=== PATIENT | male | born 1985 | race Caucasian/White ===

== ENCOUNTER 2024-03-26 16:13 | Inpatient (IN) ==
[2024-03-26 17:30] LABS: Anisocytosis Present; Basophils # (auto) 0.01 K/uL (0.00-0.20); Basophils % (auto) 0.1 %; Hematocrit (blood only) 15.9 % (42.0-52.0); Hemoglobin 4.4 g/dl (14.0-18.0); Hypochromasia Present; Immature Granulocytes # (auto) 0.23 K/uL (0.01-0.20); Immature Granulocytes % (auto) 1.6 %; Lymphocytes # (auto) 0.44 K/uL (1.20-3.40); Mean Corpuscular Hemoglobin 19.9 pg (25.0-34.0); Mean Corpuscular Hgb Conc 27.7 g/dL (32.0-36.0); Mean Corpuscular Volume 71.9 fL (80.0-100.0); Mean Platelet Volume 10.4 fL (9.4-12.4); Monocytes # (auto) 1.43 K/uL (0.11-0.59); Monocytes % (auto) 9.8 %; Neutrophils # (auto) 12.52 K/uL (1.40-6.50); Neutrophils % (auto) 85.5 %; Nucleated RBC # (auto) 0.08 K/uL (0.00-0.12); Nucleated RBC % (auto) 0.5 %; Platelet Count 284 K/uL (130-400); Polychromasia 1+; RDW Coefficient of Variation 24.8 % (11.5-14.5); RDW Standard Deviation 60.9 fL (36.4-46.3); Red Blood Count 2.21 M/uL (4.70-6.10); Stomatocytes 1+; Target Cells 1+; Tear Drop Cells 1+; White Blood Count 14.63 K/ul (4.8-10.8)
[2024-03-26 17:38] LABS: Acetaminophen < 3 ug/ml (10-30); Salicylate < 3.0 mg/dl (3.0-30)
[2024-03-26 17:45] LABS: Alkaline Phosphatase 121 U/L (34-104); Blood Urea Nitrogen 21 mg/dl (6-23)
[2024-03-26 18:18] LABS: Alanine Aminotransferase 31 U/L (7-52); Albumin Globulin Ratio 1.1 (0.9-2); Albumin Level 3.1 gm/dl (3.4-5.0); Anion Gap 14 (3-11); Aspartate Aminotransferase 76 U/L (13-39); Bilirubin,Total 22.5 mg/dl (0.2-1.0); Calcium 7.9 mg/dl (8.6-10.3); Carbon Dioxide 21 mmol/L (21-32); Chloride 78 mmol/L (98-107); Globulin 2.7 gm/dl (2.5-4.0); Glucose 120 mg/dl (70-99(Fasting)); Potassium 3.5 mmol/L (3.5-5.1); Sodium 113 mmol/L (136-145); Total Protein 5.8 gm/dl (6.0-8.3)
[2024-03-26 18:26] LABS: Prothrombin Time 20.7 Seconds (9.0-12.0)
[2024-03-26 19:22] LABS: iSTAT Creatinine 1.5 mg/dl (0.6-1.3); iSTAT Hemoglobin 5.8 g/dl (14.0-18.0); iSTAT Ionized Calcium 0.99 mmol/l (1.12-1.32); iSTAT Potassium 3.4 mmol/L (3.3-5.0)
--- NOTE | 2024-03-26 19:24 | Emergency Department Note ---
Impression & Plan Acute liver failure, Alcoholic cirrhosis, Anemia, Jaundice, Elevated bilirubin ED Provider Note NAME: JEOVANNY JORDAN AGE: 38 SEX: M : 1985 ARRIVES VIA: Walk-In INFORMANT: Patient, ED PROVIDER(S): Rebeka Encarnacion MD CHIEF COMPLAINT: Jaundice HPI: This is a 38-year-old male presenting for jaundice. Patient states for past 1 week he has had no energy and, no appetite and has noticed he became sick significantly yellow. He notes he does not drink alcohol last 2 days. He notes aching through his entire body. He notes alcohol use extensively past 10 years, daily alcohol use, extensive, no change to this. Otherwise no nausea, vomiting. No abdominal pain. He does note his abdomen is distended. ROS: See above HPI for pertinent positives & negatives. A total of 10 systems reviewed and were otherwise negative. PHYSICAL EXAMINATION: General: resting comfortably in no acute distress Head: Normocephalic and atraumatic Eyes: Normal inspection, extraocular muscles intact, scleral icterus Ear, nose, throat: Normal external exam Neck: Normal range of motion Respiratory: lungs clear to auscultation bilaterally Cardiovascular: Regular rate/rhythm, no murmur GI: soft, nontender, no guarding or rebound, distended abdomen Extremities: nontender, moves all extremities Neuro: The patient awake and alert, appropriately conversive, no focal deficits, symmetric faces Skin: Diffuse jaundice MEDICAL DECISION MAKING: This is a 38-year-old male presenting for jaundice. -Patient extremely jaundiced. -Patient send abdomen is no tenderness. Low concern for obstructive cause such as choledocholithiasis. -Will initiate broad workup with blood work, CBC, BMP, LFTs, lipase, INR -Patient remains over 20 at this time, significant leukocytosis, hemoglobin of 4.4, INR of 2. Patient appears to be in liver failure. Patient denies any trauma. -Will pursue imaging as result of this significant bilirubin as to rule out obstructive cause. Otherwise we will evaluate for internal injuries. -Patient being does reveal signs of cirrhosis without obstruction. -Patient ordered for 2 units of blood at this time. No signs of active hemorrhage. Patient is not hypertensive, hypotensive or signs of infection at this time. -Discussed care with on-call hospitalist, Dr. Martinez with accepts patient to his service. Differential diagnosis: Choledocholithiasis, cholecystitis, liver failure, cancer, ER treatment provided: See below Diagnostics interpreted by me: ECG: ECG independently interpreted by me with normal sinus rhythm, rate of 80, normal axis, normal WA, normal QRS, prolonged QTc, no ST segment elevations consistent with STEMI criteria Cardiac Monitoring: An order was placed for continuous cardiac monitoring. The monitor shows a rate of 88 with sinus rhythm. Laboratory studies: As stated above and show below. Imaging studies: See below. Critical Care Note: I have personally spent 32 minutes of critical care time in the direct management of this patient. This includes bedside care, interpretation of diagnostic studies, and testing, discussion with consultants, patient, and family members, and other required patient management activities. This 32 minutes is in excess of all separately billable procedures. Past Med/Surg History Problem List (Updated 04/02/24 @ 00:09 by Rebeka Encarnacion MD) Elevated bilirubin (Acute) Jaundice (Acute) Anemia (Acute) Alcoholic cirrhosis (Acute) Acute liver failure (Acute) Encounter for pre-operative examination Hyponatremia Medical History Renal failure Electrolyte and fluid disorder Acute GI bleeding Cirrhosis Alcoholic liver failure Profound anemia Alcohol abuse Surgical History Hx of wisdom tooth extraction Hx of myringotomy Family History Father Heart disease Mother Cancer Social History Smoking Status: Never smoker Second Hand Exposure: No; Do You Dip or Chew Tobacco: No; Hx Alcohol Use: Yes Alcohol type: hard liquor Hx Substance Use: No Preferred Language: Niuean Communication Ability: Effective Culture Manager Required: No Beliefs That Will Affect Care: None Current Living Situation: Alone Other Information That Helps Us Care for You: No Feels Safe at Home: Yes Safety Concerns: Feels Safe At This Time Assistive Devices: None Allergies Allergies Allergy/AdvReac Type Severity Reaction Status Date / Time No Known Allergies Allergy Verified 03/26/24 19:12 Home Meds Home Medications Medication Instructions Recorded Confirmed No Known Home Medications 03/26/24 03/26/24 Results & Data (ED) Vital Signs Vital Signs - 24 hr 03/26/24 19:00 03/26/24 19:21 03/26/24 19:50 Temperature Temperature Source Pulse Rate 93 H 91 H Pulse Rate [Radial] Pulse Rate from SpO2 Sensor Respiratory Rate 21 21 Blood Pressure 111/63 Blood Pressure [Left Arm] Blood Pressure Mean 79 Blood Pressure Mean [Left Arm] Pulse Oximetry 03/26/24 20:00 03/26/24 20:00 03/26/24 20:21 Temperature Temperature Source Pulse Rate 91 H 90 Pulse Rate [Radial] Pulse Rate from SpO2 Sensor 90 Respiratory Rate 18 Blood Pressure 116/78 116/78 Blood Pressure [Left Arm] Blood Pressure Mean 88 88 Blood Pressure Mean [Left Arm] Pulse Oximetry 95 91 03/26/24 20:30 03/26/24 20:30 03/26/24 20:30 Temperature Temperature Source Pulse Rate Pulse Rate [Radial] Pulse Rate from SpO2 Sensor Respiratory Rate Blood Pressure 116/68 116/68 116/68 Blood Pressure [Left Arm] Blood Pressure Mean 94 94 94 Blood Pressure Mean [Left Arm] Pulse Oximetry 03/26/24 20:30 03/26/24 20:47 03/26/24 21:00 Temperature Temperature Source Pulse Rate 91 H 86 Pulse Rate [Radial] Pulse Rate from SpO2 Sensor 91 H Respiratory Rate 21 Blood Pressure 115/61 Blood Pressure [Left Arm] Blood Pressure Mean 78 Blood Pressure Mean [Left Arm] Pulse Oximetry 92 03/26/24 21:00 03/26/24 21:00 03/26/24 21:29 Temperature 36.8 C Temperature Source Oral Pulse Rate 91 H 92 H Pulse Rate [Radial] Pulse Rate from SpO2 Sensor 87 Respiratory Rate 22 18 Blood Pressure 115/61 115/61 Blood Pressure [Left Arm] Blood Pressure Mean 78 79 Blood Pressure Mean [Left Arm] Pulse Oximetry 94 95 03/26/24 21:39 03/26/24 21:45 03/26/24 22:00 Temperature 36.2 C L 36.8 C Temperature Source Oral Oral Pulse Rate 87 91 H 93 H Pulse Rate [Radial] Pulse Rate from SpO2 Sensor 88 Respiratory Rate 18 18 18 Blood Pressure 128/69 128/69 Blood Pressure [Left Arm] Blood Pressure Mean 88 88 Blood Pressure Mean [Left Arm] Pulse Oximetry 97 99 98 03/26/24 22:00 03/26/24 22:00 03/26/24 22:00 Temperature Temperature Source Pulse Rate 92 H 92 H Pulse Rate [Radial] Pulse Rate from SpO2 Sensor 93 H Respiratory Rate 18 19 Blood Pressure 128/69 128/69 Blood Pressure [Left Arm] Blood Pressure Mean 95 95 Blood Pressure Mean [Left Arm] Pulse Oximetry 97 98 03/26/24 22:09 03/26/24 22:30 03/26/24 22:30 Temperature Temperature Source Pulse Rate 87 91 H Pulse Rate [Radial] Pulse Rate from SpO2 Sensor 89 Respiratory Rate 20 20 Blood Pressure 113/72 113/72 Blood Pressure [Left Arm] Blood Pressure Mean 78 78 Blood Pressure Mean [Left Arm] Pulse Oximetry 97 99 03/26/24 22:33 03/26/24 23:00 03/26/24 23:00 Temperature 36.9 C Temperature Source Oral Pulse Rate 91 H 97 H Pulse Rate [Radial] 84 Pulse Rate from SpO2 Sensor 91 H 98 H Respiratory Rate 20 15 18 Blood Pressure Blood Pressure [Left Arm] 122/66 Blood Pressure Mean Blood Pressure Mean [Left Arm] 84 Pulse Oximetry 99 100 99 03/26/24 23:48 03/27/24 00:00 03/27/24 00:21 Temperature 37 C Temperature Source Oral Pulse Rate 90 87 Pulse Rate [Radial] 85 Pulse Rate from SpO2 Sensor 92 H 86 Respiratory Rate 22 18 23 Blood Pressure Blood Pressure [Left Arm] 119/67 Blood Pressure Mean Blood Pressure Mean [Left Arm] 84 Pulse Oximetry 99 98 03/27/24 00:22 03/27/24 00:23 03/27/24 00:23 Temperature 36.8 C Temperature Source Oral Pulse Rate 88 Pulse Rate [Radial] Pulse Rate from SpO2 Sensor Respiratory Rate 18 Blood Pressure 119/67 119/67 119/67 Blood Pressure [Left Arm] Blood Pressure Mean 84 84 84 Blood Pressure Mean [Left Arm] Pulse Oximetry 98 03/27/24 00:27 03/27/24 00:30 03/27/24 00:30 Temperature 37 C Temperature Source Oral Pulse Rate 87 Pulse Rate [Radial] 85 Pulse Rate from SpO2 Sensor 86 Respiratory Rate 19 18 Blood Pressure 122/66 Blood Pressure [Left Arm] 119/69 Blood Pressure Mean 85 Blood Pressure Mean [Left Arm] 85 Pulse Oximetry 99 95 03/27/24 00:30 03/27/24 00:45 03/27/24 00:57 Temperature 36.6 C Temperature Source Oral Pulse Rate 91 H 90 Pulse Rate [Radial] Pulse Rate from SpO2 Sensor 88 Respiratory Rate 18 22 Blood Pressure 122/66 122/68 Blood Pressure [Left Arm] Blood Pressure Mean 85 86 Blood Pressure Mean [Left Arm] Pulse Oximetry 99 99 03/27/24 00:59 03/27/24 01:00 Temperature Temperature Source Pulse Rate 89 Pulse Rate [Radial] Pulse Rate from SpO2 Sensor Respiratory Rate Blood Pressure 122/68 Blood Pressure [Left Arm] Blood Pressure Mean 77 Blood Pressure Mean [Left Arm] Pulse Oximetry Laboratory Data 04/01/24 06:00 04/01/24 06:00 Lab Results 03/26/24 03/26/24 03/26/24 Range/Units 16:41 18:21 19:09 WBC 14.63 H (4.8-10.8) K/ul RBC 2.21 L (4.70-6.10) M/uL Hgb 4.4 L* (14.0-18.0) g/dl POC Hgb 5.8 L* (14.0-18.0) g/dl Hct 15.9 L* (42.0-52.0) % POC Hct 17 L* (42-52) % MCV 71.9 L (80.0-100.0) fL MCH 19.9 L (25.0-34.0) pg MCHC 27.7 L (32.0-36.0) g/dL RDW Std Deviation 60.9 H (36.4-46.3) fL RDW Coeff of Christy 24.8 H (11.5-14.5) % Plt Count 284 (130-400) K/uL MPV 10.4 (9.4-12.4) fL Immature Gran % (Auto) 1.6 % Neut % (Auto) 85.5 % Lymph % (Auto) 3.0 % [place] % (Auto) 9.8 % Eos % (Auto) 0.0 % Baso % (Auto) 0.1 % Neut # (Auto) 12.52 H (1.40-6.50) K/uL Lymph # (Auto) 0.44 L (1.20-3.40) K/uL [place] # (Auto) 1.43 H (0.11-0.59) K/uL Eos # (Auto) 0.00 (0.00-0.50) K/uL Baso # (Auto) 0.01 (0.00-0.20) K/uL Immature Gran # (Auto) 0.23 H (0.01-0.20) K/uL Absolute Nucleated RBC 0.08 (0.00-0.12) K/uL Nucleated RBC % (auto) 0.5 % Polychromasia 1+ Hypochromasia Present Anisocytosis Present Target Cells 1+ Tear Drop Cells 1+ Stomatocytes 1+ PT 20.7 H (9.0-12.0) Seconds INR 2.0 H (0.9-1.1) POC Sodium 112 L* (135-144) mmol/L Sodium 113 L* (136-145) mmol/L POC Potassium 3.4 (3.3-5.0) mmol/L Potassium 3.5 (3.5-5.1) mmol/L POC Chloride 76 L (101-112) mmol/L Chloride 78 L (98-107) mmol/L Carbon Dioxide 21 (21-32) mmol/L POC Total CO2 22 L (24-31) mmol/L Anion Gap 14 H (3-11) POC Anion Gap 19.0 (16-25) mmol/L POC BUN 19 H (7-18) mg/dl BUN 21 (6-23) mg/dl Creatinine TNP POC Creatinine 1.5 H (0.6-1.3) mg/dl Est Cr Clr Drug Dosing TNP Est GFR ( Amer) TNP Est GFR (Non-Af Amer) TNP BUN/Creatinine Ratio TNP Glucose 120 H (70-99(Fasting)) mg/dl POC Glucose (other) 119 H (70-99) mg/dl Calcium 7.9 L (8.6-10.3) mg/dl POC Ioniz Calcium Alok 0.99 L (1.12-1.32) mmol/l Total Bilirubin 22.5 H (0.2-1.0) mg/dl Direct Bilirubin 14.2 H (0-0.2) mg/dl AST 76 H (13-39) U/L ALT 31 (7-52) U/L Alkaline Phosphatase 121 H (34-104) U/L Total Protein 5.8 L (6.0-8.3) gm/dl Albumin 3.1 L (3.4-5.0) gm/dl Globulin 2.7 (2.5-4.0) gm/dl Albumin/Globulin Ratio 1.1 (0.9-2) Lipase TNP Urine Color Urine Appearance (Clear) Urine pH (4.5-7.5) Ur Specific [place] (1.000-1.030) Urine Protein (Negative) Urine Glucose (UA) (Negative) Urine Ketones (Negative) Urine Blood (Negative) Urine Nitrite (Negative) Urine Bilirubin (Negative) Urine Urobilinogen (Negative) Ur Leukocyte Esterase (Negative) Urine WBC (Auto) (0-5) /hpf Urine RBC (Auto) (0-2) /hpf U Hyaline Cast (Auto) (0-2) /lpf U Epithel Cells (Auto) (0-2) /hpf Urine Bacteria (Auto) (None Seen) Salicylates < 3.0 L (3.0-30) mg/dl Urine Opiates Screen (Neg) Ur Methadone, Qual (Neg) Urine Fentanyl Screen (Neg) Acetaminophen < 3 L (10-30) ug/ml Urine Barbiturates (Neg) Ur Phencyclidine (PCP) (Neg) U Amphetamin/Meth Scrn (Neg) MDMA (Ecstasy) Screen (Neg) U Benzodiazepines Scrn (Neg) Ur Cocaine Metabolite (Neg) U Marijuana (THC) Screen (Neg) Ethyl Alcohol mg/dL < 10.0 (<10.0) mg/dl Blood Type A Positive Blood Type Recheck Antibody Screen NEGATIVE Crossmatch See Detail 03/26/24 03/26/24 Range/Units 19:46 21:00 WBC (4.8-10.8) K/ul RBC (4.70-6.10) M/uL Hgb (14.0-18.0) g/dl POC Hgb (14.0-18.0) g/dl Hct (42.0-52.0) % POC Hct (42-52) % MCV (80.0-100.0) fL MCH (25.0-34.0) pg MCHC (32.0-36.0) g/dL RDW Std Deviation (36.4-46.3) fL RDW Coeff of Christy (11.5-14.5) % Plt Count (130-400) K/uL MPV (9.4-12.4) fL Immature Gran % (Auto) % Neut % (Auto) % Lymph % (Auto) % [place] % (Auto) % Eos % (Auto) % Baso % (Auto) % Neut # (Auto) (1.40-6.50) K/uL Lymph # (Auto) (1.20-3.40) K/uL [place] # (Auto) (0.11-0.59) K/uL Eos # (Auto) (0.00-0.50) K/uL Baso # (Auto) (0.00-0.20) K/uL Immature Gran # (Auto) (0.01-0.20) K/uL Absolute Nucleated RBC (0.00-0.12) K/uL Nucleated RBC % (auto) % Polychromasia Hypochromasia Anisocytosis Target Cells Tear Drop Cells Stomatocytes PT (9.0-12.0) Seconds INR (0.9-1.1) POC Sodium (135-144) mmol/L Sodium (136-145) mmol/L POC Potassium (3.3-5.0) mmol/L Potassium (3.5-5.1) mmol/L POC Chloride (101-112) mmol/L Chloride (98-107) mmol/L Carbon Dioxide (21-32) mmol/L POC Total CO2 (24-31) mmol/L Anion Gap (3-11) POC Anion Gap (16-25) mmol/L POC BUN (7-18) mg/dl BUN (6-23) mg/dl Creatinine POC Creatinine (0.6-1.3) mg/dl Est Cr Clr Drug Dosing Est GFR ( Amer) Est GFR (Non-Af Amer) BUN/Creatinine Ratio Glucose (70-99(Fasting)) mg/dl POC Glucose (other) (70-99) mg/dl Calcium (8.6-10.3) mg/dl POC Ioniz Calcium Alok (1.12-1.32) mmol/l Total Bilirubin (0.2-1.0) mg/dl Direct Bilirubin (0-0.2) mg/dl AST (13-39) U/L ALT (7-52) U/L Alkaline Phosphatase (34-104) U/L Total Protein (6.0-8.3) gm/dl Albumin (3.4-5.0) gm/dl Globulin (2.5-4.0) gm/dl Albumin/Globulin Ratio (0.9-2) Lipase Urine Color Dark Yellow Urine Appearance Clear (Clear) Urine pH 6.0 (4.5-7.5) Ur Specific [place] > 1.045 H (1.000-1.030) Urine Protein Negative (Negative) Urine Glucose (UA) Negative (Negative) Urine Ketones Trace H (Negative) Urine Blood Negative (Negative) Urine Nitrite Negative (Negative) Urine Bilirubin 3+ H (Negative) Urine Urobilinogen Negative (Negative) Ur Leukocyte Esterase Trace H (Negative) Urine WBC (Auto) 0-5 (0-5) /hpf Urine RBC (Auto) >20 H (0-2) /hpf U Hyaline Cast (Auto) 0-2 (0-2) /lpf U Epithel Cells (Auto) 6-10 H (0-2) /hpf Urine Bacteria (Auto) None Seen (None Seen) Salicylates (3.0-30) mg/dl Urine Opiates Screen Neg (Neg) Ur Methadone, Qual Neg (Neg) Urine Fentanyl Screen Neg (Neg) Acetaminophen (10-30) ug/ml Urine Barbiturates Neg (Neg) Ur Phencyclidine (PCP) Neg (Neg) U Amphetamin/Meth Scrn Neg (Neg) MDMA (Ecstasy) Screen Neg (Neg) U Benzodiazepines Scrn Neg (Neg) Ur Cocaine Metabolite Neg (Neg) U Marijuana (THC) Screen Neg (Neg) Ethyl Alcohol mg/dL (<10.0) mg/dl Blood Type Blood Type Recheck A Positive Antibody Screen Crossmatch Administered Medications Furosemide (Furosemide 20 Mg Tab) [facility] Stop: 04/29/24 11:29 Last Admin: 04/01/24 08:39 Dose: 20 mg Documented By: Admin: 03/31/24 08:11 Dose: 20 mg Documented By: Admin: 03/30/24 12:59 Dose: 20 mg Documented By: CB Hydrocortisone (Hydrocortisone 2.5% Oint 20 Gm Tube) 1 appln EXT BID [facility] Stop: 05/01/24 08:59 Last Admin: 04/01/24 20:47 Dose: 1 appln Documented By: Admin: 04/01/24 08:43 Dose: 1 appln Documented By: EP Folic Acid 1 mg/ Syringe 10 mls @ 5 mls/min IV QAM [facility] Stop: 04/26/24 08:59 Last Admin: 04/01/24 08:41 Dose: 5 mls/min Documented By: Admin: 03/31/24 08:13 Dose: 5 mls/min Documented By: Admin: 03/30/24 09:08 Dose: 5 mls/min Documented By: Admin: 03/29/24 08:52 Dose: 5 mls/min Documented By: Admin: 03/28/24 16:57 Dose: Not Given Documented By: Admin: 03/27/24 09:34 Dose: 5 mls/min Documented By: MILAGROS Lactulose (Lactulose Syrup 20 Gm/30 Ml Udc) 20 gm PO DAILY YU Stop: 04/29/24 11:44 Last Admin: 04/01/24 08:41 Dose: 20 gm Documented By: Admin: 03/31/24 08:12 Dose: 20 gm Documented By: Admin: 03/30/24 13:00 Dose: 20 gm Documented By: SHANIQUE Lidocaine HCl (Lidocaine 2% Jelly 5 Ml Tube) 1 ml EXT BID YU Stop: 05/01/24 08:59 Last Admin: 04/01/24 20:55 Dose: 1 ml Documented By: Admin: 04/01/24 12:37 Dose: 1 ml Documented By: DA Pantoprazole Sodium (Pantoprazole 40 Mg Tab) 40 mg PO BID YU Stop: 04/29/24 11:29 Last Admin: 04/01/24 20:45 Dose: 40 mg Documented By: Admin: 04/01/24 08:39 Dose: 40 mg Documented By: Admin: 03/31/24 20:40 Dose: 40 mg Documented By: Admin: 03/31/24 08:11 Dose: 40 mg Documented By: Admin: 03/30/24 20:44 Dose: 40 mg Documented By: Admin: 03/30/24 13:00 Dose: 40 mg Documented By: SHANIQUE Rifaximin (Rifaximin 550 Mg Tablet) 550 mg PO BID [facility] Stop: 04/29/24 11:44 Last Admin: 04/01/24 20:45 Dose: 550 mg Documented By: Admin: 04/01/24 08:41 Dose: 550 mg Documented By: Admin: 03/31/24 20:40 Dose: 550 mg Documented By: Admin: 03/31/24 08:12 Dose: 550 mg Documented By: Admin: 03/30/24 20:43 Dose: 550 mg Documented By: Admin: 03/30/24 13:00 Dose: 550 mg Documented By: SHANIQUE Spironolactone (Spironolactone 25 Mg Tab) 50 mg PO QAM YU Stop: 04/29/24 11:29 Last Admin: 04/01/24 08:40 Dose: 50 mg Documented By: Admin: 03/31/24 08:12 Dose: 50 mg Documented By: Admin: 03/30/24 13:00 Dose: 50 mg Documented By: SHANIQUE Discontinued Medications Dexmedetomidine/Sodium Chloride (Dexmedetomidine 200mcg / 50ml Nss) Confirm Administered Dose 200 mcg IV .STK-MED ONE Stop: 03/28/24 13:51 Last Admin: 03/28/24 15:57 Dose: Not Given Documented By: MILAGROS Sodium Chloride (Nss) 250 mls @ 15 mls/hr IV .[id number] PRN PRN Reason: For Transfusion Duration Stop: 03/27/24 04:27 Last Infusion: 03/28/24 14:15 Dose: Infused Documented By: Admin: 03/26/24 21:32 Dose: 15 mls/hr Documented By: ACE Sodium Chloride (Nss) 1,000 mls @ 999 mls/hr IV .Q1H1M ONE Stop: 03/26/24 20:30 Last Infusion: 03/26/24 20:51 Dose: Infused Documented By: Admin: 03/26/24 19:50 Dose: 999 mls/hr Documented By: ACE Acetylcysteine 10,550 mg/ (Dextrose) 252.75 mls @ 200 mls/hr IV ONCE ONE; Protocol Stop: 03/27/24 02:38 Last Infusion: 03/27/24 03:11 Dose: Infused Documented By: Admin: 03/27/24 01:51 Dose: 200 mls/hr Documented By: ACE Acetylcysteine 3,520 mg/ (Dextrose) 517.6 mls @ 125 mls/hr IV ONCE ONE; Protocol Stop: 03/27/24 06:31 Last Infusion: 03/27/24 10:27 Dose: Infused Documented By: Admin: 03/27/24 03:10 Dose: 125 mls/hr Documented By: BHAVNA Acetylcysteine 7,030 mg/ (Dextrose) 1,035.15 mls @ 62.5 mls/hr IV ONCE ONE; Protocol Stop: 03/27/24 22:56 Last Infusion: 03/28/24 00:40 Dose: Infused Documented By: Admin: 03/27/24 07:55 Dose: 62.5 mls/hr Documented By: MILAGROS Ceftriaxone Sodium (Rocephin) 2,000 mg in 50 mls @ 100 mls/hr IV NOW STA Stop: 03/27/24 02:02 Last Infusion: 03/27/24 02:25 Dose: Infused Documented By: Admin: 03/27/24 01:51 Dose: 100 mls/hr Documented By: ACE Pantoprazole Sodium 40 mg/ (Dextrose) 100 mls @ 20 mls/hr IV Q5H YU Stop: 04/26/24 02:30 Last Infusion: 03/30/24 11:42 Dose: Infused Documented By: Infusion: 03/30/24 11:42 Dose: 0 mg/hr, 0 mls/hr Documented By: Admin: 03/30/24 09:08 Dose: 8 mg/hr, 20 mls/hr Documented By: Infusion: 03/30/24 09:08 Dose: Infused Documented By: Admin: 03/30/24 05:15 Dose: 8 mg/hr, 20 mls/hr Documented By: Infusion: 03/30/24 05:15 Dose: Infused Documented By: Admin: 03/30/24 00:28 Dose: 8 mg/hr, 20 mls/hr Documented By: Infusion: 03/30/24 00:28 Dose: Infused Documented By: Admin: 03/29/24 19:48 Dose: 8 mg/hr, 20 mls/hr Documented By: Infusion: 03/29/24 19:14 Dose: Infused Documented By: Admin: 03/29/24 14:14 Dose: 8 mg/hr, 20 mls/hr Documented By: Infusion: 03/29/24 14:14 Dose: Infused Documented By: Admin: 03/29/24 09:36 Dose: 8 mg/hr, 20 mls/hr Documented By: Infusion: 03/29/24 09:36 Dose: Infused Documented By: Admin: 03/29/24 08:53 Dose: Not Given Documented By: Admin: 03/29/24 05:45 Dose: 8 mg/hr, 20 mls/hr Documented By: Admin: 03/29/24 01:52 Dose: Not Given Documented By: Admin: 03/28/24 16:59 Dose: Not Given Documented By: Infusion: 03/28/24 16:59 Dose: Infused Documented By: Admin: 03/28/24 16:57 Dose: Not Given Documented By: Admin: 03/28/24 16:56 Dose: Not Given Documented By: Admin: 03/27/24 23:02 Dose: 8 mg/hr, 20 mls/hr Documented By: Infusion: 03/27/24 23:02 Dose: Infused Documented By: Admin: 03/27/24 18:08 Dose: 8 mg/hr, 20 mls/hr Documented By: Infusion: 03/27/24 17:23 Dose: Infused Documented By: Admin: 03/27/24 12:23 Dose: 8 mg/hr, 20 mls/hr Documented By: Infusion: 03/27/24 12:23 Dose: Infused Documented By: Admin: 03/27/24 07:57 Dose: 8 mg/hr, 20 mls/hr Documented By: Infusion: 03/27/24 07:57 Dose: Infused Documented By: Admin: 03/27/24 03:11 Dose: 8 mg/hr, 20 mls/hr Documented By: BHAVNA Pantoprazole Sodium 80 mg/ (Dextrose) 120 mls @ 480 mls/hr IV NOW ONE Stop: 03/27/24 02:59 Last Infusion: 03/27/24 03:11 Dose: Infused Documented By: Admin: 03/27/24 02:59 Dose: 480 mls/hr Documented By: BHAVNA Thiamine HCl 100 mg/ Syringe 10 mls @ 2 mls/min IV NOW STA Stop: 03/27/24 02:39 Last Admin: 03/27/24 02:59 Dose: 2 mls/min Documented By: BHAVNA Thiamine HCl 100 mg/ Syringe 10 mls @ 2 mls/min IV QAM YU Stop: 04/26/24 08:59 Last Admin: 03/28/24 19:11 Dose: Not Given Documented By: Admin: 03/27/24 09:33 Dose: 2 mls/min Documented By: MILAGROS Sodium Chloride 342.5 meq/ (Sterile Water) 1,000 mls @ 50 mls/hr IV .Q20H [facility] Stop: 04/26/24 04:29 Last Infusion: 03/27/24 09:59 Dose: Infused Documented By: Admin: 03/27/24 04:45 Dose: 50 mls/hr Documented By: BHAVNA Phytonadione 10 mg/ Dextrose 51 mls @ 102 mls/hr IV ONE ONE Stop: 03/27/24 05:44 Last Infusion: 03/27/24 05:41 Dose: Infused Documented By: Admin: 03/27/24 05:15 Dose: 102 mls/hr Documented By: BHAVNA Calcium Gluconate () 1,000 mg in 60 mls @ 240 mls/hr IV Q15M [facility] Stop: 03/27/24 05:44 Last Infusion: 03/27/24 06:00 Dose: Infused Documented By: Admin: 03/27/24 05:40 Dose: 240 mls/hr Documented By: Infusion: 03/27/24 05:30 Dose: Infused Documented By: Admin: 03/27/24 05:15 Dose: 240 mls/hr Documented By: BHAVNA Magnesium Sulfate/Dextrose (Magnesium Sulfate / D5w) 1 gm in 100 mls @ 50 mls/hr IV Q2H [facility] Stop: 03/27/24 09:59 Last Infusion: 03/27/24 10:26 Dose: Infused Documented By: Admin: 03/27/24 07:56 Dose: 50 mls/hr Documented By: Infusion: 03/27/24 07:56 Dose: Infused Documented By: Admin: 03/27/24 06:45 Dose: 50 mls/hr Documented By: BHAVNA Potassium Chloride (K Cesar / Wtr) 10 meq in 100 mls @ 100 mls/hr IV Q1H [facility] Stop: 03/27/24 10:59 Last Infusion: 03/27/24 16:49 Dose: Infused Documented By: Admin: 03/27/24 11:08 Dose: 100 mls/hr Documented By: Infusion: 03/27/24 11:04 Dose: Infused Documented By: Admin: 03/27/24 10:04 Dose: 100 mls/hr Documented By: Infusion: 03/27/24 09:55 Dose: Infused Documented By: Admin: 03/27/24 08:55 Dose: 100 mls/hr Documented By: Infusion: 03/27/24 08:55 Dose: Infused Documented By: Admin: 03/27/24 07:55 Dose: 100 mls/hr Documented By: MILAGROS Octreotide Acetate 50 mcg/ (Syringe) 10 mls @ 3 mls/min IV ONE STA Stop: 03/27/24 09:39 Last Admin: 03/27/24 10:18 Dose: 3 mls/min Documented By: MILAGROS Octreotide Acetate 500 mcg/ (Sodium Chloride) 100.5 mls @ 10.05 mls/hr IV .Q10H YU Stop: 04/01/24 09:44 Last Infusion: 03/30/24 12:05 Dose: Infused Documented By: Infusion: 03/30/24 11:42 Dose: 0 mcg/hr, 0 mls/hr Documented By: Admin: 03/30/24 05:15 Dose: 50 mcg/hr, 10.1 mls/hr Documented By: Infusion: 03/30/24 05:15 Dose: Infused Documented By: Admin: 03/29/24 19:48 Dose: 50 mcg/hr, 10.1 mls/hr Documented By: Infusion: 03/29/24 19:48 Dose: Infused Documented By: Admin: 03/29/24 10:47 Dose: 50 mcg/hr, 10.1 mls/hr Documented By: Infusion: 03/29/24 10:47 Dose: Infused Documented By: Admin: 03/29/24 01:53 Dose: 50 mcg/hr, 10.1 mls/hr Documented By: Infusion: 03/29/24 01:53 Dose: Infused Documented By: Admin: 03/28/24 16:58 Dose: Not Given Documented By: Admin: 03/28/24 16:27 Dose: 50 mcg/hr, 10.1 mls/hr Documented By: Infusion: 03/28/24 06:39 Dose: Infused Documented By: Admin: 03/27/24 20:41 Dose: 50 mcg/hr, 10.1 mls/hr Documented By: Infusion: 03/27/24 20:41 Dose: Infused Documented By: Admin: 03/27/24 10:52 Dose: 50 mcg/hr, 10.1 mls/hr Documented By: MILAGROS Calcium Gluconate () 1,000 mg in 60 mls @ 240 mls/hr IV ONE STA Stop: 03/27/24 10:01 Last Infusion: 03/27/24 16:51 Dose: Infused Documented By: Admin: 03/27/24 10:49 Dose: 240 mls/hr Documented By: MILAGROS Dextrose (D5w) 1,000 mls @ 999 mls/hr IV .Q1H1M YU Stop: 03/27/24 11:15 Last Infusion: 03/27/24 19:36 Dose: Infused Documented By: Infusion: 03/27/24 16:50 Dose: Infused Documented By: Admin: 03/27/24 11:14 Dose: 999 mls/hr Documented By: MILAGROS Desmopressin Acetate 1 mcg/ (Sodium Chloride) 50.25 mls @ 100 mls/hr IV ONCE ONE Stop: 03/27/24 11:20 Last Infusion: 03/27/24 16:50 Dose: Infused Documented By: Admin: 03/27/24 12:23 Dose: 100 mls/hr Documented By: MILAGROS Potassium Chloride (K Cesar / Wtr) 10 meq in 100 mls @ 100 mls/hr IV Q1H YU Stop: 03/27/24 16:14 Last Infusion: 03/27/24 16:49 Dose: Infused Documented By: Admin: 03/27/24 15:28 Dose: 100 mls/hr Documented By: Infusion: 03/27/24 15:24 Dose: Infused Documented By: Admin: 03/27/24 14:24 Dose: 100 mls/hr Documented By: MILAGROS Potassium Chloride (K Cesar / Wtr) 10 meq in 100 mls @ 100 mls/hr IV Q1H YU Stop: 03/27/24 16:14 Last Infusion: 03/27/24 16:49 Dose: Infused Documented By: Admin: 03/27/24 15:28 Dose: 100 mls/hr Documented By: Infusion: 03/27/24 15:27 Dose: Infused Documented By: Admin: 03/27/24 14:27 Dose: 100 mls/hr Documented By: MILAGROS Magnesium Sulfate/Dextrose (Magnesium Sulfate / D5w) 1 gm in 100 mls @ 50 mls/hr IV Q2H YU Stop: 03/27/24 21:44 Last Infusion: 03/27/24 23:37 Dose: Infused Documented By: Admin: 03/27/24 21:28 Dose: 50 mls/hr Documented By: Infusion: 03/27/24 21:28 Dose: Infused Documented By: Admin: 03/27/24 19:32 Dose: 50 mls/hr Documented By: Infusion: 03/27/24 18:54 Dose: Infused Documented By: Admin: 03/27/24 16:54 Dose: 50 mls/hr Documented By: MILAGROS Methylprednisolone 60 mg/ (Syringe) 0.96 mls @ 1.5 mls/min IV DAILY YU Stop: 04/27/24 08:59 Last Admin: 03/28/24 16:57 Dose: Not Given Documented By: MILAGROS Lorazepam 1 mg/ Syringe 1 mls @ 2 mls/min IV ONE PRN; Protocol PRN Reason: EtoH Withdrawal AWSS 6-10 Last Admin: 03/27/24 18:33 Dose: 2 mls/min Documented By: MILAGROS Thiamine HCl 500 mg/ Sodium (Chloride) 55 mls @ 210 mls/hr IV QAM YU Stop: 04/26/24 18:14 Last Infusion: 03/30/24 09:26 Dose: Infused Documented By: Admin: 03/30/24 09:08 Dose: 210 mls/hr Documented By: Infusion: 03/29/24 09:41 Dose: Infused Documented By: Admin: 03/29/24 08:52 Dose: 210 mls/hr Documented By: Admin: 03/28/24 16:58 Dose: Not Given Documented By: Infusion: 03/27/24 20:30 Dose: Infused Documented By: Admin: 03/27/24 20:10 Dose: 210 mls/hr Documented By: BHAVNA Potassium Phosphate 8 mmol/ (Sodium Chloride) 252.6667 mls @ 88 mls/hr IV ONE ONE Stop: 03/27/24 21:22 Last Infusion: 03/27/24 23:13 Dose: Infused Documented By: Admin: 03/27/24 18:44 Dose: 88 mls/hr Documented By: MILAGROS Calcium Gluconate () 1,000 mg in 60 mls @ 240 mls/hr IV Q15M YU Stop: 03/27/24 22:14 Last Infusion: 03/27/24 23:12 Dose: Infused Documented By: Admin: 03/27/24 22:53 Dose: 240 mls/hr Documented By: Infusion: 03/27/24 22:14 Dose: Infused Documented By: Admin: 03/27/24 21:59 Dose: 240 mls/hr Documented By: BHAVNA Potassium Chloride (K Cesar / Wtr) 10 meq in 100 mls @ 100 mls/hr IV Q1H YU Stop: 03/28/24 00:14 Last Infusion: 03/28/24 00:10 Dose: Infused Documented By: Admin: 03/27/24 23:03 Dose: 100 mls/hr Documented By: Infusion: 03/27/24 23:03 Dose: Infused Documented By: Admin: 03/27/24 22:27 Dose: 100 mls/hr Documented By: BHAVNA Lorazepam 1 mg/ Syringe 1 mls @ 2 mls/min IV UD PRN; Protocol PRN Reason: EtOH Withdrawal AWSS Score 6,7 Stop: 04/26/24 23:26 Last Admin: 03/29/24 14:26 Dose: 2 mls/min Documented By: SHANIQUE Lorazepam 2 mg/ Syringe 2 mls @ 2 mls/min IV UD PRN; Protocol PRN Reason: EtOH Withdrawal AWSS Score 8,9 Stop: 04/26/24 23:26 Last Admin: 03/27/24 23:40 Dose: 2 mls/min Documented By: BHAVNA Dexmedetomidine/Sodium Chloride (Precedex) 200 mcg in 50 mls @ 11.575 mls/hr IV .Q4H20M YU; Protocol Stop: 04/01/24 13:25 Last Admin: 03/30/24 22:07 Dose: Not Given Documented By: Admin: 03/30/24 22:07 Dose: Not Given Documented By: Titration: 03/28/24 18:15 Dose: Infused Documented By: Titration: 03/28/24 17:25 Dose: 0.5 mcg/kg/hr, 11.6 mls/hr Documented By: Titration: 03/28/24 14:25 Dose: 0.6 mcg/kg/hr, 13.9 mls/hr Documented By: Titration: 03/28/24 14:10 Dose: 0.5 mcg/kg/hr, 11.6 mls/hr Documented By: Admin: 03/28/24 13:50 Dose: 0.4 mcg/kg/hr, 9.3 mls/hr Documented By: CAM Co-signed By: AMB Calcium Gluconate () 1,000 mg in 60 mls @ 240 mls/hr IV Q15M YU Stop: 03/29/24 06:59 Last Infusion: 03/29/24 07:27 Dose: Infused Documented By: Admin: 03/29/24 06:50 Dose: 240 mls/hr Documented By: Infusion: 03/29/24 06:49 Dose: Infused Documented By: Admin: 03/29/24 06:34 Dose: 240 mls/hr Documented By: BHAVNA Albumin Human (Albumin 25%) 12.5 gm in 50 mls @ 50 mls/hr IV ONE ONE Stop: 03/29/24 14:12 Last Infusion: 03/29/24 15:34 Dose: Infused Documented By: Admin: 03/29/24 14:14 Dose: 50 mls/hr Documented By: SHANIQUE Potassium Chloride (K Cesar / Wtr) 10 meq in 100 mls @ 100 mls/hr IV Q1H YU Stop: 03/30/24 08:59 Last Infusion: 03/30/24 13:23 Dose: Infused Documented By: Admin: 03/30/24 11:59 Dose: 100 mls/hr Documented By: Infusion: 03/30/24 11:04 Dose: Infused Documented By: Admin: 03/30/24 10:04 Dose: 100 mls/hr Documented By: Infusion: 03/30/24 10:04 Dose: Infused Documented By: Admin: 03/30/24 09:09 Dose: 100 mls/hr Documented By: CB Thiamine HCl 250 mg/ Sodium (Chloride) 52.5 mls @ 210 mls/hr IV TID YU Stop: 04/29/24 13:59 Last Infusion: 04/01/24 11:04 Dose: Infused Documented By: Admin: 04/01/24 08:41 Dose: 210 mls/hr Documented By: Infusion: 03/31/24 21:16 Dose: Infused Documented By: Admin: 03/31/24 20:40 Dose: 210 mls/hr Documented By: Infusion: 03/31/24 14:58 Dose: Infused Documented By: Admin: 03/31/24 14:36 Dose: 210 mls/hr Documented By: Infusion: 03/31/24 08:45 Dose: Infused Documented By: Admin: 03/31/24 08:13 Dose: 210 mls/hr Documented By: Infusion: 03/30/24 20:59 Dose: Infused Documented By: Admin: 03/30/24 20:44 Dose: 210 mls/hr Documented By: Infusion: 03/30/24 13:23 Dose: Infused Documented By: Admin: 03/30/24 13:00 Dose: 210 mls/hr Documented By: SHANIQUE Ioversol (Optiray 320 100ml) 94 ml IV ONCE ONE Stop: 03/26/24 19:35 Last Admin: 03/26/24 19:34 Dose: 94 ml Documented By: FRANCIS Lorazepam (Lorazepam 2 Mg/1 Ml Vial) Confirm Administered Dose 2 mg .ROUTE .STK- MED ONE Stop: 03/28/24 13:29 Last Admin: 03/28/24 16:58 Dose: Not Given Documented By: MILAGROS Lorazepam (Lorazepam 1 Mg Tab) 1 mg PO NOW STA Stop: 04/01/24 03:00 Last Admin: 04/01/24 03:05 Dose: 1 mg Documented By: CASIE Polyethylene Glycol/Electrolytes (Lavage Solution 4000ml) 16 dose PO TODAY@1900 YU Stop: 03/29/24 23:00 Last Admin: 03/29/24 19:48 Dose: 16 dose Documented By: BHAVNA Potassium Chloride (Potassium Chloride 10 Meq / 100ml Wtr) Confirm Administered Dose 40 meq IV .STK-MED ONE Stop: 03/28/24 11:59 Last Admin: 03/28/24 16:58 Dose: Not Given Documented By: MILAGROS Imaging Data Radiologist's Impression: Abdomen/Pelvis CT 07/17/24 19:12 Exam(s): CT ABDOMEN + PELVIS With Contrast IV Amt: 94 ML OPTIRAY 320 EXAM: CT Abdomen and Pelvis With Intravenous Contrast CLINICAL HISTORY: Reason for exam: Jaundice, liver failure, ?obstructive. TECHNIQUE: Axial computed tomography images of the abdomen and pelvis with intravenous contrast. CTDI is 24.5 mGy and DLP is 1329.99 mGy-cm. Automated exposure control was utilized for the study. A dose lowering technique was utilized adhering to the principles of ALARA. CONTRAST: Patient received 94 ML OPTIRAY 320 of IV contrast COMPARISON: No relevant prior studies available. FINDINGS: Lung bases are clear. There is a small sliding-type hiatal hernia. Liver appears enlarged, stable ptotic, and cirrhotic. Portal vein is patent. There is stigmata of portal hypertension including moderate ascites, mesenteric edema, anasarca, recanalized umbilical vein, and splenomegaly measuring 15.7 cm. No calcified gallstone is visible. Gallbladder sludge is suggested. There is no biliary dilatation. There is no calcified choledocholithiasis. Pancreas, adrenal glands, and kidneys are unremarkable. Aorta is normal in caliber. There is no adenopathy. There is no free air. Appendix appears normal. There is no bowel obstruction. There are no bowel inflammatory changes. Urinary bladder and prostate appear unremarkable. Skeleton appears intact. IMPRESSION: 1. No calcified gallstones, calcified choledocholithiasis, or biliary dilatation. 2. Cirrhotic liver. Stigmata of portal hypertension including splenomegaly and moderate ascites. Electronically signed by: Ivonne Vidales M.D. 03/26/24 20:43 PM Discharge Plan Visit Data Chief Complaint: Skin Problem Stated Complaint: JAUNDICE, WEAKNESS, IV FLUID REQ, NO APPETITE ED Provider: Rebeka Encarnacion Discharge Problem: Acute liver failure, Alcoholic cirrhosis, Anemia, Jaundice, Elevated bilirubin Patient Disposition: Admitted As Inpatient Discharge Instructions Interventions: ED Discharge Assessment Last Done: 03/27/24 02:05
[2024-03-26] MEDS: OPTIRAY 320 100ml IV ONE (19:34)
[2024-03-26] MEDS: SODIUM CHLORIDE 0.9% 1,000 ML IV ONE (19:50)
[2024-03-26 20:06] LABS: Bilirubin Direct 14.2 mg/dl (0-0.2)
--- NOTE | 2024-03-26 20:44 | CT Scan Report ---
Exam(s): CT ABDOMEN + PELVIS With Contrast IV Amt: 94 ML OPTIRAY 320 EXAM: CT Abdomen and Pelvis With Intravenous Contrast CLINICAL HISTORY: Reason for exam: Jaundice, liver failure, ?obstructive. TECHNIQUE: Axial computed tomography images of the abdomen and pelvis with intravenous contrast. CTDI is 24.5 mGy and DLP is 1329.99 mGy-cm. Automated exposure control was utilized for the study. A dose lowering technique was utilized adhering to the principles of ALARA. CONTRAST: Patient received 94 ML OPTIRAY 320 of IV contrast COMPARISON: No relevant prior studies available. FINDINGS: Lung bases are clear. There is a small sliding-type hiatal hernia. Liver appears enlarged, stable ptotic, and cirrhotic. Portal vein is patent. There is stigmata of portal hypertension including moderate ascites, mesenteric edema, anasarca, recanalized umbilical vein, and splenomegaly measuring 15.7 cm. No calcified gallstone is visible. Gallbladder sludge is suggested. There is no biliary dilatation. There is no calcified choledocholithiasis. Pancreas, adrenal glands, and kidneys are unremarkable. Aorta is normal in caliber. There is no adenopathy. There is no free air. Appendix appears normal. There is no bowel obstruction. There are no bowel inflammatory changes. Urinary bladder and prostate appear unremarkable. Skeleton appears intact. IMPRESSION: 1. No calcified gallstones, calcified choledocholithiasis, or biliary dilatation. 2. Cirrhotic liver. Stigmata of portal hypertension including splenomegaly and moderate ascites. Electronically signed by: Ivonne Vidales M.D. 03/26/24 20:43 PM
[2024-03-26] MEDS: SODIUM CHLORIDE 0.9% 250 ML IV PRN (21:32)
[2024-03-26 22:24] LABS: Appearance Urine Clear (Clear); Bacteria Urine Automated None Seen (None Seen); Bilirubin Urine 3+ (Negative); Blood Urine Negative (Negative); Cast Urine Automated 0-2 /lpf (0-2); Color Urine Dark Yellow; Glucose Urine UA Negative (Negative); Ketones Urine Trace (Negative); Leukocyte Esterase Urine Trace (Negative); Nitrite Urine Negative (Negative); Protein Urine Negative (Negative); RBC Urine Automated >20 /hpf (0-2); Specific Gravity Urine > 1.045 (1.000-1.030); Urobilinogen Urine Negative (Negative); WBC Urine Automated 0-5 /hpf (0-5)
[2024-03-26 22:52] LABS: Amphetamines+Metham, Urine Neg (Neg); Barbiturates, Urine Neg (Neg); Benzodiazepine, Urine Neg (Neg); Cocaine, Urine Neg (Neg); Fentanyl, Urine Neg (Neg); MDMA (Ecstacy), Urine Neg (Neg); Marijuana, Urine Neg (Neg); Methadone, Urine Neg (Neg); Opiate, Urine Neg (Neg); Phencyclidine, Urine Neg (Neg)
--- NOTE | 2024-03-27 01:17 | History & Physical Report ---
Date of Service March 27, 2024 Assessment & Plan (1) Profound anemia: Plan: 38-year-old male with no significant past medical history with ongoing alcoholism comes because of not feeling well, noticed jaundice, abdominal distention and found to have profound anemia and hyponatremia. Patient states he is drinking about 10 shots of vodka every day for almost 10 years and and was also drinking prior to that. Last 2 months is having on and off blood per rectum. Last week he noticed yellow discoloration of the skin. And last couple of days he is having shortness of breath on exertion. Notes last few days he noticed abdomen getting distended. Feeling weak and tired. Poor appetite. Denies any chest pain. Today feeling dizzy. No headache. No blurred vision. Has some cough. No sore throat. No runny nose. Micturating okay. Currently alert and oriented and Hemodynamics are okay. States had couple of tablets of Tylenol few days back but not taking regularly. Profound anemia hemoglobin 4.4 ongoing alcoholism states having blood per rectum on and off for last 2 months . ER Ordered 2 units of PRBC hemodynamics okay will follow H&H every 6 hours n.p.o., Protonix drip Empiric [place] close monitoring ICU GI consult hyponatremia sodium 113 possibly from alcoholism slow correction close monitor in the ICU fluids as per ICU and nephrology elevated LFTs ongoing alcoholism. possible acute alcoholic hepatitis total bilirubin 22.5, direct bilirubin 14.2, AST 76, ALT 31, alkaline phosphatase 121 CT abdomen pelvis no gallstones or choledocholithiasis or biliary dilatation. Cirrhotic liver. Portal hypertension with splenomegaly and moderate ascites will follow acute hepatitis panel follow repeat labs n- acetylcysteine as per ICU consult GI for further recommendation Elevated INR INR 2.0 mostly from liver failure iv vitamin k and FFP as having GI bleed per ICU. Ascites Cirrhotic liver on ct scan on empiric Rocephin. alcoholism IV thiamine and folic acid close monitor for withdrawals DVT prophylaxis SCDs disposition ICU full code History of Present Illness Chief Complaint: profound anemia, hyponatremia, alcoholism, elevated LFTs Primary Care Provider: NO PCP 38-year-old male with no significant past medical history with ongoing alcoholism comes because of not feeling well, noticed jaundice, abdominal distention and found to have profound anemia and hyponatremia. Patient states he is drinking about 10 shots of vodka every day for almost 10 years and and was also drinking prior to that. Last 2 months is having on and off blood per rectum. Last week he noticed yellow discoloration of the skin. And last couple of days he is having shortness of breath on exertion. Notes last few days he noticed abdomen getting distended. Feeling weak and tired. Poor appetite. Denies any chest pain. Today feeling dizzy. No headache. No blurred vision. Has some cough. No sore throat. No runny nose. Micturating okay. Currently alert and oriented and Hemodynamics are okay. past medical history. Denies any medical history. Past surgical history. Had surgery for eardrum as a kid. [place] tooth extraction. Social history. Denies smoking. Drinking 10 shots of vodka for last 10 years. Denies drug use. Family history. Father had heart disorder. Mother had pancreatic cancer. Allergies Allergy/AdvReac Type Severity Reaction Status Date / Time No Known Allergies Allergy Verified 03/26/24 19:12 Home Medications Medication Instructions Recorded Confirmed Type No Known Home Medications 03/26/24 03/26/24 History Past Med/Surg History Problem List (Updated 03/27/24 @ 05:07 by LOIDA Hilliard) Acute GI bleeding Hyponatremia Cirrhosis Alcoholic liver failure Profound anemia Social History Smoking Status: Never smoker Second Hand Exposure: No; Do You Dip or Chew Tobacco: No; Hx Alcohol Use: Yes Alcohol type: hard liquor Hx Substance Use: No Preferred Language: Jamaican Communication Ability: Effective Director Strategy Required: No Beliefs That Will Affect Care: None Current Living Situation: Alone Other Information That Helps Us Care for You: No Feels Safe at Home: Yes Safety Concerns: Feels Safe At This Time Assistive Devices: None Review of Systems Review of Systems: All systems reviewed & are unremarkable except as noted in HPI & below Physical Exam Physical Exam: General-Not in acute distress Head- atraumatic Eyes- PERRL, icterus present ENT- oropharynx clear Neck- supple, no JVD Lungs- clear to auscultation no wheezing or crackles. Heart- regular rate and rhythm; no murmur, no gallop. Abdomen- normal bowel sounds, soft,distended no tenderness Extremities- no pretibial edema, no erythema seen. Neuro- alert, oriented ; PERRL, no facial palsy; no dysarthria; moves extremities. Skin-yellow discoloration. Results & Data Results & Data Vital Signs (Past 12 Hours) Vital Signs Temp Pulse Pulse Resp BP BP Pulse Ox 03/27/24 00:59 89 03/27/24 00:30 37 C 85 18 119/69 95 03/27/24 00:22 38.6 C H 88 18 119/67 98 03/27/24 00:21 87 23 98 03/27/24 00:00 37 C 85 18 119/67 03/26/24 23:48 90 22 99 03/26/24 23:00 36.9 C 84 18 122/66 99 03/26/24 23:00 97 H 15 100 03/26/24 22:33 91 H 20 99 03/26/24 22:30 91 H 20 113/72 99 03/26/24 22:30 113/72 03/26/24 22:09 87 20 97 03/26/24 22:00 92 H 19 98 03/26/24 22:00 128/69 03/26/24 22:00 92 H 18 128/69 97 03/26/24 22:00 36.8 C 93 H 18 128/69 98 03/26/24 21:45 38.2 C H 91 H 18 128/69 99 03/26/24 21:39 87 18 97 03/26/24 21:29 36.8 C 92 H 18 115/61 95 03/26/24 21:00 91 H 22 94 03/26/24 21:00 115/61 03/26/24 21:00 115/61 03/26/24 20:47 86 03/26/24 20:30 91 H 21 92 03/26/24 20:30 116/68 03/26/24 20:30 116/68 03/26/24 20:30 116/68 03/26/24 20:21 90 18 91 03/26/24 20:00 91 H 116/78 95 03/26/24 20:00 116/78 03/26/24 19:50 111/63 03/26/24 19:21 91 H 21 03/26/24 19:00 93 H 21 03/26/24 17:04 88 03/26/24 16:18 36.8 C 106 H 19 105/65 100 O2 Del Method 03/27/24 00:59 03/27/24 00:30 03/27/24 00:22 03/27/24 00:21 03/27/24 00:00 03/26/24 23:48 03/26/24 23:00 03/26/24 23:00 03/26/24 22:33 03/26/24 22:30 03/26/24 22:30 03/26/24 22:09 03/26/24 22:00 03/26/24 22:00 03/26/24 22:00 03/26/24 22:00 03/26/24 21:45 03/26/24 21:39 03/26/24 21:29 03/26/24 21:00 03/26/24 21:00 03/26/24 21:00 03/26/24 20:47 03/26/24 20:30 03/26/24 20:30 03/26/24 20:30 03/26/24 20:30 03/26/24 20:21 03/26/24 20:00 03/26/24 20:00 03/26/24 19:50 03/26/24 19:21 03/26/24 19:00 03/26/24 17:04 03/26/24 16:18 Room Air Diagnostic Findings Laboratory Results WBC 14.63 K/ul (4.8-10.8) H 03/26/24 16:41 RBC 2.21 M/uL (4.70-6.10) L 03/26/24 16:41 Hgb 4.4 g/dl (14.0-18.0) L* 03/26/24 16:41 POC Hgb 5.8 g/dl (14.0-18.0) L* 03/26/24 19:09 Hct 15.9 % (42.0-52.0) L* 03/26/24 16:41 POC Hct 17 % (42-52) L* 03/26/24 19:09 MCV 71.9 fL (80.0-100.0) L 03/26/24 16:41 MCH 19.9 pg (25.0-34.0) L 03/26/24 16:41 MCHC 27.7 g/dL (32.0-36.0) L 03/26/24 16:41 RDW Std Deviation 60.9 fL (36.4-46.3) H 03/26/24 16:41 RDW Coeff of Christy 24.8 % (11.5-14.5) H 03/26/24 16:41 Plt Count 284 K/uL (130-400) 03/26/24 16:41 MPV 10.4 fL (9.4-12.4) 03/26/24 16:41 Immature Gran % (Auto) 1.6 % 03/26/24 16:41 Neut % (Auto) 85.5 % 03/26/24 16:41 Lymph % (Auto) 3.0 % 03/26/24 16:41 [place] % (Auto) 9.8 % 03/26/24 16:41 Eos % (Auto) 0.0 % 03/26/24 16:41 Baso % (Auto) 0.1 % 03/26/24 16:41 Neut # (Auto) 12.52 K/uL (1.40-6.50) H 03/26/24 16:41 Lymph # (Auto) 0.44 K/uL (1.20-3.40) L 03/26/24 16:41 [place] # (Auto) 1.43 K/uL (0.11-0.59) H 03/26/24 16:41 Eos # (Auto) 0.00 K/uL (0.00-0.50) 03/26/24 16:41 Baso # (Auto) 0.01 K/uL (0.00-0.20) 03/26/24 16:41 Immature Gran # (Auto) 0.23 K/uL (0.01-0.20) H 03/26/24 16:41 Absolute Nucleated RBC 0.08 K/uL (0.00-0.12) 03/26/24 16:41 Nucleated RBC % (auto) 0.5 % 03/26/24 16:41 Polychromasia 1+ 03/26/24 16:41 Hypochromasia Present 03/26/24 16:41 Anisocytosis Present 03/26/24 16:41 Target Cells 1+ 03/26/24 16:41 Tear Drop Cells 1+ 03/26/24 16:41 Stomatocytes 1+ 03/26/24 16:41 PT 20.7 Seconds (9.0-12.0) H 03/26/24 16:41 INR 2.0 (0.9-1.1) H 03/26/24 16:41 POC Sodium 112 mmol/L (135-144) L* 03/26/24 19:09 Sodium 113 mmol/L (136-145) L* 03/26/24 16:41 POC Potassium 3.4 mmol/L (3.3-5.0) 03/26/24 19:09 Potassium 3.5 mmol/L (3.5-5.1) 03/26/24 16:41 POC Chloride 76 mmol/L (101-112) L 03/26/24 19:09 Chloride 78 mmol/L (98-107) L 03/26/24 16:41 Carbon Dioxide 21 mmol/L (21-32) 03/26/24 16:41 POC Total CO2 22 mmol/L (24-31) L 03/26/24 19:09 Anion Gap 14 (3-11) H 03/26/24 16:41 POC Anion Gap 19.0 mmol/L (16-25) 03/26/24 19:09 POC BUN 19 mg/dl (7-18) H 03/26/24 19:09 BUN 21 mg/dl (6-23) 03/26/24 16:41 Creatinine TN 03/26/24 16:41 POC Creatinine 1.5 mg/dl (0.6-1.3) H 03/26/24 19:09 Est Cr Clr Drug Dosing TN 03/26/24 16:41 Est GFR ( Amer) TN 03/26/24 16:41 Est GFR (Non-Af Amer) TN 03/26/24 16:41 BUN/Creatinine Ratio TN 03/26/24 16:41 Glucose 120 mg/dl (70-99(Fasting)) H 03/26/24 16:41 POC Glucose (other) 119 mg/dl (70-99) H 03/26/24 19:09 Calcium 7.9 mg/dl (8.6-10.3) L 03/26/24 16:41 POC Ioniz Calcium Alok 0.99 mmol/l (1.12-1.32) L 03/26/24 19:09 Total Bilirubin 22.5 mg/dl (0.2-1.0) H 03/26/24 16:41 Direct Bilirubin 14.2 mg/dl (0-0.2) H 03/26/24 16:41 AST 76 U/L (13-39) H 03/26/24 16:41 ALT 31 U/L (7-52) 03/26/24 16:41 Alkaline Phosphatase 121 U/L (34-104) H 03/26/24 16:41 Total Protein 5.8 gm/dl (6.0-8.3) L 03/26/24 16:41 Albumin 3.1 gm/dl (3.4-5.0) L 03/26/24 16:41 Globulin 2.7 gm/dl (2.5-4.0) 03/26/24 16:41 Albumin/Globulin Ratio 1.1 (0.9-2) 03/26/24 16:41 Lipase TNP 03/26/24 16:41 Urine Color Dark Yellow 03/26/24 21:00 Urine Appearance Clear (Clear) 03/26/24 21:00 Urine pH 6.0 (4.5-7.5) 03/26/24 21:00 Ur Specific Bascom > 1.045 (1.000-1.030) H 03/26/24 21:00 Urine Protein Negative (Negative) 03/26/24 21:00 Urine Glucose (UA) Negative (Negative) 03/26/24 21:00 Urine Ketones Trace (Negative) H 03/26/24 21:00 Urine Blood Negative (Negative) 03/26/24 21:00 Urine Nitrite Negative (Negative) 03/26/24 21:00 Urine Bilirubin 3+ (Negative) H 03/26/24 21:00 Urine Urobilinogen Negative (Negative) 03/26/24 21:00 Ur Leukocyte Esterase Trace (Negative) H 03/26/24 21:00 Urine WBC (Auto) 0-5 /hpf (0-5) 03/26/24 21:00 Urine RBC (Auto) >20 /hpf (0-2) H 03/26/24 21:00 U Hyaline Cast (Auto) 0-2 /lpf (0-2) 03/26/24 21:00 U Epithel Cells (Auto) 6-10 /hpf (0-2) H 03/26/24 21:00 Urine Bacteria (Auto) None Seen (None Seen) 03/26/24 21:00 Salicylates < 3.0 mg/dl (3.0-30) L 03/26/24 16:41 Urine Opiates Screen Neg (Neg) 03/26/24 21:00 Ur Methadone, Qual Neg (Neg) 03/26/24 21:00 Urine Fentanyl Screen Neg (Neg) 03/26/24 21:00 Acetaminophen < 3 ug/ml (10-30) L 03/26/24 16:41 Urine Barbiturates Neg (Neg) 03/26/24 21:00 Ur Phencyclidine (PCP) Neg (Neg) 03/26/24 21:00 U Amphetamin/Meth Scrn Neg (Neg) 03/26/24 21:00 MDMA (Ecstasy) Screen Neg (Neg) 03/26/24 21:00 U Benzodiazepines Scrn Neg (Neg) 03/26/24 21:00 Ur Cocaine Metabolite Neg (Neg) 03/26/24 21:00 U Marijuana (THC) Screen Neg (Neg) 03/26/24 21:00 Ethyl Alcohol mg/dL < 10.0 mg/dl (<10.0) 03/26/24 18:21 Blood Type A Positive 03/26/24 18:21 Blood Type Recheck A Positive 03/26/24 19:46 Antibody Screen NEGATIVE 03/26/24 18:21 Crossmatch See Detail 03/26/24 18:21 Impressions Abdomen/Pelvis CT 03/26/24 19:12 Exam(s): CT ABDOMEN + PELVIS With Contrast IV Amt: 94 ML OPTIRAY 320 EXAM: CT Abdomen and Pelvis With Intravenous Contrast CLINICAL HISTORY: Reason for exam: Jaundice, liver failure, ?obstructive. TECHNIQUE: Axial computed tomography images of the abdomen and pelvis with intravenous contrast. CTDI is 24.5 mGy and DLP is 1329.99 mGy-cm. Automated exposure control was utilized for the study. A dose lowering technique was utilized adhering to the principles of ALARA. CONTRAST: Patient received 94 ML OPTIRAY 320 of IV contrast COMPARISON: No relevant prior studies available. FINDINGS: Lung bases are clear. There is a small sliding-type hiatal hernia. Liver appears enlarged, stable ptotic, and cirrhotic. Portal vein is patent. There is stigmata of portal hypertension including moderate ascites, mesenteric edema, anasarca, recanalized umbilical vein, and splenomegaly measuring 15.7 cm. No calcified gallstone is visible. Gallbladder sludge is suggested. There is no biliary dilatation. There is no calcified choledocholithiasis. Pancreas, adrenal glands, and kidneys are unremarkable. Aorta is normal in caliber. There is no adenopathy. There is no free air. Appendix appears normal. There is no bowel obstruction. There are no bowel inflammatory changes. Urinary bladder and prostate appear unremarkable. Skeleton appears intact. IMPRESSION: 1. No calcified gallstones, calcified choledocholithiasis, or biliary dilatation. 2. Cirrhotic liver. Stigmata of portal hypertension including splenomegaly and moderate ascites. Electronically signed by: Ivonne Vidales M.D. 03/26/24 20:43 PM Code Status & VTE Plan VTE Prophylaxis Plan VTE Prophylaxis will be ordered: Yes
[2024-03-27] MEDS ORDERED: AcetylCYSTEINE IV 21 HR REGIMEN (>40KG) IV STA (01:23)
[2024-03-27] MEDS ORDERED: STAT IV/IM STA ×2 (01:23→09:36)
[2024-03-27] MEDS: ACETYLCYSTEINE IV ONE ×3 (01:51→07:55)
[2024-03-27] MEDS: cefTRIAXone SODIUM 2,000 MG/50 ML BAG IV STA (01:51)
[2024-03-27] MEDS: DEXTROSE 5% IV ONE ×3 (01:51→07:55)
[2024-03-27 01:59] LABS: Base Excess VBG -0.3 mEq/L; HCO3 VBG 23 mmol/L; Oxygen Saturation VBG < 60.0 %; PCO2 VBG 32 mmHg (38-50); PO2 VBG 22 mmHg; pH VBG 7.46 (7.36-7.41)
[2024-03-27] MEDS ORDERED: PANTOPRAZOLE BOLUS/DRIP IV STA (02:31)
[2024-03-27] MEDS ORDERED: NITROGLYCERIN SL 0.4 MG/TAB TAB SL PRN (02:31)
[2024-03-27 02:42] LABS: Albumin Globulin Ratio 1.2 (0.9-2); Albumin Level 2.7 gm/dl (3.4-5.0); BUN Creatinine Ratio 19.8 (10-20); Bilirubin,Total 22.8 mg/dl (0.2-1.0); Calcium 7.5 mg/dl (8.6-10.3); Est GFR (African American) 95.8 ml/min; Est GFR (Non-African American) 82.6 ml/min; Globulin 2.2 gm/dl (2.5-4.0); Potassium 3.3 mmol/L (3.5-5.1); Total Protein 4.9 gm/dl (6.0-8.3)
[2024-03-27] MEDS: THIAMINE HCL 100 MG in SYRINGE 9 ML IV STA (02:59)
[2024-03-27] MEDS: PANTOprazole 80 MG in DEXTROSE 5% 100 ML IV ONE (02:59)
[2024-03-27] MEDS: PANTOprazole 40 MG in DEXTROSE 5% MINI-B 100 ML IV SCH (03:11)
[2024-03-27 03:18] LABS: HepB Surface Ag with confirm Negative (Negative)
[2024-03-27 03:24] LABS: HepC Ab Rflx HepCQuant RNA Negative (Negative)
--- NOTE | 2024-03-27 04:22 | Critical Care Consultation ---
Date of Consultation March 27, 2024 Assessment & Plan (1) Alcoholic liver failure: Reason Critically Ill: 38-year-old male with history of alcohol abuse now presents to the ICU with decompensated liver failure, acute GI bleed requiring transfusions, and hyponatremia with hypertonic solution. Neuro - [facility] ICU: Negative EtOH abusePatient reports drinking 10 shots of vodka per day. EtOH 0 in the ED, and patient reports no drink for 3 days. Not currently showing symptoms of withdrawal, and has denied withdrawal symptoms or seizures in the past. - Complete abstinence from alcohol encouraged. - Continue folic acid, thiamine, multivitamin - Monitor for symptoms of EtOH withdrawal. SHAYY S scale Cardiac - No previous cardiac history. Currently normotensive without use of vasopressors. Sinus rhythm on monitor. Continuous monitoring on telemetry. Respiratory - No history of pulmonary disease. Lungs clear to auscultation. Currently maintaining oxygen saturation on room air without difficulty. Continuous monitoring pulse ox GI - Alcoholic liver failure Patient reports 10-year history of EtOH abuse, no previous hospitalizations with recent decompensated liver failure over the past week with symptoms of jaundice, abdominal distention, and bilateral lower extremity edema - Meld of 34 with bilirubin 22, CR 1.5, INR 2.0, sodium 112. Suspect would be poor candidate for liver transplant due to ongoing EtOH abuse. Abstinence encouraged - Initiating NAC protocol - CT abdomen and pelvis: " Cirrhotic liver, stigmata of portal hypertension including splenomegaly and moderate ascites noted. No calcified gallstones, calcified choledocholithiasis, or biliary dilation noted." - Ammonia pending - Acetaminophen and salicylates negative. EtOH negative - Acute hepatitis panel pending - Trend LFTs - GI consulted -Will attempt sampling the ascitic fluid to rule out SBP. RENAL/LYTES - AKIcreatinine of 1.5 on admission, now improved following fluid resuscitation with crystalloid bolus. Monitor for now. Hyponatremialikely multifactorial due to decompensated liver failure along with EtOH abuse. Patient also reports drinking lots of water over the past few days since he has stopped drinking alcohol, and polydipsia likely contributing as well. - Nephrology consulted - Every 4 hours BMPs, Goal correction 6-8 mill equivalents per 24 hours -Discontinue hypertonic saline. Will give 1 dose of DDAVP and D5W bolus at 250 mL volume. - Strict I's and O's ENDO - No history of diabetes or thyroid disease. ICU hyperglycemic protocol HEME - Acute GI bleedpatient significantly anemic with hemoglobin of 4 on admission. Patient reports recent black tarry stools and said this has been off and on for the past 5 years? No previous reported hospitalization for GI bleed - 2 units RBCs transfused, repeat CBC pending. Will transfuse additional FFP for INR of 2.0 and give 10mg IV vitamin K - Continue PPI drip - Trend H&H every 4 hrs -GI consult pending ID - Empiric ceftriaxone for SBP coverage given ascites with leukocytosis - Blood cultures pending - Trend fever curve LINES/IV ACCESS - Peripheral IVs DVT PROPHYLAXIS - SCDs, hold anticoagulation in the setting of GI bleed I have personally spent 47 minutes of critical care time in the direct management of this patient. This is a life/limb threatening event. This includes time spent evaluating patient, direct bedside care, chart review, placing orders, interpretation of diagnostic studies, discussion with consultants, patient, and family members, as well as other required patient management activities. This time is exclusive of all separately billable procedures, and teaching time and separate from and in addition to any other critical care service time. Thank you for allowing us to participate in the care of this patient. Please refer to my attending physician's documentation for any further recommendations. (2) Cirrhosis: (3) Hyponatremia: (4) Acute GI bleeding: (5) Profound anemia: History of Present Illness Attending Physician: Stevo Dykes MD History of Present Illness Patient is a 38-year-old male with past medical history of EtOH abuse, and no previous hospitalizations who presented to the emergency department earlier tonight with complaints of malaise, dizziness with standing, shortness of breath with moderate exertion, yellowing of skin, and increased abdominal distention which all started approximately 1 to 2 weeks ago. Patient reports 10-year use of daily alcohol, with approximate 10 shots of vodka per day. He denies pre vious alcohol withdrawal seizures or withdrawal symptoms. He is currently 3 days without use of alcohol, and EtOH on admission was 0. Patient's lab work was noted to have significantly elevated bilirubin of 22, And he is jaundiced with ascites and lower extremity edema on exam. Other lab work reveals hyponatremia with sodium of 112, And he received NSS bolus x 1 L. Hemoglobin of 4, and he is currently receiving RBC transfusion x 2. He underwent CT abdomen and pelvis which showed cirrhotic liver, without evidence of cholelithiasis or bile duct dilation. Patient having transferred to ICU for further management at this time. On arrival to the ICU the patient is alert and oriented and hemodynamically stable. He reaffirms symptoms of malaise with shortness of breath on exertion, and recent abdominal distention and lower extremity edema. Patient states that he noticed yellowing of his skin about 1 week ago, and stopped drinking 3 days ago due to this. He also has reported dark tarry stools, which he states have been on and off for the past 5 years. He denies headache, syncopal episodes, sore throat, fevers, chest pain, abdominal pain, nausea or vomiting, changes in gait. He does report also that he has been urinating about 3 times a day, but normally urinates much more than that. 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 Required: No Beliefs That Will Affect Care: None Current Living Situation: Alone Other Information That Helps Us Care for You: No Feels Safe at Home: Yes Safety Concerns: Feels Safe At This Time Assistive Devices: None Review of Systems Review of Systems: All systems reviewed & are unremarkable except as noted in HPI & below Physical Exam Constitutional: cooperative and comfortable; no acute distress Eyes: Jaundiced, PERRLA ENMT: external ear and nose normal, oropharynx normal Neck: trachea midline, no thyromegaly Respiratory: normal respiratory effort, lungs clear to auscultation Cardiovascular: Rate/Rhythm: regular rate and regular rhythm Heart Sounds: normal S1 and normal S2; no murmur Extremities: + edema Gastrointestinal (Abdomen): Abdomen distended, semifirm. Bowel sounds hypoactive. Nontender with palpation Musculoskeletal: no cyanosis or clubbing, extremities motor strength 5/5 Skin: Jaundiced, no rashes Neurologic: PERRL, EOMI, accommodation nl, no face palsy, no dysarthria Psychiatric: A+Ox3, euthymic affect Results & Data Results & Data Vital Signs (Past 12 Hours) Vital Signs Temp Pulse Pulse Resp BP BP Pulse Ox 03/27/24 03:28 36.8 C 86 15 117/70 100 03/27/24 03:23 86 03/27/24 02:37 87 26 H 118/71 100 03/27/24 02:31 36.9 C 03/27/24 02:30 87 19 99 03/27/24 02:30 36.9 C 87 15 115/74 100 03/27/24 01:54 91 H 23 99 03/27/24 01:30 114/60 03/27/24 01:18 89 16 98 03/27/24 01:00 122/68 03/27/24 00:59 89 03/27/24 00:57 90 22 99 03/27/24 00:45 36.6 C 91 H 18 122/68 99 03/27/24 00:30 122/66 03/27/24 00:30 122/66 03/27/24 00:30 37 C 85 18 119/69 95 03/27/24 00:27 87 19 99 03/27/24 00:23 119/67 03/27/24 00:23 119/67 03/27/24 00:22 36.8 C 88 18 119/67 98 03/27/24 00:21 87 23 98 03/27/24 00:00 37 C 85 18 119/67 03/26/24 23:48 90 22 99 03/26/24 23:00 36.9 C 84 18 122/66 99 03/26/24 23:00 97 H 15 100 03/26/24 22:33 91 H 20 99 03/26/24 22:30 91 H 20 113/72 99 03/26/24 22:30 113/72 03/26/24 22:09 87 20 97 03/26/24 22:00 92 H 19 98 03/26/24 22:00 128/69 03/26/24 22:00 92 H 18 128/69 97 03/26/24 22:00 36.8 C 93 H 18 128/69 98 03/26/24 21:45 36.2 C L 91 H 18 128/69 99 03/26/24 21:39 87 18 97 03/26/24 21:29 36.8 C 92 H 18 115/61 95 03/26/24 21:00 91 H 22 94 03/26/24 21:00 115/61 03/26/24 21:00 115/61 03/26/24 20:47 86 03/26/24 20:30 91 H 21 92 03/26/24 20:30 116/68 03/26/24 20:30 116/68 03/26/24 20:30 116/68 03/26/24 20:21 90 18 91 03/26/24 20:00 91 H 116/78 95 03/26/24 20:00 116/78 03/26/24 19:50 111/63 03/26/24 19:21 91 H 21 03/26/24 19:00 93 H 21 03/26/24 17:04 88 03/26/24 16:18 36.8 C 106 H 19 105/65 100 O2 Del Method 03/27/24 03:28 03/27/24 03:23 03/27/24 02:37 Room Air 03/27/24 02:31 03/27/24 02:30 03/27/24 02:30 03/27/24 01:54 03/27/24 01:30 03/27/24 01:18 03/27/24 01:00 03/27/24 00:59 03/27/24 00:57 03/27/24 00:45 03/27/24 00:30 03/27/24 00:30 03/27/24 00:30 03/27/24 00:27 03/27/24 00:23 03/27/24 00:23 03/27/24 00:22 03/27/24 00:21 03/27/24 00:00 03/26/24 23:48 03/26/24 23:00 03/26/24 23:00 03/26/24 22:33 03/26/24 22:30 03/26/24 22:30 03/26/24 22:09 03/26/24 22:00 03/26/24 22:00 03/26/24 22:00 03/26/24 22:00 03/26/24 21:45 03/26/24 21:39 03/26/24 21:29 03/26/24 21:00 03/26/24 21:00 03/26/24 21:00 03/26/24 20:47 03/26/24 20:30 03/26/24 20:30 03/26/24 20:30 03/26/24 20:30 03/26/24 20:21 03/26/24 20:00 03/26/24 20:00 03/26/24 19:50 03/26/24 19:21 03/26/24 19:00 03/26/24 17:04 03/26/24 16:18 Room Air Coding Level of Care Code 12371 IN/OBS CONSULT LVL 2,35M Diagnoses Alcoholic liver failure K70.40 Cirrhosis K74.60 Hyponatremia E87.1 Acute GI bleeding K92.2 Profound anemia D64.9
[2024-03-27] MEDS: STERILE IV SCH (04:45)
[2024-03-27] MEDS: WATER IV SCH (04:45)
[2024-03-27] MEDS: SODI CHLOR IV SCH (04:45)
[2024-03-27] MEDS ORDERED: SODIUM CHLORIDE 0.9% 250 ML IV PRN ×4 (05:02→17:43)
[2024-03-27 05:06] LABS: Appearance Urine Cloudy (Clear); Bacteria Urine Automated None Seen (None Seen); Bilirubin Urine 3+ (Negative); Blood Urine Negative (Negative); Color Urine Dark Yellow; Epithelial Cell Urine Auto 0-2 /hpf (0-2); Glucose Urine UA Negative (Negative); Ketones Urine Trace (Negative); Leukocyte Esterase Urine Trace (Negative); Nitrite Urine Positive (Negative); Protein Urine Negative (Negative); Specific Gravity Urine 1.039 (1.000-1.030); Urobilinogen Urine Negative (Negative); WBC Urine Automated 0-5 /hpf (0-5)
[2024-03-27] MEDS: PHYTONADIONE 10 MG in DEXTROSE 5% 50 ML IV ONE (05:15)
[2024-03-27] MEDS: CALCIUM GLUCONATE 1,000 MG/60 ML BAG IV SCH ×2 (05:15→21:59)
[2024-03-27 05:19] LABS: Granular Casts Urine P /lpf (None Prsent)
[2024-03-27 05:20] LABS: Hyaline Casts Urine P /lpf (None Presnt)
[2024-03-27 05:36] LABS: Hematocrit (blood only) 18.5 % (42.0-52.0); Hemoglobin 5.6 g/dl (14.0-18.0); Mean Corpuscular Hemoglobin 22.3 pg (25.0-34.0); Mean Corpuscular Hgb Conc 30.3 g/dL (32.0-36.0); Mean Corpuscular Volume 73.7 fL (80.0-100.0); Mean Platelet Volume 10.2 fL (9.4-12.4); Nucleated RBC # (auto) 0.07 K/uL (0.00-0.12); Nucleated RBC % (auto) 0.7 %; Platelet Count 196 K/uL (130-400); RDW Coefficient of Variation 23.6 % (11.5-14.5); RDW Standard Deviation 62.2 fL (36.4-46.3); Red Blood Count 2.51 M/uL (4.70-6.10); White Blood Count 9.51 K/ul (4.8-10.8)
[2024-03-27 05:40] LABS: Alanine Aminotransferase 29 U/L (7-52); Albumin Level 2.7 gm/dl (3.4-5.0); Anion Gap 12 (3-11); Aspartate Aminotransferase 62 U/L (13-39); Bilirubin,Total 24.3 mg/dl (0.2-1.0); Calcium 7.4 mg/dl (8.6-10.3); Carbon Dioxide 22 mmol/L (21-32); Chloride 80 mmol/L (98-107); Glucose 115 mg/dl (70-99(Fasting)); Potassium 3.1 mmol/L (3.5-5.1)
[2024-03-27 05:42] LABS: Alkaline Phosphatase 96 U/L (34-104); Magnesium 1.7 mg/dl (1.7-2.4)
[2024-03-27 05:45] LABS: Blood Urea Nitrogen 22 mg/dl (6-23)
[2024-03-27 05:47] LABS: Sodium 114 mmol/L (136-145)
[2024-03-27 05:48] LABS: Bilirubin Direct 15.3 mg/dl (0-0.2)
[2024-03-27 06:27] LABS: Anisocytosis Present; Immature Granulocytes # (auto) 0.13 K/uL (0.01-0.20); Immature Granulocytes % (auto) 1.4 %; Lymphocytes # (auto) 0.42 K/uL (1.20-3.40); Lymphocytes % (auto) 4.4 %; Monocytes # (auto) 1.09 K/uL (0.11-0.59); Monocytes % (auto) 11.5 %; Neutrophils # (auto) 7.87 K/uL (1.40-6.50); Neutrophils % (auto) 82.7 %; Polychromasia 2+; Target Cells 2+
[2024-03-27] MEDS: MAGNESIUM SULFATE / D5W 1 GM/100 ML BAG IV SCH ×2 (06:45→16:54)
[2024-03-27] MEDS: POTASSIUM CHLORIDE / WTR 10 MEQ/100 ML PLCT IV SCH ×4 (07:55→22:27)
[2024-03-27 09:26] LABS: Hematocrit (blood only) 20.9 % (42.0-52.0); Hemoglobin 6.6 g/dl (14.0-18.0)
[2024-03-27] MEDS: THIAMINE HCL 100 MG in SYRINGE 9 ML IV SCH (09:33)
[2024-03-27] MEDS: FOLIC ACID 1 MG in SYRINGE 9.8 ML IV SCH (09:34)
--- NOTE | 2024-03-27 09:35 | Electrocardiogram Report ---
Test Reason : Blood Pressure : / mmHG Vent. Rate : 080 BPM Atrial Rate : 080 BPM P-R Int : 168 ms QRS Dur : 114 ms QT Int : 426 ms P-R-T Axes : 014 -17 000 degrees QTc Int : 491 ms Normal sinus rhythm Prolonged QT Abnormal ECG No previous ECGs available Confirmed by Sreedhar Clements ([id number]) on 03/27/2024 9:35:21 AM Referred By: REFERRED SELF Confirmed By:Sreedhar Clements
[2024-03-27 09:56] LABS: Blood Urea Nitrogen 20 mg/dl (6-23)
[2024-03-27 09:57] LABS: Anion Gap 11 (3-11); Calcium 7.9 mg/dl (8.6-10.3); Carbon Dioxide 25 mmol/L (21-32); Chloride 82 mmol/L (98-107); Glucose 110 mg/dl (70-99(Fasting)); Potassium 2.9 mmol/L (3.5-5.1); Sodium 118 mmol/L (136-145)
--- NOTE | 2024-03-27 09:58 | Gastrointestinal Consultation ---
<Statement entered by Phillip Brantley MD - 03/27/24 13:52> Patient seen and examined. Case discussed with Radha MAHER. Acute and severe liver failure on background of ETOH cirrhosis. His MELD is 32 and Maddrey 64 with multiple metabolic abnormalities. Rec: Continue supportive care - correcting severe electrolyte abnormalities If no contraindication would advocate for steroids and calculate Lille score after 7 days to see if effective. Discussed with patient and his father the seriousness of his liver disease and the importance of abstaining from ETOH and entering into ETOH rehab program upon discharge if he survives this acute incident. Prognosis poor to guarded at best currently. Date of Consultation March 27, 2024 Assessment & Plan (1) Cirrhosis: (2) Alcoholic liver failure: (3) Profound anemia: Plan Patient with a significant history of etoh use, admitted with profound anemia and alcoholic liver failure. - recommend ceasing all ETOH use. - patient likely will need endoscopic evaluation given his reported dark stools and profound anemia, but he would need correction of electrolytes and an improved hgb prior to being done. - he will require a paracentesis for ascites. - continue with protonix drip. - follow hgb/hct and transfuse as needed. - will continue to trend LFTs. History of Present Illness Reason for Consultation: profound anemia, elevated LFT Requesting Physician: Chato Martinez MD Attending Physician: Stevo Dykes MD History of Present Illness Patient is a 38 year old male with no significant past medical history with ongoing alcoholism came to the ED because of fatigue, jaundice, and abdominal distention who was found to have profound anemia and hyponatremia. Patient states he is drinking about 9-13 drinks of vodka every day for almost 10 years and and was also drinking prior to that since age 19. He admits to being a daily drinker. For the last few months he has beeen noticing on and off dark stools. Last week he started to notice yellow discoloration of the skin. He is having shortness of breath on exertion that has been ongoing since he noticed abdomen becoming distended. He admits to a recent poor appetite and would eat at most a half can of soup a day. He admits to some ongoing issues with acid reflux but does no use anything for this. he denies any nsaid use. MELD 34. Patient denies any current issues with nausea, vomiting, dysphagia, abdominal pain, unintentional weight loss, change in bowels, or bright red blood per rectum. 03/26/24 wbc 14.6, hgb 4.4, mcv 71.9, platelets 289, INR 2, NA 113, BUN 21, creatinine 1.5, t bili 22.5, d bili 14.2, ast 76, alt 31, alk phos 121. hep c negative. 03/27/24wbc 9.5, hgb 5.6, platelets 196, Na 114, K 3.1, t bili 24.3, D bili 15.3, AST 62, ALT 29, Alk phos 96. 03/26/24 No calcified gallstones, calcified choledocholithiasis, or biliary dilatation. Cirrhotic liver. Stigmata of portal hypertension including splenomegaly and moderate ascites. Allergies Allergy/AdvReac Type Severity Reaction Status Date / Time No Known Allergies Allergy Verified 03/26/24 19:12 Home Medications Medication Instructions Recorded Confirmed Type No Known Home Medications 03/26/24 03/26/24 History Patient History Social History Smoking Status: Never smoker Second Hand Exposure: No; Do You Dip or Chew Tobacco: No; Hx Alcohol Use: Yes Alcohol type: hard liquor Hx Substance Use: No Preferred Language: Chilean Communication Ability: Effective Bindery Helper Required: No Beliefs That Will Affect Care: None Current Living Situation: Alone Other Information That Helps Us Care for You: No Feels Safe at Home: Yes Safety Concerns: Feels Safe At This Time Assistive Devices: None Review of Systems Review of Systems: All systems reviewed & are unremarkable except as noted in HPI & below Physical Exam Constitutional: WD/WN, vitals as above Respiratory: normal respiratory effort, lungs clear to auscultation Cardiovascular: RRR, no murmur, no edema Gastrointestinal (Abdomen): abdomen is distended, nontender, normal bowel sounds. Skin: jaundiced Psychiatric: Orientation: alert and oriented x 3 Results & Data Vital Signs (Past 12 Hours) Vital Signs Temp Pulse Pulse Resp BP BP Pulse Ox 03/27/24 08:55 98.1 F 84 20 120/76 98 03/27/24 08:16 98.1 F 03/27/24 08:10 98.1 F 82 16 123/79 98 03/27/24 07:51 98.1 F 85 20 117/69 98 03/27/24 07:38 98.1 F 85 16 115/60 100 03/27/24 07:36 97.7 F 83 16 115/60 100 03/27/24 06:55 97.9 F 89 15 113/74 99 03/27/24 06:45 122/67 03/27/24 06:42 82 32 H 99 03/27/24 06:41 97.9 F 90 15 112/74 98 03/27/24 06:39 97.9 F 86 15 114/71 99 03/27/24 06:37 114/71 03/27/24 06:33 85 22 98 03/27/24 06:30 82 25 H 98 03/27/24 06:25 126/70 03/27/24 06:23 97.9 F 83 21 126/70 97 03/27/24 06:15 88 16 99 03/27/24 06:03 85 16 99 03/27/24 05:30 87 19 98 03/27/24 05:03 88 18 98 03/27/24 05:00 110/68 03/27/24 05:00 110/68 03/27/24 05:00 110/68 03/27/24 04:51 91 H 24 98 03/27/24 04:30 86 19 98 03/27/24 04:00 94/78 L 03/27/24 04:00 94/78 L 03/27/24 04:00 94/78 L 03/27/24 04:00 89 18 98 03/27/24 04:00 98.2 F 03/27/24 03:30 88 20 99 03/27/24 03:28 98.2 F 86 15 117/70 100 03/27/24 03:23 86 03/27/24 03:06 88 18 99 03/27/24 02:37 87 26 H 118/71 100 03/27/24 02:31 03/27/24 02:31 98.4 F 03/27/24 02:30 87 19 99 03/27/24 02:30 98.4 F 87 15 115/74 100 03/27/24 01:54 91 H 23 99 03/27/24 01:30 114/60 03/27/24 01:18 89 16 98 03/27/24 01:00 122/68 03/27/24 00:59 89 03/27/24 00:57 90 22 99 03/27/24 00:45 97.9 F 91 H 18 122/68 99 03/27/24 00:30 122/66 03/27/24 00:30 122/66 03/27/24 00:30 98.6 F 85 18 119/69 95 03/27/24 00:27 87 19 99 03/27/24 00:23 119/67 03/27/24 00:23 119/67 03/27/24 00:22 98.2 F 88 18 119/67 98 03/27/24 00:21 87 23 98 03/27/24 00:00 98.6 F 85 18 119/67 03/26/24 23:48 90 22 99 03/26/24 23:00 98.4 F 84 18 122/66 99 03/26/24 23:00 97 H 15 100 03/26/24 22:33 91 H 20 99 03/26/24 22:30 91 H 20 113/72 99 03/26/24 22:30 113/72 03/26/24 22:09 87 20 97 03/26/24 22:00 92 H 19 98 03/26/24 22:00 128/69 03/26/24 22:00 92 H 18 128/69 97 03/26/24 22:00 98.2 F 93 H 18 128/69 98 Pulse Ox O2 Del Method O2 Del Method 03/27/24 08:55 03/27/24 08:16 03/27/24 08:10 03/27/24 07:51 03/27/24 07:38 03/27/24 07:36 03/27/24 06:55 03/27/24 06:45 03/27/24 06:42 03/27/24 06:41 03/27/24 06:39 03/27/24 06:37 03/27/24 06:33 03/27/24 06:30 03/27/24 06:25 03/27/24 06:23 03/27/24 06:15 03/27/24 06:03 03/27/24 05:30 03/27/24 05:03 03/27/24 05:00 03/27/24 05:00 03/27/24 05:00 03/27/24 04:51 03/27/24 04:30 03/27/24 04:00 03/27/24 04:00 03/27/24 04:00 03/27/24 04:00 03/27/24 04:00 03/27/24 03:30 03/27/24 03:28 03/27/24 03:23 03/27/24 03:06 03/27/24 02:37 Room Air 03/27/24 02:31 98 Room Air 03/27/24 02:31 03/27/24 02:30 03/27/24 02:30 03/27/24 01:54 03/27/24 01:30 03/27/24 01:18 03/27/24 01:00 03/27/24 00:59 03/27/24 00:57 03/27/24 00:45 03/27/24 00:30 03/27/24 00:30 03/27/24 00:30 03/27/24 00:27 03/27/24 00:23 03/27/24 00:23 03/27/24 00:22 03/27/24 00:21 03/27/24 00:00 03/26/24 23:48 03/26/24 23:00 03/26/24 23:00 03/26/24 22:33 03/26/24 22:30 03/26/24 22:30 03/26/24 22:09 03/26/24 22:00 03/26/24 22:00 03/26/24 22:00 03/26/24 22:00 Coding Level of Care Code 81113 IN/OBS CONSULT LVL 4,60M Diagnoses Cirrhosis K74.60 Alcoholic liver failure K70.40 Profound anemia D64.9
[2024-03-27] MEDS: OCTREOTIDE ACETATE 50 MCG in SYRINGE 9.5 ML IV STA (10:18)
[2024-03-27] MEDS: CALCIUM GLUCONATE 1,000 MG/60 ML BAG IV STA (10:49)
[2024-03-27] MEDS: OCTREOTIDE ACETATE 500 MCG in 0.9 % SODIUM CHLORIDE 100 ML IV SCH (10:52)
--- NOTE | 2024-03-27 10:55 | Nephrology Consultation ---
Date of Consultation March 27, 2024 Assessment & Plan (1) Hyponatremia: severe and probably asymptomatic (b/c MS is a bit unclear though this could be from any number of conditions) hypervolemic hypotonic hyponatremia with presenting sodium 113 at 5 TM March 26. Cirrhotic hyponatremia is particularly high-risk for complications of overcorrection. therefore aim to correct no more than 5 mEq daily. - target sodium less than 118 mg/dL by 1700 today -Agree with Q 4 hour stat basic metabolic panel - agree with bolus of D5 water and desmopressin -maintain eukalemia - NPO currently; will need fluid 1.5Lmax and sodium limits when taking p.o. -absolutely needs to stop EtOH > reinforced this multiple times Care coordinated w/ Dr Troy (2) Renal failure: unknown baseline creatinine. Presented with creatinine 1.5; improved to 1.1 by 0200. several specimens too icteric to process.However he has had IV contrast. Creatinine this range for a volume overloaded liver patient was actually quite abnormal. No outpatient baseline data. Aspirin and Tylenol levels negative. Severely concentrated urine on presentation with ketonuria, no proteinuria. - Cystatin C with next labs - will get creatinine once daily as sendout depending on turnaround time (3) Electrolyte and fluid disorder: severely depleted calcium, mag, potassium. total body overloaded and intravascularly dry. -check lytes q 4h stat and replete aggressively -special order in for peripheral K repletion >> 1310 K 2.9 again and will give 20 mEq (2 x 10 mEQ) doses x 2 -need to add phos check to q4h labs; 1310 phos 1.7 and will monitor; cCa > 9.5 - volume status will be challenging since he will need many units packed red cells, some FFP as well as paracentesis << had 3.6L off (4) Alcoholic liver failure: per critical care and GI (5) Profound anemia: per Critical Care; status post 3 units packed red cells History of Present Illness Reason for Consultation: hyponatremia Requesting Physician: Dr Martinez Attending Physician: Stevo Dykes MD History of Present Illness 38-year-old male whom I am asked to see for hyponatremia was admitted earlier this morning for severe anemia, alcoholic liver failure, and hyponatremia after presenting with malaise, jaundice, abdominal distention, 2 months of intermittent rectal bleeding. No past medical history other than longstanding and active alcohol abuse. Presenting sodium 113 at 5:00 p.m. yesterday; 112 at 2:00 a.m. this morning; 114 at 5:00 a.m. this morning; 118 at 9:00 a.m.. He has received a L of normal saline, 250 mL of 2% (sic) saline; 4 times 10 mEq of IV potassium. He is currently receiving a 250 mL bolus of D5 water and 1 mcg of desmopressin. Also with significant electrolyte abnormalities and has so far required 3 g of IV calcium, 2 g of IV magnesium. He has had 3 units of packed red cells and 2 units of fresh frozen plasma. GI has evaluated the patient and planned endoscopy once electrolytes are corrected. Endorses a few days of exertional dyspnea and lightheadedness with fatigue, lower extremity edema, and generalized weakness. No new or worrisome voiding symptoms. Noticed yellow tinge to his skin recently. No rash no other bleeding. Pt's father is at bedside. Allergies Allergy/AdvReac Type Severity Reaction Status Date / Time No Known Allergies Allergy Verified 03/26/24 19:12 Home Medications Medication Instructions Recorded Confirmed Type No Known Home Medications 03/26/24 03/26/24 History Patient History Medical History Alcohol abuse Family History (Updated 03/27/24 @ 11:17 by Angella Hanley MD, PhD) Father Heart disease Mother Cancer Social History Smoking Status: Never smoker Second Hand Exposure: No; Do You Dip or Chew Tobacco: No; Hx Alcohol Use: Yes Alcohol type: hard liquor Hx Substance Use: No Preferred Language: [place] Communication Ability: Effective Primary Teaching Assistant Required: No Beliefs That Will Affect Care: None Current Living Situation: Alone Other Information That Helps Us Care for You: No Feels Safe at Home: Yes Safety Concerns: Feels Safe At This Time Assistive Devices: None Review of Systems 2 Review of Systems: All systems reviewed & are unremarkable except as noted in HPI & below Physical Exam 2 Constitutional: well developed, well nourished, + disheveled and cooperative; no acute distress Eyes: EOM intact bilaterally and + dilated pupils; sclerae not anicteric ENMT: Ears: no external ear abnormality Nose: no external nose abnormality Mouth: + dry oral mucous membranes Neck: no nuchal rigidity Respiratory: normal respiratory effort Auscultation: + diminished lung sounds Cardiovascular: Rate/Rhythm: regular rate and regular rhythm Extremities: + edema (trace BL pedal) Gastrointestinal (Abdomen): Inspection/Auscultation: + abdomen distended and + hypoactive bowel sounds Percussion/Palpation: abdomen soft and + ascites; abdomen nontender Musculoskeletal: Extremities: strength 5/5 throughout Skin: no rashes, warm and dry (jaundiced) Neurologic: scruggs, fluent speech Psychiatric: Orientation: alert and oriented x 3 Speech: normal rate/rhythm/volume of speech Insight: + limited insight Results & Data Vital Signs (Past 12 Hours) Vital Signs Temp Pulse Pulse Resp BP BP Pulse Ox 03/27/24 09:58 37 C 81 16 131/63 97 03/27/24 09:48 36.8 C 87 16 122/76 97 03/27/24 09:28 36.8 C 79 16 105/84 97 03/27/24 09:13 36.7 C 97 H 16 117/78 99 03/27/24 08:55 36.7 C 84 20 120/76 98 03/27/24 08:16 36.7 C 03/27/24 08:10 36.7 C 82 16 123/79 98 03/27/24 07:51 36.7 C 85 20 117/69 98 03/27/24 07:38 36.7 C 85 16 115/60 100 03/27/24 07:36 36.5 C 83 16 115/60 100 03/27/24 06:55 36.6 C 89 15 113/74 99 03/27/24 06:45 122/67 03/27/24 06:42 82 32 H 99 03/27/24 06:41 36.6 C 90 15 112/74 98 03/27/24 06:39 36.6 C 86 15 114/71 99 03/27/24 06:37 114/71 03/27/24 06:33 85 22 98 03/27/24 06:30 82 25 H 98 03/27/24 06:25 126/70 03/27/24 06:23 36.6 C 83 21 126/70 97 03/27/24 06:15 88 16 99 03/27/24 06:03 85 16 99 03/27/24 05:30 87 19 98 03/27/24 05:03 88 18 98 03/27/24 05:00 110/68 07/18/24 05:00 110/68 03/27/24 05:00 110/68 03/27/24 04:51 91 H 24 98 03/27/24 04:30 86 19 98 03/27/24 04:00 94/78 L 03/27/24 04:00 94/78 L 03/27/24 04:00 94/78 L 03/27/24 04:00 89 18 98 03/27/24 04:00 36.8 C 03/27/24 03:30 88 20 99 03/27/24 03:28 36.8 C 86 15 117/70 100 03/27/24 03:23 86 03/27/24 03:06 88 18 99 03/27/24 02:37 87 26 H 118/71 100 03/27/24 02:31 03/27/24 02:31 36.9 C 03/27/24 02:30 87 19 99 03/27/24 02:30 36.9 C 87 15 115/74 100 03/27/24 01:54 91 H 23 99 03/27/24 01:30 114/60 03/27/24 01:18 89 16 98 03/27/24 01:00 122/68 03/27/24 00:59 89 03/27/24 00:57 90 22 99 03/27/24 00:45 36.6 C 91 H 18 122/68 99 03/27/24 00:30 122/66 03/27/24 00:30 122/66 03/27/24 00:30 37 C 85 18 119/69 95 03/27/24 00:27 87 19 99 03/27/24 00:23 119/67 03/27/24 00:23 119/67 03/27/24 00:22 36.8 C 88 18 119/67 98 03/27/24 00:21 87 23 98 03/27/24 00:00 37 C 85 18 119/67 03/26/24 23:48 90 22 99 03/26/24 23:00 36.9 C 84 18 122/66 99 03/26/24 23:00 97 H 15 100 Pulse Ox O2 Del Method O2 Del Method O2 Flow Rate 03/27/24 09:58 03/27/24 09:48 0 03/27/24 09:28 03/27/24 09:13 07/18/24 08:55 03/27/24 08:16 03/27/24 08:10 03/27/24 07:51 03/27/24 07:38 03/27/24 07:36 03/27/24 06:55 03/27/24 06:45 03/27/24 06:42 03/27/24 06:41 03/27/24 06:39 03/27/24 06:37 03/27/24 06:33 03/27/24 06:30 03/27/24 06:25 03/27/24 06:23 03/27/24 06:15 03/27/24 06:03 03/27/24 05:30 03/27/24 05:03 03/27/24 05:00 03/27/24 05:00 03/27/24 05:00 03/27/24 04:51 03/27/24 04:30 03/27/24 04:00 03/27/24 04:00 03/27/24 04:00 03/27/24 04:00 03/27/24 04:00 03/27/24 03:30 03/27/24 03:28 03/27/24 03:23 03/27/24 03:06 03/27/24 02:37 Room Air 03/27/24 02:31 98 Room Air 03/27/24 02:31 03/27/24 02:30 03/27/24 02:30 03/27/24 01:54 03/27/24 01:30 03/27/24 01:18 03/27/24 01:00 03/27/24 00:59 03/27/24 00:57 03/27/24 00:45 03/27/24 00:30 03/27/24 00:30 03/27/24 00:30 03/27/24 00:27 03/27/24 00:23 03/27/24 00:23 03/27/24 00:22 03/27/24 00:21 03/27/24 00:00 03/26/24 23:48 03/26/24 23:00 03/26/24 23:00 Laboratory Results 03/27/24 09:05 03/27/24 09:[address] a/p w/ IV con 1. No calcified gallstones, calcified choledocholithiasis, or biliary dilatation. 2. Cirrhotic liver. Stigmata of portal hypertension including splenomegaly and moderate ascites. > kidneys, adrenals unremarkable
[2024-03-27] MEDS: DEXTROSE 5% 1,000 ML IV SCH (11:14)
--- NOTE | 2024-03-27 12:19 | Procedure Note ---
Procedure Note Date of Service March 27, 2024 Note Procedure: Diagnostic and therapeutic ultrasound-guided catheter paracentesis Signal Tower Operator: Dr. Thompson Troy Indication: Massive abdominal ascites Consent: Signed by patient and verified with timeout prior to procedure. Timeout performed prior to the procedure. Anesthesia: 8 mL's of 1% lidocaine without epinephrine given locally Procedure: Consent was verified and timeout performed. Appropriate imaging studies were reviewed prior to the procedure. Patient was placed in a recumbent position and limited abdominal ultrasound was performed of the right abdomen. See separate imaging. The site appropriate for paracentesis was selected. The skin was prepped and draped in normal sterile fashion. Lidocaine was used for local analgesia. Fluid was aspirated via the finder needle. A small skin heavenly was made with the scalpel and the catheter over the needle apparatus was advanced into the peritoneal space. Using the syringe one-way valve system, a total of 3.7 L of bright yellow fluid was removed. Procedure was terminated due to lack of flow. The catheter was removed and observed to be intact. A sterile dressing was applied. Fluid was sent for chemistries and cultures. The patient tolerated the procedure well without obvious complication. Images were saved into the medical record. Coding CPT Codes Abdomen - Abdominal: 91776 Peritoneal Lavage, including imaging guidance, when performed ([id number]) [facility] [place] Procedure Codes (Charges) Abdomen Abdominal: 12050 Peritoneal Lavage, including imaging guidance, when performed
[2024-03-27] MEDS: DESMOPRESSIN ACETATE 1 MCG in SODIUM CHLORIDE 0.9% 50 ML IV ONE (12:23)
[2024-03-27 12:48] LABS: Albumin Peritoneal Fluid < 1.5 gm/dl
[2024-03-27 12:53] LABS: Total Protein Peritoneal Fluid < 3.0 gm/dl
[2024-03-27 13:00] LABS: Appearance Peritoneal Fluid Clear; Color Peritoneal Fluid Yellow; RBC Peritoneal Fluid Auto < 2000 /uL; WBC Peritoneal Fluid Auto 106 /ul (0-300)
[2024-03-27 13:32] LABS: Lymphocytes, Fluid 3 %; Mono,Macrophage,Mesothelial 89 %; Neutrophils, Fluid 8 %
[2024-03-27 13:34] LABS: Hematocrit (blood only) 24.2 % (42.0-52.0); Hemoglobin 7.6 g/dl (14.0-18.0)
--- NOTE | 2024-03-27 13:55 | Hospitalist Progress Note ---
Date of Service March 27, 2024 Assessment & Plan (1) Profound anemia: Plan: 38-year-old male with no significant past medical history with alcohol use disorder comes because of not feeling well, noticed jaundice, abdominal distention and found to have profound anemia and hyponatremia. Iron Deficiency Anemia Hemoglobin 4.4 On presentation Reports dark stool for several months Status post 4 units of packed RBC Continue IV Protonix GI on board; possible endoscopy in next few days after improvement of electrolytes and hemoglobin Hyponatremia Sodium 113 on admission Serum osmolarity of 242 Urine osmolarity of 500s Urine sodium less than 10 Plan for slow correction of 6 to 8 mEq in 24 hours. Nephrology on board Alcohol abuse disorder Alcoholic hepatitis Ascites status post paracentesis (3.7L on 03/27/2024) Total bilirubin 22.5, direct bilirubin 14.2, AST 76, ALT 31, alkaline phosphatase 121 CT abdomen pelvis no gallstones or choledocholithiasis or biliary dilatation. Cirrhotic liver. Portal hypertension with splenomegaly and moderate ascites will follow acute hepatitis panel follow repeat labs Ascitic fluid analysis does not suggest SBP Monitor for withdrawal DVT prophylaxis SCDs Disposition ICU. Full code Time spent evaluating patient, direct bedside care, chart review, placing orders, interpretation of diagnostic studies, discussion with consultants, patient, and family members, as well as other required patient management activities is 60 minutes Please note the above document was generated using voice recognition software. It may contain grammatical, syntax or spelling errors. Any formal questions or concerns about the content, text or information contained within the body of this dictation should be directly addressed to the provider for clarification Admission and Anticipated Discharge Date Admission Date: March 27, 2024 Subjective Patient seen and examined at bedside. He is comfortably lying in the bed; not in distress He received about 4 units of packed RBC overnight Hemodynamics stable; saturating well in room air Review of Systems Review of Systems: All systems reviewed & are unremarkable except as noted in Subjective Physical Exam Physical Exam: Constitutional: Icterus present, patient alert oriented x 3; no asterixis Respiratory: Bilateral vesicular breath sound Cardiovascular: RRR, no murmur, no edema Vessels: no JVD or carotid bruit Chest: normal inspection of chest Abdomen: Distended; nontender. Musculoskeletal: no cyanosis or clubbing, extremities motor strength 5/5 Skin: no rashes, warm and dry normal turgor Neurologic: PERRL, EOMI, accommodation nl, no face palsy, no dysarthria CN's II- XI intact bilaterally and moves all extremities Psychiatric: A+Ox3, euthymic affect Results & Data Results & Data Vital Signs (Past 12 Hours) Vital Signs Temp Pulse Pulse Resp BP BP Pulse Ox 03/27/24 12:00 36.7 C 03/27/24 10:58 37 C 87 18 123/85 99 03/27/24 09:58 37 C 81 16 131/63 97 03/27/24 09:48 36.8 C 87 16 122/76 97 03/27/24 09:28 36.8 C 79 16 105/84 97 03/27/24 09:13 36.7 C 97 H 16 117/78 99 03/27/24 08:55 36.7 C 84 20 120/76 98 03/27/24 08:16 36.7 C 03/27/24 08:10 36.7 C 82 16 123/79 98 03/27/24 07:51 36.7 C 85 20 117/69 98 03/27/24 07:38 36.7 C 85 16 115/60 100 03/27/24 07:36 36.5 C 83 16 115/60 100 03/27/24 06:55 36.6 C 89 15 113/74 99 03/27/24 06:45 122/67 03/27/24 06:42 82 32 H 99 03/27/24 06:41 36.6 C 90 15 112/74 98 03/27/24 06:39 36.6 C 86 15 114/71 99 03/27/24 06:37 114/71 03/27/24 06:33 85 22 98 03/27/24 06:30 82 25 H 98 03/27/24 06:25 126/70 03/27/24 06:23 36.6 C 83 21 126/70 97 03/27/24 06:15 88 16 99 03/27/24 06:03 85 16 99 03/27/24 05:30 87 19 98 03/27/24 05:03 88 18 98 03/27/24 05:00 110/68 03/27/24 05:00 110/68 03/27/24 05:00 110/68 03/27/24 04:51 91 H 24 98 03/27/24 04:30 86 19 98 03/27/24 04:00 94/78 L 03/27/24 04:00 94/78 L 03/27/24 04:00 94/78 L 03/27/24 04:00 89 18 98 03/27/24 04:00 36.8 C 03/27/24 03:30 88 20 99 03/27/24 03:28 36.8 C 86 15 117/70 100 03/27/24 03:23 86 03/27/24 03:06 88 18 99 03/27/24 02:37 87 26 H 118/71 100 03/27/24 02:31 03/27/24 02:31 36.9 C 03/27/24 02:30 87 19 99 03/27/24 02:30 36.9 C 87 15 115/74 100 03/27/24 01:54 91 H 23 99 Pulse Ox O2 Del Method O2 Del Method O2 Flow Rate 03/27/24 12:00 03/27/24 10:58 03/27/24 09:58 03/27/24 09:48 0 03/27/24 09:28 03/27/24 09:13 03/27/24 08:55 03/27/24 08:16 03/27/24 08:10 03/27/24 07:51 03/27/24 07:38 03/27/24 07:36 03/27/24 06:55 03/27/24 06:45 03/27/24 06:42 03/27/24 06:41 03/27/24 06:39 03/27/24 06:37 03/27/24 06:33 03/27/24 06:30 03/27/24 06:25 03/27/24 06:23 03/27/24 06:15 03/27/24 06:03 03/27/24 05:30 03/27/24 05:03 03/27/24 05:00 03/27/24 05:00 03/27/24 05:00 03/27/24 04:51 03/27/24 04:30 03/27/24 04:00 03/27/24 04:00 03/27/24 04:00 03/27/24 04:00 03/27/24 04:00 03/27/24 03:30 03/27/24 03:28 03/27/24 03:23 03/27/24 03:06 03/27/24 02:37 Room Air 03/27/24 02:31 98 Room Air 03/27/24 02:31 03/27/24 02:30 03/27/24 02:30 03/27/24 01:54
[2024-03-27 14:01] LABS: Anion Gap 9 (3-11); Blood Urea Nitrogen 16 mg/dl (6-23); Carbon Dioxide 24 mmol/L (21-32); Chloride 83 mmol/L (98-107); Glucose 108 mg/dl (70-99(Fasting)); Phosphorus 1.7 mg/dl (2.5-4.9); Potassium 2.9 mmol/L (3.5-5.1); Sodium 116 mmol/L (136-145)
[2024-03-27] MEDS ORDERED: POTASSIUM CHLORIDE / WTR 10 MEQ/100 ML PLCT IV SCH (16:15)
[2024-03-27 17:11] LABS: Hematocrit (blood only) 22.9 % (42.0-52.0); Hemoglobin 7.4 g/dl (14.0-18.0)
[2024-03-27 17:49] LABS: Blood Urea Nitrogen 15 mg/dl (6-23); Magnesium 1.9 mg/dl (1.7-2.4)
[2024-03-27 17:52] LABS: Anion Gap 9 (3-11); Calcium 7.7 mg/dl (8.6-10.3); Carbon Dioxide 24 mmol/L (21-32); Chloride 84 mmol/L (98-107); Glucose 117 mg/dl (70-99(Fasting)); Phosphorus 1.7 mg/dl (2.5-4.9); Potassium 3.6 mmol/L (3.5-5.1); Sodium 117 mmol/L (136-145)
[2024-03-27] MEDS ORDERED: POTASSIUM PHOS 3 MMOL/1 ML INFUSION IV STA (18:11)
[2024-03-27] MEDS: LORazepam 1 MG in SYRINGE 0.5 ML IV PRN (18:33)
[2024-03-27] MEDS: POTASSIUM PHOSPHATE 8 MMOL in SODIUM CHLORIDE 0.9% 250 ML IV ONE (18:44)
[2024-03-27 18:55] LABS: Fibrinogen 180 mg/dl (184-400)
[2024-03-27] MEDS: THIAMINE HCL 500 MG in SODIUM CHLORIDE 0.9% 50 ML IV SCH (20:10)
[2024-03-27] MEDS ORDERED: LORazepam 1 MG TAB PO PRN (21:39)
[2024-03-27 22:01] LABS: Blood Urea Nitrogen 12 mg/dl (6-23); Magnesium 2.2 mg/dl (1.7-2.4)
[2024-03-27 22:04] LABS: Anion Gap 8 (3-11); Calcium 7.7 mg/dl (8.6-10.3); Carbon Dioxide 24 mmol/L (21-32); Chloride 85 mmol/L (98-107); Glucose 127 mg/dl (70-99(Fasting)); Potassium 3.3 mmol/L (3.5-5.1); Sodium 117 mmol/L (136-145)
[2024-03-27 22:58] LABS: Hematocrit (blood only) 27.3 % (42.0-52.0); Hemoglobin 8.6 g/dl (14.0-18.0)
[2024-03-27] MEDS ORDERED: LORazepam 3 MG in SYRINGE 1.5 ML IV PRN (23:27)
[2024-03-27] MEDS ORDERED: Ativan IV Alcohol Withdrawal--Active Protocol IV PRN (23:27)
[2024-03-27] MEDS: LORazepam 2 MG in SYRINGE 1 ML IV PRN (23:40)
[2024-03-28] MEDS ORDERED: cefTRIAXone SODIUM 2,000 MG/50 ML BAG IV SCH (02:00)
[2024-03-28] MEDS ORDERED: predniSONE 20 MG TAB PO SCH (09:00)
[2024-03-28] MEDS ORDERED: methylPREDNISolone 10 mg/mL (For Ped Dose < 7mg) IV SCH (09:00)
[2024-03-28] MEDS: dexMEDEtomidine 200 MCG/50 ML BAG IV SCH (13:50)
[2024-03-28] MEDS ORDERED: STAT IV Infusion **Titration per Protocol STA (14:36)
[2024-03-28] MEDS: DEXMEDETOMIDINE 200 MCG/50 ML IV ONE (15:57)
[2024-03-28] MEDS: NSS IV ONE (15:57)
--- NOTE | 2024-03-28 16:22 | Communication Note ---
Date of Service: March 28, 2024 Called patient's dad over the phone to provide medical update. Unable to get hold of him at this time.
[2024-03-28 16:47] LABS: INR 1.8 (0.9-1.1); Prothrombin Time 18.2 Seconds (9.0-12.0)
[2024-03-28] MEDS: methylPREDNISolone 60 MG in SYRINGE 0 ML IV SCH (16:57)
[2024-03-28] MEDS: POTASSIUM CHLORIDE 10 MEQ / 100ML WTR IV ONE (16:58)
[2024-03-28] MEDS: LORazepam 2 MG/1 ML VIAL ONE (16:58)
[2024-03-28 17:09] LABS: Anion Gap 6 (3-11); Calcium 7.8 mg/dl (8.6-10.3); Carbon Dioxide 27 mmol/L (21-32); Chloride 89 mmol/L (98-107); Potassium 3.6 mmol/L (3.5-5.1); Sodium 122 mmol/L (136-145)
[2024-03-28 17:10] LABS: Blood Urea Nitrogen 8 mg/dl (6-23); Glucose 100 mg/dl (70-99(Fasting))
[2024-03-28 18:24] LABS: Anion Gap 5 (3-11); Blood Urea Nitrogen 8 mg/dl (6-23); Calcium 7.6 mg/dl (8.6-10.3); Carbon Dioxide 26 mmol/L (21-32); Chloride 91 mmol/L (98-107); Glucose 139 mg/dl (70-99(Fasting)); Magnesium 2.1 mg/dl (1.7-2.4); Potassium 4.4 mmol/L (3.5-5.1); Sodium 122 mmol/L (136-145)
[2024-03-28 19:04] LABS: Hemoglobin 7.4 g/dl (14.0-18.0); Mean Corpuscular Hemoglobin 23.5 pg (25.0-34.0); Mean Corpuscular Hgb Conc 30.8 g/dL (32.0-36.0); Mean Corpuscular Volume 76.2 fL (80.0-100.0); Platelet Count 145 K/uL (130-400); RDW Coefficient of Variation 22.7 % (11.5-14.5); RDW Standard Deviation 61.4 fL (36.4-46.3); Red Blood Count 3.15 M/uL (4.70-6.10); White Blood Count 3.16 K/ul (4.8-10.8)
[2024-03-28 19:41] LABS: Anion Gap 5 (3-11); Blood Urea Nitrogen 9 mg/dl (6-23); Calcium 7.5 mg/dl (8.6-10.3); Carbon Dioxide 26 mmol/L (21-32); Chloride 92 mmol/L (98-107); Glucose 151 mg/dl (70-99(Fasting)); Potassium 4.7 mmol/L (3.5-5.1); Sodium 123 mmol/L (136-145)
--- NOTE | 2024-03-28 19:45 | Communication Note ---
Date of Service: March 28, 2024 1935 Called patient's father (Jacinto) as listed as his primary contact in regards to declining status and continued need for supportive transfusions for low h emoglobin levels, and likely to progress to multiorgan failure with respiratory and/or cardiac arrest. Jacinto, did come to the hospital today to visit his son however, was unable to speak to hospitalist team or research and evaluation manager team. He was not aware of the terminal illness of alcoholic cirrhosis. As patient is likely not a transplant candidate secondary to alcohol use and lack of sobriety that he is currently being managed with supportive care. We did discuss that if patient continues to decline or not improve that he would likely need more and more support for his blood pressure, kidney and heart function, and likely respiratory support via intubation and mechanical ventilation, all of which will provide temporizing measures and not cure his underlying cirrhosis. Jacinto would currently like for Callie to remain FULL CODE in event of respiratory or cardiac arrest, however if patient declines would appreciate a call if able to do so prior to discuss continuing with care. Jacinto was also open to hospice care at home, as he feels he would be more comfortable there. He would like to come to the Hospital tomorrow with goals to meet with care team and discuss goals of care and support moving forward. Som MARISCAL (ACNp-)
[2024-03-28 20:12] LABS: Hematocrit (blood only) 26.2 % (42.0-52.0); Hemoglobin 8.1 g/dl (14.0-18.0); Mean Corpuscular Hemoglobin 23.2 pg (25.0-34.0); Mean Corpuscular Hgb Conc 30.9 g/dL (32.0-36.0); Mean Corpuscular Volume 75.1 fL (80.0-100.0); Mean Platelet Volume 9.6 fL (9.4-12.4); Nucleated RBC # (auto) 0.03 K/uL (0.00-0.12); Nucleated RBC % (auto) 0.7 %; Platelet Count 157 K/uL (130-400); RDW Coefficient of Variation 22.2 % (11.5-14.5); RDW Standard Deviation 58.6 fL (36.4-46.3); Red Blood Count 3.49 M/uL (4.70-6.10); White Blood Count 4.35 K/ul (4.8-10.8)
[2024-03-28 20:25] LABS: Anion Gap 8 (3-11); BUN Creatinine Ratio 12.3 (10-20); Blood Urea Nitrogen 9 mg/dl (6-23); Carbon Dioxide 27 mmol/L (21-32); Chloride 87 mmol/L (98-107); Glucose 103 mg/dl (70-99(Fasting)); Potassium 3.4 mmol/L (3.5-5.1); Sodium 122 mmol/L (136-145)
[2024-03-28 20:26] LABS: Calcium 8.1 mg/dl (8.6-10.3); Magnesium 2.3 mg/dl (1.7-2.4); Phosphorus 2.3 mg/dl (2.5-4.9)
[2024-03-28 21:20] LABS: INR 1.7 (0.9-1.1); Partial Thromboplastin Time 28 Seconds (21-31); Prothrombin Time 17.8 Seconds (9.0-12.0)
[2024-03-28 21:52] LABS: Eosinophils # (auto) 0.03 K/uL (0.00-0.50); Eosinophils % (auto) 0.6 %; Hematocrit (blood only) 26.4 % (42.0-52.0); Hemoglobin 8.4 g/dl (14.0-18.0); Lymphocytes # (auto) 0.27 K/uL (1.20-3.40); Lymphocytes % (auto) 5.5 %; Mean Corpuscular Hemoglobin 23.9 pg (25.0-34.0); Mean Corpuscular Hgb Conc 31.8 g/dL (32.0-36.0); Mean Corpuscular Volume 75.2 fL (80.0-100.0); Mean Platelet Volume 9.8 fL (9.4-12.4); Monocytes # (auto) 0.57 K/uL (0.11-0.59); Monocytes % (auto) 11.6 %; Neutrophils # (auto) 3.94 K/uL (1.40-6.50); Neutrophils % (auto) 80.3 %; Nucleated RBC # (auto) 0.04 K/uL (0.00-0.12); Nucleated RBC % (auto) 0.8 %; Platelet Count 177 K/uL (130-400); RDW Coefficient of Variation 21.9 % (11.5-14.5); RDW Standard Deviation 58.5 fL (36.4-46.3); Red Blood Count 3.51 M/uL (4.70-6.10); White Blood Count 4.91 K/ul (4.8-10.8)
[2024-03-28 23:48] LABS: Hematocrit (blood only) 28.7 % (42.0-52.0); Hemoglobin 8.7 g/dl (14.0-18.0); Immature Granulocytes # (auto) 0.08 K/uL (0.01-0.20); Immature Granulocytes % (auto) 2.4 %; Lymphocytes # (auto) 0.19 K/uL (1.20-3.40); Lymphocytes % (auto) 5.8 %; Mean Corpuscular Hemoglobin 23.4 pg (25.0-34.0); Mean Corpuscular Hgb Conc 30.3 g/dL (32.0-36.0); Mean Corpuscular Volume 77.2 fL (80.0-100.0); Mean Platelet Volume 9.7 fL (9.4-12.4); Monocytes # (auto) 0.22 K/uL (0.11-0.59); Monocytes % (auto) 6.7 %; Neutrophils % (auto) 85.1 %; Platelet Count 151 K/uL (130-400); RDW Coefficient of Variation 22.9 % (11.5-14.5); Red Blood Count 3.72 M/uL (4.70-6.10); White Blood Count 3.29 K/ul (4.8-10.8)
[2024-03-29 00:04] LABS: Anisocytosis Present; Polychromasia 1+
[2024-03-29 00:11] LABS: Fibrinogen 160 mg/dl (184-400)
[2024-03-29 00:28] LABS: Anisocytosis Present; Polychromasia 1+
[2024-03-29 01:23] LABS: Anion Gap 8 (3-11); Blood Urea Nitrogen 10 mg/dl (6-23); Carbon Dioxide 24 mmol/L (21-32); Chloride 90 mmol/L (98-107); Glucose 124 mg/dl (70-99(Fasting)); Potassium 4.4 mmol/L (3.5-5.1); Sodium 122 mmol/L (136-145)
[2024-03-29 04:10] LABS: Hemoglobin 8.1 g/dl (14.0-18.0); Immature Granulocytes # (auto) 0.07 K/uL (0.01-0.20); Immature Granulocytes % (auto) 1.5 %; Lymphocytes # (auto) 0.27 K/uL (1.20-3.40); Lymphocytes % (auto) 5.8 %; Mean Corpuscular Hemoglobin 23.8 pg (25.0-34.0); Mean Corpuscular Hgb Conc 31.2 g/dL (32.0-36.0); Mean Corpuscular Volume 76.5 fL (80.0-100.0); Mean Platelet Volume 9.9 fL (9.4-12.4); Monocytes # (auto) 0.48 K/uL (0.11-0.59); Monocytes % (auto) 10.3 %; Neutrophils # (auto) 3.82 K/uL (1.40-6.50); Neutrophils % (auto) 82.4 %; Platelet Count 177 K/uL (130-400); RDW Coefficient of Variation 22.5 % (11.5-14.5); RDW Standard Deviation 61.4 fL (36.4-46.3); White Blood Count 4.64 K/ul (4.8-10.8)
[2024-03-29 04:25] LABS: Anisocytosis Present; Polychromasia 1+
[2024-03-29 04:30] LABS: INR 1.9 (0.9-1.1); Prothrombin Time 19.5 Seconds (9.0-12.0)
[2024-03-29 04:57] LABS: Alanine Aminotransferase 39 U/L (7-52); Albumin Level 2.7 gm/dl (3.4-5.0); Alkaline Phosphatase 85 U/L (34-104); Anion Gap 6 (3-11); Aspartate Aminotransferase 112 U/L (13-39); Bilirubin,Total 29.7 mg/dl (0.2-1.0); Blood Urea Nitrogen 11 mg/dl (6-23); Calcium 7.8 mg/dl (8.6-10.3); Carbon Dioxide 26 mmol/L (21-32); Chloride 92 mmol/L (98-107); Glucose 118 mg/dl (70-99(Fasting)); Potassium 4.3 mmol/L (3.5-5.1); Sodium 124 mmol/L (136-145); Total Protein 4.7 gm/dl (6.0-8.3)
[2024-03-29 06:15] LABS: Bilirubin Direct 19.2 mg/dl (0-0.2)
[2024-03-29] MEDS ORDERED: SODIUM CHLORIDE 0.9% 250 ML IV PRN (06:17)
[2024-03-29] MEDS: CALCIUM GLUCONATE 1,000 MG/60 ML BAG IV SCH (06:34)
[2024-03-29 07:01] LABS: Hematocrit (blood only) 26.2 % (42.0-52.0); Hemoglobin 8.1 g/dl (14.0-18.0); Immature Granulocytes # (auto) 0.07 K/uL (0.01-0.20); Immature Granulocytes % (auto) 1.7 %; Lymphocytes # (auto) 0.25 K/uL (1.20-3.40); Mean Corpuscular Hemoglobin 23.7 pg (25.0-34.0); Mean Corpuscular Hgb Conc 30.9 g/dL (32.0-36.0); Mean Corpuscular Volume 76.6 fL (80.0-100.0); Mean Platelet Volume 9.4 fL (9.4-12.4); Monocytes # (auto) 0.51 K/uL (0.11-0.59); Monocytes % (auto) 12.3 %; Neutrophils # (auto) 3.31 K/uL (1.40-6.50); Platelet Count 164 K/uL (130-400); RDW Coefficient of Variation 22.8 % (11.5-14.5); RDW Standard Deviation 61.5 fL (36.4-46.3); Red Blood Count 3.42 M/uL (4.70-6.10); White Blood Count 4.14 K/ul (4.8-10.8)
[2024-03-29 07:48] LABS: Blood Urea Nitrogen 11 mg/dl (6-23)
[2024-03-29 07:49] LABS: Anion Gap 7 (3-11); Calcium 7.8 mg/dl (8.6-10.3); Carbon Dioxide 27 mmol/L (21-32); Chloride 92 mmol/L (98-107); Glucose 118 mg/dl (70-99(Fasting)); Potassium 4.1 mmol/L (3.5-5.1); Sodium 126 mmol/L (136-145); Target Cells 1+
--- NOTE | 2024-03-29 09:33 | Gastroenterology Progress Note ---
Date of Service March 29, 2024 Assessment & Plan (1) Alcoholic liver failure: Plan: He seems as stable as can be right now but still ill. Once he gets past the withdrawal time then his main issues will by psychosocial. I told him if he continued to drink he would from it. He will have chronic liver issues to manage but the first management will be alcohol abstinence Admission and Anticipated Discharge Date Admission Date: March 27, 2024 Subjective No specific complaints and actually feels better. Aware of where he is, what has been going on, the year and the president. Knows alcohol is a big issue for him. H/H are stable. Nurse reports only a smear of stool and it was brown. No vomiting, no bleeding Physical Exam Physical Exam: Seems alert and oriented, profoundly icteric Results & Data Vital Signs (Past 12 Hours) Vital Signs Temp Pulse Resp BP Pulse Ox 03/29/24 08:24 36.7 C 86 18 101/69 03/29/24 08:05 36.8 C 86 18 93/54 L 95 03/29/24 08:00 83 03/29/24 06:45 78 16 97 03/29/24 06:30 91/58 L 03/29/24 06:30 91/58 L 03/29/24 06:27 82 12 95 03/29/24 06:18 79 16 95 03/29/24 06:15 97/61 L 03/29/24 06:15 97/61 L 03/29/24 06:00 95/70 L 03/29/24 05:57 80 14 96 03/29/24 05:45 102/64 03/29/24 05:33 80 15 95 03/29/24 05:30 89/61 L 03/29/24 05:30 89/61 L 03/29/24 05:30 89/61 L 03/29/24 05:30 89/61 L 03/29/24 05:27 78 14 95 03/29/24 05:15 90/64 L 03/29/24 05:15 90/64 L 03/29/24 05:15 79 18 95 03/29/24 05:03 90 19 95 03/29/24 05:00 105/58 L 03/29/24 05:00 105/58 L 03/29/24 05:00 105/58 L 03/29/24 04:45 100/62 07/20/24 04:42 72 20 95 03/29/24 04:30 86 17 95 03/29/24 04:30 102/57 L 03/29/24 04:30 102/57 L 03/29/24 04:30 102/57 L 03/29/24 04:30 102/57 L 03/29/24 04:03 82 22 95 03/29/24 04:02 101/68 03/29/24 04:02 101/68 03/29/24 04:00 78/51 L 03/29/24 04:00 36.9 C 03/29/24 03:51 74 16 95 03/29/24 03:48 104/79 03/29/24 03:48 104/79 03/29/24 03:48 104/79 03/29/24 03:45 74/42 L 03/29/24 03:15 97/63 L 03/29/24 03:15 71 12 95 03/29/24 03:12 80 19 95 03/29/24 03:00 102/64 03/29/24 02:57 72 23 94 03/29/24 02:45 94/60 L 03/29/24 02:45 78 17 95 03/29/24 02:30 98/59 L 03/29/24 02:30 80 16 94 03/29/24 02:15 105/66 03/29/24 02:15 105/66 03/29/24 02:12 78 16 95 03/29/24 00:00 36.9 C 03/28/24 23:56 74 03/28/24 23:33 107/69 03/28/24 23:33 107/69 03/28/24 23:33 107/69 03/28/24 23:27 77 12 95 03/28/24 23:03 67 13 94 03/28/24 23:00 101/64 03/28/24 22:45 101/58 L 03/28/24 22:45 67 16 96 03/28/24 22:31 108/64 03/28/24 22:31 108/64 03/28/24 22:30 74 18 96 03/28/24 22:17 107/64 03/28/24 22:15 66 16 99 03/28/24 22:03 67 23 96 03/28/24 22:01 107/61 03/28/24 22:01 107/61 03/28/24 22:01 107/61 03/28/24 21:45 66 17 100 03/28/24 21:34 97/61 L 03/28/24 21:34 97/61 L 03/28/24 21:34 97/61 L 03/28/24 21:33 63 15
--- NOTE | 2024-03-29 11:21 | Critical Care Progress Note ---
Date of Service March 29, 2024 Assessment & Plan (1) Alcoholic liver failure: Plan: Reason Critically Ill: 38-year-old male with history of alcohol abuse now presents to the ICU with decompensated liver failure, acute GI bleed requiring transfusions, and hyponatremia with hypertonic solution. Neuro - [facility] ICU: Negative EtOH abusemoderate alcohol withdrawal seen earlier this hospitalization. No signs of alcohol withdrawal currently.. - Complete abstinence from alcohol encouraged. - Continue folic acid, high-dose thiamine thiamine, - Monitor for symptoms of EtOH withdrawal. SHAYY S scale Cardiac - No previous cardiac history. Currently normotensive without use of vasopressors. Sinus rhythm on monitor. Continuous monitoring on telemetry. Respiratory - No history of pulmonary disease. Lungs clear to auscultation. Currently maintaining oxygen saturation on room air without difficulty. Continuous monitoring pulse ox GI - Alcoholic liver failure Patient reports 10-year history of EtOH abuse, no previous hospitalizations with recent decompensated liver failure over the past week with symptoms of jaundice, abdominal distention, and bilateral lower extremity edema -Completed NAC protocol. MELD score of 34. - CT abdomen and pelvis: " Cirrhotic liver, stigmata of portal hypertension including splenomegaly and moderate ascites noted. No calcified gallstones, calcified choledocholithiasis, or biliary dilation noted." - Ammonia pending - Acetaminophen and salicylates negative. EtOH negative -Patient with severe alcoholic hepatitis and severely elevated T. bili - GI consulted for EGD. Ongoing discussions with GI regarding timing of EGD. -No evidence of SBP seen on paracentesis earlier this week. -Continue octreotide infusion and Protonix infusion. -N.p.o. due to concerns of ongoing GI bleed. RENAL/LYTES - AKIhyponatremia and hypokalemia slowly improving. Unable to assess creatinine due to severe jaundice. Urine output adequate. - Strict I's and O's ENDO - No history of diabetes or thyroid disease. ICU hyperglycemic protocol HEME - Acute GI bleed which appears to be ongoing. Patient is status post 5 units of packed RBCs this hospitalization and 5 units of FFP. Received 10 mg of IV vitamin K x 2 for severe coagulopathy. Stat repeat CBC now due to maroon- colored stools this morning. ID - No evidence of SBP on peritoneal fluid. Blood cultures negative to date. Acute hepatitis panel pending. LINES/IV ACCESS - Peripheral IVs DVT PROPHYLAXIS - SCDs, hold anticoagulation in the setting of GI bleed Patient, uncle and father updated extensively at bedside. Discussed goals of care. Patient is very clear that he would want to be a full code at this time. I have personally spent 49 minutes of critical care time in the direct management of this patient. This is a life/limb threatening event. This includes time spent evaluating patient, direct bedside care, chart review, placing orders, interpretation of diagnostic studies, discussion with consultants, patient, and family members, as well as other required patient management activities. This time is exclusive of all separately billable procedures, and teaching time and separate from and in addition to any other critical care service time. Thank you for allowing us to participate in the care of this patient. Please refer to my attending physician's documentation for any further recommendations. (2) Cirrhosis: (3) Hyponatremia: (4) Acute GI bleeding: (5) Profound anemia: Admission and Anticipated Discharge Date Admission Date: March 27, 2024 Subjective Patient seen and examined. He is sitting up in a chair with father and uncle at bedside. Denies any overt complaints. Nursing notes maroon colored stool this morning. No signs of active etoh withdrawal. Review of Systems Review of Systems: All systems reviewed & are unremarkable except as noted in HPI & below Physical Exam Constitutional: cooperative and comfortable; no acute distress Eyes: Scleral icterus, PERRLA ENMT: external ear and nose normal, oropharynx normal Neck: trachea midline, no thyromegaly Respiratory: normal respiratory effort, lungs clear to auscultation Cardiovascular: Rate/Rhythm: regular rate and regular rhythm Heart Sounds: normal S1 and normal S2; no murmur Gastrointestinal (Abdomen): Abdomen distended, semifirm. Bowel sounds hypoactive. Nontender with palpation. +ascites Musculoskeletal: no cyanosis or clubbing, extremities motor strength 5/5 Skin: Jaundiced, no rashes Neurologic: PERRL, EOMI, accommodation nl, no face palsy, no dysarthria Psychiatric: A+Ox3, euthymic affect Results & Data Results & Data Vital Signs (Past 12 Hours) Vital Signs Temp Pulse Resp BP Pulse Ox 03/29/24 10:44 36.7 C 87 18 111/71 97 03/29/24 10:42 36.7 C 87 20 84/60 L 98 03/29/24 10:02 36.8 C 84 18 116/72 98 03/29/24 09:09 36.8 C 84 18 99/72 L 96 03/29/24 08:39 36.7 C 81 20 102/74 97 03/29/24 08:24 36.7 C 86 18 101/69 03/29/24 08:05 36.8 C 86 18 93/54 L 95 03/29/24 08:00 83 03/29/24 06:45 78 16 97 03/29/24 06:30 91/58 L 03/29/24 06:30 91/58 L 03/29/24 06:27 82 12 95 03/29/24 06:18 79 16 95 03/29/24 06:15 97/61 L 03/29/24 06:15 97/61 L 03/29/24 06:00 95/70 L 03/29/24 05:57 80 14 96 03/29/24 05:45 102/64 03/29/24 05:33 80 15 95 03/29/24 05:30 89/61 L 03/29/24 05:30 89/61 L 03/29/24 05:30 89/61 L 03/29/24 05:30 89/61 L 03/29/24 05:27 78 14 95 03/29/24 05:15 90/64 L 03/29/24 05:15 90/64 L 03/29/24 05:15 79 18 95 03/29/24 05:03 90 19 95 03/29/24 05:00 105/58 L 03/29/24 05:00 105/58 L 03/29/24 05:00 105/58 L 03/29/24 04:45 100/62 03/29/24 04:42 72 20 95 03/29/24 04:30 86 17 95 03/29/24 04:30 102/57 L 03/29/24 04:30 102/57 L 03/29/24 04:30 102/57 L 03/29/24 04:30 102/57 L 03/29/24 04:03 82 22 95 03/29/24 04:02 101/68 03/29/24 04:02 101/68 03/29/24 04:00 78/51 L 03/29/24 04:00 36.9 C 03/29/24 03:51 74 16 95 07/20/24 03:48 104/79 03/29/24 03:48 104/79 03/29/24 03:48 104/79 03/29/24 03:45 74/42 L 03/29/24 03:15 97/63 L 03/29/24 03:15 71 12 95 03/29/24 03:12 80 19 95 03/29/24 03:00 102/64 03/29/24 02:57 72 23 94 03/29/24 02:45 94/60 L 03/29/24 02:45 78 17 95 03/29/24 02:30 98/59 L 03/29/24 02:30 80 16 94 03/29/24 02:15 105/66 03/29/24 02:15 105/66 03/29/24 02:12 78 16 95 03/29/24 00:00 36.9 C 03/28/24 23:56 74 03/28/24 23:33 107/69 03/28/24 23:33 107/69 03/28/24 23:33 107/69 03/28/24 23:27 77 12 95 Coding Level of Care Code 99296 CRITICAL CARE 1ST 30-74M Diagnoses Alcoholic liver failure K70.40 Cirrhosis K74.60 Hyponatremia E87.1 Acute GI bleeding K92.2 Profound anemia D64.9
[2024-03-29 12:20] LABS: Hematocrit (blood only) 29.1 % (42.0-52.0); Immature Granulocytes # (auto) 0.08 K/uL (0.01-0.20); Immature Granulocytes % (auto) 1.6 %; Lymphocytes # (auto) 0.43 K/uL (1.20-3.40); Lymphocytes % (auto) 8.3 %; Mean Corpuscular Hgb Conc 30.9 g/dL (32.0-36.0); Mean Corpuscular Volume 77.6 fL (80.0-100.0); Monocytes # (auto) 0.71 K/uL (0.11-0.59); Monocytes % (auto) 13.8 %; Neutrophils # (auto) 3.94 K/uL (1.40-6.50); Neutrophils % (auto) 76.3 %; Platelet Count 191 K/uL (130-400); RDW Coefficient of Variation 23.3 % (11.5-14.5); RDW Standard Deviation 62.4 fL (36.4-46.3); Red Blood Count 3.75 M/uL (4.70-6.10); White Blood Count 5.16 K/ul (4.8-10.8)
[2024-03-29 12:35] LABS: Blood Urea Nitrogen 11 mg/dl (6-23)
[2024-03-29 12:37] LABS: Anion Gap 8 (3-11); Calcium 8.7 mg/dl (8.6-10.3); Carbon Dioxide 27 mmol/L (21-32); Chloride 92 mmol/L (98-107); Glucose 115 mg/dl (70-99(Fasting)); Sodium 127 mmol/L (136-145)
--- NOTE | 2024-03-29 13:05 | Hospitalist Progress Note ---
Date of Service March 29, 2024 Assessment & Plan (1) Profound anemia: Plan: 38-year-old male with no significant past medical history with alcohol use disorder comes because of not feeling well, noticed jaundice, abdominal distention and found to have profound anemia and hyponatremia. Iron Deficiency Anemia Hemoglobin 4.4 On presentation Reports dark stool for several months Status post 5 units of packed RBC And 5 units of FFP. Hb stable presently Continue IV Protonix and octreotide GI on board; possible endoscopy in next few days after improvement of electrolytes and hemoglobin Hyponatremia Sodium 113 on admission Serum osmolarity of 242 Urine osmolarity of 500s Urine sodium less than 10 Serum sodium gradually improved to 127 after use of hypertonic saline. Continue to monitor BMP daily; nephrology on board Alcohol abuse disorder Alcoholic hepatitis Ascites status post paracentesis (3.7L on 03/27/2024) CT abdomen pelvis no gallstones or choledocholithiasis or biliary dilatation. Cirrhotic liver. Portal hypertension with splenomegaly and moderate ascites will follow acute hepatitis panel Ascitic fluid analysis does not suggest SBP Monitor for withdrawal DVT prophylaxis SCDs Disposition ICU. Full code Time spent evaluating patient, direct bedside care, chart review, placing orders, interpretation of diagnostic studies, discussion with consultants, patient, and family members, as well as other required patient management activities is 50 minutes Please note the above document was generated using voice recognition software. It may contain grammatical, syntax or spelling errors. Any formal questions or concerns about the content, text or information contained within the body of this dictation should be directly addressed to the provider for clarification Admission and Anticipated Discharge Date Admission Date: March 27, 2024 Subjective Patient is alert oriented x 3; not in distress. Restraints are off Hemodynamically stable and saturating well on room air Review of Systems Review of Systems: All systems reviewed & are unremarkable except as noted in Subjective Physical Exam Physical Exam: Constitutional: Icterus present, patient alert oriented x 3; no asterixis Respiratory: Bilateral vesicular breath sound Cardiovascular: RRR, no murmur, no edema Vessels: no JVD or carotid bruit Chest: normal inspection of chest Abdomen: Distended; nontender. Musculoskeletal: no cyanosis or clubbing, extremities motor strength 5/5 Skin: no rashes, warm and dry normal turgor Neurologic: PERRL, EOMI, accommodation nl, no face palsy, no dysarthria CN's II- XI intact bilaterally and moves all extremities Psychiatric: A+Ox3, euthymic affect Results & Data Results & Data Vital Signs (Past 12 Hours) Vital Signs Temp Pulse Resp BP Pulse Ox 03/29/24 10:44 36.7 C 87 18 111/71 97 03/29/24 10:42 36.7 C 87 20 84/60 L 98 03/29/24 10:02 36.8 C 84 18 116/72 98 03/29/24 09:09 36.8 C 84 18 99/72 L 96 03/29/24 08:39 36.7 C 81 20 102/74 97 03/29/24 08:24 36.7 C 86 18 101/69 03/29/24 08:05 36.8 C 86 18 93/54 L 95 03/29/24 08:00 83 03/29/24 06:45 78 16 97 03/29/24 06:30 91/58 L 03/29/24 06:30 91/58 L 03/29/24 06:27 82 12 95 03/29/24 06:18 79 16 95 03/29/24 06:15 97/61 L 03/29/24 06:15 97/61 L 03/29/24 06:00 95/70 L 03/29/24 05:57 80 14 96 03/29/24 05:45 102/64 03/29/24 05:33 80 15 95 03/29/24 05:30 89/61 L 03/29/24 05:30 89/61 L 03/29/24 05:30 89/61 L 03/29/24 05:30 89/61 L 03/29/24 05:27 78 14 95 03/29/24 05:15 90/64 L 03/29/24 05:15 90/64 L 03/29/24 05:15 79 18 95 03/29/24 05:03 90 19 95 03/29/24 05:00 105/58 L 03/29/24 05:00 105/58 L 03/29/24 05:00 105/58 L 03/29/24 04:45 100/62 03/29/24 04:42 72 20 95 03/29/24 04:30 86 17 95 03/29/24 04:30 102/57 L 03/29/24 04:30 102/57 L 03/29/24 04:30 102/57 L 03/29/24 04:30 102/57 L 03/29/24 04:03 82 22 95 03/29/24 04:02 101/68 03/29/24 04:02 101/68 03/29/24 04:00 78/51 L 03/29/24 04:00 36.9 C 03/29/24 03:51 74 16 95 03/29/24 03:48 104/79 03/29/24 03:48 104/79 03/29/24 03:48 104/79 03/29/24 03:45 74/42 L 03/29/24 03:15 97/63 L 03/29/24 03:15 71 12 95 03/29/24 03:12 80 19 95 03/29/24 03:00 102/64 03/29/24 02:57 72 23 94 03/29/24 02:45 94/60 L 03/29/24 02:45 78 17 95 03/29/24 02:30 98/59 L 03/29/24 02:30 80 16 94 03/29/24 02:15 105/66 03/29/24 02:15 105/66 03/29/24 02:12 78 16 95
--- NOTE | 2024-03-29 13:47 | Nephrology Progress Note ---
Date of Service March 29, 2024 Assessment & Plan (1) Hyponatremia: Plan: -Severe and probably asymptomatic , hypervolemic hypotonic hyponatremia with presenting sodium 113 at 5 TM March 26. Cirrhotic hyponatremia is particularly high-risk for complications of overcorrection. - target sodium correction , acceptable, aim for 6- 8 mmol every 24 hr, 129-130 until 9.00 pm today - Continue q4 sodium - He is self correcting, no need for Hyper Na. Urea at the moment. -maintain eukalemia - will need fluid 1.5Lmax and sodium limits when taking p.o. -absolutely needs to stop EtOH > reinforced this multiple times (2) Renal failure: Plan: unknown baseline creatinine. Presented with creatinine 1.5; improved to 1.1 by 0200. several specimens too icteric to process.However he has had IV contrast. Creatinine this range for a volume overloaded liver patient was actually quite abnormal. No outpatient baseline data. Aspirin and Tylenol levels negative. Severely concentrated urine on presentation with ketonuria, no proteinuria. - Cystatin C with , Not sure if this was sent, not urgent anyway. - will get creatinine once daily as sendout depending on turnaround time (3) Electrolyte and fluid disorder: Plan: severely depleted calcium, mag, potassium. total body overloaded and intravascularly dry. -Replete as needed. (4) Alcoholic liver failure: Plan: per critical care and GI (5) Profound anemia: Plan: per Critical Care/ GI Admission and Anticipated Discharge Date Admission Date: March 27, 2024 Subjective Patient is alert oriented x 3; not in distress. Hemodynamically stable and saturating well on room air, Hb stable Review of Systems 2 Review of Systems: All systems reviewed & are unremarkable except as noted in HPI & below Results & Data Vital Signs (Past 12 Hours) Vital Signs Temp Pulse Resp BP Pulse Ox 03/29/24 13:28 36.6 C 03/29/24 12:46 36.6 C 83 20 90/56 L 97 03/29/24 11:46 36.7 C 83 113/66 97 03/29/24 11:16 36.7 C 83 20 115/79 97 03/29/24 11:01 36.7 C 89 20 115/79 96 03/29/24 10:44 36.7 C 87 18 111/71 97 03/29/24 10:42 36.7 C 87 20 84/60 L 98 03/29/24 10:02 36.8 C 84 18 116/72 98 03/29/24 09:09 36.8 C 84 18 99/72 L 96 03/29/24 08:39 36.7 C 81 20 102/74 97 03/29/24 08:24 36.7 C 86 18 101/69 03/29/24 08:05 36.8 C 86 18 93/54 L 95 03/29/24 08:00 83 03/29/24 06:45 78 16 97 03/29/24 06:30 91/58 L 03/29/24 06:30 91/58 L 03/29/24 06:27 82 12 95 03/29/24 06:18 79 16 95 03/29/24 06:15 97/61 L 03/29/24 06:15 97/61 L 03/29/24 06:00 95/70 L 03/29/24 05:57 80 14 96 03/29/24 05:45 102/64 03/29/24 05:33 80 15 95 03/29/24 05:30 89/61 L 03/29/24 05:30 89/61 L 03/29/24 05:30 89/61 L 03/29/24 05:30 89/61 L 03/29/24 05:27 78 14 95 03/29/24 05:15 90/64 L 03/29/24 05:15 90/64 L 03/29/24 05:15 79 18 95 03/29/24 05:03 90 19 95 03/29/24 05:00 105/58 L 03/29/24 05:00 105/58 L 03/29/24 05:00 105/58 L 03/29/24 04:45 100/62 03/29/24 04:42 72 20 95 03/29/24 04:30 86 17 95 03/29/24 04:30 102/57 L 03/29/24 04:30 102/57 L 03/29/24 04:30 102/57 L 03/29/24 04:30 102/57 L 03/29/24 04:03 82 22 95 03/29/24 04:02 101/68 03/29/24 04:02 101/68 03/29/24 04:00 78/51 L 03/29/24 04:00 36.9 C 03/29/24 03:51 74 16 95 03/29/24 03:48 104/79 03/29/24 03:48 104/79 03/29/24 03:48 104/79 03/29/24 03:45 74/42 L 03/29/24 03:15 97/63 L 03/29/24 03:15 71 12 95 03/29/24 03:12 80 19 95 03/29/24 03:00 102/64 03/29/24 02:57 72 23 94 03/29/24 02:45 94/60 L 03/29/24 02:45 78 17 95 03/29/24 02:30 98/59 L 03/29/24 02:30 80 16 94 03/29/24 02:15 105/66 03/29/24 02:15 105/66 03/29/24 02:12 78 16 95 Laboratory Results 03/29/24 11:34 03/29/24 11:34
[2024-03-29] MEDS: ALBUMIN 25% 12.5 GM/50 ML VIAL IV ONE (14:14)
[2024-03-29] MEDS: LORazepam 1 MG in SYRINGE 0.5 ML IV PRN (14:26)
[2024-03-29 15:22] LABS: Eosinophils # (auto) 0.01 K/uL (0.00-0.50); Eosinophils % (auto) 0.2 %; Hematocrit (blood only) 25.2 % (42.0-52.0); Hemoglobin 7.9 g/dl (14.0-18.0); Immature Granulocytes # (auto) 0.09 K/uL (0.01-0.20); Immature Granulocytes % (auto) 1.9 %; Lymphocytes # (auto) 0.44 K/uL (1.20-3.40); Lymphocytes % (auto) 9.5 %; Mean Corpuscular Hemoglobin 23.8 pg (25.0-34.0); Mean Corpuscular Hgb Conc 31.3 g/dL (32.0-36.0); Mean Corpuscular Volume 75.9 fL (80.0-100.0); Mean Platelet Volume 9.4 fL (9.4-12.4); Monocytes # (auto) 0.69 K/uL (0.11-0.59); Monocytes % (auto) 14.9 %; Neutrophils # (auto) 3.39 K/uL (1.40-6.50); Neutrophils % (auto) 73.5 %; Platelet Count 172 K/uL (130-400); RDW Coefficient of Variation 23.6 % (11.5-14.5); RDW Standard Deviation 61.8 fL (36.4-46.3); Red Blood Count 3.32 M/uL (4.70-6.10); White Blood Count 4.62 K/ul (4.8-10.8)
[2024-03-29 15:40] LABS: Anion Gap 7 (3-11); Calcium 8.4 mg/dl (8.6-10.3); Carbon Dioxide 25 mmol/L (21-32); Chloride 94 mmol/L (98-107); Potassium 4.3 mmol/L (3.5-5.1); Sodium 126 mmol/L (136-145)
--- NOTE | 2024-03-29 15:45 | Gastroenterology Progress Note ---
Date of Service March 29, 2024 Assessment & Plan (1) Acute GI bleeding: Plan The blood I saw appears hemorrhoidal. He has had frequent bright red blood but he also has frequent dark stool. I think he needs evaluation of both upper and lower GI tracts. Will plan to do this tomorrow am after he takes his prep. Admission and Anticipated Discharge Date Admission Date: March 27, 2024 Subjective Called several times with blood per rectum. First episode was "dark", second was "bright red" and the third--which I saw was a small amount of bright red blood. He is having no pain. He says he passes bright red blood frequently but he also passes dark stool. Repeat hemoglobin was 7.9--down 1.1 from the morning. Physical Exam Physical Exam: He looks fatigued but in no distress. Results & Data Vital Signs (Past 12 Hours) Vital Signs Temp Pulse Resp BP Pulse Ox 03/29/24 14:06 81 18 03/29/24 14:04 108/70 03/29/24 14:04 108/70 03/29/24 13:42 81 17 03/29/24 13:28 36.6 C 03/29/24 13:13 90/56 L 03/29/24 13:12 79 19 03/29/24 13:12 87/58 L 03/29/24 13:03 83 23 03/29/24 12:46 36.6 C 83 20 90/56 L 97 03/29/24 11:46 36.7 C 83 113/66 97 03/29/24 11:16 36.7 C 83 20 115/79 97 03/29/24 11:01 36.7 C 89 20 115/79 96 03/29/24 10:44 36.7 C 87 18 111/71 97 03/29/24 10:42 36.7 C 87 20 84/60 L 98 03/29/24 10:02 36.8 C 84 18 116/72 98 03/29/24 09:09 36.8 C 84 18 99/72 L 96 03/29/24 08:39 36.7 C 81 20 102/74 97 03/29/24 08:24 36.7 C 86 18 101/69 03/29/24 08:05 36.8 C 86 18 93/54 L 95 03/29/24 08:00 83 03/29/24 06:45 78 16 97 03/29/24 06:30 91/58 L 03/29/24 06:30 91/58 L 03/29/24 06:27 82 12 95 03/29/24 06:18 79 16 95 03/29/24 06:15 97/61 L 03/29/24 06:15 97/61 L 03/29/24 06:00 95/70 L 03/29/24 05:57 80 14 96 03/29/24 05:45 102/64 03/29/24 05:33 80 15 95 03/29/24 05:30 89/61 L 03/29/24 05:30 89/61 L 03/29/24 05:30 89/61 L 03/29/24 05:30 89/61 L 03/29/24 05:27 78 14 95 03/29/24 05:15 90/64 L 03/29/24 05:15 90/64 L 03/29/24 05:15 79 18 95 03/29/24 05:03 90 19 95 03/29/24 05:00 105/58 L 03/29/24 05:00 105/58 L 03/29/24 05:00 105/58 L 03/29/24 04:45 100/62 03/29/24 04:42 72 20 95 03/29/24 04:30 86 17 95 03/29/24 04:30 102/57 L 03/29/24 04:30 102/57 L 03/29/24 04:30 102/57 L 03/29/24 04:30 102/57 L 03/29/24 04:03 82 22 95 03/29/24 04:02 101/68 03/29/24 04:02 101/68 03/29/24 04:00 78/51 L 03/29/24 04:00 36.9 C 03/29/24 03:51 74 16 95 03/29/24 03:48 104/79 03/29/24 03:48 104/79 03/29/24 03:48 104/79 03/29/24 03:45 74/42 L
[2024-03-29 15:54] LABS: Blood Urea Nitrogen 11 mg/dl (6-23)
[2024-03-29 15:55] LABS: Glucose 106 mg/dl (70-99(Fasting))
[2024-03-29 16:08] LABS: Anisocytosis Present; Polychromasia 3+; Tear Drop Cells 1+
[2024-03-29] MEDS: LAVAGE SOLUTION 4000ML PO SCH (19:48)
[2024-03-29 23:46] LABS: Anion Gap 7 (3-11); Blood Urea Nitrogen 10 mg/dl (6-23); Calcium 8.5 mg/dl (8.6-10.3); Carbon Dioxide 28 mmol/L (21-32); Chloride 94 mmol/L (98-107); Glucose 101 mg/dl (70-99(Fasting)); Potassium 3.9 mmol/L (3.5-5.1); Sodium 129 mmol/L (136-145)
[2024-03-30 05:22] LABS: Alanine Aminotransferase 48 U/L (7-52); Albumin Level 3.1 gm/dl (3.4-5.0); Anion Gap 7 (3-11); Aspartate Aminotransferase 134 U/L (13-39); Bilirubin,Total 31.8 mg/dl (0.2-1.0); Calcium 8.3 mg/dl (8.6-10.3); Carbon Dioxide 28 mmol/L (21-32); Chloride 96 mmol/L (98-107); Glucose 94 mg/dl (70-99(Fasting)); Potassium 3.7 mmol/L (3.5-5.1); Sodium 131 mmol/L (136-145); Total Protein 5.1 gm/dl (6.0-8.3)
[2024-03-30 05:24] LABS: Alkaline Phosphatase 98 U/L (34-104); Blood Urea Nitrogen 10 mg/dl (6-23)
[2024-03-30 05:25] LABS: Bilirubin Direct 18.6 mg/dl (0-0.2)
[2024-03-30] MEDS ORDERED: LAVAGE SOLUTION 4000ML PO SCH (06:00)
[2024-03-30 06:33] LABS: INR 1.8 (0.9-1.1); Prothrombin Time 18.9 Seconds (9.0-12.0)
[2024-03-30] MEDS ORDERED: PROPOFOL IV EMULSION 10 MG/ML 20 ML VIAL IV ONE (06:55)
--- NOTE | 2024-03-30 07:05 | Anesthesiology Consultation ---
Date of Service March 30, 2024 Assessment & Plan (1) Encounter for pre-operative examination: Chart Review Chart Review: Acceptable Risk for Surgery History Surgery Operation Date: 03/30/24 07:30 Proposed Procedures p Esophagogastroduodenoscopy - Nerissa Paez Jr, MD s Colonoscopy - Nerissa Paez Jr, MD Height/Weight Height: 5 ft 11 in Weight: 88.2 kg Allergies Allergy/AdvReac Type Severity Reaction Status Date / Time No Known Allergies Allergy Verified 03/26/24 19:12 Medications Home Medications Medication Instructions Recorded Confirmed Last Taken No Known Home Medications 03/26/24 03/26/24 Unknown Active Medications Generic Name Dose Route Start Last Admin Trade Name Freq PRN Reason Stop Dose Admin Pantoprazole Sodium 40 mg/ 100 mls @ 20 mls/hr 03/27/24 03:00 03/30/24 05:15 Dextrose IV 04/26/24 02:30 8 mg/hr Q5H YU 20 mls/hr Administration 8 MG/HR Folic Acid 1 mg/ Syringe 10 mls @ 5 mls/min 03/27/24 09:00 03/29/24 08:52 IV 04/26/24 08:59 5 mls/min QAM YU Administration Octreotide Acetate 500 mcg/ 100.5 mls @ 10.05 mls/hr 03/27/24 09:45 03/30/24 05:15 Sodium Chloride IV 04/01/24 09:44 50 mcg/hr .Q10H YU 10.1 mls/hr Administration 50 MCG/HR Thiamine HCl 500 mg/ Sodium 55 mls @ 210 mls/hr 03/27/24 18:15 03/29/24 09:41 Chloride IV 04/26/24 18:14 Infused QAM YU Infusion Lorazepam 1 mg/ Syringe 1 mls @ 2 mls/min 03/27/24 23:27 03/29/24 14:26 IV 04/26/24 23:26 2 mls/min UD PRN Administration EtOH Withdrawal AWSS Score 6,7 Protocol Lorazepam 2 mg/ Syringe 2 mls @ 2 mls/min 03/27/24 23:27 03/27/24 23:40 IV 04/26/24 23:26 2 mls/min UD PRN Administration EtOH Withdrawal AWSS Score 8,9 Protocol Past Medical History Medical History Renal failure Electrolyte and fluid disorder Acute GI bleeding Cirrhosis Alcoholic liver failure Profound anemia Alcohol abuse Past Family History Family History Father Heart disease Mother Cancer Past Surgical History Surgical History (Updated 03/30/24 @ 07:04 by Mikhail Esteban MD) Hx of wisdom tooth extraction Hx of myringotomy Social History Smoking Status: Never smoker Do You Dip or Chew Tobacco: No Hx Alcohol Use: Yes Alcohol type: hard liquor alcohol intake frequency: 3 or more drinks per day Alcohol Intake Frequency Comment: 8 to 12 drinks of vodka a day Hx Substance Use: No substance use type: does not use Physical Exam Vital Signs Last Vital Signs Temp 36.7 C 03/30/24 04:00 Pulse 80 03/30/24 06:00 Resp 15 03/30/24 06:00 BP 107/68 03/30/24 06:00 Pulse Ox 95 03/30/24 06:00 O2 Del Method Room Air 03/30/24 06:00 O2 Flow Rate 0 03/27/24 09:48 Testing Laboratory Results 03/30/24 04:11 PT 18.9 Seconds (9.0-12.0) H 03/30/24 05:47 INR 1.8 (0.9-1.1) H 03/30/24 05:47 APTT 28 Seconds (21-31) 03/28/24 03:54 Urine Color Dark Yellow 03/27/24 04:35 Urine Appearance Cloudy (Clear) A 03/27/24 04:35 Urine pH 6.0 (4.5-7.5) 03/27/24 04:35 Ur Specific [place] 1.039 (1.000-1.030) H 03/27/24 04:35 Urine Protein Negative (Negative) 03/27/24 04:35 Urine Glucose (UA) Negative (Negative) 03/27/24 04:35 Urine Ketones Trace (Negative) H 03/27/24 04:35 Urine Nitrite Positive (Negative) A 03/27/24 04:35 Ur Leukocyte Esterase Trace (Negative) H 03/27/24 04:35 Urine WBC (Auto) 0-5 /hpf (0-5) 03/27/24 04:35 Urine RBC (Auto) 6-10 /hpf (0-2) H 03/27/24 04:35 U Hyaline Cast (Auto) 3-5 /lpf (0-2) H 03/27/24 04:35 U Epithel Cells (Auto) 0-2 /hpf (0-2) 03/27/24 04:35 Urine Bacteria (Auto) None Seen (None Seen) 03/27/24 04:35 Blood Type A Positive 03/26/24 18:21 Antibody Screen NEGATIVE 03/26/24 18:21 03/27/24 11:40 Gram Stain - Final Peritoneal Fluid Aerobic and Anaerobic Culture - Preliminary No growth to date. 03/27/24 01:50 Aerobic Blood Culture - Preliminary Blood No growth in Aerobic bottle after 48 hours. Anaerobic Blood Culture - Final 03/27/24 01:43 Aerobic Blood Culture - Preliminary Blood No growth in Aerobic bottle after 48 hours. Anaerobic Blood Culture - Final Electrocardiogram Date: 03/27/24 Findings: + NSR @ (80) long QT
--- NOTE | 2024-03-30 07:22 | History & Physical Report ---
Date of Service March 30, 2024 Assessment & Plan (1) Encounter for pre-operative examination: Plan: Alcoholic man with anemia, dark stools and hematochezia. We are doing EGD and colonoscopy. Procedure and risks discussed. He agrees Admission and Anticipated Discharge Date Admission Date: March 27, 2024 History of Present Illness Chief Complaint: GI bleed Primary Care Provider: NO PCP 38 year old man with advanced liver disease with long standing dark stools and bright red blood per rectum. We plan EGD and colonoscopy Allergies Allergy/AdvReac Type Severity Reaction Status Date / Time No Known Allergies Allergy Verified 03/26/24 19:12 Home Medications Medication Instructions Recorded Confirmed Type No Known Home Medications 03/26/24 03/26/24 History Past Med/Surg History Problem List Encounter for pre-operative examination Hyponatremia Medical History Renal failure Electrolyte and fluid disorder Acute GI bleeding Cirrhosis Alcoholic liver failure Profound anemia Alcohol abuse Surgical History Hx of wisdom tooth extraction Hx of myringotomy Family History Father Heart disease Mother Cancer Social History Smoking Status: Never smoker Second Hand Exposure: No; Do You Dip or Chew Tobacco: No; Hx Alcohol Use: Yes Alcohol type: hard liquor Hx Substance Use: No Preferred Language: Slovenian Communication Ability: Effective Contracting Manager Required: No Beliefs That Will Affect Care: None Current Living Situation: Alone Other Information That Helps Us Care for You: No Feels Safe at Home: Yes Safety Concerns: Feels Safe At This Time Assistive Devices: None Physical Exam Physical Exam: profoundly icteric Respiratory: normal respiratory effort, lungs clear to auscultation Cardiovascular: RRR, no murmur, no edema Gastrointestinal (Abdomen): normal bowel sounds, soft, nontender, no hepatosplenomegaly ASA Classification ASA ASA3 Results & Data Vital Signs (Past 12 Hours) Vital Signs Temp Pulse Pulse Resp BP BP Pulse Ox 03/30/24 06:00 80 15 107/68 95 03/30/24 05:00 79 15 107/65 98 03/30/24 04:00 36.7 C 79 15 94/63 L 98 03/30/24 04:00 36.7 C 84 15 94/63 L 94 03/30/24 03:00 81 15 121/76 99 03/30/24 02:00 71 15 119/80 100 03/30/24 01:00 96 H 15 128/86 94 03/30/24 00:05 80 15 120/88 98 03/30/24 00:01 36.9 C 71 15 120/88 94 03/30/24 00:00 81 03/29/24 23:00 79 15 117/81 100 03/29/24 22:00 77 15 102/67 97 03/29/24 21:00 78 15 90/50 L 92 03/29/24 20:00 36.9 C 87 15 115/74 93 03/29/24 20:00 36.9 C 03/29/24 20:00 115/74 03/29/24 19:57 86 22 98 03/29/24 19:33 89 16 O2 Del Method 03/30/24 06:00 Room Air 03/30/24 05:00 Room Air 03/30/24 04:00 Room Air 03/30/24 04:00 Room Air 03/30/24 03:00 Room Air 03/30/24 02:00 Room Air 03/30/24 01:00 Room Air 03/30/24 00:05 Room Air 03/30/24 00:01 Room Air 03/30/24 00:00 03/29/24 23:00 Room Air 03/29/24 22:00 Room Air 03/29/24 21:00 Room Air 03/29/24 20:00 Room Air 03/29/24 20:00 03/29/24 20:00 03/29/24 19:57 03/29/24 19:33 Code Status & VTE Plan VTE Prophylaxis Plan VTE Prophylaxis will be ordered: Yes
[2024-03-30] MEDS ORDERED: fentaNYL citrate PF 100 MCG/2 ML VIAL IV PRN (07:25)
[2024-03-30] MEDS ORDERED: ATROPINE SULFATE 0.1 MG/ML 10ML SYR IV PRN (07:25)
[2024-03-30 07:39] LABS: Hematocrit (blood only) 27.4 % (42.0-52.0); Hemoglobin 8.1 g/dl (14.0-18.0); Mean Corpuscular Hemoglobin 23.6 pg (25.0-34.0); Mean Corpuscular Hgb Conc 29.6 g/dL (32.0-36.0); Mean Corpuscular Volume 78.9 fL (80.0-100.0); Mean Platelet Volume 9.9 fL (9.4-12.4); Platelet Count 174 K/uL (130-400); RDW Coefficient of Variation 24.2 % (11.5-14.5); RDW Standard Deviation 65.4 fL (36.4-46.3); Red Blood Count 3.43 M/uL (4.70-6.10); White Blood Count 3.15 K/ul (4.8-10.8)
[2024-03-30 07:41] LABS: Anisocytosis Present; Eosinophils # (auto) 0.04 K/uL (0.00-0.50); Eosinophils % (auto) 1.3 %; Immature Granulocytes # (auto) 0.04 K/uL (0.01-0.20); Immature Granulocytes % (auto) 1.3 %; Lymphocytes # (auto) 0.28 K/uL (1.20-3.40); Lymphocytes % (auto) 8.9 %; Microcytosis Present; Monocytes # (auto) 0.53 K/uL (0.11-0.59); Monocytes % (auto) 16.8 %; Neutrophils # (auto) 2.26 K/uL (1.40-6.50); Neutrophils % (auto) 71.7 %; Polychromasia 1+; Target Cells 1+; Tear Drop Cells 1+
--- NOTE | 2024-03-30 07:48 | Critical Care Progress Note ---
Date of Service March 30, 2024 Assessment & Plan (1) Alcoholic liver failure: (2) Cirrhosis: (3) Hyponatremia: (4) Acute GI bleeding: (5) Profound anemia: Plan Reason Critically Ill: 38-year-old male with history of alcohol abuse now presents to the ICU with decompensated liver failure, acute GI bleed requiring transfusions, and hyponatremia with hypertonic solution. Neuro - [facility] ICU: Negative EtOH abusemoderate alcohol withdrawal seen earlier this hospitalization. No signs of alcohol withdrawal currently.. - Complete abstinence from alcohol encouraged. - Continue folic acid, high-dose thiamine thiamine, - Monitor for symptoms of EtOH withdrawal. SHAYY S scale Cardiac - No previous cardiac history. Currently normotensive without use of vasopressors. Sinus rhythm on monitor. Continuous monitoring on telemetry. Respiratory - No history of pulmonary disease. GI - Alcoholic liver failure Patient reports 10-year history of EtOH abuse, no previous hospitalizations with recent decompensated liver failure over the past week with symptoms of jaundice, abdominal distention, and bilateral lower extremity edema -Completed NAC protocol. MELD score of 34. - CT abdomen and pelvis: " Cirrhotic liver, stigmata of portal hypertension including splenomegaly and moderate ascites noted. No calcified gallstones, calcified choledocholithiasis, or biliary dilation noted." - Ammonia unable to report because of elevated bilirubin - Acetaminophen and salicylates negative. EtOH negative -Patient with severe alcoholic hepatitis and severely elevated T. bili - GI on board, s/p EGD 03/30/2024 for -No evidence of SBP seen on paracentesis earlier this week. -Continue octreotide infusion and Protonix infusion. RENAL/LYTES - -- Unable to assess creatinine due to severe jaundice. Urine output adequate. -- hyponatremia and hypokalemia slowly improving. - Strict I's and O's ENDO - No history of diabetes or thyroid disease. ICU hyperglycemic protocol HEME - -- Acute GI bleed Status post 5 units of packed RBCs this hospitalization and 5 units of FFP. -- Coagulopathy Likely from cirrhosis Received 10 mg of IV vitamin K x 2 for severe coagulopathy ID - No evidence of SBP on peritoneal fluid. Blood cultures negative to date. Acute hepatitis panel pending. --Prophylaxis VTE: IPC GI: Pantoprazole drip Lines: Peripheral Diet: N.p.o. Plan: In/out: +1.4 L, +6.8 L since coming to the hospital. Continue with pantoprazole as well as octreotide. Patient is post EGD which did not show any signs of active bleed. Clear liquid has been started by GI. Patient hemodynamically stable to be downgrade to medical floor. Overall prognosis is guarded. Would recommend palliative care Consultation if not already done. Case was discussed with Dr. Dykes Please note the above document was generated using voice recognition software. It may contain grammatical, syntax or spelling errors.Any formal questions or concerns about the content, text or information contained within the body of this dictation should be directly addressed to the provider for clarification. Admission and Anticipated Discharge Date Admission Date: March 27, 2024 Subjective Patient seen and examined at bedside. No acute distress, notable symptoms overnight. He had just returned after having his colonoscopy as well as EGD done. He was not in any respiratory distress. Denied any chest pain, no abdominal pain. No nausea vomiting. Denies any headache or blurry vision Review of Systems 2 Review of Systems: All systems reviewed & are unremarkable except as noted in Subjective Physical Exam 2 Physical Exam: Constitutional: No acute distress HEENT: EOMI, PERRLA, scleral icterus appreciated Respiratory system: Decreased air entry bilaterally, no wheeze, no rhonchi, positive crackles bilateral lower lobes CVS: S1-S2 positive, no murmurs or gallops Abdomen: Soft, nontender, positive bowel sounds x4, distended Extremities: +2 pulses bilaterally radialis/ dorsalis pedis, no cyanosis, minimal generalized pitting edema upper and lower extremity Neuro: Awake alert oriented x3 Psych: Normal mood and affect G/U: No [place] Skin: no rashes, warm and dry Lymphatic: no cervical or axillary lymphadenopathy Results & Data Results & Data Vital Signs (Past 12 Hours) Vital Signs Temp Pulse Pulse Resp BP BP Pulse Ox 03/30/24 07:06 90 20 100 03/30/24 07:00 101/78 03/30/24 07:00 101/78 03/30/24 06:57 79 14 95 03/30/24 06:39 83 12 96 03/30/24 06:00 107/68 03/30/24 06:00 80 15 107/68 95 03/30/24 05:00 79 15 107/65 98 03/30/24 04:00 36.7 C 79 15 94/63 L 98 03/30/24 04:00 36.7 C 84 15 94/63 L 94 03/30/24 03:00 81 15 121/76 99 03/30/24 02:00 71 15 119/80 100 03/30/24 01:00 96 H 15 128/86 94 03/30/24 00:05 80 15 120/88 98 03/30/24 00:01 36.9 C 71 15 120/88 94 03/30/24 00:00 81 03/29/24 23:00 79 15 117/81 100 03/29/24 22:00 77 15 102/67 97 03/29/24 21:00 78 15 90/50 L 92 03/29/24 20:00 36.9 C 87 15 115/74 93 03/29/24 20:00 36.9 C 03/29/24 20:00 115/74 03/29/24 19:57 86 22 98 O2 Del Method 03/30/24 07:06 03/30/24 07:00 03/30/24 07:00 03/30/24 06:57 Room Air 03/30/24 06:39 03/30/24 06:00 03/30/24 06:00 Room Air 03/30/24 05:00 Room Air 03/30/24 04:00 Room Air 03/30/24 04:00 Room Air 03/30/24 03:00 Room Air 03/30/24 02:00 Room Air 03/30/24 01:00 Room Air 03/30/24 00:05 Room Air 03/30/24 00:01 Room Air 03/30/24 00:00 03/29/24 23:00 Room Air 03/29/24 22:00 Room Air 03/29/24 21:00 Room Air 03/29/24 20:00 Room Air 03/29/24 20:00 03/29/24 20:00 03/29/24 19:57 Laboratory Results 03/30/24 04:18 Coding Level of Care Code 38065 SUB INP/OBS CARE 3/50MIN Diagnoses Alcoholic liver failure K70.40 Cirrhosis K74.60 Hyponatremia E87.1 Acute GI bleeding K92.2 Profound anemia D64.9
--- NOTE | 2024-03-30 08:10 | GI REPORT ---
[facility] Patient: JEOVANNY JORDAN : 1985 Sex at : Male Age: 38 Years Procedure: Upper GI endoscopy Date: 03/30/2024 Attending Physician: Nerissa Paez MD Referring MD: Referred Self Indications: - Suspected upper gastrointestinal bleeding in patient with chronic blood loss Medications: - Monitored Anesthesia Care Complications: - No immediate complications. Estimated Blood Loss: - Estimated blood loss: None. Procedure: - ASA Grade Assessment: III - A patient with severe systemic disease. - The egd scope was introduced through the mouth and advanced to the second part of the duodenum. - The upper GI endoscopy was accomplished without difficulty. - The patient tolerated the procedure well. Findings: - LA Grade D (one or more mucosal breaks involving at least 75% of esophageal circumference) esophagitis with no bleeding was found in the middle and lower thirds of the esophagus. - Mild portal hypertensive gastropathy was found in the entire examined stomach. - The examined duodenum was normal. Impression: - LA Grade D reflux esophagitis with no bleeding. - Portal hypertensive gastropathy. - Normal examined duodenum. - No specimens collected. Recommendation: - Continue present medications. Procedure Code(s): - 33938, Esophagogastroduodenoscopy, flexible, transoral; diagnostic, including collection of specimen(s) by brushing or washing, when performed (separate procedure) Diagnosis Code(s): - R58, Hemorrhage, not elsewhere classified - K21.00, Gastro-esophageal reflux disease with esophagitis, without bleeding - K76.6, Portal hypertension - K31.89, Other diseases of stomach and duodenum CPT(R) - 2023 copyright [employer]. All Rights Reserved. The CPT codes, CCI edits and ICD codes generated are intended as suggestions and were generated based on input data. These codes are preliminary and upon exchange trouble shooter review may be revised to meet current compliance and payer requirements. The provider is responsible for the final determination of appropriate codes, and modifiers. Dr. Nerissa Paez MD This document has been electronically signed. Note Initiated:03/30/2024 Note Completed:03/30/2024 8:10 AM \\[email or web address]\[email or web address]\Data\Provation\Results\LIVE\[id number]
--- NOTE | 2024-03-30 08:13 | GI REPORT ---
[facility] Patient: JEOVANNY JORDAN : 1985 Sex at : Male Age: 38 Years Procedure: Colonoscopy Date: 03/30/2024 Attending Physician: Nerissa Paez MD Referring MD: Referred Self Indications: - Iron deficiency anemia secondary to chronic blood loss Medications: - Monitored Anesthesia Care Complications: - No immediate complications. Estimated Blood Loss: - Estimated blood loss: None. Procedure: - ASA Grade Assessment: III - A patient with severe systemic disease. - The adult colonoscope was introduced through the anus and advanced to the cecum, identified by appendiceal orifice and ileocecal valve. - The colonoscopy was performed without difficulty. - The quality of the bowel preparation was evaluated using the BBPS ([place] Bowel Preparation Scale) with scores of: Right Colon = 3, Transverse Colon = 3 and Left Colon = 3 (entire mucosa seen well with no residual staining, small fragments of stool or opaque liquid). The total BBPS score equals 9. - The ileocecal valve, appendiceal orifice, and rectum were photographed. Findings: - Hemorrhoids were found on perianal exam. There were large internal and external hemorrhoids - The rectum, sigmoid colon, descending colon, splenic flexure, transverse colon, hepatic flexure, ascending colon and cecum appeared normal. Impression: - Hemorrhoids found on perianal exam. - The rectum, sigmoid colon, descending colon, splenic flexure, transverse colon, hepatic flexure, ascending colon and cecum are normal. - No specimens collected. Recommendation: - Put patient on a clear liquid diet starting today. Procedure Code(s): - 53136, Colonoscopy, flexible; diagnostic, including collection of specimen(s) by brushing or washing, when performed (separate procedure) Diagnosis Code(s): - D50.0, Iron deficiency anemia secondary to blood loss (chronic) - K64.9, Unspecified hemorrhoids CPT(R) - 2022 copyright [employer]. All Rights Reserved. The CPT codes, CCI edits and ICD codes generated are intended as suggestions and were generated based on input data. These codes are preliminary and upon gravity prospector review may be revised to meet current compliance and payer requirements. The provider is responsible for the final determination of appropriate codes, and modifiers. Dr. Nerissa Paez MD This document has been electronically signed. Note Initiated:03/30/2024 Note Completed:03/30/2024 8:12 AM \\[email or web address]\Central\[email or web address]\Data\Provation\Results\LIVE\[id number]
[2024-03-30 08:44] LABS: Anion Gap 8 (3-11); Blood Urea Nitrogen 10 mg/dl (6-23); Calcium 8.3 mg/dl (8.6-10.3); Carbon Dioxide 28 mmol/L (21-32); Chloride 97 mmol/L (98-107); Glucose 91 mg/dl (70-99(Fasting)); Potassium 3.6 mmol/L (3.5-5.1); Sodium 133 mmol/L (136-145)
--- NOTE | 2024-03-30 08:54 | Anesthesiology Progress Note ---
Date of Service March 30, 2024 Anesthesia Post Procedure Vital Signs Vital Signs: Temp Pulse Pulse Resp BP BP Pulse Ox 03/30/24 08:20 81 18 106/61 98 03/30/24 08:15 93/63 L 98 03/30/24 08:15 81 16 03/30/24 08:10 18 98/59 L 98 03/30/24 08:10 98/59 L 03/30/24 07:06 90 20 100 03/30/24 07:00 101/78 03/30/24 07:00 101/78 03/30/24 06:57 79 14 95 03/30/24 06:39 83 12 96 03/30/24 06:00 107/68 03/30/24 06:00 80 15 107/68 95 03/30/24 05:00 79 15 107/65 98 03/30/24 04:00 36.7 C 79 15 94/63 L 98 03/30/24 04:00 36.7 C 84 15 94/63 L 94 03/30/24 03:00 81 15 121/76 99 03/30/24 02:00 71 15 119/80 100 03/30/24 01:00 96 H 15 128/86 94 03/30/24 00:05 80 15 120/88 98 03/30/24 00:01 36.9 C 71 15 120/88 94 03/30/24 00:00 81 03/29/24 23:00 79 15 117/81 100 03/29/24 22:00 77 15 102/67 97 03/29/24 21:00 78 15 90/50 L 92 03/29/24 20:00 36.9 C 87 15 115/74 93 03/29/24 20:00 36.9 C 03/29/24 20:00 115/74 03/29/24 19:57 86 22 98 03/29/24 19:33 89 16 03/29/24 19:00 78 15 90/50 L 92 03/29/24 19:00 98/66 L 03/29/24 19:00 98/66 L 03/29/24 18:57 76 20 97 03/29/24 18:00 79 14 93 03/29/24 18:00 113/56 L 03/29/24 18:00 113/56 L 03/29/24 17:21 70 13 98 03/29/24 17:00 03/29/24 16:21 76 16 96 03/29/24 16:01 100/72 03/29/24 16:01 100/72 03/29/24 16:00 37 C 03/29/24 16:00 80 03/29/24 15:48 78 21 96 03/29/24 15:46 107/61 03/29/24 15:45 80 23 95 03/29/24 15:00 111/76 03/29/24 15:00 78 16 96 03/29/24 14:06 81 18 03/29/24 14:04 108/70 03/29/24 14:04 108/70 03/29/24 13:42 81 17 03/29/24 13:28 36.6 C 03/29/24 13:13 90/56 L 03/29/24 13:12 79 19 03/29/24 13:12 87/58 L 03/29/24 13:03 83 23 03/29/24 12:46 36.6 C 83 20 90/56 L 97 03/29/24 11:46 36.7 C 83 113/66 97 03/29/24 11:16 36.7 C 83 20 115/79 97 03/29/24 11:01 36.7 C 89 20 115/79 96 03/29/24 10:44 36.7 C 87 18 111/71 97 03/29/24 10:42 36.7 C 87 20 84/60 L 98 03/29/24 10:02 36.8 C 84 18 116/72 98 03/29/24 09:09 36.8 C 84 18 99/72 L 96 Pulse Ox O2 Del Method O2 Del Method 03/30/24 08:20 Room Air 03/30/24 08:15 Room Air 03/30/24 08:15 03/30/24 08:10 Room Air 03/30/24 08:10 03/30/24 07:06 03/30/24 07:00 03/30/24 07:00 03/30/24 06:57 Room Air 03/30/24 06:39 03/30/24 06:00 03/30/24 06:00 Room Air 03/30/24 05:00 Room Air 03/30/24 04:00 Room Air 03/30/24 04:00 Room Air 03/30/24 03:00 Room Air 03/30/24 02:00 Room Air 03/30/24 01:00 Room Air 03/30/24 00:05 Room Air 03/30/24 00:01 Room Air 03/30/24 00:00 03/29/24 23:00 Room Air 03/29/24 22:00 Room Air 03/29/24 21:00 Room Air 03/29/24 20:00 Room Air 03/29/24 20:00 03/29/24 20:00 03/29/24 19:57 03/29/24 19:33 03/29/24 19:00 Room Air 03/29/24 19:00 03/29/24 19:00 03/29/24 18:57 03/29/24 18:00 03/29/24 18:00 03/29/24 18:00 03/29/24 17:21 03/29/24 17:00 Room Air 03/29/24 16:21 03/29/24 16:01 03/29/24 16:01 03/29/24 16:00 03/29/24 16:00 03/29/24 15:48 Room Air 03/29/24 15:46 03/29/24 15:45 03/29/24 15:00 03/29/24 15:00 03/29/24 14:06 03/29/24 14:04 03/29/24 14:04 03/29/24 13:42 03/29/24 13:28 03/29/24 13:13 03/29/24 13:12 03/29/24 13:12 03/29/24 13:03 03/29/24 12:46 03/29/24 11:46 03/29/24 11:16 03/29/24 11:01 03/29/24 10:44 03/29/24 10:42 03/29/24 10:02 03/29/24 09:09 Transfer of Care Handoff Completed per policy Notes Mental Status: alert / awake / arousable Patient Amnestic to Procedure: Yes Nausea / Vomiting: adequately controlled Pain: adequately controlled Airway Patency, RR, SpO2: stable & adequate BP & HR: stable & adequate Hydration State: stable & adequate Anesthetic Complications: no major complications apparent
[2024-03-30] MEDS: POTASSIUM CHLORIDE / WTR 10 MEQ/100 ML PLCT IV SCH (09:09)
[2024-03-30 11:13] LABS: Anion Gap 6 (3-11); Blood Urea Nitrogen 9 mg/dl (6-23); Carbon Dioxide 27 mmol/L (21-32); Chloride 98 mmol/L (98-107); Glucose 87 mg/dl (70-99(Fasting)); Potassium 3.8 mmol/L (3.5-5.1); Sodium 131 mmol/L (136-145)
[2024-03-30] MEDS ORDERED: Ativan PO Alcohol Withdrawal--Active Protocol PO PRN (11:34)
[2024-03-30] MEDS ORDERED: LORazepam 1 MG TAB PO PRN ×3 (11:34)
[2024-03-30] MEDS: FUROSEMIDE 20 MG TAB PO SCH (12:59)
[2024-03-30] MEDS: THIAMINE HCL 250 MG in SODIUM CHLORIDE 0.9% 50 ML IV SCH (13:00)
[2024-03-30] MEDS: PANTOprazole 40 MG TAB PO SCH (13:00)
[2024-03-30] MEDS: rifAXIMin 550 MG TABLET PO SCH (13:00)
[2024-03-30] MEDS: SPIRONOLACTONE 25 MG TAB PO SCH (13:00)
[2024-03-30] MEDS: LACTULOSE SYRUP 20 GM/30 ML UDC PO SCH (13:00)
--- NOTE | 2024-03-30 13:03 | Hospitalist Progress Note ---
Date of Service March 30, 2024 Assessment & Plan (1) Profound anemia: Plan: 38-year-old male with no significant past medical history with alcohol use disorder comes because of not feeling well, noticed jaundice, abdominal distention and found to have profound anemia and hyponatremia. Iron Deficiency Anemia Esophagitis Hemoglobin 4.4 On presentation Reports dark stool for several months Status post 5 units of packed RBC And 5 units of FFP. Hb stable presently EGD done on March 30, 2024 shows grade D esophagitis with no bleeding. Mild portal hypertensive gastropathy was found. Colonoscopy done on March 30, 2024 showed large internal and external hemorrhoids. Rectum, sigmoid colon, descending colon, splenic flexure, transverse colon and ascending colon appeared normal. Continue on Protonix 40 mg twice daily Monitor for GI bleed On clear liquid diet; advance as tolerated Hyponatremia Sodium 113 on admission Serum osmolarity of 242 Urine osmolarity of 500s Urine sodium less than 10 Serum sodium gradually improved to 130s after use of hypertonic saline. Continue to monitor BMP daily; nephrology on board Discussed with nephrology; was started on Lasix 20 mg and spironolactone 50 mg once a day Alcohol abuse disorder Alcoholic hepatitis Ascites status post paracentesis (3.7L on 03/27/2024) Alcohol withdrawal CT abdomen pelvis no gallstones or choledocholithiasis or biliary dilatation. Cirrhotic liver. Portal hypertension with splenomegaly and moderate ascites will follow acute hepatitis panel Ascitic fluid analysis does not suggest SBP Monitor for withdrawal Started on rifampicin, lactulose Patient was not started on steroid due to risks of GI bleed DVT prophylaxis SCDs Disposition Transfer to PCU. Patient has several medical condition including severe anemia, severe hyponatremia, alcoholic hepatitis, alcohol withdrawal requiring close inpatient monitoring. Full code Time spent evaluating patient, direct bedside care, chart review, placing orders, interpretation of diagnostic studies, discussion with consultants, patient, and family members, as well as other required patient management activities is 60 minutes Please note the above document was generated using voice recognition software. It may contain grammatical, syntax or spelling errors. Any formal questions or concerns about the content, text or information contained within the body of this dictation should be directly addressed to the provider for clarification Admission and Anticipated Discharge Date Admission Date: March 27, 2024 Subjective Patient seen and examined at bedside. He is comfortable; not in distress. Denies any pain or discomfort Vital signs stable Review of Systems Review of Systems: All systems reviewed & are unremarkable except as noted in Subjective Physical Exam Physical Exam: Constitutional: Icterus present, patient alert oriented x 3; no asterixis Respiratory: Bilateral vesicular breath sound Cardiovascular: RRR, no murmur, no edema Vessels: no JVD or carotid bruit Chest: normal inspection of chest Abdomen: Distended; nontender. Musculoskeletal: no cyanosis or clubbing, extremities motor strength 5/5 Skin: no rashes, warm and dry normal turgor Neurologic: PERRL, EOMI, accommodation nl, no face palsy, no dysarthria CN's II- XI intact bilaterally and moves all extremities Psychiatric: A+Ox3, euthymic affect Results & Data Results & Data Vital Signs (Past 12 Hours) Vital Signs Temp Pulse Pulse Resp BP BP Pulse Ox 03/30/24 11:30 36.7 C 03/30/24 11:09 88 20 98 03/30/24 11:00 121/84 03/30/24 11:00 121/84 03/30/24 10:51 82 16 99 03/30/24 10:00 81 17 94 03/30/24 10:00 108/64 03/30/24 09:55 102/63 03/30/24 09:51 80 15 98 03/30/24 09:50 117/73 03/30/24 09:42 82 21 95 03/30/24 09:40 107/73 03/30/24 09:39 83 26 H 95 03/30/24 09:33 83 15 94 03/30/24 09:30 83 18 03/30/24 09:30 120/77 03/30/24 09:24 87 28 H 98 03/30/24 09:20 128/83 03/30/24 09:18 80 14 96 03/30/24 09:00 106/66 03/30/24 08:51 125/68 03/30/24 08:51 125/68 03/30/24 08:48 83 19 97 03/30/24 08:45 82 17 96 03/30/24 08:45 118/81 03/30/24 08:45 118/81 03/30/24 08:45 118/81 03/30/24 08:45 118/81 03/30/24 08:40 118/77 03/30/24 08:36 83 14 97 03/30/24 08:35 111/74 03/30/24 08:35 111/74 03/30/24 08:35 111/74 03/30/24 08:33 82 16 100 03/30/24 08:30 118/70 03/30/24 08:30 118/70 03/30/24 08:27 86 20 100 03/30/24 08:25 116/71 03/30/24 08:25 116/71 03/30/24 08:21 82 25 H 95 03/30/24 08:20 106/61 03/30/24 08:20 106/61 03/30/24 08:20 81 18 106/61 98 03/30/24 08:15 93/63 L 98 03/30/24 08:15 81 16 03/30/24 08:10 18 98/59 L 98 03/30/24 08:10 98/59 L 03/30/24 07:21 79 03/30/24 07:06 90 20 100 03/30/24 07:00 101/78 03/30/24 07:00 101/78 03/30/24 06:57 79 14 95 03/30/24 06:39 83 12 96 03/30/24 06:00 107/68 03/30/24 06:00 80 15 107/68 95 03/30/24 05:00 79 15 107/65 98 03/30/24 04:00 36.7 C 79 15 94/63 L 98 03/30/24 04:00 36.7 C 84 15 94/63 L 94 03/30/24 03:00 81 15 121/76 99 03/30/24 02:00 71 15 119/80 100 03/30/24 01:00 96 H 15 128/86 94 O2 Del Method 03/30/24 11:30 03/30/24 11:09 Room Air 03/30/24 11:00 03/30/24 11:00 03/30/24 10:51 03/30/24 10:00 03/30/24 10:00 03/30/24 09:55 03/30/24 09:51 03/30/24 09:50 03/30/24 09:42 Room Air 03/30/24 09:40 03/30/24 09:39 03/30/24 09:33 03/30/24 09:30 03/30/24 09:30 03/30/24 09:24 03/30/24 09:20 03/30/24 09:18 03/30/24 09:00 03/30/24 08:51 03/30/24 08:51 03/30/24 08:48 03/30/24 08:45 03/30/24 08:45 03/30/24 08:45 03/30/24 08:45 03/30/24 08:45 03/30/24 08:40 03/30/24 08:36 03/30/24 08:35 03/30/24 08:35 03/30/24 08:35 03/30/24 08:33 03/30/24 08:30 03/30/24 08:30 03/30/24 08:27 03/30/24 08:25 03/30/24 08:25 03/30/24 08:21 03/30/24 08:20 03/30/24 08:20 03/30/24 08:20 Room Air 03/30/24 08:15 Room Air 03/30/24 08:15 03/30/24 08:10 Room Air 03/30/24 08:10 03/30/24 07:21 03/30/24 07:06 03/30/24 07:00 03/30/24 07:00 03/30/24 06:57 Room Air 03/30/24 06:39 03/30/24 06:00 03/30/24 06:00 Room Air 03/30/24 05:00 Room Air 03/30/24 04:00 Room Air 03/30/24 04:00 Room Air 03/30/24 03:00 Room Air 03/30/24 02:00 Room Air 03/30/24 01:00 Room Air
[2024-03-30 16:11] LABS: Cystatin C 1.2 mg/L (0.52-1.27)
[2024-03-31 05:20] LABS: Eosinophils # (auto) 0.08 K/uL (0.00-0.50); Eosinophils % (auto) 2.5 %; Hemoglobin 7.8 g/dl (14.0-18.0); Immature Granulocytes # (auto) 0.02 K/uL (0.01-0.20); Immature Granulocytes % (auto) 0.6 %; Lymphocytes # (auto) 0.44 K/uL (1.20-3.40); Lymphocytes % (auto) 13.6 %; Mean Corpuscular Hemoglobin 23.9 pg (25.0-34.0); Mean Corpuscular Volume 79.8 fL (80.0-100.0); Mean Platelet Volume 9.1 fL (9.4-12.4); Monocytes % (auto) 15.4 %; Neutrophils % (auto) 67.9 %; Platelet Count 164 K/uL (130-400); RDW Coefficient of Variation 25.7 % (11.5-14.5); RDW Standard Deviation 71.9 fL (36.4-46.3); Red Blood Count 3.26 M/uL (4.70-6.10); White Blood Count 3.24 K/ul (4.8-10.8)
[2024-03-31 05:39] LABS: Anisocytosis Present; Hypochromasia Present; Polychromasia 3+; Rouleaux 1+; Target Cells 2+; Tear Drop Cells 1+
[2024-03-31 05:40] LABS: Alanine Aminotransferase 43 U/L (7-52); Albumin Globulin Ratio 1.5 (0.9-2); Alkaline Phosphatase 91 U/L (34-104); Anion Gap 5 (3-11); Aspartate Aminotransferase 95 U/L (13-39); Bilirubin,Total 28.5 mg/dl (0.2-1.0); Blood Urea Nitrogen 7 mg/dl (6-23); Calcium 8.2 mg/dl (8.6-10.3); Carbon Dioxide 29 mmol/L (21-32); Chloride 99 mmol/L (98-107); Glucose 97 mg/dl (70-99(Fasting)); Potassium 3.7 mmol/L (3.5-5.1); Sodium 133 mmol/L (136-145)
--- NOTE | 2024-03-31 10:36 | Nephrology Progress Note ---
Date of Service March 31, 2024 Assessment & Plan Admission and Anticipated Discharge Date Admission Date: March 27, 2024 Subjective Assessment & Plan (1) Hyponatremia: Plan: -Severe hypervolemic hypotonic hyponatremia with presenting sodium 113 at 5 TM March 26. Cirrhotic hyponatremia is particularly high-risk for complications of overcorrection. Corrected nicely and is now 133 (2) Renal failure: Plan: Slight LUCIANA on admission from severe Anemia from Bleeding. unknown but likely normal baseline creatinine. Presented with creatinine 1.5; improved to normal already. but last few readings not read because of high Bili Check Cystatin C (3) Electrolyte and fluid disorder: Plan: severely depleted calcium, mag, potassium. total body overloaded and intravascularly dry. Replete as needed. All lytes acceptable today. (4) Alcoholic liver failure: Plan: per critical care and GI. very high bili. Unless he stops Drinking Alcohol he is not going to survive long. (5) Profound anemia: Plan: From GI Bleed. per Critical Care/ GI Did get EGD and Colonoscopy yesterday. i reviewed the findings Subjective Patient is alert oriented x 3; not in distress. Hemodynamically stable and saturating well on room air, Hb stable now at 7.8 after many units of PRBC and FFP Review of Systems Review of Systems: All systems reviewed & are unremarkable except as noted in HPI & below Physical Exam Physical Exam: Constitutional: Icterus +++, patient alert oriented x 3 Respiratory: Bilateral Clear. Cardiovascular: RRR, no murmur, no edema . no JVD or carotid bruit Abdomen: Distended; nontender. Musculoskeletal: no cyanosis or clubbing, extremities motor strength 5/5 Skin: no rashes, warm and dry normal turgor Neurologic: PERRL, EOMI, accommodation nl, no face palsy, no dysarthria CN's II- XI intact bilaterally and moves all extremities Psychiatric: A+Ox3, euthymic affect Results & Data Vital Signs (Past 12 Hours) Vital Signs Temp Pulse Pulse Resp BP Pulse Ox O2 Del Method 03/31/24 07:50 76 03/31/24 07:38 86 22 116/95 96 Room Air 03/31/24 03:43 37.0 C 76 16 111/71 95 Room Air 03/30/24 23:15 37.0 C 79 16 93/69 L 98 Room Air
--- NOTE | 2024-03-31 12:35 | Hospitalist Progress Note ---
Date of Service March 31, 2024 Assessment & Plan (1) Profound anemia: Plan: 38-year-old male with no significant past medical history with alcohol use disorder comes because of not feeling well, noticed jaundice, abdominal distention and found to have profound anemia and hyponatremia. Iron Deficiency Anemia Esophagitis Hemoglobin 4.4 On presentation Reports dark stool for several months Status post 5 units of packed RBC And 5 units of FFP. Hb stable presently EGD done on March 30, 2024 shows grade D esophagitis with no bleeding. Mild portal hypertensive gastropathy was found. Colonoscopy done on March 30, 2024 showed large internal and external hemorrhoids. Rectum, sigmoid colon, descending colon, splenic flexure, transverse colon and ascending colon appeared normal. Continue on Protonix 40 mg twice daily Monitor for GI bleed regular diet Hyponatremia Sodium 113 on admission Serum osmolarity of 242 Urine osmolarity of 500s Urine sodium less than 10 Serum sodium gradually improved to 130s after use of hypertonic saline. Continue to monitor BMP daily; nephrology on board Discussed with nephrology; was started on Lasix 20 mg and spironolactone 50 mg once a day Alcohol abuse disorder Alcoholic hepatitis Ascites status post paracentesis (3.7L on 03/27/2024) Alcohol withdrawal CT abdomen pelvis no gallstones or choledocholithiasis or biliary dilatation. Cirrhotic liver. Portal hypertension with splenomegaly and moderate ascites will follow acute hepatitis panel Ascitic fluid analysis does not suggest SBP Monitor for withdrawal Started on rifampicin, lactulose Patient was not started on steroid due to risks of GI bleed DVT prophylaxis SCDs Disposition . Patient has several medical condition including severe anemia, severe hyponatremia, alcoholic hepatitis, alcohol withdrawal requiring close inpatient monitoring. Full code Time spent evaluating patient, direct bedside care, chart review, placing orders, interpretation of diagnostic studies, discussion with consultants, patient, and family members, as well as other required patient management activities is 60 minutes Please note the above document was generated using voice recognition software. It may contain grammatical, syntax or spelling errors. Any formal questions or concerns about the content, text or information contained within the body of this dictation should be directly addressed to the provider for clarification Admission and Anticipated Discharge Date Admission Date: March 27, 2024 Subjective Patient seen and examined at bedside. Comfortable; not in distress. Denies fever, chills, chest pain, shortness of breath, abdominal pain or urinary symptoms. No significant overnight events Review of Systems Review of Systems: All systems reviewed & are unremarkable except as noted in Subjective Physical Exam Physical Exam: Constitutional: Icterus present, patient alert oriented x 3; no asterixis Respiratory: Bilateral vesicular breath sound Cardiovascular: RRR, no murmur, no edema Vessels: no JVD or carotid bruit Chest: normal inspection of chest Abdomen: Distended; nontender. Musculoskeletal: no cyanosis or clubbing, extremities motor strength 5/5 Skin: no rashes, warm and dry normal turgor Neurologic: PERRL, EOMI, accommodation nl, no face palsy, no dysarthria CN's II- XI intact bilaterally and moves all extremities Psychiatric: A+Ox3, euthymic affect Results & Data Results & Data Vital Signs (Past 12 Hours) Vital Signs Temp Pulse Pulse Resp BP Pulse Ox O2 Del Method 03/31/24 12:00 85 22 114/72 97 Room Air 03/31/24 07:50 76 03/31/24 07:38 86 22 116/95 96 Room Air 03/31/24 03:43 37.0 C 76 16 111/71 95 Room Air
[2024-03-31 12:56] LABS: Hepatitis A Antibody IgM NON-REACTIVE (NON-REACTIVE); Hepatitis B Core Antibody IgM NON-REACTIVE (NON-REACTIVE)
[2024-04-01] MEDS: LORazepam 1 MG TAB PO STA (03:05)
[2024-04-01 06:52] LABS: Basophils # (auto) 0.01 K/uL (0.00-0.20); Basophils % (auto) 0.2 %; Eosinophils # (auto) 0.01 K/uL (0.00-0.50); Eosinophils % (auto) 0.2 %; Hematocrit (blood only) 23.6 % (42.0-52.0); Hemoglobin 7.1 g/dl (14.0-18.0); Immature Granulocytes # (auto) 0.04 K/uL (0.01-0.20); Immature Granulocytes % (auto) 0.6 %; Lymphocytes # (auto) 0.32 K/uL (1.20-3.40); Lymphocytes % (auto) 5.2 %; Mean Corpuscular Hemoglobin 24.1 pg (25.0-34.0); Mean Corpuscular Hgb Conc 30.1 g/dL (32.0-36.0); Mean Corpuscular Volume 80.3 fL (80.0-100.0); Mean Platelet Volume 9.7 fL (9.4-12.4); Monocytes # (auto) 0.84 K/uL (0.11-0.59); Monocytes % (auto) 13.6 %; Neutrophils # (auto) 4.94 K/uL (1.40-6.50); Neutrophils % (auto) 80.2 %; Platelet Count 137 K/uL (130-400); RDW Coefficient of Variation 26.7 % (11.5-14.5); RDW Standard Deviation 75.5 fL (36.4-46.3); Red Blood Count 2.94 M/uL (4.70-6.10); White Blood Count 6.16 K/ul (4.8-10.8)
[2024-04-01 07:19] LABS: Hypochromasia Present; Poikilocytosis Present
[2024-04-01 07:57] LABS: Alanine Aminotransferase 38 U/L (7-52); Albumin Globulin Ratio 1.5 (0.9-2); Albumin Level 2.9 gm/dl (3.4-5.0); Anion Gap 7 (3-11); Aspartate Aminotransferase 81 U/L (13-39); Bilirubin,Total 25.9 mg/dl (0.2-1.0); Blood Urea Nitrogen 11 mg/dl (6-23); Carbon Dioxide 26 mmol/L (21-32); Chloride 99 mmol/L (98-107); Glucose 107 mg/dl (70-99(Fasting)); Potassium 3.9 mmol/L (3.5-5.1); Sodium 132 mmol/L (136-145); Total Protein 4.9 gm/dl (6.0-8.3)
[2024-04-01 07:58] LABS: Alkaline Phosphatase 86 U/L (34-104)
[2024-04-01] MEDS: HYDROCORTISONE 2.5% OINT 20 GM TUBE EXT SCH (08:43)
--- NOTE | 2024-04-01 09:16 | Hospitalist Progress Note ---
Date of Service April 01, 2024 Assessment & Plan (1) Profound anemia: Plan: 38-year-old male with no significant past medical history with alcohol use disorder comes because of not feeling well, noticed jaundice, abdominal distention and found to have profound anemia and hyponatremia. Iron Deficiency Anemia Esophagitis Hemoglobin 4.4 On presentation Reports dark stool for several months Status post 5 units of packed RBC And 5 units of FFP. Hb stable presently EGD done on March 30, 2024 shows grade D esophagitis with no bleeding. Mild portal hypertensive gastropathy was found. Colonoscopy done on March 30, 2024 showed large internal and external hemorrhoids. Rectum, sigmoid colon, descending colon, splenic flexure, transverse colon and ascending colon appeared normal. Continue on Protonix 40 mg twice daily Started on hydrocortisone cream for hemorrhoids. Monitor for GI bleed regular diet Transfuse is Hb is less than 7. Hyponatremia Sodium 113 on admission Serum osmolarity of 242 Urine osmolarity of 500s Urine sodium less than 10 Serum sodium gradually improved to 130s after use of hypertonic saline. Continue to monitor BMP daily; nephrology on board Discussed with nephrology; was started on Lasix 20 mg and spironolactone 50 mg once a day Alcohol abuse disorder Alcoholic hepatitis Ascites status post paracentesis (3.7L on 03/27/2024) Alcohol withdrawal CT abdomen pelvis no gallstones or choledocholithiasis or biliary dilatation. Cirrhotic liver. Portal hypertension with splenomegaly and moderate ascites Acute Hepatitis panel negative Ascitic fluid analysis does not suggest SBP Monitor for withdrawal Started on rifampicin, lactulose Patient was not started on steroid due to risks of GI bleed DVT prophylaxis SCDs Disposition . Patient has several medical condition including severe anemia, severe hyponatremia, alcoholic hepatitis, alcohol withdrawal requiring close inpatient monitoring. Possible DC in next few days. Full code Time spent evaluating patient, direct bedside care, chart review, placing orders, interpretation of diagnostic studies, discussion with consultants, patient, and family members, as well as other required patient management activities is 60 minutes Please note the above document was generated using voice recognition software. It may contain grammatical, syntax or spelling errors. Any formal questions or concerns about the content, text or information contained within the body of this dictation should be directly addressed to the provider for clarification Admission and Anticipated Discharge Date Admission Date: March 27, 2024 Subjective patient seen and examined at bedside. He is comfortable;not in any distress Vitals signs are stable; had BRBPR overnight with BM Review of Systems Review of Systems: All systems reviewed & are unremarkable except as noted in Subjective Physical Exam Physical Exam: Constitutional: Icterus present, patient alert oriented x 3; no asterixis Respiratory: Bilateral vesicular breath sound Cardiovascular: RRR, no murmur, no edema Vessels: no JVD or carotid bruit Chest: normal inspection of chest Abdomen: Distended; nontender. Musculoskeletal: no cyanosis or clubbing, extremities motor strength 5/5 Skin: no rashes, warm and dry normal turgor Neurologic: PERRL, EOMI, accommodation nl, no face palsy, no dysarthria CN's II- XI intact bilaterally and moves all extremities Psychiatric: A+Ox3, euthymic affect Results & Data Results & Data Vital Signs (Past 12 Hours) Vital Signs Temp Pulse Pulse Resp BP Pulse Ox O2 Del Method 04/01/24 07:33 37.5 C 99 H 20 103/60 91 Room Air 04/01/24 02:49 37.7 C H 109 H 16 121/77 96 Room Air 03/31/24 23:08 37.0 C 88 16 105/66 95 Room Air 03/31/24 21:49 86
--- NOTE | 2024-04-01 10:19 | Nephrology Progress Note ---
Date of Service April 01, 2024 Assessment & Plan Admission and Anticipated Discharge Date Admission Date: March 27, 2024 Subjective Assessment & Plan (1) Hyponatremia: Plan: -Severe hypervolemic hypotonic hyponatremia with presenting sodium 113 at 5 TM March 26. Cirrhotic hyponatremia is particularly high-risk for complications of overcorrection. Corrected nicely and is now 132. last few days na has been in the low 130's. this is acceptable and likely the best we can achieve. (2) Renal failure: Plan: Slight LUCIANA on admission from severe Anemia from Bleeding. unknown but likely normal baseline creatinine. Presented with creatinine 1.5; improved to normal already. but last few readings not read because of high Bili Check Cystatin C (3) Electrolyte and fluid disorder: Plan: severely depleted calcium, mag, potassium. Replete as needed. All lytes acceptable today. (4) Alcoholic liver failure: Plan: per critical care and GI. very high bili. Unless he stops Drinking Alcohol he is not going to survive long. (5) Profound anemia: Plan: From GI Bleed. per Critical Care/ GI Did get EGD and Colonoscopy. i reviewed the findings Subjective Patient is alert oriented x 3; not in distress. Hemodynamically stable and saturating well on room air, Hb stable now at 7.8 after many units of PRBC and FFP Review of Systems Review of Systems: All systems reviewed & are unremarkable except as noted in HPI & below Physical Exam Physical Exam: Constitutional: Icterus +++, patient alert oriented x 3 Respiratory: Bilateral Clear. Cardiovascular: RRR, no murmur, no edema . no JVD or carotid bruit Abdomen: Distended; nontender. Musculoskeletal: no cyanosis or clubbing, extremities motor strength 5/5 Skin: no rashes, warm and dry normal turgor Neurologic: PERRL, EOMI, accommodation nl, no face palsy, no dysarthria CN's II- XI intact bilaterally and moves all extremities Psychiatric: A+Ox3, euthymic affect Results & Data Vital Signs (Past 12 Hours) Vital Signs Temp Pulse Resp BP Pulse Ox O2 Del Method 04/01/24 07:33 37.5 C 99 H 20 103/60 91 Room Air 04/01/24 02:49 37.7 C H 109 H 16 121/77 96 Room Air 03/31/24 23:08 37.0 C 88 16 105/66 95 Room Air
[2024-04-01] MEDS: LIDOCAINE 2% JELLY 5 ML TUBE EXT SCH (12:37)
[2024-04-02 07:42] LABS: Hematocrit (blood only) 23.3 % (42.0-52.0); Mean Corpuscular Hemoglobin 24.3 pg (25.0-34.0); Mean Corpuscular Volume 80.9 fL (80.0-100.0); Mean Platelet Volume 9.6 fL (9.4-12.4); Platelet Count 133 K/uL (130-400); RDW Coefficient of Variation 27.5 % (11.5-14.5); RDW Standard Deviation 78.7 fL (36.4-46.3); Red Blood Count 2.88 M/uL (4.70-6.10); White Blood Count 5.28 K/ul (4.8-10.8)
[2024-04-02 07:45] LABS: Anisocytosis Present; Eosinophils # (auto) 0.01 K/uL (0.00-0.50); Eosinophils % (auto) 0.2 %; Immature Granulocytes # (auto) 0.05 K/uL (0.01-0.20); Immature Granulocytes % (auto) 0.9 %; Lymphocytes # (auto) 0.42 K/uL (1.20-3.40); Monocytes # (auto) 0.92 K/uL (0.11-0.59); Monocytes % (auto) 17.4 %; Neutrophils # (auto) 3.88 K/uL (1.40-6.50); Neutrophils % (auto) 73.5 %; Target Cells 1+
[2024-04-02 08:29] LABS: Blood Urea Nitrogen 14 mg/dl (6-23)
[2024-04-02 08:31] LABS: Alkaline Phosphatase 79 U/L (34-104)
[2024-04-02 08:32] LABS: Alanine Aminotransferase 33 U/L (7-52); Albumin Globulin Ratio 1.3 (0.9-2); Albumin Level 2.8 gm/dl (3.4-5.0); Anion Gap 7 (3-11); Aspartate Aminotransferase 65 U/L (13-39); Bilirubin,Total 25.1 mg/dl (0.2-1.0); Calcium 7.9 mg/dl (8.6-10.3); Carbon Dioxide 27 mmol/L (21-32); Chloride 99 mmol/L (98-107); Globulin 2.1 gm/dl (2.5-4.0); Glucose 91 mg/dl (70-99(Fasting)); Potassium 3.8 mmol/L (3.5-5.1); Sodium 133 mmol/L (136-145); Total Protein 4.9 gm/dl (6.0-8.3)
[2024-04-02] MEDS: THIAMINE HCL 250 MG in SODIUM CHLORIDE 0.9% 50 ML IV SCH (08:38)
[2024-04-02] MEDS ORDERED: SODIUM CHLORIDE 0.9% 250 ML IV PRN (17:37)
--- NOTE | 2024-04-02 19:08 | Hospitalist Progress Note ---
Date of Service April 02, 2024 Assessment & Plan (1) Profound anemia: Plan: 38-year-old male with no significant past medical history with alcohol use disorder comes because of not feeling well, noticed jaundice, abdominal distention and found to have profound anemia and hyponatremia. Iron Deficiency Anemia Esophagitis Hemoglobin 4.4 On presentation Reports dark stool for several months Status post 5 units of packed RBC And 5 units of FFP. Hb stable presently EGD done on March 30, 2024 shows grade D esophagitis with no bleeding. Mild portal hypertensive gastropathy was found. Colonoscopy done on March 30, 2024 showed large internal and external hemorrhoids. Rectum, sigmoid colon, descending colon, splenic flexure, transverse colon and ascending colon appeared normal. Continue on Protonix 40 mg twice daily Started on hydrocortisone cream for hemorrhoids. Monitor for GI bleed regular diet Transfuse is Hb is less than 7. Hemoglobin stable at 7.0, patient symptomatic 1 unit packed RBCs Repeat level tomorrow Hyponatremia Sodium 113 on admission Serum osmolarity of 242 Urine osmolarity of 500s Urine sodium less than 10 Serum sodium gradually improved to 130s after use of hypertonic saline. Continue to monitor BMP daily; nephrology on board Discussed with nephrology; was started on Lasix 20 mg and spironolactone 50 mg once a day Sodium 133 Alcohol abuse disorder Alcoholic hepatitis Ascites status post paracentesis (3.7L on 03/27/2024) Alcohol withdrawal CT abdomen pelvis no gallstones or choledocholithiasis or biliary dilatation. Cirrhotic liver. Portal hypertension with splenomegaly and moderate ascites Acute Hepatitis panel negative Ascitic fluid analysis does not suggest SBP Monitor for withdrawal Started on rifampicin, lactulose Patient was not started on steroid due to risks of GI bleed No signs of active control Bilirubin still elevated AST improving Will request GI service for ff up visit tomorrow DVT prophylaxis SCDs Disposition . Patient has several medical condition including severe anemia, severe hyponatremia, alcoholic hepatitis, alcohol withdrawal requiring close inpatient monitoring. Possible DC in next few days. Full code Time spent evaluating patient, direct bedside care, chart review, placing orders, interpretation of diagnostic studies, discussion with consultants, patient, and family members, as well as other required patient management activities is 60 minutes Please note the above document was generated using voice recognition software. It may contain grammatical, syntax or spelling errors. Any formal questions or concerns about the content, text or information contained within the body of this dictation should be directly addressed to the provider for clarification Admission and Anticipated Discharge Date Admission Date: March 27, 2024 Subjective Follow-up for alcoholic hepatitis, acute blood loss anemia, esophagitis, etc. Seen resting in bed, comfortable, not in distress States he feels tired/weak today, but denies dizziness, chest pain, shortness of breath No abdominal pain, nausea vomiting, fevers or chills No melena hematochezia No other new symptom Review of Systems Review of Systems: all noted and negative except for above Physical Exam Physical Exam: General- oriented x 3, not in distress, speaks in sentences with no effort or accessory muscle use Eyes- Positive icterus Neck- no JVD Lungs- clear breath sounds bilaterally, no rales/wheezes Heart- normal rate, regular rhythm; no murmurs Abdomen- normal bowel sounds, Protuberant,nondistended, soft, nontender Extremities- no pretibial edema, no calf tenderness Neuro- alert, oriented x 3; no gross focal neurologic deficits Skin- warm & dry Results & Data Results & Data Vital Signs (Past 12 Hours) Vital Signs Temp Pulse Pulse Resp BP Pulse Ox Pulse Ox 04/02/24 17:00 96 04/02/24 15:35 37.3 C 93 H 21 104/66 96 04/02/24 14:00 100 H 04/02/24 10:29 37.0 C 92 H 21 107/71 97 04/02/24 08:00 84 04/02/24 07:46 37.2 C 86 21 116/75 97 O2 Del Method O2 Del Method 04/02/24 17:00 Room Air 04/02/24 15:35 Room Air 04/02/24 14:00 04/02/24 10:29 Room Air 04/02/24 08:00 04/02/24 07:46 Room Air all noted and reviewed including below
[2024-04-03 08:41] LABS: Hypochromasia Present
[2024-04-03 09:13] LABS: Basophils # (auto) 0.01 K/uL (0.00-0.20); Basophils % (auto) 0.2 %; Eosinophils # (auto) 0.02 K/uL (0.00-0.50); Eosinophils % (auto) 0.3 %; Hematocrit (blood only) 27.1 % (42.0-52.0); Hemoglobin 8.1 g/dl (14.0-18.0); Immature Granulocytes # (auto) 0.05 K/uL (0.01-0.20); Immature Granulocytes % (auto) 0.8 %; Lymphocytes # (auto) 0.55 K/uL (1.20-3.40); Lymphocytes % (auto) 8.5 %; Mean Corpuscular Hgb Conc 29.9 g/dL (32.0-36.0); Mean Corpuscular Volume 83.6 fL (80.0-100.0); Mean Platelet Volume 9.6 fL (9.4-12.4); Monocytes # (auto) 0.92 K/uL (0.11-0.59); Monocytes % (auto) 14.3 %; Neutrophils % (auto) 75.9 %; Platelet Count 135 K/uL (130-400); RDW Coefficient of Variation 26.2 % (11.5-14.5); RDW Standard Deviation 78.1 fL (36.4-46.3); Red Blood Count 3.24 M/uL (4.70-6.10); White Blood Count 6.45 K/ul (4.8-10.8)
[2024-04-03 09:40] LABS: Anisocytosis Present; Target Cells 1+
[2024-04-03 09:42] LABS: Alanine Aminotransferase 31 U/L (7-52); Albumin Level 2.9 gm/dl (3.4-5.0); Anion Gap 7 (3-11); Aspartate Aminotransferase 59 U/L (13-39); Bilirubin,Total 23.6 mg/dl (0.2-1.0); Calcium 8.1 mg/dl (8.6-10.3); Carbon Dioxide 26 mmol/L (21-32); Chloride 100 mmol/L (98-107); Glucose 129 mg/dl (70-99(Fasting)); Potassium 3.7 mmol/L (3.5-5.1); Sodium 133 mmol/L (136-145); Total Protein 5.2 gm/dl (6.0-8.3)
[2024-04-03 09:43] LABS: Blood Urea Nitrogen 18 mg/dl (6-23)
[2024-04-03 09:44] LABS: Alkaline Phosphatase 85 U/L (34-104)
[2024-04-03 09:50] LABS: Bilirubin Direct 16.5 mg/dl (0-0.2)
--- NOTE | 2024-04-03 10:52 | Gastroenterology Progress Note ---
Date of Service April 03, 2024 Assessment & Plan (1) Elevated bilirubin: Plan: Alcoholic hepatitis does not miraculously go away in a week. This process can take months and I suspect he will be jaundiced for months. There is nothing to do about it and jaundice does not kill adult people, only the cause of the jaundice can cause problems. His alcoholic hepatitis seems to be stable/improving so from that stand point he can go home when other problems are under control Admission and Anticipated Discharge Date Admission Date: March 27, 2024 Subjective Asked to visit again because of continued elevation of bilirubin. He feels well. Bilirubin is 23 with AST in 60's and normal ALT Physical Exam Constitutional: + ill appearing Eyes: sclerae not anicteric Results & Data Vital Signs (Past 12 Hours) Vital Signs Temp Pulse Pulse Resp BP Pulse Ox O2 Del Method 04/03/24 07:33 36.8 C 77 18 104/70 97 Room Air 04/03/24 03:11 75 20 104/67 96 Room Air 04/03/24 00:00 36.8 C 85 15 109/71 94 Room Air 04/03/24 00:00 87 Laboratory Results 04/03/24 04/02/24 04/02/24 Range/Units 08:53 17:57 08:50 WBC 6.45 (4.8-10.8) K/ul RBC 3.24 L (4.70-6.10) M/uL Hgb 8.1 L (14.0-18.0) g/dl Hct 27.1 L (42.0-52.0) % MCV 83.6 (80.0-100.0) fL MCH 25.0 (25.0-34.0) pg MCHC 29.9 L (32.0-36.0) g/dL RDW Std Deviation 78.1 H (36.4-46.3) fL RDW Coeff of Christy 26.2 H (11.5-14.5) % Plt Count 135 (130-400) K/uL MPV 9.6 (9.4-12.4) fL Immature Gran % (Auto) 0.8 % Neut % (Auto) 75.9 % Lymph % (Auto) 8.5 % Dooly % (Auto) 14.3 % Eos % (Auto) 0.3 % Baso % (Auto) 0.2 % Neut # (Auto) 4.90 (1.40-6.50) K/uL Lymph # (Auto) 0.55 L (1.20-3.40) K/uL Dooly # (Auto) 0.92 H (0.11-0.59) K/uL Eos # (Auto) 0.02 (0.00-0.50) K/uL Baso # (Auto) 0.01 (0.00-0.20) K/uL Immature Gran # (Auto) 0.05 (0.01-0.20) K/uL Hypochromasia Anisocytosis Present Target Cells 1+ Sodium 133 L (136-145) mmol/L Potassium 3.7 (3.5-5.1) mmol/L Chloride 100 (98-107) mmol/L Carbon Dioxide 26 (21-32) mmol/L Anion Gap 7 (3-11) BUN 18 (6-23) mg/dl Creatinine TNP Est Cr Clr Drug Dosing TNP Est GFR ( Amer) TNP Est GFR (Non-Af Amer) TNP BUN/Creatinine Ratio TNP Glucose 129 H (70-99(Fasting)) mg/dl Calcium 8.1 L (8.6-10.3) mg/dl Total Bilirubin 23.6 H (0.2-1.0) mg/dl Direct Bilirubin 16.5 H (0-0.2) mg/dl AST 59 H (13-39) U/L ALT 31 (7-52) U/L Alkaline Phosphatase 85 (34-104) U/L Total Protein 5.2 L (6.0-8.3) gm/dl Albumin 2.9 L (3.4-5.0) gm/dl Miscellaneous Test Pending REPORT Blood Type A Positive Antibody Screen NEGATIVE Crossmatch See Detail 04/02/24 Range/Units 06:10 WBC (4.8-10.8) K/ul RBC (4.70-6.10) M/uL Hgb (14.0-18.0) g/dl Hct (42.0-52.0) % MCV (80.0-100.0) fL MCH (25.0-34.0) pg MCHC (32.0-36.0) g/dL RDW Std Deviation (36.4-46.3) fL RDW Coeff of Christy (11.5-14.5) % Plt Count (130-400) K/uL MPV (9.4-12.4) fL Immature Gran % (Auto) % Neut % (Auto) % Lymph % (Auto) % Dooly % (Auto) % Eos % (Auto) % Baso % (Auto) % Neut # (Auto) (1.40-6.50) K/uL Lymph # (Auto) (1.20-3.40) K/uL Dooly # (Auto) (0.11-0.59) K/uL Eos # (Auto) (0.00-0.50) K/uL Baso # (Auto) (0.00-0.20) K/uL Immature Gran # (Auto) (0.01-0.20) K/uL Hypochromasia Present Anisocytosis Target Cells Sodium (136-145) mmol/L Potassium (3.5-5.1) mmol/L Chloride (98-107) mmol/L Carbon Dioxide (21-32) mmol/L Anion Gap (3-11) BUN (6-23) mg/dl Creatinine Est Cr Clr Drug Dosing Est GFR ( Amer) Est GFR (Non-Af Amer) BUN/Creatinine Ratio Glucose (70-99(Fasting)) mg/dl Calcium (8.6-10.3) mg/dl Total Bilirubin (0.2-1.0) mg/dl Direct Bilirubin (0-0.2) mg/dl AST (13-39) U/L ALT (7-52) U/L Alkaline Phosphatase (34-104) U/L Total Protein (6.0-8.3) gm/dl Albumin (3.4-5.0) gm/dl Miscellaneous Test Blood Type Antibody Screen Crossmatch
--- NOTE | 2024-04-03 16:54 | Hospitalist Progress Note ---
Date of Service April 03, 2024 Assessment & Plan (1) Profound anemia: Plan: 38-year-old male with no significant past medical history with alcohol use disorder comes because of not feeling well, noticed jaundice, abdominal distention and found to have profound anemia and hyponatremia. Iron Deficiency Anemia Esophagitis Hemoglobin 4.4 On presentation Reports dark stool for several months Status post 5 units of packed RBC And 5 units of FFP. Hb stable presently EGD done on March 30, 2024 shows grade D esophagitis with no bleeding. Mild portal hypertensive gastropathy was found. Colonoscopy done on March 30, 2024 showed large internal and external hemorrhoids. Rectum, sigmoid colon, descending colon, splenic flexure, transverse colon and ascending colon appeared normal. Continue on Protonix 40 mg twice daily Started on hydrocortisone cream for hemorrhoids. Monitor for GI bleed regular diet Transfuse is Hb is less than 7. Hemoglobin stable at 7.0, patient symptomatic 1 unit packed RBCs Repeat level tomorrow /25 Hg 8.1 no signs of bleeding recurrence Hyponatremia Sodium 113 on admission Serum osmolarity of 242 Urine osmolarity of 500s Urine sodium less than 10 Serum sodium gradually improved to 130s after use of hypertonic saline. Continue to monitor BMP daily; nephrology on board Discussed with nephrology; was started on Lasix 20 mg and spironolactone 50 mg once a day Sodium 133 Alcohol abuse disorder Alcoholic hepatitis Ascites status post paracentesis (3.7L on 03/27/2024) Alcohol withdrawal CT abdomen pelvis no gallstones or choledocholithiasis or biliary dilatation. Cirrhotic liver. Portal hypertension with splenomegaly and moderate ascites Acute Hepatitis panel negative Ascitic fluid analysis does not suggest SBP Monitor for withdrawal Started on rifampicin, lactulose Patient was not started on steroid due to risks of GI bleed No signs of active control Bilirubin still elevated AST improving Will request GI service for ff up visit tomorrow observe for now and ff up as outpatient as per GI service DVT prophylaxis SCDs Disposition . Patient has several medical condition including severe anemia, severe hyponatremia, alcoholic hepatitis, alcohol withdrawal requiring close inpatient monitoring. Possible DC in next few days. Full code Admission and Anticipated Discharge Date Admission Date: March 27, 2024 Subjective Follow-up for acute blood loss anemia, esophagitis, alcoholic hepatitis, etc. Seen resting in bed, watching TV, comfortable States he feels better today compared to yesterday Weakness is improving No abdominal pain, nausea vomiting No melena or hematochezia No other new symptom Review of Systems Review of Systems: all noted and negative except for above Physical Exam Physical Exam: General- oriented x 3, not in distress, speaks in sentences with no effort or accessory muscle use Eyes- Icterus Neck- no JVD Lungs- clear breath sounds bilaterally, no rales/wheezes Heart- normal rate, regular rhythm; no murmurs Abdomen- normal bowel sounds, protruberant, nondistended, soft, nontender Extremities- no pretibial edema, no calf tenderness Neuro- alert, oriented x 3; no gross focal neurologic deficits Skin- warm & dry Results & Data Results & Data Vital Signs (Past 12 Hours) Vital Signs Temp Pulse Pulse Resp BP Pulse Ox O2 Del Method 04/03/24 15:43 36.6 C 85 18 104/70 97 Room Air 04/03/24 10:52 36.8 C 89 18 110/75 97 Room Air 04/03/24 08:00 82 04/03/24 07:33 36.8 C 77 18 104/70 97 Room Air all noted and reviewed including below
[2024-04-04 06:32] LABS: Basophils # (auto) 0.01 K/uL (0.00-0.20); Basophils % (auto) 0.2 %; Eosinophils # (auto) 0.03 K/uL (0.00-0.50); Eosinophils % (auto) 0.5 %; Hematocrit (blood only) 25.9 % (42.0-52.0); Hemoglobin 7.8 g/dl (14.0-18.0); Immature Granulocytes # (auto) 0.03 K/uL (0.01-0.20); Immature Granulocytes % (auto) 0.5 %; Lymphocytes % (auto) 10.2 %; Mean Corpuscular Hemoglobin 25.2 pg (25.0-34.0); Mean Corpuscular Hgb Conc 30.1 g/dL (32.0-36.0); Mean Corpuscular Volume 83.5 fL (80.0-100.0); Mean Platelet Volume 9.8 fL (9.4-12.4); Monocytes # (auto) 0.73 K/uL (0.11-0.59); Monocytes % (auto) 12.4 %; Neutrophils # (auto) 4.47 K/uL (1.40-6.50); Neutrophils % (auto) 76.2 %; Platelet Count 149 K/uL (130-400); RDW Coefficient of Variation 26.7 % (11.5-14.5); RDW Standard Deviation 79.5 fL (36.4-46.3); White Blood Count 5.87 K/ul (4.8-10.8)
[2024-04-04 06:37] LABS: Creatinine Clr Calc Pharmacy 139.4 ml/min; Est GFR (Non-African American) 114.7 ml/min; Potassium 3.8 mmol/L (3.5-5.1)
[2024-04-04 06:56] LABS: Albumin Level 2.8 gm/dl (3.4-5.0); Bilirubin,Total 20.3 mg/dl (0.2-1.0); Total Protein 5.1 gm/dl (6.0-8.3)
[2024-04-04 06:57] LABS: Anisocytosis Present; Target Cells 1+
[2024-04-04 07:34] LABS: Bilirubin Direct 14.3 mg/dl (0-0.2)
--- NOTE | 2024-04-04 10:06 | Discharge Summary ---
Discharge Summary Date of Service April 04, 2024 Principal Dx & Hospital Course #1 = Principal Diagnosis (1) Profound anemia: 38-year-old male with no significant past medical history with alcohol use disorder comes because of not feeling well, noticed jaundice, abdominal distention and found to have profound anemia and hyponatremia. Iron Deficiency Anemia Esophagitis Hemoglobin 4.4 On presentation Reports dark stool for several months Status post 5 units of packed RBC And 5 units of FFP. Hb stable presently EGD done on March 30, 2024 shows grade D esophagitis with no bleeding. Mild portal hypertensive gastropathy was found. Colonoscopy done on March 30, 2024 showed large internal and external hemorrhoids. Rectum, sigmoid colon, descending colon, splenic flexure, transverse colon and ascending colon appeared normal. Continue on Protonix 40 mg twice daily Started on hydrocortisone cream for hemorrhoids. Monitor for GI bleed regular diet Transfuse is Hb is less than 7. 04/04 Patient required total of 6 units of packed RBCs while admitted Hg ~8 Upon discharge Iron level 32 no signs of bleeding recurrence Continue Protonix 40 mg twice daily x 1 month, then daily Continue to monitor CBC, iron level, and check vitamin B12 as an outpatient Close follow-up with GI Hyponatremia Sodium 113 on admission Serum osmolarity of 242 Urine osmolarity of 500s Urine sodium less than 10 Serum sodium gradually improved to 130s after use of hypertonic saline. Continue to monitor BMP daily; nephrology on board Discussed with nephrology; was started on Lasix 20 mg and spironolactone 50 mg once a day Sodium 133 resolved Alcohol abuse disorder Alcoholic hepatitis Ascites status post paracentesis (3.7L on 03/27/2024) Alcohol withdrawal CT abdomen pelvis no gallstones or choledocholithiasis or biliary dilatation. Cirrhotic liver. Portal hypertension with splenomegaly and moderate ascites Acute Hepatitis panel negative Ascitic fluid analysis does not suggest SBP Monitor for withdrawal Started on Rifaximin, lactulose Patient was not started on steroid due to risks of GI bleed Alcohol no signs of alcohol withdrawal Bilirubin still elevated AST improving Will request GI service for ff up visit: No further interventions 04/04 Bilirubin still elevated but trending down Total bilirubin 20.3 upon discharge Continue with rifaximin, lactulose, Lasix, Aldactone Also continue with thiamine, folate, multivitamins Repeat LFTs upon follow-up with PCP Continue close follow-up with GI as an outpatient DVT prophylaxis SCDs Disposition DC home PCP follow-up in 1 week GI follow-up in 1 to 2 weeks Notes For Next Care Provider Medication Changes From Visit Protonix-for esophagitis, prevention of GI bleed Hydrocortisone cream-for treatment of hemorrhoids Lactulose, rifaximin-to prevent confusion secondary to ammonia level elevation Spironolactone, Lasix-to prevent fluid accumulation in the abdomen Folate, thiamine, iron-supplements Admission HPI Per Admitting Provider 38-year-old male with no significant past medical history with ongoing alcoholism comes because of not feeling well, noticed jaundice, abdominal distention and found to have profound anemia and hyponatremia. Patient states he is drinking about 10 shots of vodka every day for almost 10 years and and was also drinking prior to that. Last 2 months is having on and off blood per rectum. Last week he noticed yellow discoloration of the skin. And last couple of days he is having shortness of breath on exertion. Notes last few days he noticed abdomen getting distended. Feeling weak and tired. Poor appetite. Denies any chest pain. Today feeling dizzy. No headache. No blurred vision. Has some cough. No sore throat. No runny nose. Micturating okay. Currently alert and oriented and Hemodynamics are okay. past medical history. Denies any medical history. Past surgical history. Had surgery for eardrum as a kid. [place] tooth extraction. Social history. Denies smoking. Drinking 10 shots of vodka for last 10 years. Denies drug use. Family history. Father had heart disorder. Mother had pancreatic cancer. Admission Exam Per Admitting Provider General-Not in acute distress Head- atraumatic Eyes- PERRL, icterus present ENT- oropharynx clear Neck- supple, no JVD Lungs- clear to auscultation no wheezing or crackles. Heart- regular rate and rhythm; no murmur, no gallop. Abdomen- normal bowel sounds, soft,distended no tenderness Extremities- no pretibial edema, no erythema seen. Neuro- alert, oriented ; PERRL, no facial palsy; no dysarthria; moves extremities. Skin-yellow discoloration. Discharge Exam General- oriented x 3, not in distress, speaks in sentences with no effort or accessory muscle use Eyes- Positive icterus Neck- no JVD Lungs- clear breath sounds bilaterally, no rales/wheezes Heart- normal rate, regular rhythm; no murmurs Abdomen- normal bowel sounds, nondistended, soft, nontender Extremities- no pretibial edema, no calf tenderness Neuro- alert, oriented x 3; no gross focal neurologic deficits Skin- warm & dry, Positive jaundice Updated Medication List Medication Instructions Recorded Confirmed Type ferrous sulfate 325 mg (65 mg 325 mg PO DAILY #30 tabs 04/04/24 Rx iron) tablet folic acid 1 mg tablet 1 mg PO DAILY #7 tabs 04/04/24 Rx furosemide 20 mg tablet 20 mg PO QAM 30 days #30 tabs 04/04/24 Rx hydrocortisone 2.5 % topical 1 applic EXT BID 7 days #28.35 04/04/24 Rx ointment grams lactulose 20 gram/30 mL oral 20 g (30 mL) PO DAILY 30 days #900 04/04/24 Rx solution mL multivitamin 1 tab PO DAILY #30 tabs 04/04/24 Rx pantoprazole 40 mg tablet,delayed 40 mg PO BID 30 days #60 tabs 04/04/24 Rx release rifaximin 550 mg tablet (Xifaxan) 550 mg PO BID 30 days #60 tabs 04/04/24 Rx spironolactone 25 mg tablet 50 mg (2 x 25 mg) PO QAM 30 days 04/04/24 Rx #60 tabs thiamine HCl (vitamin B1) 100 mg 100 mg PO DAILY 7 days #7 tabs 04/04/24 Rx tablet Hospital Stay Data Consultations 03/26/24 21:43 ED Decision to Admit Stat 03/27/24 02:31 Consult Restoration Ecologist Routine 03/27/24 08:00 Consult Gastroenterology Routine Consult Nephrology Routine Procedures Performed Operation Date: 03/30/24 07:30 Actual Procedures p Esophagogastroduodenoscopy(Not Applicable) - Nerissa Paez Jr, MD s Colonoscopy(Not Applicable) - Nerissa Paez Jr, MD Diagnostic Imagining Performed Laboratory Results WBC 5.87 K/ul (4.8-10.8) 04/04/24 05:53 RBC 3.10 M/uL (4.70-6.10) L 04/04/24 05:53 Hgb 7.8 g/dl (14.0-18.0) L 04/04/24 05:53 POC Hgb 5.8 g/dl (14.0-18.0) L* 03/26/24 19:09 Hct 25.9 % (42.0-52.0) L 04/04/24 05:53 POC Hct 17 % (42-52) L* 03/26/24 19:09 MCV 83.5 fL (80.0-100.0) 04/04/24 05:53 MCH 25.2 pg (25.0-34.0) 04/04/24 05:53 MCHC 30.1 g/dL (32.0-36.0) L 04/04/24 05:53 RDW Std Deviation 79.5 fL (36.4-46.3) H 04/04/24 05:53 RDW Coeff of Christy 26.7 % (11.5-14.5) H 04/04/24 05:53 Plt Count 149 K/uL (130-400) 04/04/24 05:53 MPV 9.8 fL (9.4-12.4) 04/04/24 05:53 Immature Gran % (Auto) 0.5 % 04/04/24 05:53 Neut % (Auto) 76.2 % 04/04/24 05:53 Lymph % (Auto) 10.2 % 04/04/24 05:53 [place] % (Auto) 12.4 % 04/04/24 05:53 Eos % (Auto) 0.5 % 04/04/24 05:53 Baso % (Auto) 0.2 % 04/04/24 05:53 Neut # (Auto) 4.47 K/uL (1.40-6.50) 04/04/24 05:53 Lymph # (Auto) 0.60 K/uL (1.20-3.40) L 04/04/24 05:53 [place] # (Auto) 0.73 K/uL (0.11-0.59) H 04/04/24 05:53 Eos # (Auto) 0.03 K/uL (0.00-0.50) 04/04/24 05:53 Baso # (Auto) 0.01 K/uL (0.00-0.20) 04/04/24 05:53 Immature Gran # (Auto) 0.03 K/uL (0.01-0.20) 04/04/24 05:53 Absolute Nucleated RBC 0.03 K/uL (0.00-0.12) 03/28/24 09:28 Nucleated RBC % (auto) 0.7 % 03/28/24 09:28 Polychromasia 3+ 03/31/24 04:44 Hypochromasia Present 04/02/24 06:10 Poikilocytosis Present 04/01/24 06:00 Anisocytosis Present 04/04/24 05:53 Microcytosis Present 03/30/24 04:18 Target Cells 1+ 04/04/24 05:53 Tear Drop Cells 1+ 03/31/24 04:44 Stomatocytes 1+ 03/26/24 16:41 Rouleaux 1+ 03/31/24 04:44 PT 18.9 Seconds (9.0-12.0) H 03/30/24 05:47 INR 1.8 (0.9-1.1) H 03/30/24 05:47 APTT 28 Seconds (21-31) 03/28/24 03:54 PTT Ratio 1.0 03/28/24 03:54 Fibrinogen 160 mg/dl (184-400) L 03/28/24 23:33 VBG pH 7.46 (7.36-7.41) H 03/27/24 01:43 VBG pCO2 32 mmHg (38-50) L 03/27/24 01:43 VBG pO2 22 mmHg 03/27/24 01:43 VBG HCO3 23 mmol/L 03/27/24 01:43 VBG O2 Saturation < 60.0 % 03/27/24 01:43 VBG Base Excess -0.3 mEq/L 03/27/24 01:43 POC Sodium 112 mmol/L (135-144) L* 03/26/24 19:09 Sodium 134 mmol/L (136-145) L 04/04/24 05:53 POC Potassium 3.4 mmol/L (3.3-5.0) 03/26/24 19:09 Potassium 3.8 mmol/L (3.5-5.1) 04/04/24 05:53 POC Chloride 76 mmol/L (101-112) L 03/26/24 19:09 Chloride 102 mmol/L (98-107) 04/04/24 05:53 Carbon Dioxide 25 mmol/L (21-32) 04/04/24 05:53 POC Total CO2 22 mmol/L (24-31) L 03/26/24 19:09 Anion Gap 7 (3-11) 04/04/24 05:53 POC Anion Gap 19.0 mmol/L (16-25) 03/26/24 19:09 POC BUN 19 mg/dl (7-18) H 03/26/24 19:09 BUN 18 mg/dl (6-23) 04/04/24 05:53 Creatinine 0.75 mg/dl (0.6-1.4) 04/04/24 05:53 POC Creatinine 1.5 mg/dl (0.6-1.3) H 03/26/24 19:09 Est Cr Clr Drug Dosing 139.4 ml/min 04/04/24 05:53 Cystatin C 1.20 mg/L (0.52-1.27) 03/27/24 13:10 Est GFR (Cystatin C) 66 (>=60) 03/27/24 13:10 Est GFR ( Amer) 133.0 ml/min 04/04/24 05:53 Est GFR (Non-Af Amer) 114.7 ml/min 04/04/24 05:53 BUN/Creatinine Ratio 24.0 (10-20) H 04/04/24 05:53 Glucose 92 mg/dl (70-99(Fasting)) 04/04/24 05:53 POC Glucose 121 mg/dl (70-99) H 03/29/24 11:32 POC Glucose (other) 119 mg/dl (70-99) H 03/26/24 19:09 Osmolality 242 mOsm/kg (280-300) L 03/27/24 04:42 Lactate 1.4 mmol/L (0.4-2.0) 03/28/24 10:18 Calcium 8.0 mg/dl (8.6-10.3) L 04/04/24 05:53 POC Ioniz Calcium Alok 0.99 mmol/l (1.12-1.32) L 03/26/24 19:09 Ionized Calcium 1.09 mmol/L (1.12-1.32) L 03/29/24 03:51 Phosphorus 3.0 mg/dl (2.5-4.9) 03/28/24 14:37 Magnesium 2.1 mg/dl (1.7-2.4) 03/28/24 14:37 Iron 32 mcg/dl (35-175) L 04/04/24 05:53 Total Bilirubin 20.3 mg/dl (0.2-1.0) H 04/04/24 05:53 Direct Bilirubin 14.3 mg/dl (0-0.2) H 04/04/24 05:53 AST 58 U/L (13-39) H 04/04/24 05:53 ALT 28 U/L (7-52) 04/04/24 05:53 Alkaline Phosphatase 79 U/L (34-104) 04/04/24 05:53 Ammonia TNP 03/28/24 10:18 Total Protein 5.1 gm/dl (6.0-8.3) L 04/04/24 05:53 Albumin 2.8 gm/dl (3.4-5.0) L 04/04/24 05:53 Globulin 2.1 gm/dl (2.5-4.0) L 04/02/24 06:10 Albumin/Globulin Ratio 1.3 (0.9-2) 04/02/24 06:10 Lipase TNP 03/26/24 16:41 Folate 8.33 ng/ml (>5.38) 04/04/24 08:40 Urine Color Dark Yellow 03/27/24 04:35 Urine Appearance Cloudy (Clear) A 03/27/24 04:35 Urine pH 6.0 (4.5-7.5) 03/27/24 04:35 Ur Specific [place] 1.039 (1.000-1.030) H 03/27/24 04:35 Urine Protein Negative (Negative) 03/27/24 04:35 Urine Glucose (UA) Negative (Negative) 03/27/24 04:35 Urine Ketones Trace (Negative) H 03/27/24 04:35 Urine Blood Negative (Negative) 03/27/24 04:35 Urine Nitrite Positive (Negative) A 03/27/24 04:35 Urine Bilirubin 3+ (Negative) H 03/27/24 04:35 Urine Urobilinogen Negative (Negative) 03/27/24 04:35 Ur Leukocyte Esterase Trace (Negative) H 03/27/24 04:35 Urine WBC (Auto) 0-5 /hpf (0-5) 03/27/24 04:35 Urine RBC (Auto) 6-10 /hpf (0-2) H 03/27/24 04:35 U Hyaline Cast (Auto) 3-5 /lpf (0-2) H 03/27/24 04:35 U Epithel Cells (Auto) 0-2 /hpf (0-2) 03/27/24 04:35 Urine Bacteria (Auto) None Seen (None Seen) 03/27/24 04:35 Hyaline Casts P /lpf (None Presnt) 03/27/24 04:35 Granular Casts P /lpf (None Prsent) 03/27/24 04:35 Urine Osmolality 516 mOsm/kg (500-800) 03/27/24 04:35 Ur Random Sodium < 10 mmol/L 03/27/24 04:35 Fluid Neutrophils % 8 % 03/27/24 11:40 Fluid Lymphocytes % 3 % 03/27/24 11:40 Fluid Meso/Macro/[place] % 89 % 03/27/24 11:40 Fluid Comment 03/27/24 11:40 Peritoneal Color Yellow 03/27/24 11:40 Peritoneal Appearance Clear 03/27/24 11:40 Peritoneal WBC (Auto) 106 /ul (0-300) 03/27/24 11:40 Peritoneal RBC (Auto) < 2000 /uL 03/27/24 11:40 Peritoneal Tot Protein < 3.0 gm/dl 03/27/24 11:40 Peritoneal Albumin < 1.5 gm/dl 03/27/24 11:40 Nasal Screen MRSA (PCR) Negative (Negative) 03/27/24 02:20 Salicylates < 3.0 mg/dl (3.0-30) L 03/26/24 16:41 Urine Opiates Screen Neg (Neg) 03/26/24 21:00 Ur Methadone, Qual Neg (Neg) 03/26/24 21:00 Urine Fentanyl Screen Neg (Neg) 03/26/24 21:00 Acetaminophen < 3 ug/ml (10-30) L 03/26/24 16:41 Urine Barbiturates Neg (Neg) 03/26/24 21:00 Ur Phencyclidine (PCP) Neg (Neg) 03/26/24 21:00 U Amphetamin/Meth Scrn Neg (Neg) 03/26/24 21:00 MDMA (Ecstasy) Screen Neg (Neg) 03/26/24 21:00 U Benzodiazepines Scrn Neg (Neg) 03/26/24 21:00 Ur Cocaine Metabolite Neg (Neg) 03/26/24 21:00 U Marijuana (THC) Screen Neg (Neg) 03/26/24 21:00 Ethyl Alcohol mg/dL < 10.0 mg/dl (<10.0) 03/26/24 18:21 Hepatitis A IgM Ab NON-REACTIVE (NON-REACTIVE) 03/27/24 01:43 Hep Bs Antigen Negative (Negative) 03/27/24 01:43 Hep B Core IgM Ab NON-REACTIVE (NON-REACTIVE) 03/27/24 01:43 Hepatitis C Antibody Negative (Negative) 03/27/24 01:43 Miscellaneous Test REPORT 04/03/24 08:53 Ref Lab Test Result See Scanned Report 03/27/24 13:10 Blood Type A Positive 04/02/24 17:57 Blood Type Recheck A Positive 03/26/24 19:46 Antibody Screen NEGATIVE 04/02/24 17:57 Crossmatch See Detail 04/02/24 17:57 Impressions Abdomen/Pelvis CT 03/26/24 19:12 Exam(s): CT ABDOMEN + PELVIS With Contrast IV Amt: 94 ML OPTIRAY 320 EXAM: CT Abdomen and Pelvis With Intravenous Contrast CLINICAL HISTORY: Reason for exam: Jaundice, liver failure, ?obstructive. TECHNIQUE: Axial computed tomography images of the abdomen and pelvis with intravenous contrast. CTDI is 24.5 mGy and DLP is 1329.99 mGy-cm. Automated exposure control was utilized for the study. A dose lowering technique was utilized adhering to the principles of ALARA. CONTRAST: Patient received 94 ML OPTIRAY 320 of IV contrast COMPARISON: No relevant prior studies available. FINDINGS: Lung bases are clear. There is a small sliding-type hiatal hernia. Liver appears enlarged, stable ptotic, and cirrhotic. Portal vein is patent. There is stigmata of portal hypertension including moderate ascites, mesenteric edema, anasarca, recanalized umbilical vein, and splenomegaly measuring 15.7 cm. No calcified gallstone is visible. Gallbladder sludge is suggested. There is no biliary dilatation. There is no calcified choledocholithiasis. Pancreas, adrenal glands, and kidneys are unremarkable. Aorta is normal in caliber. There is no adenopathy. There is no free air. Appendix appears normal. There is no bowel obstruction. There are no bowel inflammatory changes. Urinary bladder and prostate appear unremarkable. Skeleton appears intact. IMPRESSION: 1. No calcified gallstones, calcified choledocholithiasis, or biliary dilatation. 2. Cirrhotic liver. Stigmata of portal hypertension including splenomegaly and moderate ascites. Electronically signed by: Ivonne Vidales M.D. 03/26/24 20:43 PM Pending Results Patient Have Any Pending Studies at Discharge: No Discharge Instructions Given to Patient (Per Discharging Provider) PLEASE REFER TO YOUR NEW MEDICATION LIST AND FOLLOW INSTRUCTIONS CAREFULLY. YOUR NEW MEDICATIONS INCLUDE: Protonix-for esophagitis, prevention of GI bleed Hydrocortisone cream-for treatment of hemorrhoids Lactulose, rifaximin-to prevent confusion secondary to ammonia level elevation Spironolactone, Lasix-to prevent fluid accumulation in the abdomen Folate, thiamine, iron-supplements PLEASE CALL YOUR PRIMARY CARE PHYSICIAN OR RETURN TO THE ER IF WITH WORSENING OF SYMPTOMS, INCLUDING Worsening of yellowing of the skin/eyes, abdominal distention, abdominal pain, blood in the stools, black stools, nausea vomiting, fevers or chills, shortness of breath, leg swelling, confusion, etc. FOLLOW UP WITH PRIMARY CARE PHYSICIAN OUTLINED ABOVE. Follow-up with business objects analyst Dr. Nerissa Paez/NIKA Garcia in 1-2 weeks. Please call your office for an appointment. Contact information outlined above. Total Time Total Time Spent Total Time Spent (In Minutes): 40 minutes
== END 2024-04-04 11:13 | disposition home or self-care (01) | DRG 433 ==
LOC: ED 16:13 → EDSEX 16:13 → SUATTDRO 03-27 01:05 → 1E 03-27 01:05 → 2S 03-31 18:02

== ENCOUNTER 2024-04-13 20:41 | Inpatient (IN) ==
--- OUTSIDE RECORDS SUMMARY | 2024-04-13 20:45 | External Medical Summary ---
Author Name Unknown Address Unknown Organization K01:[place] [place] [address] [facility] [id number] Laboratory Report Ordering Provider Test Date Status RAYMUNDO LARA 03/27/2024 13:10:00 Final Observation Date Value Abnormality Reference (Units ) Status Creatinine 03/27/2024 13:10:00 0.5 Below low normal 0. 6-1.2 (mg/dL) Final Result may be falsely decrea sed due to icterus. Glomerular filtration rate/1 .73 sq M.predicted [Volume Rate/Area] in Serum, Plasma or Blood by Creatinine-based formula (CKD-EPI) 03/27/2024 13:10:00 >90 >=60 (mL/min) Final eGFR is calculated based on the CKD-EPI 2020 equation. Performing Location [facility] [place] [address] [facility] [id number]
--- OUTSIDE RECORDS SUMMARY | 2024-04-13 20:45 | External Medical Summary | Summary of Care ---
Author Name Unknown Organization [facility] Address [address] [place] [address] Phone [phone] Care Team Providers Care C++ Professor Name Role Phone Ismael Pugh MD Primary Care Provider Un available Reason for Referral * Evaluate & Treat - Unlimited Visits (Within 10 days (routine)) - Authorized Specialty Diagnoses / Procedures Referred By Tiffany salazar Referred To Contact Gastroenterology Diagnoses Alcoholic cirrhosis of liver with ascites (HCC) Portal hypertension (HCC) Portal hypertensive gastropathy (HCC) Gastroesophageal reflux disease with esophagitis without hemorrhage Nate Castro DO [address] [place] [address] Referral ID Status Reason Start Date Expiration Date Visits Requested Visits Authorized [id number] Authorized Specialty Services Required 04/08/2024 999 [id number] Question Answer Referral Priority Within 10 days (routine) Where should this appointment be scheduled? [facility] For what condition is the patient being referred? Liver conditions Reason for Visit * Reason Onset Date Comments Hospital Follow-Up Hospital Follow-Up 04/08/2024 Encounter Details Date Type Department Care Team (Late st Contact Info) Description 04/08/2024 2:00 PM EDT Office Visit General Internal Medicine [facility] [address] [address] [place] [address] Nate Castro DO [address] [place], [place] [id number] Hospital discharge follow-up*; Alcoholic cirrhosis of liver with ascites (HCC); Portal hypertension (HCC); Portal hypertensive gastropathy (HCC); Gastroesophageal reflux disease with esophagitis without hemorrhage; Iron deficiency anemia due to chronic blood loss; Screening for depression Allergies No known active allergiesdocumented as of this encounter (statuses as of 04/08/2024) Medications Medication Sig Dispensed Refills Start Date End Date Status Multivitamin Adult Oral Tablet Take 1 Tablet by mouth daily. 04/04/2024 Active Ferrous Sulfate 325 (65 Fe) MG Oral Tablet (Feosol) Take 1 Tablet by mouth in the morning. 04/04/2024 Active Folic Acid 1 MG Oral Tablet Take 1 Tablet by mouth in the morning. 04/04/2024 Active Furosemide 20 MG Oral Tablet (Lasix) Take 1 Tablet by mouth in the morning. 04/04/2024 Active Hydrocortisone 2.5 % External Ointment Apply topically to affected area 2 times a day. 04/04/2024 Active Lactulose 10 GM/15ML Oral Solution (Constulose) Take 30 mL by mouth daily. 04/04/2024 Active Pantoprazole Sodium 40 MG Oral Tablet Delayed Release (Protonix) TAKE 1 TABLET BY MOUTH TWICE A DAY FOR 1 MONTH. THEN ONCE DAILY THEREAFTER 04/04/2024 Active Xifaxan 550 MG Oral Tablet Take 1 Tablet by mouth in the morning and 1 Tablet before bedtime. 04/04/2024 Active Spironolactone 25 MG Oral Tablet (Aldactone) Take 2 Tablets by mouth in the morning. 04/04/2024 Active Vitamin B1 100 MG Oral Tablet Take 1 Tablet by mouth daily. 04/04/2024 Active NAPROSYN TABS 500 MG ORIndications:Wander kache one tab by mouth 2 times a day 30 0 03/10/2002 04/08/2024 Discontinued (Medication List Clean Up) documented as of this encounter (statuses as of 04/08/2024) Active Problems Problem Noted Date Diagnosed Date Alcoholic cirrhosis of liver with ascites 2023 Portal hypertension 04/08/2024 Portal hypertensive gastropathy 04/08/2024 Gastroesophageal reflux dise ase with esophagitis without hemorrhage 04/08/2024 Iron deficiency anemia due to chronic blood loss 04/08/2024 Hemorrhoids, external without complications 03/12 documented as of this encounter (statuses as of 04/08/2024) Social History Tobacco Use Types Packs/Day Years Used Date Smoking Tobacco: Never Smokeless Tobacco: Never Alcohol Use Standard Drinks/Week Comments Not Currently 0 (1 standard drink = 0.6 oz pur e alcohol) Utilities Answer Date Recorded Do you have trouble paying y our heating, water, or electric bill? (Adult - for ages 18 years and over) Not on file 02/26/2024 Is your family able to pay t he heat, water, or electric bill? (Household - for ages 0-17 years) Not on file 02/26/2024 Does your family have access to good internet? (Household - for ages 0-17 years) Not on file 02/26/2024 Social Connections Answer Date Recorded How often do you feel lonely or isolated from those around you? (Adult - for ages 18 years and over) Not on file 02/26/2024 Sex and Gender Information Value Date Recorded Sex Assigned at Not on file Gender Identity Not on file Sexual Orientation Not on file Job Start Date Occupation Industry Not on file Not on file Not on file documented as of this encounter Last Filed Vital Signs Vital Sign Reading Time Taken Comments Blood Pressure 106/64 04/08/2024 2:03 PM EDT Pulse 96 04/08/2024 2:03 PM EDT Temperature 37.9 C (100.2 F) 04/08/2024 2:03 PM E DT Respiratory Rate 18 04/08/2024 2:03 PM EDT Oxygen Saturation 96% 04/08/2024 2:03 PM EDT Inhaled Oxygen Concentration - - Weight 89.3 kg (196 lb 14.4 oz) 04/08/2024 2:03 PM EDT Height 184.8 cm (6' 0.75") 04/08/2024 2:03 PM ED T Body Mass Index 26.16 04/08/2024 2:03 PM EDT documented in this encounter Patient Instructions * Patient Instructions* Nate Castro, - 04/08/2024 2:04 PM EDT Taking Medicine Safely Medicine is given to help treat or prevent illness. But if you don't take it correctly, it might not help. It might even harm you. Your doctor or pharmacist can help you learn the right way to take your medicine. Listed below are some tips to help you take medicine safely. Safety Tips Have a routine for taking each medicine. Make it part of something you do each day, such as brushing your teeth or eating a meal. When you go to the hospital or your doctor's office, bring all your current medicines in their original boxes or bottles. If you can't do that, bring an up-to-date list of your medicines. Do not stop taking a prescription medicine unless your doctor tells you to. Doing so could make your condition worse. Do not share medicines. Let your doctor and pharmacist know of any allergies you have. Taking prescription medicines with alcohol, street drugs, herbs, supplements, or even some agfr-ern-zsqrpto medicines can be harmful. Talk to your doctor or pharmacist before using any of these things while taking a prescription medicine. When filling your prescriptions, try using the same pharmacy for all your medicines. If not, let the pharmacist know what medicines you are already on. Keep medicines out of the reach of children and pets. Do not use medicine that has or that doesn't look or smell right. Get rid of it properly. To find out the right way to get rid of medicine: Call your [facility]'s household trash and recycling service and ask if a drug take-back program is available in your community. Call your local pharmacy and ask the right way to get rid of the medicine. Go to http://www.fda.gov/ForConsumers/ConsumerUpdates/igr559728 to learn how to get rid of medicines safely. Using Generic Medicines Medicines have brand names and generic (chemical) names. When a medicine is first made, it is sold only under its brand name. Later, it can be made and sold as a generic. Generic medicines cost less than brand-name medicines and most work just as well. Most people can use the generic medicine instead of the brand-name medicine, unless their doctor says otherwise. 9471-9810 [employer] Gut[employer], [address] [place] [address], [place] [address]. All rights reserved. This information is not intended as a substitute for professional medical care. Always follow your healthcare professional's instructions. Coping with Your Diagnosis of a Chronic Health Condition If you have a chronic health condition, you have a problem that may not go away over time. Heart disease, asthma, arthritis, and diabetes are just a few of the chronic conditions that exist. Right now, these conditions have no known cure. But you can take an active role in managing your health. Coping with Your Diagnosis If you've just learned about your health condition, you may be angry, depressed, or afraid. Or you might feel relieved just to know what's wrong. Even if you've known about your health problem for a while, adjusting to it can be hard. But learning about your condition can help you cope. Look for books at your local library. If you have access to a computer, check the Internet. Or contact a group that focuses on your specific problem. Accepting Change Change is hard for most people. Yet right now you may be facing many changes. What you eat or the way you work may change. Your moods, and even your symptoms, might vary from day to day. Although it isn't easy, learning to accept change can help you feel more in control. Taking Control Feeling you have control can make living with your condition easier. Discuss treatment options withyour health care provider. The more you know, the more active you can be in your care. Moving Forward You may wonder whether you will be able to do the things you've always done. That depends on your age, the condition you have, and your goals. To make the most of each day, try to build caring relationships, be active, and eat right. Also, do your best to keep a sense of humor. [phone] [facility], [address] [place] [address]. All rights reserved. This information is not intended as a substitute for professional medical care. Always follow your healthcare professional's instructions. Taking an Active Role in Your Medicines Take the time to learn about your medicine. For instance, why are you taking it? What does it do? Work with your doctor or other health care providers to get the answers you need. Talk to your pharmacist about how to take each medicine, and ask for a fact sheet on each one. Ask Questions About Your Medicine What is the name of the medicine? Why do I need to take it? When should I take it? How should I take it: with water? with food? on an empty stomach? How much do I take? What do I do if I miss a dose? What side effects could it cause and which ones should I call the doctor about? Are there any foods or medicines I should avoid while taking this medicine? Keeping track of your medications? Name of medicine: Taken for: Dose: Time(s) to take it: Take an Active Role Fill all your prescriptions at the same pharmacy. This keeps your medicine history in one place. Talk to the pharmacist. Make sure you understand how to take each medicine. Ask for a fact sheet about each one. Tell your doctor and pharmacist about all the prescription and ihsa-kcz-rtuahzd medicines you take.This includes vitamins and herbal remedies. Tell your doctor and pharmacist if you have any medical conditions or allergies to any medicine or food, or if you are or . Keep a list of all your medicines. Use the sample to the right as a guide for the type of information needed. 5090-8933 [facility], [address] [place] [address], [place] [address]. All rights reserved. This information is not intended as a substitute for professional medical care. Always follow your healthcare professional's instructions. documented in this encounter Progress Notes * Nate Castro DO - 04/08/2024 2:04 PM EDT SUBJECTIVE: Callie Ortez is a 38 year old male. Chief Complaint Patient presents with Hospital Follow-Up Hospital Follow-Up Recent Admission: Patient was recently admitted to [facility]. The date of discharge was 04/04/2024. Discharge report received and reviewed. HPI: Patient presents office for hospital follow-up. Also to establish primary care. Has not been seen recently by any [facility] provider. Was hospitalized at [facility] from 03/27 to 04/04/24 related to severe anemia with hemoglobin 4.4. Received a total of 6 units PRBC, 5 units FFP. Hemoglobin around 8 on discharge per hospital records. Had EGD which showed grade D esophagitis without active bleeding. Noted mild portal hypertensive gastropathy. Colonoscopy showed large internal/external nonbleeding hemorrhoids. CT abdomen/pelvis noted cirrhotic liver, portal hypertension with splenomegaly and moderate ascites. Known history of alcohol use. Had been started on Rifamixin as well as lactulose by GI team. Also had been started on Lasix and spironolactone for ascites. Patient notes significant alcohol use in the past. Has abstained since being in hospital. Does occasionally still get craving. Is wanting to discuss possible counseling/support me sources that he might have. States abdomen still distended but not increased from the hospital. Does note a little morelower extremity edema since his discharge. Has continued on Lasix and spironolactone daily. Has notnoted any further melena, bright red blood per rectum Patient Active Problem List Diagnosis Alcoholic cirrhosis of liver with ascites (HCC) Portal hypertension (HCC) Portal hypertensive gastropathy (HCC) Gastroesophageal reflux disease with esophagitis without hemorrhage Iron deficiency anemia due to chronic blood loss Hemorrhoids, external without complications Current Outpatient Medications Medication Sig Dispense Refill Multivitamin Adult Oral Tablet Take 1 Tablet by mouth daily. Ferrous Sulfate 325 (65 Fe) MG Oral Tablet (Feosol) Take 1 Tablet by mouth in the morning. Folic Acid 1 MG Oral Tablet Take 1 Tablet by mouth in the morning. Furosemide 20 MG Oral Tablet (Lasix) Take 1 Tablet by mouth in the morning. Hydrocortisone 2.5 % External Ointment Apply topically to affected area 2 times a day. Lactulose 10 GM/15ML Oral Solution (Constulose) Take 30 mL by mouth daily. Pantoprazole Sodium 40 MG Oral Tablet Delayed Release (Protonix) TAKE 1 TABLET BY MOUTH TWICE A DAYFOR 1 MONTH. THEN ONCE DAILY THEREAFTER Xifaxan 550 MG Oral Tablet Take 1 Tablet by mouth in the morning and 1 Tablet before bedtime. Spironolactone 25 MG Oral Tablet (Aldactone) Take 2 Tablets by mouth in the morning. Vitamin B1 100 MG Oral Tablet Take 1 Tablet by mouth daily. No current facility-administered medications for this visit. Travel Screening Question 04/08/2024 1:50 PM EDT - Filed by Patient Do you have any of the following new or worsening symptoms? None of these Have you recently been in contact with someone who was sick? No / Unsure Myc Visit Accident Related Question Question 04/08/2024 1:50 PM EDT - Filed by Patient Is this visit related to an accident? (i.e work, motor vehicle) No Phq2 Adult-Depression Question 04/08/2024 2:58 PM EDT - Filed by Nate Castro, DO Over the last two weeks, how often have you been bothered by any of the following problems? Little interest or pleasure in doing things Not at all Feeling down, depressed or hopeless Not at all Sum of the PHQ1 and PHQ2 questions (range: 0 - 6) 0 (Further screening not recommended) Current and discharge medications have been reconciled. Review of patient's allergies indicates: No Known Allergies OBJECTIVE: BP 106/64 | Pulse 96 | Temp 37.9 C (100.2 F) (Tympanic) | Resp 18 | Ht 1.848 m (6' 0.75") | Wt 89.3 kg (196 lb 14.4 oz) | SpO2 96% | BMI 26.16 kg/m | BSA 2.14 m REVIEW OF SYSTEMS: Review of Systems Constitutional: Positive for fatigue. Negative for chills and fever. HENT: Negative for congestion, sore throat and trouble swallowing. Eyes: Negative for photophobia and pain. Respiratory: Negative for cough, shortness of breath and wheezing. Cardiovascular: Negative for chest pain and palpitations. Gastrointestinal: Positive for abdominal distention. Negative for abdominal pain, nausea and vomiting. Genitourinary: Negative for dysuria and frequency. Musculoskeletal: Negative for back pain and neck stiffness. Skin: Negative for pallor. Neurological: Negative for dizziness, light-headedness and headaches. Psychiatric/Behavioral: Negative for sleep disturbance. The patient is not nervous/anxious. PHYSICAL EXAM: BP 106/64 | Pulse 96 | Temp 37.9 C (100.2 F) (Tympanic) | Resp 18 | Ht 1.848 m (6' 0.75") | Wt 89.3 kg (196 lb 14.4 oz) | SpO2 96% | BMI 26.16 kg/m | BSA 2.14 m Physical Exam Constitutional: General: He is not in acute distress. Appearance: He is not ill-appearing. HENT: Head: Normocephalic and atraumatic. Right Ear: Tympanic membrane, ear canal and external ear normal. Left Ear: Tympanic membrane, ear canal and external ear normal. Nose: Nose normal. No congestion or rhinorrhea. Mouth/Throat: Mouth: Mucous membranes are moist. Pharynx: Oropharynx is clear. Eyes: General: Scleral icterus present. Extraocular Movements: Extraocular movements intact. Conjunctiva/sclera: Conjunctivae normal. Pupils: Pupils are equal, round, and reactive to light. Neck: Vascular: No carotid bruit. Cardiovascular: Rate and Rhythm: Normal rate and regular rhythm. Pulses: Normal pulses. Heart sounds: Normal heart sounds. No murmur heard. No friction rub. No gallop. Pulmonary: Effort: Pulmonary effort is normal. Breath sounds: Normal breath sounds. No wheezing, rhonchi or rales. Abdominal: General: Bowel sounds are normal. There is distension. Palpations: Abdomen is soft. There is no mass. Tenderness: There is no abdominal tenderness. There is no right CVA tenderness or left CVA tenderness. Comments: Small palpable fluid wave Musculoskeletal: General: No swelling or tenderness. Normal range of motion. Cervical back: Normal range of motion and neck supple. Right lower leg: No edema. Left lower leg: No edema. Skin: General: Skin is warm and dry. Coloration: Skin is jaundiced. Findings: No rash. Neurological: General: No focal deficit present. Mental Status: He is oriented to person, place, and time. Cranial Nerves: No cranial nerve deficit. Sensory: No sensory deficit. Motor: No weakness. Psychiatric: Mood and Affect: Mood normal. Behavior: Behavior normal. ASSESSMENT: Hospital discharge follow-up (Primary) - DISCH MED RECON CUR MED LIS Alcoholic cirrhosis of liver with ascites (HCC) - COMPREHENSIVE METABOLIC PANEL; Future; Expected date: 04/08/2024 - CBC WITH WBC DIFFERENTIAL; Future; Expected date: 04/08/2024 - IRON SCREEN, INCLUDING TIBC; Future; Expected date: 04/08/2024 - FERRITIN; Future; Expected date: 04/08/2024 - HEPATOLOGY REFERRAL OP - HEMOGLOBIN A1C; Future; Expected date: 05/09/2024 - LIPID PANEL WITH DIRECT LDL IF TG IS HIGH; Future; Expected date: 05/09/2024 - HIV ANTIGEN & ANTIBODY SCREEN W/ CONFIRMATION; Future; Expected date: 05/09/2024 - HEPATITIS C ANTIBODY SCREEN WITH PROGRESSION TO HEPATITIS C RNA QUANTITATIVE; Future; Expected date: 05/09/2024 Portal hypertension (HCC) - HEPATOLOGY REFERRAL OP - HEMOGLOBIN A1C; Future; Expected date: 05/09/2024 - LIPID PANEL WITH DIRECT LDL IF TG IS HIGH; Future; Expected date: 05/09/2024 - HIV ANTIGEN & ANTIBODY SCREEN W/ CONFIRMATION; Future; Expected date: 05/09/2024 - HEPATITIS C ANTIBODY SCREEN WITH PROGRESSION TO HEPATITIS C RNA QUANTITATIVE; Future; Expected date: 05/09/2024 Portal hypertensive gastropathy (HCC) - HEPATOLOGY REFERRAL OP Gastroesophageal reflux disease with esophagitis without hemorrhage - HEPATOLOGY REFERRAL OP Iron deficiency anemia due to chronic blood loss - COMPREHENSIVE METABOLIC PANEL; Future; Expected date: 04/08/2024 - CBC WITH WBC DIFFERENTIAL; Future; Expected date: 04/08/2024 - IRON SCREEN, INCLUDING TIBC; Future; Expected date: 04/08/2024 - FERRITIN; Future; Expected date: 04/08/2024 Plan: Patient presents office for hospital follow-up. Recent admission to [facility] due to symptomatic anemia, hemoglobin 4.4. Also had constellation of findings consistent with decompensated cirrhosis with ascites, portal hypertension, portal gastropathy. Likely related to alcohol use Hepatology referral placed. Previously seems like may have been referred to specialist at [facility] however they have not heard back. Also counseled that Dr Atkinson at [facility] is very good Did give numbers, paperwork for [facility] Drug/Alcohol resources. Does seem motivated to continue abstinence from ETOH Continue current medications. Is currently on spironolactone 50 mg daily, Lasix 20 mg daily does not note any increase in abdominal distention. Some mild increase in lower extremity edema. Did explained to patient that this regimen could be adjusted. His renal function was within normal range in hospital Continue Xifaxan 550 mg twice daily. Continue lactulose 20 g orally daily Continue Protonix 40 mg twice daily for total of 4 weeks. Then will bump down to 40 mg daily for esophagitis on EGD Continue iron supplement. Will repeat labs including CMP, CBC, iron, ferritin level prior to next follow-up Discussed with patient that due to cirrhosis she should make sure he is up-to-date on all vaccinations. Will discuss this further at follow-up Negative depression screen today Follow Up: Return in about 4 weeks (around 05/06/2024), or if symptoms worsen or fail to improve, for Return with Physician. | For: Return with Physician | Check-out note: 4 week follow up for recheck Fasting labs 1 week prior Hepatology referral Follow up 4 weeks, labs prior. I spent a total of 40-54 minutes (exact time 45 mins) minutes on the date of service in preparation, delivery, and documentation of the care provided to Callie Salgado Pérez excluding any time spent in performance of separately billed services. Nate Castro, documented in this encounter Nursing Notes * Xochitl Linn LPN - 04/08/2024 2:03 PM EDT Callie Ortez presents for hospital follow up. Medications & HM reviewed. documented in this encounter Plan of Treatment Upcoming Encounters Date Type Department Care Team (Late st Contact Info) Description 05/06/2024 1:00 PM EDT Office Visit General Internal Medicine [facility] [address] [facility] [place] [address] Nate Castro DO [address] [place] [address] 08/14/2024 8:40 AM EST Office Visit Hepatology, [facility] [address] [place] [address] Bhavya Atkinson DO [address] [place] [address] Scheduled Orders Name Type Priority Associated Diagnoses Orde r Schedule COMPREHENSIVE METABOLIC PANEL Lab Routine Alcoholic cirrhosis of liver with ascites (HCC) Iron deficiency anemia due to chronic blood loss Expected: 04/08/2024 (Approximate), Expires: 04/08/2025 CBC WITH WBC DIFFERENTIAL Lab Routine Alcoholic cirrhosis of liver with ascites (HCC) Iron deficiency anemia due to chronic blood loss Expected: 04/08/2024 (Approximate), Expires: 04/08/2025 IRON SCREEN, INCLUDING TIBC Lab Routine Alcoholic cirrhosis of liver with ascites (HCC) Iron deficiency anemia due to chronic blood loss Expected: 04/08/2024 (Approximate), Expires: 04/08/2025 FERRITIN Lab Routine Alcoholic cirrhosis of liver with ascites (HCC) Iron deficiency anemia due to chronic blood loss Expected: 04/08/2024 (Approximate), Expires: 04/08/2025 HEMOGLOBIN A1C Lab Routine Alcoholic cirrhosis of liver with ascites (HCC) Portal hypertension (HCC) Expected: 05/09/2024 (Approximate), Expires: 04/08/2025 LIPID PANEL WITH DIRECT LDL IF TG IS HIGH Lab Routine Alcoholic cirrhosis of liver with ascites (HCC) Portal hypertension (HCC) Expected: 05/09/2024, Expires: 04/08/2025 HIV ANTIGEN & ANTIBODY SCREEN W/ CONFIRMATION Lab Routine Alcoholic cirrhosis of liver with ascites (HCC) Portal hypertension (HCC) Expected: 05/09/2024 (Approximate), Expires: 04/08/2025 HEPATITIS C ANTIBODY SCREEN WITH PROGRESSION TO HEPATITIS C RNA QUANTITATIVE Lab Routine Alcoholic cirrhosis of liver with ascites (HCC) Portal hypertension (HCC) Expected: 05/09/2024 (Approximate), Expires: 04/08/2025 Scheduled Referrals Name Type Priority Associated Diagnoses Orde r Schedule HEPATOLOGY REFERRAL OP Referral Within 10 days (routine) Alcoholic cirrhosis of liver with ascites (HCC) Portal hypertension (HCC) Portal hypertensive gastropathy (HCC) Gastroesophageal reflux disease with esophagitis without hemorrhage Ordered: 04/08/2024 Health Maintenance Due Date Last Done Comments Pneumococcal Vaccine: Pediat rics (0 to 5 Years) and At-Risk Patients (6 to 64 Years) (1 of 2 - PCV) 1989 HIV Screening 1998 Hepatitis C Screening 2001 DTaP,Tdap,and Td Vaccines (1 - Tdap) 2002 Hepatitis B Vaccine (1 of 3 - 19+ 3-dose series) 2002 Diabetes Screening 10/03/2002 10/03/1999 Lipid Panel 10/20/2004 10/20/1999 COVID-19 Vaccine (1 - 2022-2 4 season) 2023 Influenza Vaccine (FLU shot) (#1) 2024 Depression Screening 04/08/2025 04/08/2024 HPV (Gardasil) Vaccine Aged Out No lo nger eligible based on patient's age to complete this topic MENINGOCOCCAL (MENACTRA/MENVEO) Aged Out No longer eligible based on patient's age to complete this topic documented as of this encounter Medical Devices Not on filedocumented as of this encounter Visit Diagnoses Diagnosis Hospital discharge follow-up- Primary Other follow-up examination Alcoholic cirrhosis of liver with ascites (HCC) Alcoholic cirrhosis of liver Portal hypertension (HCC) Portal hypertension Portal hypertensive gastropathy (HCC) Other specified disorder of stomach and duodenum Gastroesophageal reflux disease with esophagitis without hemorrhage Iron deficiency anemia due to chronic blood loss Iron deficiency anemia secondary to blood loss (chronic) Screening for depression documented in this encounter Care Teams C++ Professor Relationship Specialty Start Date End Date Ismael Pugh MD PCP - General 03/10/02 documented as of this encounter
[2024-04-13 21:05] LABS: iSTAT Hemoglobin 6.5 g/dl (14.0-18.0); iSTAT Ionized Calcium 1.03 mmol/l (1.12-1.32); iSTAT Potassium 4.1 mmol/L (3.3-5.0)
--- NOTE | 2024-04-13 21:15 | Emergency Department Note ---
History of Present Illness General Chief complaint: Wound Dehiscence Stated complaint: BLEEDING Source: patient, family (Father arrived to bedside), EMS, RN notes reviewed and old records reviewed Mode of arrival: EMS Limitations: no limitations History of Present Illness This patient is a 38-year-old male who has end-stage liver disease, comes in after a significant bleeding from an area just around his umbilicus. He apparently had paracentesis recently. The paramedics called me and told me that he there is a significant mount of blood in the house they think he lost least 2 L he was hypotensive in the field and looked pale as well as being jaundiced. They talk to me before he came here and the patient was given 1 g TXA and they held pressure. I was the right awaiting the patient upon arrival in room A1. They were holding pressure but in the pressure release he was still bleeding. He denies any trauma. He does have history of drinking but has not drank recently. No fever or chills no shortness of breath Home Medications Medication Instructions Recorded Confirmed Type ferrous sulfate 325 mg (65 mg 325 mg PO DAILY #30 tabs 04/04/24 04/13/24 Rx iron) tablet folic acid 1 mg tablet 1 mg PO DAILY #7 tabs 04/04/24 04/13/24 Rx furosemide 20 mg tablet 20 mg PO QAM 30 days #30 tabs 04/04/24 04/13/24 Rx lactulose 20 gram/30 mL oral 20 g (30 mL) PO DAILY 30 days #900 04/04/24 04/13/24 Rx solution mL multivitamin 1 tab PO DAILY #30 tabs 04/04/24 04/13/24 Rx pantoprazole 40 mg tablet,delayed 40 mg PO BID 30 days #60 tabs 04/04/24 04/13/24 Rx release rifaximin 550 mg tablet (Xifaxan) 550 mg PO BID 30 days #60 tabs 04/04/24 04/13/24 Rx spironolactone 25 mg tablet 50 mg (2 x 25 mg) PO QAM 30 days 04/04/24 04/13/24 Rx #60 tabs hydrocortisone 2.5 % topical 1 applic EXT BID PRN flare ups 04/13/24 04/13/24 History ointment Allergies Allergy/AdvReac Type Severity Reaction Status Date / Time No Known Allergies Allergy Verified 04/13/24 22:27 Past Med/Surg History Problem List (Updated 04/14/24 @ 00:07 by Kiel Shearer MD) Acute blood loss anemia (Acute) Elevated bilirubin (Acute) Jaundice (Acute) Anemia (Acute) Alcoholic cirrhosis (Acute) Acute liver failure (Acute) Encounter for pre-operative examination Hyponatremia Medical History Renal failure Electrolyte and fluid disorder Acute GI bleeding Cirrhosis Alcoholic liver failure Profound anemia Alcohol abuse Surgical History Hx of wisdom tooth extraction Hx of myringotomy Family History Father Heart disease Mother Cancer Social History Smoking Status: Never smoker Second Hand Exposure: No; Do You Dip or Chew Tobacco: No; Hx Alcohol Use: Yes Alcohol type: hard liquor Hx Substance Use: No Preferred Language: Azeri Communication Ability: Effective Clerical Investigator Required: No Beliefs That Will Affect Care: None Current Living Situation: Alone Feels Safe at Home: Yes Assistive Devices: None Review of Systems A total of 10 systems reviewed and were otherwise negative Physical Exam Vital Signs Vital Signs - 24 hr 04/13/24 20:45 04/13/24 20:45 04/13/24 20:49 Temperature Temperature Source Pulse Rate 124 H 121 H Pulse Rate [Apical] Pulse Rate from SpO2 Sensor Respiratory Rate Blood Pressure 93/61 L 93/61 L Blood Pressure [Left Arm] Blood Pressure Mean 71 67 Blood Pressure Mean [Left Arm] Blood Pressure Position Pulse Oximetry 100 Oxygen Delivery Method Room Air Sepsis Recent Fever Within 48 Hours No Sepsis New/Unexplained Change in Mental Status No Sepsis Action Taken by Nursing Physician Notified 04/13/24 20:50 04/13/24 20:50 04/13/24 20:51 Temperature Temperature Source Pulse Rate 120 H Pulse Rate [Apical] Pulse Rate from SpO2 Sensor 120 H Respiratory Rate Blood Pressure 94/61 L 94/61 L Blood Pressure [Left Arm] Blood Pressure Mean 67 67 Blood Pressure Mean [Left Arm] Blood Pressure Position Pulse Oximetry 100 Oxygen Delivery Method Sepsis Recent Fever Within 48 Hours Sepsis New/Unexplained Change in Mental Status Sepsis Action Taken by Nursing 04/13/24 20:55 04/13/24 20:55 04/13/24 20:55 Temperature Temperature Source Pulse Rate Pulse Rate [Apical] Pulse Rate from SpO2 Sensor Respiratory Rate Blood Pressure 82/58 L 82/58 L 82/58 L Blood Pressure [Left Arm] Blood Pressure Mean 64 64 64 Blood Pressure Mean [Left Arm] Blood Pressure Position Pulse Oximetry Oxygen Delivery Method Sepsis Recent Fever Within 48 Hours Sepsis New/Unexplained Change in Mental Status Sepsis Action Taken by Nursing 04/13/24 20:59 04/13/24 21:00 04/13/24 21:00 Temperature 37 C Temperature Source Oral Pulse Rate 114 H Pulse Rate [Apical] Pulse Rate from SpO2 Sensor Respiratory Rate Blood Pressure 82/58 L 95/62 L 95/62 L Blood Pressure [Left Arm] Blood Pressure Mean 66 73 73 Blood Pressure Mean [Left Arm] Blood Pressure Position Pulse Oximetry 100 Oxygen Delivery Method Sepsis Recent Fever Within 48 Hours Sepsis New/Unexplained Change in Mental Status Sepsis Action Taken by Nursing 04/13/24 21:03 04/13/24 21:03 04/13/24 21:04 Temperature 36.9 C Temperature Source Oral Pulse Rate 111 H 113 H 102 H Pulse Rate [Apical] Pulse Rate from SpO2 Sensor 113 H Respiratory Rate 22 24 Blood Pressure 95/62 L 107/70 Blood Pressure [Left Arm] Blood Pressure Mean 73 82 Blood Pressure Mean [Left Arm] Blood Pressure Position Pulse Oximetry 100 99 100 Oxygen Delivery Method Sepsis Recent Fever Within 48 Hours Sepsis New/Unexplained Change in Mental Status Sepsis Action Taken by Nursing 04/13/24 21:20 04/13/24 21:22 04/13/24 21:23 Temperature 36.9 C 37 C Temperature Source Oral Oral Pulse Rate Pulse Rate [Apical] 106 H Pulse Rate from SpO2 Sensor Respiratory Rate 20 Blood Pressure 118/74 118/74 Blood Pressure [Left Arm] 118/74 Blood Pressure Mean 88 100 Blood Pressure Mean [Left Arm] 88 Blood Pressure Position Pulse Oximetry 100 100 Oxygen Delivery Method Room Air Sepsis Recent Fever Within 48 Hours Sepsis New/Unexplained Change in Mental Status Sepsis Action Taken by Nursing 04/13/24 21:24 04/13/24 21:25 04/13/24 21:25 Temperature Temperature Source Pulse Rate 107 H 109 H Pulse Rate [Apical] Pulse Rate from SpO2 Sensor 107 H Respiratory Rate 17 18 Blood Pressure 100/60 Blood Pressure [Left Arm] Blood Pressure Mean 85 Blood Pressure Mean [Left Arm] Blood Pressure Position Pulse Oximetry 100 100 Oxygen Delivery Method Room Air Sepsis Recent Fever Within 48 Hours Sepsis New/Unexplained Change in Mental Status Sepsis Action Taken by Nursing 04/13/24 21:25 04/13/24 21:30 04/13/24 21:30 Temperature Temperature Source Pulse Rate 104 H Pulse Rate [Apical] Pulse Rate from SpO2 Sensor 104 H Respiratory Rate 21 Blood Pressure 100/60 90/57 L Blood Pressure [Left Arm] Blood Pressure Mean 85 67 Blood Pressure Mean [Left Arm] Blood Pressure Position Pulse Oximetry 100 Oxygen Delivery Method Sepsis Recent Fever Within 48 Hours Sepsis New/Unexplained Change in Mental Status Sepsis Action Taken by Nursing 04/13/24 21:30 04/13/24 21:35 04/13/24 21:38 Temperature 36.8 C 36.8 C Temperature Source Oral Oral Pulse Rate 76 104 H Pulse Rate [Apical] Pulse Rate from SpO2 Sensor Respiratory Rate 24 22 Blood Pressure 90/57 L 102/63 102/63 Blood Pressure [Left Arm] Blood Pressure Mean 67 76 76 Blood Pressure Mean [Left Arm] Blood Pressure Position Lying Pulse Oximetry 100 100 Oxygen Delivery Method Sepsis Recent Fever Within 48 Hours Sepsis New/Unexplained Change in Mental Status Sepsis Action Taken by Nursing 04/13/24 21:40 04/13/24 21:45 04/13/24 21:45 Temperature Temperature Source Pulse Rate Pulse Rate [Apical] Pulse Rate from SpO2 Sensor Respiratory Rate Blood Pressure 95/63 L 93/69 L 93/69 L Blood Pressure [Left Arm] Blood Pressure Mean 68 77 77 Blood Pressure Mean [Left Arm] Blood Pressure Position Pulse Oximetry Oxygen Delivery Method Sepsis Recent Fever Within 48 Hours Sepsis New/Unexplained Change in Mental Status Sepsis Action Taken by Nursing 04/13/24 21:45 04/13/24 21:50 04/13/24 21:50 Temperature Temperature Source Pulse Rate 102 H Pulse Rate [Apical] Pulse Rate from SpO2 Sensor 100 H Respiratory Rate 20 Blood Pressure 100/68 100/68 Blood Pressure [Left Arm] Blood Pressure Mean 93 93 Blood Pressure Mean [Left Arm] Blood Pressure Position Pulse Oximetry 100 Oxygen Delivery Method Sepsis Recent Fever Within 48 Hours Sepsis New/Unexplained Change in Mental Status Sepsis Action Taken by Nursing 04/13/24 21:51 04/13/24 21:55 04/13/24 22:00 Temperature Temperature Source Pulse Rate 108 H 109 H Pulse Rate [Apical] Pulse Rate from SpO2 Sensor 107 H 108 H Respiratory Rate 21 20 Blood Pressure 107/70 Blood Pressure [Left Arm] Blood Pressure Mean 95 Blood Pressure Mean [Left Arm] Blood Pressure Position Pulse Oximetry 99 99 Oxygen Delivery Method Sepsis Recent Fever Within 48 Hours Sepsis New/Unexplained Change in Mental Status Sepsis Action Taken by Nursing 04/13/24 22:00 04/13/24 22:00 04/13/24 22:00 Temperature Temperature Source Pulse Rate Pulse Rate [Apical] Pulse Rate from SpO2 Sensor Respiratory Rate Blood Pressure 83/46 L 83/46 L 83/46 L Blood Pressure [Left Arm] Blood Pressure Mean 55 55 55 Blood Pressure Mean [Left Arm] Blood Pressure Position Pulse Oximetry Oxygen Delivery Method Sepsis Recent Fever Within 48 Hours Sepsis New/Unexplained Change in Mental Status Sepsis Action Taken by Nursing 04/13/24 22:05 04/13/24 22:05 04/13/24 22:05 Temperature Temperature Source Pulse Rate 105 H Pulse Rate [Apical] Pulse Rate from SpO2 Sensor Respiratory Rate 24 Blood Pressure 100/63 100/63 100/63 Blood Pressure [Left Arm] Blood Pressure Mean 75 77 77 Blood Pressure Mean [Left Arm] Blood Pressure Position Pulse Oximetry Oxygen Delivery Method Sepsis Recent Fever Within 48 Hours Sepsis New/Unexplained Change in Mental Status Sepsis Action Taken by Nursing 04/13/24 22:05 04/13/24 22:06 04/13/24 22:10 Temperature Temperature Source Pulse Rate 108 H Pulse Rate [Apical] Pulse Rate from SpO2 Sensor Respiratory Rate 24 Blood Pressure 100/63 103/65 Blood Pressure [Left Arm] Blood Pressure Mean 77 68 Blood Pressure Mean [Left Arm] Blood Pressure Position Pulse Oximetry Oxygen Delivery Method Sepsis Recent Fever Within 48 Hours Sepsis New/Unexplained Change in Mental Status Sepsis Action Taken by Nursing 04/13/24 22:15 04/13/24 22:15 04/13/24 22:17 Temperature 36.6 C Temperature Source Oral Pulse Rate 100 H Pulse Rate [Apical] Pulse Rate from SpO2 Sensor Respiratory Rate 26 H Blood Pressure 101/68 101/68 101/68 Blood Pressure [Left Arm] Blood Pressure Mean 79 79 79 Blood Pressure Mean [Left Arm] Blood Pressure Position Pulse Oximetry 100 Oxygen Delivery Method Sepsis Recent Fever Within 48 Hours Sepsis New/Unexplained Change in Mental Status Sepsis Action Taken by Nursing 04/13/24 22:18 04/13/24 22:20 04/13/24 22:20 Temperature Temperature Source Pulse Rate 98 H Pulse Rate [Apical] Pulse Rate from SpO2 Sensor 94 H Respiratory Rate 20 Blood Pressure 99/72 L 99/72 L Blood Pressure [Left Arm] Blood Pressure Mean 84 84 Blood Pressure Mean [Left Arm] Blood Pressure Position Pulse Oximetry 98 Oxygen Delivery Method Sepsis Recent Fever Within 48 Hours Sepsis New/Unexplained Change in Mental Status Sepsis Action Taken by Nursing 04/13/24 22:21 04/13/24 22:25 04/13/24 22:30 Temperature Temperature Source Pulse Rate 101 H Pulse Rate [Apical] Pulse Rate from SpO2 Sensor 101 H Respiratory Rate 23 Blood Pressure 92/57 L 104/68 Blood Pressure [Left Arm] Blood Pressure Mean 67 73 Blood Pressure Mean [Left Arm] Blood Pressure Position Pulse Oximetry 100 Oxygen Delivery Method Sepsis Recent Fever Within 48 Hours Sepsis New/Unexplained Change in Mental Status Sepsis Action Taken by Nursing 04/13/24 22:30 04/13/24 22:30 04/13/24 22:35 Temperature Temperature Source Pulse Rate Pulse Rate [Apical] Pulse Rate from SpO2 Sensor Respiratory Rate Blood Pressure 104/68 104/68 101/62 Blood Pressure [Left Arm] Blood Pressure Mean 73 73 70 Blood Pressure Mean [Left Arm] Blood Pressure Position Pulse Oximetry Oxygen Delivery Method Sepsis Recent Fever Within 48 Hours Sepsis New/Unexplained Change in Mental Status Sepsis Action Taken by Nursing 04/13/24 22:40 04/13/24 22:40 04/13/24 22:45 Temperature Temperature Source Pulse Rate Pulse Rate [Apical] Pulse Rate from SpO2 Sensor Respiratory Rate Blood Pressure 103/70 103/70 94/70 L Blood Pressure [Left Arm] Blood Pressure Mean 76 76 77 Blood Pressure Mean [Left Arm] Blood Pressure Position Pulse Oximetry Oxygen Delivery Method Sepsis Recent Fever Within 48 Hours Sepsis New/Unexplained Change in Mental Status Sepsis Action Taken by Nursing 04/13/24 22:46 04/13/24 22:48 04/13/24 22:51 Temperature 36.7 C Temperature Source Oral Pulse Rate 100 H 100 H 98 H Pulse Rate [Apical] Pulse Rate from SpO2 Sensor 98 H 98 H Respiratory Rate 20 17 17 Blood Pressure 94/70 L Blood Pressure [Left Arm] Blood Pressure Mean 78 Blood Pressure Mean [Left Arm] Blood Pressure Position Pulse Oximetry 99 100 99 Oxygen Delivery Method Sepsis Recent Fever Within 48 Hours Sepsis New/Unexplained Change in Mental Status Sepsis Action Taken by Nursing 04/13/24 22:51 04/13/24 22:55 04/13/24 22:55 Temperature Temperature Source Pulse Rate Pulse Rate [Apical] Pulse Rate from SpO2 Sensor Respiratory Rate Blood Pressure 99/70 L 95/66 L 95/66 L Blood Pressure [Left Arm] Blood Pressure Mean 78 73 73 Blood Pressure Mean [Left Arm] Blood Pressure Position Pulse Oximetry Oxygen Delivery Method Sepsis Recent Fever Within 48 Hours Sepsis New/Unexplained Change in Mental Status Sepsis Action Taken by Nursing General: Jaundiced and pale ill-appearing middle-age male who appears in no acute respiratory distress, breathing comfortably on room air. Normal speech HEENT: Normal cephalic atraumatic. Pupils are equal round and reactive to light. Extraocular movements are intact. Oropharynx is pink with moist mucous membranes. No swelling of the mouth lips or tongue. Neck: Supple with a midline trachea. No meningeal signs or stiffness, no JVD or bruits. No Stridor. Chest: Clear to auscultation bilaterally. No wheezes or rhonchi. No increased work of breathing. Heart: Regular rate and rhythm without murmurs or gallops. Abdomen: Soft nontender, nondistended without rebound guarding or rigidity.. There is a bandage being held on the umbilicus and when it is removed there is a large amount of bleeding coming from what appears to be a vessel. It is pulsatile. Extremities: No cyanosis clubbing or edema. No calf tenderness or assymetry Spine/Back. Non tender to palpation. No CVA tenderness Skin: Good turgor without rashes. Neurologic exam: Alert and orient x 3 moving all 4 extremity symmetrically Procedures Free Text Procedures Location: Umbilicus Total length: Less than 1 cm Complexity: Simple Due to the significant bleeding I injected the wound with lidocaine with epinephrine. I then used a pursestring suture and the bleeding stopped I put in 2 additional sutures to help bolster this as well. The patient tolerated this well without difficulties or complications and the bleeding stopped. Course Administered Medications Sodium Chloride (Nss) 250 mls @ 15 mls/hr IV .[id number] PRN PRN Reason: For Transfusion Duration Stop: 04/14/24 06:57 Last Admin: 04/13/24 22:09 Dose: 15 mls/hr Documented By: MED Discontinued Medications Calcium Gluconate () 1,000 mg in 60 mls @ 240 mls/hr IV NOW STA Stop: 04/13/24 23:43 Last Admin: 04/14/24 00:05 Dose: 240 mls/hr Documented By: CHINO Ioversol (Optiray 320 125ml) 120 ml IV ONCE ONE Stop: 04/13/24 21:21 Last Admin: 04/13/24 21:20 Dose: 120 ml Documented By: JILLIAN Lidocaine HCl (Lidocaine 1% Local 20 Ml Vial) Confirm Administered Dose 1 ml .ROUTE .STK-MED ONE Stop: 04/13/24 20:33 Last Admin: 04/13/24 23:03 Dose: Not Given Documented By: LICHA Critical Care Time Critical Care Time: Yes Total Critical Care Time: 45 I have personally spent greater than 45 minutes of critical care time in the direct management of this patient. This includes bedside care, interpretation of diagnostic studies, and testing, discussion with consultants, patient, and family members, and other required patient management activities. This 45 minutes is in excess of all separately billable procedures. Medical Decision Making Differential Diagnosis Bleeding, anemia, arterial venous umbilical bleeding, but procedural complication, liver failure, shock Medical Records Attestation: I reviewed the patient's medical records. Home Medications Current Medication List: was personally reviewed by me Laboratory Data 04/13/24 20:45 04/13/24 20:45 Lab Results 04/13/24 04/13/24 04/13/24 Range/Units 20:45 20:53 22:35 WBC 14.52 H (4.8-10.8) K/ul RBC 2.03 L (4.70-6.10) M/uL Hgb 5.3 L* (14.0-18.0) g/dl POC Hgb 6.5 L* (14.0-18.0) g/dl Hct 17.5 L* (42.0-52.0) % POC Hct 19 L* (42-52) % MCV 86.2 (80.0-100.0) fL MCH 26.1 (25.0-34.0) pg MCHC 30.3 L (32.0-36.0) g/dL RDW Std Deviation 77.6 H (36.4-46.3) fL RDW Coeff of Christy 26.0 H (11.5-14.5) % Plt Count 404 H (130-400) K/uL MPV 10.5 (9.4-12.4) fL Immature Gran % (Auto) 0.5 % Neut % (Auto) 80.9 % Lymph % (Auto) 6.1 % Bee % (Auto) 11.7 % Eos % (Auto) 0.6 % Baso % (Auto) 0.2 % Neut # (Auto) 11.74 H (1.40-6.50) K/uL Lymph # (Auto) 0.89 L (1.20-3.40) K/uL Bee # (Auto) 1.70 H (0.11-0.59) K/uL Eos # (Auto) 0.09 (0.00-0.50) K/uL Baso # (Auto) 0.03 (0.00-0.20) K/uL Immature Gran # (Auto) 0.07 (0.01-0.20) K/uL Polychromasia 3+ Anisocytosis Present Echinocytes 1+ PT 19.4 H (9.0-12.0) Seconds INR 1.9 H (0.9-1.1) Fibrinogen 185 (184-400) mg/dl POC Sodium 134 L (135-144) mmol/L Sodium 133 L (136-145) mmol/L POC Potassium 4.1 (3.3-5.0) mmol/L Potassium 4.0 (3.5-5.1) mmol/L POC Chloride 100 L (101-112) mmol/L Chloride 104 (98-107) mmol/L Carbon Dioxide 20 L (21-32) mmol/L POC Total CO2 19 L (24-31) mmol/L Anion Gap 9 (3-11) POC Anion Gap 20.0 (16-25) mmol/L POC BUN 12 (7-18) mg/dl BUN 13 (6-23) mg/dl Creatinine 0.99 (0.6-1.4) mg/dl POC Creatinine 1.0 (0.6-1.3) mg/dl Est Cr Clr Drug Dosing Not Reportable Est GFR ( Amer) 110.0 ml/min Est GFR (Non-Af Amer) 94.9 ml/min BUN/Creatinine Ratio 13.1 (10-20) Glucose 159 H (70-99(Fasting)) mg/dl POC Glucose (other) 154 H (70-99) mg/dl Calcium 7.4 L (8.6-10.3) mg/dl POC Ioniz Calcium Alok 1.03 L (1.12-1.32) mmol/l Ionized Calcium 1.06 L (1.12-1.32) mmol/L Total Bilirubin 11.0 H (0.2-1.0) mg/dl AST 87 H (13-39) U/L ALT 27 (7-52) U/L Alkaline Phosphatase 97 (34-104) U/L Total Protein 4.4 L (6.0-8.3) gm/dl Albumin 2.3 L (3.4-5.0) gm/dl Globulin 2.1 L (2.5-4.0) gm/dl Albumin/Globulin Ratio 1.1 (0.9-2) Lipase 80 (11-82) U/L Blood Type A Positive Antibody Screen NEGATIVE Crossmatch See Detail Imaging Data Attestation: I personally reviewed and interpreted this imaging study as follows: My Impression: CAT scanthere is ascites I do not see any active extravasation or bleeding Radiologist's Impression: Abdomen/Pelvis CTA 04/13/24 21:02 Exam(s): CTA ABDOMEN + PELVIS With Contrast IV Amt: OPTIRAY 320 120ML EXAM: CT Angiography Abdomen and Pelvis With Intravenous Contrast CLINICAL HISTORY: Internal bleeding. TECHNIQUE: Axial computed tomographic angiography images of the abdomen and pelvis with intravenous contrast. CTDI is 23 mGy and DLP is 1329 mGy-cm. Automated exposure control was utilized for the study. A dose lowering technique was utilized adhering to the principles of ALARA. MIP reconstructed images were created and reviewed. CONTRAST: Patient received OPTIRAY 320 120ML of IV contrast COMPARISON: CT abdomen and pelvis 03/26/2024 FINDINGS: VASCULATURE: Aorta: No acute findings. No abdominal aortic aneurysm. No dissection. Celiac trunk and mesenteric arteries: No acute findings. No occlusion or significant stenosis. Renal arteries: No acute findings. No occlusion or significant stenosis. Iliac arteries: No acute findings. No occlusion or significant stenosis. Lung bases: Unremarkable. No mass. No consolidation. ABDOMEN: Liver: Mildly nodular contour of the liver is concerning for cirrhosis. Gallbladder and bile ducts: Nonspecific prominence of the gallbladder wall and question cholelithiasis. Pancreas: Unremarkable. No ductal dilation. No mass. Spleen: There is splenomegaly and moderate ascites. Adrenals: Unremarkable. No mass. Kidneys and ureters: Unremarkable. No hydronephrosis. No solid mass. Stomach and bowel: There is nonspecific thickening of the wall of the small bowel. An internal hemorrhoid is noted. No obstruction. PELVIS: Appendix: No findings to suggest acute appendicitis. Bladder: Unremarkable. No mass. Reproductive: Unremarkable as visualized. ABDOMEN and PELVIS: Intraperitoneal space: No free air. Moderate ascites. Bones/joints: No acute fracture. No dislocation. Soft tissues: There is nonspecific body wall edema. Moderate right and small left fluid fat-containing inguinal hernias. Lymph nodes: Unremarkable. No enlarged lymph nodes. IMPRESSION: 1. No evidence of active bleeding. 2. Mildly nodular contour of the liver is concerning for cirrhosis. 3. There is splenomegaly and moderate ascites. This concerning for portal hypertension. 4. There is nonspecific thickening of the wall of the small bowel. This could relate to chronic liver disease or may be infectious or inflammatory. 5. Nonspecific prominence of the gallbladder wall and question cholelithiasis. 6. An internal hemorrhoid is noted. 7. Nonspecific body wall edema. Electronically signed by: Sara Harris MD 04/13/24 22:11 PM ECG Data Attestation: I personally reviewed and interpreted this ECG as follows: Indication: + weakness Rate (beats per minute): 104 Rhythm: + sinus tachycardia ECG Intervals/blocks: + Normal QRS, + Normal QT and + Normal [place] ECG [place]: + Normal ECG ST segments: + Normal ST segments ECG Findings: + Other (Somewhat low voltage); no PACs or no PVCs Comparison ECG Date: from (Rate is increased otherwise no change) MDM Narrative This patient comes in as described above. I saw him emergently upon arrival I did give medical command and the patient received TXA prior to arrival he had 2 large-bore IVs. Concern was his blood pressure was low and he is lost a significant of blood. I immediately injected the area with epinephrine as there is a bleeding vessel seen and I sutured it the bleeding stopped I did discuss stat CAT scan which shows no active bleeding with the patient's low blood pressure and significant blood loss. He was given emergency blood 2 units in the ED as well as FFP. The first unit was given fast and the second unit was given slow so was not fluid overloaded and he tolerated this well. His i-STAT hemoglobin was low at 6 6 he normally runs 7-8 range. He was feeling better and no further bleeding. I did discuss the case with the on-call surgeon, Dr. Frey , who felt that the bleeding was stopped there is no other acute reason for surgery at this point but if the bleeding starts again they could call him and there is other things they could do to stop it including TIPS. I did discuss the case with Dr. Martinez and the patient was seen in the ER will be admitted for monitoring of blood loss any and any further resuscitation. With the blood products he remained stable his blood pressure improved and he feels much better. He had no further bleeding after being here for 4 hours. Did asked the nurse to put a pressure dressing on it as well. Continuous elevated motorman: Orders placed in EMR for continuous cardiac monitoring: Pulm evaluation patient was sinus tachycardia with rate 110 Impression & Plan Acute blood loss anemia, Acute liver failure, Alcoholic cirrhosis, Anemia Discharge Plan Visit Data Chief Complaint: Wound Dehiscence Stated Complaint: BLEEDING ED Provider: Kiel Shearer Discharge Problem: Acute blood loss anemia, Acute liver failure, Alcoholic cirrhosis, Anemia Discharge Instructions Interventions: ED Discharge Assessment Last Done: 04/14/24 00:20 Discharge Problem: Acute liver failure Qualifiers: Hepatic coma status: without hepatic coma Qualified Code(s): K72.00 - Acute and subacute hepatic failure without coma Alcoholic cirrhosis Qualifiers: Ascites presence: with ascites Qualified Code(s): K70.31 - Alcoholic cirrhosis of liver with ascites Anemia Qualifiers: Anemia type: unspecified type Qualified Code(s): D64.9 - Anemia, unspecified
[2024-04-13] MEDS: OPTIRAY 320 125ml IV ONE (21:20)
[2024-04-13 21:58] LABS: Alanine Aminotransferase 27 U/L (7-52); Albumin Globulin Ratio 1.1 (0.9-2); Albumin Level 2.3 gm/dl (3.4-5.0); Alkaline Phosphatase 97 U/L (34-104); Anion Gap 9 (3-11); Aspartate Aminotransferase 87 U/L (13-39); BUN Creatinine Ratio 13.1 (10-20); Blood Urea Nitrogen 13 mg/dl (6-23); Calcium 7.4 mg/dl (8.6-10.3); Carbon Dioxide 20 mmol/L (21-32); Chloride 104 mmol/L (98-107); Est GFR (Non-African American) 94.9 ml/min; Globulin 2.1 gm/dl (2.5-4.0); Glucose 159 mg/dl (70-99(Fasting)); Lipase 80 U/L (11-82); Sodium 133 mmol/L (136-145); Total Protein 4.4 gm/dl (6.0-8.3)
[2024-04-13] MEDS: SODIUM CHLORIDE 0.9% 250 ML IV PRN (22:09)
--- NOTE | 2024-04-13 22:12 | CT Scan Report ---
Exam(s): CTA ABDOMEN + PELVIS With Contrast IV Amt: OPTIRAY 320 120ML EXAM: CT Angiography Abdomen and Pelvis With Intravenous Contrast CLINICAL HISTORY: Internal bleeding. TECHNIQUE: Axial computed tomographic angiography images of the abdomen and pelvis with intravenous contrast. CTDI is 23 mGy and DLP is 1329 mGy-cm. Automated exposure control was utilized for the study. A dose lowering technique was utilized adhering to the principles of ALARA. MIP reconstructed images were created and reviewed. CONTRAST: Patient received OPTIRAY 320 120ML of IV contrast COMPARISON: CT abdomen and pelvis 03/26/2024 FINDINGS: VASCULATURE: Aorta: No acute findings. No abdominal aortic aneurysm. No dissection. Celiac trunk and mesenteric arteries: No acute findings. No occlusion or significant stenosis. Renal arteries: No acute findings. No occlusion or significant stenosis. Iliac arteries: No acute findings. No occlusion or significant stenosis. Lung bases: Unremarkable. No mass. No consolidation. ABDOMEN: Liver: Mildly nodular contour of the liver is concerning for cirrhosis. Gallbladder and bile ducts: Nonspecific prominence of the gallbladder wall and question cholelithiasis. Pancreas: Unremarkable. No ductal dilation. No mass. Spleen: There is splenomegaly and moderate ascites. Adrenals: Unremarkable. No mass. Kidneys and ureters: Unremarkable. No hydronephrosis. No solid mass. Stomach and bowel: There is nonspecific thickening of the wall of the small bowel. An internal hemorrhoid is noted. No obstruction. PELVIS: Appendix: No findings to suggest acute appendicitis. Bladder: Unremarkable. No mass. Reproductive: Unremarkable as visualized. ABDOMEN and PELVIS: Intraperitoneal space: No free air. Moderate ascites. Bones/joints: No acute fracture. No dislocation. Soft tissues: There is nonspecific body wall edema. Moderate right and small left fluid fat-containing inguinal hernias. Lymph nodes: Unremarkable. No enlarged lymph nodes. IMPRESSION: 1. No evidence of active bleeding. 2. Mildly nodular contour of the liver is concerning for cirrhosis. 3. There is splenomegaly and moderate ascites. This concerning for portal hypertension. 4. There is nonspecific thickening of the wall of the small bowel. This could relate to chronic liver disease or may be infectious or inflammatory. 5. Nonspecific prominence of the gallbladder wall and question cholelithiasis. 6. An internal hemorrhoid is noted. 7. Nonspecific body wall edema. Electronically signed by: Sara Harris MD 04/13/24 22:11 PM
[2024-04-13 22:20] LABS: Hematocrit (blood only) 17.5 % (42.0-52.0); Hemoglobin 5.3 g/dl (14.0-18.0); Mean Corpuscular Hemoglobin 26.1 pg (25.0-34.0); Mean Corpuscular Hgb Conc 30.3 g/dL (32.0-36.0); Mean Corpuscular Volume 86.2 fL (80.0-100.0); Mean Platelet Volume 10.5 fL (9.4-12.4); Platelet Count 404 K/uL (130-400); RDW Standard Deviation 77.6 fL (36.4-46.3); Red Blood Count 2.03 M/uL (4.70-6.10); White Blood Count 14.52 K/ul (4.8-10.8)
[2024-04-13 22:24] LABS: Fibrinogen 185 mg/dl (184-400)
[2024-04-13 22:45] LABS: Anisocytosis Present; Basophils # (auto) 0.03 K/uL (0.00-0.20); Basophils % (auto) 0.2 %; Echinocytes 1+; Eosinophils # (auto) 0.09 K/uL (0.00-0.50); Eosinophils % (auto) 0.6 %; Immature Granulocytes # (auto) 0.07 K/uL (0.01-0.20); Immature Granulocytes % (auto) 0.5 %; Lymphocytes # (auto) 0.89 K/uL (1.20-3.40); Lymphocytes % (auto) 6.1 %; Monocytes % (auto) 11.7 %; Neutrophils # (auto) 11.74 K/uL (1.40-6.50); Neutrophils % (auto) 80.9 %; Polychromasia 3+
[2024-04-13 22:58] LABS: INR 1.9 (0.9-1.1); Prothrombin Time 19.4 Seconds (9.0-12.0)
[2024-04-13] MEDS: LIDOCAINE 1% LOCAL 20 ML VIAL ONE (23:03)
--- NOTE | 2024-04-13 23:17 | History & Physical Report ---
Date of Service April 13, 2024 Assessment & Plan (1) Acute blood loss anemia: Plan: 38-year-old male with past medical history significant for recent admission for jaundice and alcohol hepatitis and profound anemia and hyponatremia comes back today due to profuse bleeding from umbilical site ,currently bleeding stopped by the ER and the site is sutured. His hemoglobin is 5.3 and and got 2 units of PRBCs and getting platelets and FFP. Hemodynamics are okay. Denies abdominal pain. Says bleeding started suddenly today evening. Denies any blood in the stools or black stools. No fevers. No chest pain or shortness of breath. No cough. No sore throat. Resting comfortably. Father at bedside. Since his discharge he is not drinking. He was admitted on March 27, 2024 and was discharged on 04/04/2024. During last admission his hemoglobin was 4.4 on presentation with black stools for several months and was s/p 6 units of PRBCs and 5 units of FFP and his hemoglobin was around 8 upon discharge. EGD showed grade D esophagitis with no bleeding. Colonoscopy showed large internal and external hemorrhoids. And during that admission his initial admission sodium was 113 and serum sodium gradually improved to 130s after use of hypertonic saline. Nephrology was consulted. Placed on Lasix 20 mg a spironolactone 50 mg once daily. Monitored for alcohol withdrawal . His total bilirubin on the day of admission last admit was 22 and peaked to 31 and at the time of discharge it was 20.3. Today's total bilirubin is 11. He followed up with PCP and there is plan for hepatology follow-up. He is also on lactulose and Xifaxan and Protonix. Last admission was also s/p paracentesis with about 3.7 L fluid taken out. Acute blood loss anemia Hemoglobin 5.3 Profuse bleeding from umbilical site stopped in the ER and s/p sutured Got two units of PRBC, platelets and FFP and later ordered two more units as repeat hb was 6.3 Will follow H&H closely and transfuse if needed Surgery consult Currently hemodynamics are okay CT abdomen pelvis no active bleeding Closely monitoring telemetry Alcoholic hepatitis Alcohol liver cirrhosis Portal hypertension Ascites Was recently in the hospital with acute alcohol hepatitis Today total bilirubin improved to 11 Continue home Lasix and spironolactone and Xifaxan and lactulose Close monitor Patient states he stopped drinking since discharged Monitor for worsening ascites Monitor for volume overload Plan for hepatology referral Recent GI bleed Last admission was s/p EGD and colonoscopy as mentioned in HPI Continue Protonix On iron supplements Hypocalcemia Will replace Follow vitamin D levels Hyponatremia Sodium 133 today We will follow labs Elevated INR INR 1.9 Will give a dose of vitamin K Follow PT/INR Leukocytosis Ct scan: Nonspecific thickening of the wall of the small bowel possibly related to chronic liver disease disease or an infectious/ inflammatory Nonspecific prominence of gallbladder wall and question of cholelithiasis empirically placed on Zosyn Follow ultrasound GI consult DVT prophylaxis SCDs Disposition Telemetry Full code. History of Present Illness Chief Complaint: Bleeding from umbilical site Primary Care Provider: NO PCP 38-year-old male with past medical history significant for recent admission for jaundice and alcohol hepatitis and profound anemia and hyponatremia comes back today due to profuse bleeding from umbilical site ,currently bleeding stopped by the ER and the site is sutured. His hemoglobin is 5.3 and and got 2 units of PRBCs and getting platelets and FFP. Hemodynamics are okay. Denies abdominal pain. Says bleeding started suddenly today evening. Denies any blood in the st ools or black stools. No fevers. No chest pain or shortness of breath. No cough. No sore throat. Resting comfortably. Father at bedside. Since his discharge he is not drinking. He was admitted on March 27, 2024 and was discharged on 04/04/2024. During last admission his hemoglobin was 4.4 on presentation with black stools for several months and was s/p 6 units of PRBCs and 5 units of FFP and his hemoglobin was around 8 upon discharge. EGD showed grade D esophagitis with no bleeding. Colonoscopy showed large internal and external hemorrhoids. And during that admission his initial admission sodium was 113 and serum sodium gradually improved to 130s after use of hypertonic saline. Nephrology was consulted. Placed on Lasix 20 mg a spironolactone 50 mg once daily. Monitored for alcohol withdrawal . His total bilirubin on the day of admission last admit was 22 and peaked to 31 and at the time of discharge it was 20.3. Today's total bilirubin is 11. He followed up with PCP and there is plan for hepatology follow-up. He is also on lactulose and Xifaxan and Protonix. Last admission was also s/p paracentesis with about 3.7 L fluid taken out. Past medical history. Denies any other medical history. Past surgical history. Had surgery for eardrum as a kid. [place] tooth extraction. Social history. Denies smoking. Was drinking 10 shots of vodka for last 10 years but states stopped since he got discharged from hospital 04/04/2024. Denies drug use. Family history. Father had heart disorder. Mother had pancreatic cancer. Allergies Allergy/AdvReac Type Severity Reaction Status Date / Time No Known Allergies Allergy Verified 04/13/24 22:27 Home Medications Medication Instructions Recorded Confirmed Type ferrous sulfate 325 mg (65 mg 325 mg PO DAILY #30 tabs 04/04/24 04/13/24 Rx iron) tablet folic acid 1 mg tablet 1 mg PO DAILY #7 tabs 04/04/24 04/13/24 Rx furosemide 20 mg tablet 20 mg PO QAM 30 days #30 tabs 04/04/24 04/13/24 Rx lactulose 20 gram/30 mL oral 20 g (30 mL) PO DAILY 30 days #900 04/04/2401/01 Rx solution mL multivitamin 1 tab PO DAILY #30 tabs 04/04/24 04/13/24 Rx pantoprazole 40 mg tablet,delayed 40 mg PO BID 30 days #60 tabs 04/04/24 04/13/24 Rx release rifaximin 550 mg tablet (Xifaxan) 550 mg PO BID 30 days #60 tabs 04/04/24 04/13/24 Rx spironolactone 25 mg tablet 50 mg (2 x 25 mg) PO QAM 30 days 04/04/24 04/13/24 Rx #60 tabs hydrocortisone 2.5 % topical 1 applic EXT BID PRN flare ups 04/13/24 04/13/24 History ointment Past Med/Surg History Problem List (Updated 04/14/24 @ 00:07 by Kiel Shearer MD) Acute blood loss anemia (Acute) Elevated bilirubin (Acute) Jaundice (Acute) Anemia (Acute) Alcoholic cirrhosis (Acute) Acute liver failure (Acute) Encounter for pre-operative examination Hyponatremia Medical History Renal failure Electrolyte and fluid disorder Acute GI bleeding Cirrhosis Alcoholic liver failure Profound anemia Alcohol abuse Surgical History Hx of wisdom tooth extraction Hx of myringotomy Family History Father Heart disease Mother Cancer Social History Smoking Status: Never smoker Second Hand Exposure: No; Do You Dip or Chew Tobacco: No; Tobacco Cessation Education Requested by Patient: No Hx Alcohol Use: Yes Alcohol type: hard liquor Hx Substance Use: No Preferred Language: German Communication Ability: Effective Venetian Blind Installer Required: No Beliefs That Will Affect Care: None Current Living Situation: Alone Other Information That Helps Us Care for You: No Feels Safe at Home: Yes Safety Concerns: Feels Safe At This Time Assistive Devices: None Review of Systems Review of Systems: All systems reviewed & are unremarkable except as noted in HPI & below Physical Exam Physical Exam: General- Not in distress Head- atraumatic Eyes- icterus present ENT- oropharynx clear Neck- supple, no JVD. Lungs- clear to auscultation no wheezing or crackles Heart- regular rate and rhythm; no murmur, no gallop. Abdomen- normal bowel sounds, soft, nontender, no distension. Extremities- Lower extremity edema present, no erythema seen. Neuro- alert, oriented no facial palsy; no dysarthria; moves extremities. Skin- diffuse yellow discoloration of skin seen Results & Data Results & Data Vital Signs (Past 12 Hours) Vital Signs Temp Pulse Pulse Resp BP BP Pulse Ox 04/13/24 22:46 36.7 C 100 H 20 94/70 L 99 04/13/24 22:30 104/68 04/13/24 22:30 104/68 04/13/24 22:30 104/68 04/13/24 22:25 92/57 L 04/13/24 22:21 101 H 23 100 04/13/24 22:20 99/72 L 04/13/24 22:20 99/72 L 04/13/24 22:18 98 H 20 98 04/13/24 22:17 36.6 C 100 H 26 H 101/68 100 04/13/24 22:15 101/68 04/13/24 22:15 101/68 04/13/24 22:10 103/65 04/13/24 22:06 108 H 24 04/13/24 22:05 100/63 04/13/24 22:05 100/63 04/13/24 22:05 100/63 04/13/24 22:05 105 H 24 100/63 04/13/24 22:00 83/46 L 04/13/24 22:00 83/46 L 04/13/24 22:00 83/46 L 04/13/24 22:00 109 H 20 99 04/13/24 21:55 107/70 04/13/24 21:51 108 H 21 99 04/13/24 21:50 100/68 04/13/24 21:50 100/68 04/13/24 21:45 102 H 20 100 04/13/24 21:45 93/69 L 04/13/24 21:45 93/69 L 04/13/24 21:40 95/63 L 04/13/24 21:38 36.8 C 104 H 22 102/63 100 04/13/24 21:35 36.8 C 76 24 102/63 100 04/13/24 21:30 90/57 L 04/13/24 21:30 90/57 L 04/13/24 21:30 104 H 21 100 04/13/24 21:25 100/60 04/13/24 21:25 100/60 04/13/24 21:25 109 H 18 100 04/13/24 21:24 107 H 17 100 04/13/24 21:23 37 C 106 H 20 118/74 100 04/13/24 21:22 118/74 04/13/24 21:20 36.9 C 118/74 100 04/13/24 21:04 36.9 C 102 H 24 107/70 100 04/13/24 21:03 113 H 99 04/13/24 21:03 111 H 22 95/62 L 100 04/13/24 21:00 95/62 L 04/13/24 21:00 95/62 L 04/13/24 20:59 37 C 114 H 82/58 L 100 04/13/24 20:55 82/58 L 04/13/24 20:55 82/58 L 04/13/24 20:55 82/58 L 04/13/24 20:51 120 H 100 04/13/24 20:50 94/61 L 04/13/24 20:50 94/61 L 04/13/24 20:49 121 H 04/13/24 20:45 93/61 L 04/13/24 20:45 124 H 93/61 L 100 O2 Del Method 04/13/24 22:46 04/13/24 22:30 04/13/24 22:30 04/13/24 22:30 04/13/24 22:25 04/13/24 22:21 04/13/24 22:20 04/13/24 22:20 04/13/24 22:18 04/13/24 22:17 04/13/24 22:15 04/13/24 22:15 04/13/24 22:10 04/13/24 22:06 04/13/24 22:05 04/13/24 22:05 04/13/24 22:05 04/13/24 22:05 04/13/24 22:00 04/13/24 22:00 04/13/24 22:00 04/13/24 22:00 04/13/24 21:55 04/13/24 21:51 04/13/24 21:50 04/13/24 21:50 04/13/24 21:45 04/13/24 21:45 04/13/24 21:45 04/13/24 21:40 04/13/24 21:38 04/13/24 21:35 04/13/24 21:30 04/13/24 21:30 04/13/24 21:30 04/13/24 21:25 04/13/24 21:25 04/13/24 21:25 Room Air 04/13/24 21:24 04/13/24 21:23 Room Air 04/13/24 21:22 04/13/24 21:20 04/13/24 21:04 04/13/24 21:03 04/13/24 21:03 04/13/24 21:00 04/13/24 21:00 04/13/24 20:59 04/13/24 20:55 04/13/24 20:55 04/13/24 20:55 04/13/24 20:51 04/13/24 20:50 04/13/24 20:50 04/13/24 20:49 04/13/24 20:45 04/13/24 20:45 Room Air Diagnostic Findings Laboratory Results WBC 14.52 K/ul (4.8-10.8) H 04/13/24 20:45 RBC 2.03 M/uL (4.70-6.10) L 04/13/24 20:45 Hgb 5.3 g/dl (14.0-18.0) L* 04/13/24 20:45 POC Hgb 6.5 g/dl (14.0-18.0) L* 04/13/24 20:53 Hct 17.5 % (42.0-52.0) L* 04/13/24 20:45 POC Hct 19 % (42-52) L* 04/13/24 20:53 MCV 86.2 fL (80.0-100.0) 04/13/24 20:45 MCH 26.1 pg (25.0-34.0) 04/13/24 20:45 MCHC 30.3 g/dL (32.0-36.0) L 04/13/24 20:45 RDW Std Deviation 77.6 fL (36.4-46.3) H 04/13/24 20:45 RDW Coeff of Christy 26.0 % (11.5-14.5) H 04/13/24 20:45 Plt Count 404 K/uL (130-400) H 04/13/24 20:45 MPV 10.5 fL (9.4-12.4) 04/13/24 20:45 Immature Gran % (Auto) 0.5 % 04/13/24 20:45 Neut % (Auto) 80.9 % 04/13/24 20:45 Lymph % (Auto) 6.1 % 04/13/24 20:45 [place] % (Auto) 11.7 % 04/13/24 20:45 Eos % (Auto) 0.6 % 04/13/24 20:45 Baso % (Auto) 0.2 % 04/13/24 20:45 Neut # (Auto) 11.74 K/uL (1.40-6.50) H 04/13/24 20:45 Lymph # (Auto) 0.89 K/uL (1.20-3.40) L 04/13/24 20:45 [place] # (Auto) 1.70 K/uL (0.11-0.59) H 04/13/24 20:45 Eos # (Auto) 0.09 K/uL (0.00-0.50) 04/13/24 20:45 Baso # (Auto) 0.03 K/uL (0.00-0.20) 04/13/24 20:45 Immature Gran # (Auto) 0.07 K/uL (0.01-0.20) 04/13/24 20:45 Polychromasia 3+ 04/13/24 20:45 Anisocytosis Present 04/13/24 20:45 Echinocytes 1+ 04/13/24 20:45 PT 19.4 Seconds (9.0-12.0) H 04/13/24 22:35 INR 1.9 (0.9-1.1) H 04/13/24 22:35 Fibrinogen 185 mg/dl (184-400) 04/13/24 20:45 POC Sodium 134 mmol/L (135-144) L 04/13/24 20:53 Sodium 133 mmol/L (136-145) L 04/13/24 20:45 POC Potassium 4.1 mmol/L (3.3-5.0) 04/13/24 20:53 Potassium 4.0 mmol/L (3.5-5.1) 04/13/24 20:45 POC Chloride 100 mmol/L (101-112) L 04/13/24 20:53 Chloride 104 mmol/L (98-107) 04/13/24 20:45 Carbon Dioxide 20 mmol/L (21-32) L 04/13/24 20:45 POC Total CO2 19 mmol/L (24-31) L 04/13/24 20:53 Anion Gap 9 (3-11) 04/13/24 20:45 POC Anion Gap 20.0 mmol/L (16-25) 04/13/24 20:53 POC BUN 12 mg/dl (7-18) 04/13/24 20:53 BUN 13 mg/dl (6-23) 04/13/24 20:45 Creatinine 0.99 mg/dl (0.6-1.4) 04/13/24 20:45 POC Creatinine 1.0 mg/dl (0.6-1.3) 04/13/24 20:53 Est Cr Clr Drug Dosing Not Reportable 04/13/24 20:45 Est GFR ( Amer) 110.0 ml/min 04/13/24 20:45 Est GFR (Non-Af Amer) 94.9 ml/min 04/13/24 20:45 BUN/Creatinine Ratio 13.1 (10-20) 04/13/24 20:45 Glucose 159 mg/dl (70-99(Fasting)) H 04/13/24 20:45 POC Glucose (other) 154 mg/dl (70-99) H 04/13/24 20:53 Calcium 7.4 mg/dl (8.6-10.3) L 04/13/24 20:45 POC Ioniz Calcium Alok 1.03 mmol/l (1.12-1.32) L 04/13/24 20:53 Ionized Calcium 1.06 mmol/L (1.12-1.32) L 04/13/24 22:35 Total Bilirubin 11.0 mg/dl (0.2-1.0) H 04/13/24 20:45 AST 87 U/L (13-39) H 04/13/24 20:45 ALT 27 U/L (7-52) 04/13/24 20:45 Alkaline Phosphatase 97 U/L (34-104) 04/13/24 20:45 Total Protein 4.4 gm/dl (6.0-8.3) L 04/13/24 20:45 Albumin 2.3 gm/dl (3.4-5.0) L 04/13/24 20:45 Globulin 2.1 gm/dl (2.5-4.0) L 04/13/24 20:45 Albumin/Globulin Ratio 1.1 (0.9-2) 04/13/24 20:45 Lipase 80 U/L (11-82) 04/13/24 20:45 Blood Type A Positive 04/13/24 20:45 Antibody Screen NEGATIVE 04/13/24 20:45 Crossmatch See Detail 04/13/24 20:45 Impressions Abdomen/Pelvis CTA 04/13/24 21:02 Exam(s): CTA ABDOMEN + PELVIS With Contrast IV Amt: OPTIRAY 320 120ML EXAM: CT Angiography Abdomen and Pelvis With Intravenous Contrast CLINICAL HISTORY: Internal bleeding. TECHNIQUE: Axial computed tomographic angiography images of the abdomen and pelvis with intravenous contrast. CTDI is 23 mGy and DLP is 1329 mGy-cm. Automated exposure control was utilized for the study. A dose lowering technique was utilized adhering to the principles of ALARA. MIP reconstructed images were created and reviewed. CONTRAST: Patient received OPTIRAY 320 120ML of IV contrast COMPARISON: CT abdomen and pelvis 03/26/2024 FINDINGS: VASCULATURE: Aorta: No acute findings. No abdominal aortic aneurysm. No dissection. Celiac trunk and mesenteric arteries: No acute findings. No occlusion or significant stenosis. Renal arteries: No acute findings. No occlusion or significant stenosis. Iliac arteries: No acute findings. No occlusion or significant stenosis. Lung bases: Unremarkable. No mass. No consolidation. ABDOMEN: Liver: Mildly nodular contour of the liver is concerning for cirrhosis. Gallbladder and bile ducts: Nonspecific prominence of the gallbladder wall and question cholelithiasis. Pancreas: Unremarkable. No ductal dilation. No mass. Spleen: There is splenomegaly and moderate ascites. Adrenals: Unremarkable. No mass. Kidneys and ureters: Unremarkable. No hydronephrosis. No solid mass. Stomach and bowel: There is nonspecific thickening of the wall of the small bowel. An internal hemorrhoid is noted. No obstruction. PELVIS: Appendix: No findings to suggest acute appendicitis. Bladder: Unremarkable. No mass. Reproductive: Unremarkable as visualized. ABDOMEN and PELVIS: Intraperitoneal space: No free air. Moderate ascites. Bones/joints: No acute fracture. No dislocation. Soft tissues: There is nonspecific body wall edema. Moderate right and small left fluid fat-containing inguinal hernias. Lymph nodes: Unremarkable. No enlarged lymph nodes. IMPRESSION: 1. No evidence of active bleeding. 2. Mildly nodular contour of the liver is concerning for cirrhosis. 3. There is splenomegaly and moderate ascites. This concerning for portal hypertension. 4. There is nonspecific thickening of the wall of the small bowel. This could relate to chronic liver disease or may be infectious or inflammatory. 5. Nonspecific prominence of the gallbladder wall and question cholelithiasis. 6. An internal hemorrhoid is noted. 7. Nonspecific body wall edema. Electronically signed by: Sara Harris MD 04/13/24 22:11 PM ECG Additional Comments: ECG sinus tachycardia rate of 104. QTc 478 Code Status & VTE Plan VTE Prophylaxis Plan VTE Prophylaxis will be ordered: Yes
[2024-04-14] MEDS: CALCIUM GLUCONATE 1,000 MG/60 ML BAG IV STA (00:05)
[2024-04-14] MEDS ORDERED: POLYETHYLENE (MIRALAX) 17 GM PACK PO PRN (01:03)
[2024-04-14] MEDS ORDERED: NITROGLYCERIN SL 0.4 MG/TAB TAB SL PRN (01:03)
[2024-04-14] MEDS: PIPER/TAZO 4.5g in D5W MINI-B 100 ML IV ONE (01:29)
[2024-04-14] MEDS: PHYTONADIONE 5 MG TAB PO STA (01:29)
[2024-04-14 02:57] LABS: Hematocrit (blood only) 19.5 % (42.0-52.0); Hemoglobin 6.3 g/dl (14.0-18.0)
[2024-04-14] MEDS ORDERED: SODIUM CHLORIDE 0.9% 250 ML IV PRN (02:59)
[2024-04-14] MEDS: FUROSEMIDE INJ 20 MG/2 ML VIAL IV ONE (04:00)
[2024-04-14 05:20] LABS: Appearance Urine Cloudy (Clear); Bacteria Urine Automated None Seen (None Seen); Bilirubin Urine 3+ (Negative); Blood Urine Negative (Negative); Color Urine Dark Yellow; Glucose Urine UA Negative (Negative); Ketones Urine Trace (Negative); Leukocyte Esterase Urine 1+ (Negative); Nitrite Urine Positive (Negative); Protein Urine 1+ (Negative); RBC Urine Automated >20 /hpf (0-2); Specific Gravity Urine > 1.045 (1.000-1.030); Urobilinogen Urine Positive (Negative); WBC Urine Automated 0-5 /hpf (0-5); pH Urine 5.5 (4.5-7.5)
[2024-04-14 05:31] LABS: Granular Casts Urine Present /lpf (None Prsent)
[2024-04-14] MEDS: PIPERACILLIN/TAZOBACTAM 4.5 GM in DEXTROSE 5% MINI-B 100 ML IV SCH (05:56)
--- NOTE | 2024-04-14 07:21 | Electrocardiogram Report ---
Test Reason : Blood Pressure : / mmHG Vent. Rate : 104 BPM Atrial Rate : 104 BPM P-R Int : 148 ms QRS Dur : 086 ms QT Int : 364 ms P-R-T Axes : 015 -14 013 degrees QTc Int : 478 ms Sinus tachycardia Low voltage QRS Abnormal ECG When compared with ECG of 27-MAR-2024 07:34, QRS duration has decreased Confirmed by Black Mariano ([id number]) on 04/14/2024 7:20:47 AM Referred By: Confirmed By:Arden Mariano
[2024-04-14] MEDS: rifAXIMin 550 MG TABLET PO SCH (08:34)
[2024-04-14] MEDS: MULTIVITAMIN TAB PO SCH (08:34)
[2024-04-14] MEDS: PANTOprazole 40 MG TAB PO SCH (08:34)
[2024-04-14] MEDS: SPIRONOLACTONE 25 MG TAB PO SCH (08:34)
[2024-04-14] MEDS: FOLIC ACID 1 MG TAB PO SCH (08:35)
[2024-04-14] MEDS: LACTULOSE SYRUP 20 GM/30 ML UDC PO SCH (08:35)
[2024-04-14] MEDS: FUROSEMIDE 20 MG TAB PO SCH (08:35)
--- NOTE | 2024-04-14 08:43 | Hospitalist Progress Note ---
Date of Service April 14, 2024 Assessment & Plan (1) Acute blood loss anemia: Plan: 38-year-old male with past medical history significant for recent admission for jaundice and alcohol hepatitis and profound anemia and hyponatremia comes back today due to profuse bleeding from umbilical site , Bleeding site was sutured in the emergency department Hemoglobin on presentation was 5.3; received 2 units of packed RBC, 1 unit of FFP and vitamin K. Acute blood loss anemia Profuse bleeding from umbilical site stopped in the ER and s/p sutured Status post 2 units of packed RBC, FFP and vitamin K Hemoglobin on presentation of 5.3 PT/INR19/1.9; consistent with decompensated liver cirrhosis CT abdomenno evidence of acute bleeding, splenomegaly and moderate ascites present. Nonspecific thickening of wall of the small bowel. Internal hemorrhoids present Continue to monitor site of bleeding Repeat CBC; transfuse if hemoglobin is less than 7 Alcoholic hepatitis Alcohol liver cirrhosis Portal hypertension Ascites Recent hospitalization from March 27 to April 04, 924 Total bilirubin improved to 11 from 20.3 on admission Continues to maintain abstinence from alcohol use Continue home Lasix, spironolactone and riXifaxan Plan for hepatology referral as outpatient GI on board; plan for paracentesis tomorrow am Recent GI bleed secondary to hemorrhoidal bleeding Last admission was s/p EGD and colonoscopy as mentioned in HPI Continue Protonix On iron supplements Hypocalcemia - Repleated Hyponatremia Sodium 133 today likely hypervolemic hyponatremia. Monitor Leukocytosis Nonspecific thickening of the wall of the small bowel possibly related to colon tumor disease or an infectious inflammatory Nonspecific prominence of gallbladder wall and question of cholelithiasis With empirically placed on Zosyn DVT prophylaxis SCDs Disposition Telemetry Full code. Time spent evaluating patient, direct bedside care, chart review, placing orders, interpretation of diagnostic studies, discussion with consultants, patient, and family members, as well as other required patient management activities is 50 minutes Please note the above document was generated using voice recognition software. It may contain grammatical, syntax or spelling errors. Any formal questions or concerns about the content, text or information contained within the body of this dictation should be directly addressed to the provider for clarification Admission and Anticipated Discharge Date Admission Date: April 13, 2024 Subjective Patient seen and examined at bedside. Comfortable; not in distress. No bleeding noticed today Review of Systems Review of Systems: All systems reviewed & are unremarkable except as noted in Subjective Physical Exam Physical Exam: Constitutional: Awake alert oriented x 3; not in distress. Respiratory: normal respiratory effort, lungs clear to auscultation, no wheeze, rales, rhonchi. Normal insp/exp effort, no accessory muscle use Cardiovascular: RRR, no murmur, no edema Vessels: no JVD or carotid bruit Chest: normal inspection of chest Abdomen: Distended, nontender. suture intact; No bleeding noticed Musculoskeletal: no cyanosis or clubbing, extremities motor strength 5/5 Skin: no rashes, warm and dry normal turgor Neurologic: PERRL, EOMI, accommodation nl, no face palsy, no dysarthria CN's II- XI intact bilaterally and moves all extremities Psychiatric: A+Ox3, euthymic affect Results & Data Results & Data Vital Signs (Past 12 Hours) Vital Signs Temp Pulse Pulse Resp BP BP Pulse Ox 04/14/24 07:50 36.7 C 82 16 105/67 100 04/14/24 07:22 36.7 C 83 16 105/67 100 04/14/24 07:20 36.7 C 84 16 114/63 100 04/14/24 07:07 36.7 C 82 16 95/66 L 100 04/14/24 06:47 36.7 C 84 16 106/69 97 04/14/24 06:44 36.8 C 88 16 109/68 100 04/14/24 06:25 36.8 C 89 16 93/72 L 100 04/14/24 05:25 36.8 C 88 18 113/72 99 04/14/24 04:55 37.1 C 83 18 104/74 100 04/14/24 04:40 37.0 C 98 H 16 101/73 99 04/14/24 04:19 36.7 C 94 H 20 104/57 L 99 04/14/24 02:00 67 16 97/66 L 100 04/14/24 01:00 91 H 16 106/67 99 04/14/24 00:46 37.1 C 80 16 107/69 98 04/14/24 00:44 37.1 C 93 H 22 107/69 96 04/14/24 00:38 80 04/14/24 00:30 37.1 C 80 16 107/69 98 04/14/24 00:20 86 121/68 99 04/14/24 00:00 94 H 18 109/72 99 04/13/24 23:47 36.7 C 94 H 16 109/72 99 04/13/24 23:45 95 H 17 94/73 L 99 04/13/24 23:30 97 H 18 103/72 100 04/13/24 23:16 96 H 22 100/73 100 04/13/24 23:10 36.7 C 100 H 16 100/73 96 04/13/24 23:01 100 H 23 115/70 100 04/13/24 23:00 103/73 04/13/24 22:55 95/66 L 04/13/24 22:55 95/66 L 04/13/24 22:51 99/70 L 04/13/24 22:51 98 H 17 99 04/13/24 22:48 100 H 17 100 04/13/24 22:46 36.7 C 100 H 20 94/70 L 99 04/13/24 22:45 94/70 L 04/13/24 22:40 103/70 04/13/24 22:40 103/70 04/13/24 22:35 101/62 04/13/24 22:30 104/68 04/13/24 22:30 104/68 04/13/24 22:30 104/68 04/13/24 22:25 92/57 L 04/13/24 22:21 101 H 23 100 04/13/24 22:20 99/72 L 04/13/24 22:20 99/72 L 04/13/24 22:18 98 H 20 98 04/13/24 22:17 36.6 C 100 H 26 H 101/68 100 04/13/24 22:15 101/68 04/13/24 22:15 101/68 04/13/24 22:10 103/65 04/13/24 22:06 108 H 24 04/13/24 22:05 100/63 04/13/24 22:05 100/63 04/13/24 22:05 100/63 04/13/24 22:05 105 H 24 100/63 04/13/24 22:00 83/46 L 04/13/24 22:00 83/46 L 04/13/24 22:00 83/46 L 04/13/24 22:00 109 H 20 99 04/13/24 21:55 107/70 04/13/24 21:51 108 H 21 99 04/13/24 21:50 100/68 04/13/24 21:50 100/68 04/13/24 21:45 102 H 20 100 04/13/24 21:45 93/69 L 04/13/24 21:45 93/69 L 04/13/24 21:40 95/63 L 04/13/24 21:38 36.8 C 104 H 22 102/63 100 04/13/24 21:35 36.8 C 76 24 102/63 100 04/13/24 21:30 90/57 L 04/13/24 21:30 90/57 L 04/13/24 21:30 104 H 21 100 04/13/24 21:25 100/60 04/13/24 21:25 100/60 04/13/24 21:25 109 H 18 100 04/13/24 21:24 107 H 17 100 04/13/24 21:23 37 C 106 H 20 118/74 100 04/13/24 21:22 118/74 04/13/24 21:20 36.9 C 118/74 100 04/13/24 21:04 36.9 C 102 H 24 107/70 100 04/13/24 21:03 113 H 99 04/13/24 21:03 111 H 22 95/62 L 100 04/13/24 21:00 95/62 L 04/13/24 21:00 95/62 L 04/13/24 20:59 37 C 114 H 82/58 L 100 04/13/24 20:55 82/58 L 04/13/24 20:55 82/58 L 04/13/24 20:55 82/58 L 04/13/24 20:51 120 H 100 04/13/24 20:50 94/61 L 04/13/24 20:50 94/61 L 04/13/24 20:49 121 H 04/13/24 20:45 93/61 L 04/13/24 20:45 124 H 93/61 L 100 O2 Del Method 04/14/24 07:50 04/14/24 07:22 04/14/24 07:20 04/14/24 07:07 04/14/24 06:47 04/14/24 06:44 04/14/24 06:25 04/14/24 05:25 04/14/24 04:55 04/14/24 04:40 04/14/24 04:19 04/14/24 02:00 Room Air 04/14/24 01:00 Room Air 04/14/24 00:46 04/14/24 00:44 Room Air 04/14/24 00:38 04/14/24 00:30 Room Air 04/14/24 00:20 Room Air 04/14/24 00:00 Room Air 04/13/24 23:47 04/13/24 23:45 Room Air 04/13/24 23:30 Room Air 04/13/24 23:16 Room Air 04/13/24 23:10 04/13/24 23:01 Room Air 04/13/24 23:00 04/13/24 22:55 04/13/24 22:55 04/13/24 22:51 04/13/24 22:51 04/13/24 22:48 04/13/24 22:46 04/13/24 22:45 04/13/24 22:40 04/13/24 22:40 04/13/24 22:35 04/13/24 22:30 04/13/24 22:30 04/13/24 22:30 04/13/24 22:25 04/13/24 22:21 04/13/24 22:20 04/13/24 22:20 04/13/24 22:18 04/13/24 22:17 04/13/24 22:15 04/13/24 22:15 04/13/24 22:10 04/13/24 22:06 04/13/24 22:05 04/13/24 22:05 04/13/24 22:05 04/13/24 22:05 04/13/24 22:00 04/13/24 22:00 04/13/24 22:00 04/13/24 22:00 04/13/24 21:55 04/13/24 21:51 04/13/24 21:50 04/13/24 21:50 04/13/24 21:45 04/13/24 21:45 04/13/24 21:45 04/13/24 21:40 04/13/24 21:38 04/13/24 21:35 04/13/24 21:30 04/13/24 21:30 04/13/24 21:30 04/13/24 21:25 04/13/24 21:25 04/13/24 21:25 Room Air 04/13/24 21:24 04/13/24 21:23 Room Air 04/13/24 21:22 04/13/24 21:20 04/13/24 21:04 04/13/24 21:03 04/13/24 21:03 04/13/24 21:00 04/13/24 21:00 04/13/24 20:59 04/13/24 20:55 04/13/24 20:55 04/13/24 20:55 04/13/24 20:51 04/13/24 20:50 04/13/24 20:50 04/13/24 20:49 04/13/24 20:45 04/13/24 20:45 Room Air
--- NOTE | 2024-04-14 09:51 | Gastrointestinal Consultation ---
Date of Consultation April 14, 2024 Assessment & Plan (1) Elevated bilirubin: 38 year old male with history of ETOH abuse, recent admission for ETOH hepatitis in the setting of suspected ETOH cirrhosis, LUCIANA and anemia admitted from ER to ICU for profuse bleeding from scab on umbilical area. GI was asked to evaluate for cirrhosis, ascites and ?gallbladder disease. 1. Nonspecific prominence of the gallbladder wall and question cholelithiasis - asymptomatic - if he develops any acute symptoms, consider HIDA scan - he is high risk for decompensation, thus do not recommend elective surgery 2. Cirrhosis - MELD 34 --> 25 - Establish with GI as outpatient - MELD labs every 6 months - ABD imaging w/ AFP every 6 months - EGD every 1-2 years - No ETOH - No NSAIDs - Avoid hepatotoxin - Low NA diet, less than 2G daily - Less than 2G acetaminophen containing products daily - Diagnostic and therapeutic paracentesis - No more than 5L off given recent bleeding event, LUCIANA - Albumin 25% 25 G before and after - Fluid studies including cell count and culture should be arranged 3. 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 Anemia - Acute on chronic anemia - Likely secondary to recent umbilical bleeding event - Recent EGD/Colonoscopy reviewed - No plan for repeat endoscopic evaluation 5. Esophagitis - PPI 40 mg twice daily Thank you for allowing us to participate in the care of this patient. Please call with any acute changes, questions or concerns. Please see addendum below with additional recommendation from my supervising physician. I spent a total of 60 minutes on the date of service in review of patient's record, and previously obtained information in person and appropriate medical visit, discussion and education of plan, with patient and/or caregiver, placing orders for tests/referral/procedures as medically necessary and documentation of pertinent clinical information in patient's medical records for their visit today. Supervising Physician Co-Signing Physician Notes I personally saw and examined the patient. I have reviewed the chart and agree with the documentation provided by the [employer] SPECIALIST including discussion about the assessment, treatment and plan. Briefly, 38 year old male with history of ETOH abuse, recent admission for ETOH hepatitis in the setting of suspected ETOH cirrhosis MELD 25 (from 35), LUCIANA and anemia admitted from ER to ICU for profuse bleeding from scab on umbilical area. GI was asked to evaluate for cirrhosis, ascites and ?gallbladder disease. Appears to have moderately severe ascites and agree with lvp with albumin 50 gm tomorrow. Would aim for 5 L tap given risk of HRS and LUCIANA last time. Will check urine na and K to adjust diuretics. Should stick to a 2000 mg na diet. Needs outpt rehab with [facility]. History of Present Illness Reason for Consultation: cirrhosis, ascites, gallbladder disease? Requesting Physician: Donis Attending Physician: Stevo Dykes MD History of Present Illness 38 year old male with history of ETOH abuse, recent admission for ETOH hepatitis in the setting of suspected ETOH cirrhosis, LUCIANA and anemia admitted from ER to ICU for profuse bleeding from scab on umbilical area. GI was asked to evaluate for cirrhosis, ascites and ?gallbladder disease. He notes that from a GI standpoint he feels at baseline. Reports abd distention from ascites but denies any abd pain. No nausea, vomiting. Is presently NPO but denies any issues with oral intake prior to this. No GERD, dysphagia. Bowels moving well. Has had chronic, intermittent episodes of hematochezia x 1 year. Recent EGD/Colon reviewed, revealing esophagitis, portal htn gastropathy and internal hemorrhoids. He has not had any further ETOH use. MELD: 34 --> 25 DF: 64 --> 43. Does not appear he was treated with steroids. ETOH: was using 10-13 vodka based drinks daily for 10 years, last drink was around 03/24/24 HGB 7.8 --> 5.3 --> 3 units RBC, 1 unit FFP --> 6.3 BUN 13 Tbili 20 --> 11 INR 1.9 CTAP 2023: No evidence of active bleeding. Mildly nodular contour of the liver is concerning for cirrhosis. There is splenomegaly and moderate ascites. This concerning for portal hypertension. There is nonspecific thickening of the wall of the small bowel. This could relate to chronic liver disease or may be infectious or inflammatory. Nonspecific prominence of the gallbladder wall and question cholelithiasis. An internal hemorrhoid is noted. Nonspecific body wall edema. EGD 2023: - LA Grade D reflux esophagitis with no bleeding. - Portal hypertensive gastropathy. - Normal examined duodenum. - No specimens collected. Colonoscopy 2023:- Hemorrhoids found on perianal exam. - The rectum, sigmoid colon, descending colon, splenic flexure, transverse colon, hepatic flexure, ascending colon and cecum are normal. - No specimens collected. Allergies Allergy/AdvReac Type Severity Reaction Status Date / Time No Known Allergies Allergy Verified 04/13/24 22:27 Home Medications Medication Instructions Recorded Confirmed Type ferrous sulfate 325 mg (65 mg 325 mg PO DAILY #30 tabs 04/04/24 04/13/24 Rx iron) tablet folic acid 1 mg tablet 1 mg PO DAILY #7 tabs 04/04/24 04/13/24 Rx furosemide 20 mg tablet 20 mg PO QAM 30 days #30 tabs 04/04/24 04/13/24 Rx lactulose 20 gram/30 mL oral 20 g (30 mL) PO DAILY 30 days #900 04/04/24 04/13/24 Rx solution mL multivitamin 1 tab PO DAILY #30 tabs 04/04/24 04/13/24 Rx pantoprazole 40 mg tablet,delayed 40 mg PO BID 30 days #60 tabs 04/04/24 04/13/24 Rx release rifaximin 550 mg tablet (Xifaxan) 550 mg PO BID 30 days #60 tabs 04/04/24 04/13/24 Rx spironolactone 25 mg tablet 50 mg (2 x 25 mg) PO QAM 30 days 04/04/24 04/13/24 Rx #60 tabs hydrocortisone 2.5 % topical 1 applic EXT BID PRN flare ups 04/13/24 04/13/24 History ointment Patient History Medical History Renal failure Electrolyte and fluid disorder Acute GI bleeding Cirrhosis Alcoholic liver failure Profound anemia Alcohol abuse Surgical History Hx of wisdom tooth extraction Hx of myringotomy Family History Father Heart disease Mother Cancer Social History Smoking Status: Never smoker Second Hand Exposure: No; Do You Dip or Chew Tobacco: No; Tobacco Cessation Education Requested by Patient: No Hx Alcohol Use: Yes Alcohol type: hard liquor Hx Substance Use: No Preferred Language: Dutch Communication Ability: Effective Facility Technician Required: No Beliefs That Will Affect Care: None Current Living Situation: Alone Other Information That Helps Us Care for You: No Feels Safe at Home: Yes Safety Concerns: Feels Safe At This Time Assistive Devices: None Review of Systems Review of Systems: All other findings negative except as noted in HPI. Physical Exam Constitutional: WD/WN, vitals as above Respiratory: normal respiratory effort, lungs clear to auscultation Cardiovascular: Rate/Rhythm: regular rate and regular rhythm Gastrointestinal (Abdomen): Inspection/Auscultation: abdomen normal to inspection and normal bowel sounds Percussion/Palpation: + ascites (large volume) Musculoskeletal: + jaundice Results & Data Vital Signs (Past 12 Hours) Vital Signs Temp Pulse Pulse Resp BP BP Pulse Ox 04/14/24 09:30 102/71 04/14/24 09:30 83 14 100 04/14/24 09:20 36.7 C 86 16 100/71 92 04/14/24 09:15 100/71 04/14/24 09:15 100/71 04/14/24 09:15 100/71 04/14/24 09:15 100/71 04/14/24 09:15 85 16 100 04/14/24 09:03 81 15 100 04/14/24 09:00 95/59 L 04/14/24 09:00 95/59 L 04/14/24 09:00 95/59 L 04/14/24 08:45 99/67 L 04/14/24 08:45 99/67 L 04/14/24 08:39 90 15 96 04/14/24 08:30 99/63 L 04/14/24 08:27 76 14 99 04/14/24 08:06 80 16 99 04/14/24 08:00 110/73 04/14/24 08:00 110/73 04/14/24 08:00 110/73 04/14/24 08:00 80 04/14/24 07:51 83 15 100 04/14/24 07:50 36.7 C 82 16 105/67 100 04/14/24 07:45 105/67 04/14/24 07:42 87 14 98 04/14/24 07:30 114/63 04/14/24 07:30 82 14 99 04/14/24 07:22 36.7 C 83 16 105/67 100 04/14/24 07:21 81 15 99 04/14/24 07:20 36.7 C 84 16 114/63 100 04/14/24 07:15 95/66 L 04/14/24 07:15 95/66 L 04/14/24 07:07 36.7 C 82 16 95/66 L 100 04/14/24 07:03 114/73 04/14/24 07:00 88/72 L 04/14/24 06:47 36.7 C 84 16 106/69 97 04/14/24 06:44 36.8 C 88 16 109/68 100 04/14/24 06:25 36.8 C 89 16 93/72 L 100 04/14/24 05:25 36.8 C 88 18 113/72 99 04/14/24 04:55 37.1 C 83 18 104/74 100 04/14/24 04:40 37.0 C 98 H 16 101/73 99 04/14/24 04:19 36.7 C 94 H 20 104/57 L 99 04/14/24 02:00 67 16 97/66 L 100 04/14/24 01:00 91 H 16 106/67 99 04/14/24 00:46 37.1 C 80 16 107/69 98 04/14/24 00:44 37.1 C 93 H 22 107/69 96 04/14/24 00:38 80 04/14/24 00:30 37.1 C 80 16 107/69 98 04/14/24 00:20 86 121/68 99 04/14/24 00:00 94 H 18 109/72 99 04/13/24 23:47 36.7 C 94 H 16 109/72 99 04/13/24 23:45 95 H 17 94/73 L 99 04/13/24 23:30 97 H 18 103/72 100 04/13/24 23:16 96 H 22 100/73 100 04/13/24 23:10 36.7 C 100 H 16 100/73 96 04/13/24 23:01 100 H 23 115/70 100 04/13/24 23:00 103/73 04/13/24 22:55 95/66 L 04/13/24 22:55 95/66 L 04/13/24 22:51 99/70 L 04/13/24 22:51 98 H 17 99 04/13/24 22:48 100 H 17 100 04/13/24 22:46 36.7 C 100 H 20 94/70 L 99 04/13/24 22:45 94/70 L 04/13/24 22:40 103/70 04/13/24 22:40 103/70 04/13/24 22:35 101/62 04/13/24 22:30 104/68 04/13/24 22:30 104/68 04/13/24 22:30 104/68 04/13/24 22:25 92/57 L 04/13/24 22:21 101 H 23 100 04/13/24 22:20 99/72 L 04/13/24 22:20 99/72 L 04/13/24 22:18 98 H 20 98 04/13/24 22:17 36.6 C 100 H 26 H 101/68 100 04/13/24 22:15 101/68 04/13/24 22:15 101/68 04/13/24 22:10 103/65 04/13/24 22:06 108 H 24 04/13/24 22:05 100/63 04/13/24 22:05 100/63 04/13/24 22:05 100/63 04/13/24 22:05 105 H 24 100/63 04/13/24 22:00 83/46 L 04/13/24 22:00 83/46 L 04/13/24 22:00 83/46 L 04/13/24 22:00 109 H 20 99 04/13/24 21:55 107/70 04/13/24 21:51 108 H 21 99 04/13/24 21:50 100/68 04/13/24 21:50 100/68 04/13/24 21:45 102 H 20 100 04/13/24 21:45 93/69 L 04/13/24 21:45 93/69 L O2 Del Method 04/14/24 09:30 04/14/24 09:30 04/14/24 09:20 Room Air 04/14/24 09:15 04/14/24 09:15 04/14/24 09:15 04/14/24 09:15 04/14/24 09:15 04/14/24 09:03 04/14/24 09:00 04/14/24 09:00 04/14/24 09:00 04/14/24 08:45 04/14/24 08:45 04/14/24 08:39 04/14/24 08:30 04/14/24 08:27 04/14/24 08:06 04/14/24 08:00 04/14/24 08:00 04/14/24 08:00 04/14/24 08:00 04/14/24 07:51 04/14/24 07:50 04/14/24 07:45 04/14/24 07:42 04/14/24 07:30 04/14/24 07:30 04/14/24 07:22 04/14/24 07:21 04/14/24 07:20 04/14/24 07:15 04/14/24 07:15 04/14/24 07:07 04/14/24 07:03 04/14/24 07:00 04/14/24 06:47 04/14/24 06:44 04/14/24 06:25 04/14/24 05:25 04/14/24 04:55 04/14/24 04:40 04/14/24 04:19 04/14/24 02:00 Room Air 04/14/24 01:00 Room Air 04/14/24 00:46 04/14/24 00:44 Room Air 04/14/24 00:38 04/14/24 00:30 Room Air 04/14/24 00:20 Room Air 04/14/24 00:00 Room Air 04/13/24 23:47 04/13/24 23:45 Room Air 04/13/24 23:30 Room Air 04/13/24 23:16 Room Air 04/13/24 23:10 04/13/24 23:01 Room Air 04/13/24 23:00 04/13/24 22:55 04/13/24 22:55 04/13/24 22:51 04/13/24 22:51 04/13/24 22:48 04/13/24 22:46 04/13/24 22:45 04/13/24 22:40 04/13/24 22:40 04/13/24 22:35 04/13/24 22:30 04/13/24 22:30 04/13/24 22:30 04/13/24 22:25 04/13/24 22:21 04/13/24 22:20 04/13/24 22:20 04/13/24 22:18 04/13/24 22:17 04/13/24 22:15 04/13/24 22:15 04/13/24 22:10 04/13/24 22:06 04/13/24 22:05 04/13/24 22:05 04/13/24 22:05 04/13/24 22:05 04/13/24 22:00 04/13/24 22:00 04/13/24 22:00 04/13/24 22:00 04/13/24 21:55 04/13/24 21:51 04/13/24 21:50 04/13/24 21:50 04/13/24 21:45 04/13/24 21:45 04/13/24 21:45 PG Care Time/CCT Total # of Minutes Spent Total Time Spent with Patient: Total time spent is greater than 50% in coordination of care (as documented) at patient's floor/unit and/or counseling patient: Coding Level of Care Code 07882 IN/OBS CONSULT LVL 4,60M Diagnoses Elevated bilirubin R17
[2024-04-14 11:02] LABS: Basophils # (auto) 0.02 K/uL (0.00-0.20); Basophils % (auto) 0.2 %; Eosinophils # (auto) 0.09 K/uL (0.00-0.50); Hematocrit (blood only) 26.1 % (42.0-52.0); Hemoglobin 8.5 g/dl (14.0-18.0); Immature Granulocytes # (auto) 0.05 K/uL (0.01-0.20); Immature Granulocytes % (auto) 0.5 %; Lymphocytes # (auto) 0.92 K/uL (1.20-3.40); Lymphocytes % (auto) 9.8 %; Mean Corpuscular Hemoglobin 27.6 pg (25.0-34.0); Mean Corpuscular Hgb Conc 32.6 g/dL (32.0-36.0); Mean Corpuscular Volume 84.7 fL (80.0-100.0); Mean Platelet Volume 9.5 fL (9.4-12.4); Monocytes # (auto) 1.02 K/uL (0.11-0.59); Monocytes % (auto) 10.9 %; Neutrophils # (auto) 7.29 K/uL (1.40-6.50); Neutrophils % (auto) 77.6 %; Platelet Count 278 K/uL (130-400); RDW Standard Deviation 61.2 fL (36.4-46.3); Red Blood Count 3.08 M/uL (4.70-6.10); White Blood Count 9.39 K/ul (4.8-10.8)
[2024-04-14 11:16] LABS: Albumin Level 2.5 gm/dl (3.4-5.0); Bilirubin Direct 8.4 mg/dl (0-0.2); Bilirubin,Total 15.5 mg/dl (0.2-1.0); Calcium 8.1 mg/dl (8.6-10.3); Magnesium 1.9 mg/dl (1.7-2.4); Potassium 4.1 mmol/L (3.5-5.1)
[2024-04-14 11:17] LABS: INR 1.7 (0.9-1.1)
[2024-04-14 11:22] LABS: BUN Creatinine Ratio 16.9 (10-20); Creatinine Clr Calc Pharmacy 117.5 ml/min; Total Protein 4.8 gm/dl (6.0-8.3)
--- NOTE | 2024-04-14 13:38 | Surgery Consultation ---
Date of Consultation April 14, 2024 Assessment & Plan (1) Umbilical bleeding: Spontaneous hemorrhage of umbilical varices, controlled with suture ligation. No acute surgical intervention indicated. Continue to treat coagulopathy, monitor H&H Would recommend evaluation for embolization versus TIPS procedure Suture removal in 1 month Surgery will sign off, call with questions or concerns (2) Alcoholic cirrhosis: (3) Acute blood loss anemia: History of Present Illness Attending Physician: Stevo Dykes MD History of Present Illness Consulted for umbilical bleeding while in ER. 38-year-old male with Ha B/C alcoholic cirrhosis. Presented via EMS for profuse bleeding from his umbilicus. This has happened 2 or 3 times in the past but was not this bad. rate manager reported up to 2 L of blood loss at the home. While in the emergency department Dr. Shearer was able to stop the bleeding with a series of stitches at the umbilicus. Patient was admitted to the ICU and transfused. His hemoglobin and hematocrit responded. There is no current bleeding. As stated this has happened 1 or 2 times in the past, but was easily stopped with a little bit of pressure. He continues to drink. Currently denies pain. Allergies Allergy/AdvReac Type Severity Reaction Status Date / Time No Known Allergies Allergy Verified 04/13/24 22:27 Home Medications Medication Instructions Recorded Confirmed Type ferrous sulfate 325 mg (65 mg 325 mg PO DAILY #30 tabs 04/04/24 04/13/24 Rx iron) tablet folic acid 1 mg tablet 1 mg PO DAILY #7 tabs 04/04/24 04/13/24 Rx furosemide 20 mg tablet 20 mg PO QAM 30 days #30 tabs 04/04/24 04/13/24 Rx lactulose 20 gram/30 mL oral 20 g (30 mL) PO DAILY 30 days #900 04/04/24 04/13/24 Rx solution mL multivitamin 1 tab PO DAILY #30 tabs 04/04/24 04/13/24 Rx pantoprazole 40 mg tablet,delayed 40 mg PO BID 30 days #60 tabs 04/04/24 04/13/24 Rx release rifaximin 550 mg tablet (Xifaxan) 550 mg PO BID 30 days #60 tabs 04/04/24 04/13/24 Rx spironolactone 25 mg tablet 50 mg (2 x 25 mg) PO QAM 30 days 04/04/24 04/13/24 Rx #60 tabs hydrocortisone 2.5 % topical 1 applic EXT BID PRN flare ups 04/13/24 04/13/24 History ointment Patient History Medical History Renal failure Electrolyte and fluid disorder Acute GI bleeding Cirrhosis Alcoholic liver failure Profound anemia Alcohol abuse Surgical History Hx of wisdom tooth extraction Hx of myringotomy Family History Father Heart disease Mother Cancer Social History Smoking Status: Never smoker Second Hand Exposure: No; Do You Dip or Chew Tobacco: No; Tobacco Cessation Education Requested by Patient: No Hx Alcohol Use: Yes Alcohol type: hard liquor Hx Substance Use: No Preferred Language: Japanese Communication Ability: Effective Saloonkeeper Required: No Beliefs That Will Affect Care: None Current Living Situation: Alone Other Information That Helps Us Care for You: No Feels Safe at Home: Yes Safety Concerns: Feels Safe At This Time Assistive Devices: None Review of Systems Review of Systems: All systems reviewed & are unremarkable except as noted in HPI & below Physical Exam Constitutional: + ill appearing Respiratory: normal respiratory effort, lungs clear to auscultation Cardiovascular: RRR, no murmur, no edema Gastrointestinal (Abdomen): normal bowel sounds, soft, nontender, no hepatosplenomegaly At his umbilicus there were several sutures. No current bleeding. Some caput medusa Results & Data Vital Signs (Past 12 Hours) Vital Signs Temp Pulse Pulse Resp BP BP Pulse Ox 04/14/24 12:46 37.2 C 04/14/24 12:24 88 16 04/14/24 11:45 100/77 04/14/24 11:39 99 H 17 99 04/14/24 11:31 89/63 L 04/14/24 11:24 97 H 18 92 04/14/24 11:15 109/70 04/14/24 11:15 109/70 04/14/24 11:00 104/64 04/14/24 11:00 104/64 04/14/24 10:54 75 15 99 04/14/24 10:45 98/70 L 04/14/24 10:39 91 H 19 100 04/14/24 10:30 105/77 04/14/24 10:18 75 13 99 04/14/24 10:15 73 20 100 04/14/24 10:15 87/45 L 04/14/24 10:15 87/45 L 04/14/24 10:06 75 14 100 04/14/24 10:00 85/48 L 04/14/24 09:51 79 14 100 04/14/24 09:45 79 13 99 04/14/24 09:45 105/70 04/14/24 09:45 105/70 04/14/24 09:45 105/70 04/14/24 09:30 102/71 04/14/24 09:30 102/71 04/14/24 09:30 102/71 04/14/24 09:30 83 14 100 04/14/24 09:20 36.7 C 86 16 100/71 92 04/14/24 09:15 100/71 04/14/24 09:15 100/71 04/14/24 09:15 100/71 04/14/24 09:15 100/71 04/14/24 09:15 85 16 100 04/14/24 09:03 81 15 100 04/14/24 09:00 95/59 L 04/14/24 09:00 95/59 L 04/14/24 09:00 95/59 L 04/14/24 08:45 99/67 L 04/14/24 08:45 99/67 L 04/14/24 08:39 90 15 96 04/14/24 08:30 99/63 L 04/14/24 08:27 76 14 99 04/14/24 08:06 80 16 99 04/14/24 08:00 110/73 04/14/24 08:00 110/73 04/14/24 08:00 110/73 04/14/24 08:00 80 04/14/24 07:51 83 15 100 04/14/24 07:50 36.7 C 82 16 105/67 100 04/14/24 07:45 105/67 04/14/24 07:42 87 14 98 04/14/24 07:30 114/63 04/14/24 07:30 82 14 99 04/14/24 07:22 36.7 C 83 16 105/67 100 04/14/24 07:21 81 15 99 04/14/24 07:20 36.7 C 84 16 114/63 100 04/14/24 07:15 95/66 L 04/14/24 07:15 95/66 L 04/14/24 07:07 36.7 C 82 16 95/66 L 100 04/14/24 07:03 114/73 04/14/24 07:00 88/72 L 04/14/24 06:47 36.7 C 84 16 106/69 97 04/14/24 06:44 36.8 C 88 16 109/68 100 04/14/24 06:25 36.8 C 89 16 93/72 L 100 04/14/24 05:25 36.8 C 88 18 113/72 99 04/14/24 04:55 37.1 C 83 18 104/74 100 04/14/24 04:40 37.0 C 98 H 16 101/73 99 04/14/24 04:19 36.7 C 94 H 20 104/57 L 99 04/14/24 02:00 67 16 97/66 L 100 O2 Del Method 04/14/24 12:46 04/14/24 12:24 04/14/24 11:45 04/14/24 11:39 04/14/24 11:31 04/14/24 11:24 04/14/24 11:15 04/14/24 11:15 04/14/24 11:00 04/14/24 11:00 04/14/24 10:54 04/14/24 10:45 04/14/24 10:39 04/14/24 10:30 04/14/24 10:18 04/14/24 10:15 04/14/24 10:15 04/14/24 10:15 04/14/24 10:06 04/14/24 10:00 04/14/24 09:51 04/14/24 09:45 04/14/24 09:45 04/14/24 09:45 04/14/24 09:45 04/14/24 09:30 04/14/24 09:30 04/14/24 09:30 04/14/24 09:30 04/14/24 09:20 Room Air 04/14/24 09:15 04/14/24 09:15 04/14/24 09:15 04/14/24 09:15 04/14/24 09:15 04/14/24 09:03 04/14/24 09:00 04/14/24 09:00 04/14/24 09:00 04/14/24 08:45 04/14/24 08:45 04/14/24 08:39 04/14/24 08:30 04/14/24 08:27 04/14/24 08:06 04/14/24 08:00 04/14/24 08:00 04/14/24 08:00 04/14/24 08:00 04/14/24 07:51 04/14/24 07:50 04/14/24 07:45 04/14/24 07:42 04/14/24 07:30 04/14/24 07:30 04/14/24 07:22 04/14/24 07:21 04/14/24 07:20 04/14/24 07:15 04/14/24 07:15 04/14/24 07:07 04/14/24 07:03 04/14/24 07:00 04/14/24 06:47 04/14/24 06:44 04/14/24 06:25 04/14/24 05:25 04/14/24 04:55 04/14/24 04:40 04/14/24 04:19 04/14/24 02:00 Room Air Diagnostic Findings CTA personally reviewed and interpreted and agree with the assessment of no active extravasation. Findings of cirrhosis. Abdomen/Pelvis CTA 04/13/24 21:02 Exam(s): CTA ABDOMEN + PELVIS With Contrast IV Amt: OPTIRAY 320 120ML EXAM: CT Angiography Abdomen and Pelvis With Intravenous Contrast CLINICAL HISTORY: Internal bleeding. TECHNIQUE: Axial computed tomographic angiography images of the abdomen and pelvis with intravenous contrast. CTDI is 23 mGy and DLP is 1329 mGy-cm. Automated exposure control was utilized for the study. A dose lowering technique was utilized adhering to the principles of ALARA. MIP reconstructed images were created and reviewed. CONTRAST: Patient received OPTIRAY 320 120ML of IV contrast COMPARISON: CT abdomen and pelvis 03/26/2024 FINDINGS: VASCULATURE: Aorta: No acute findings. No abdominal aortic aneurysm. No dissection. Celiac trunk and mesenteric arteries: No acute findings. No occlusion or significant stenosis. Renal arteries: No acute findings. No occlusion or significant stenosis. Iliac arteries: No acute findings. No occlusion or significant stenosis. Lung bases: Unremarkable. No mass. No consolidation. ABDOMEN: Liver: Mildly nodular contour of the liver is concerning for cirrhosis. Gallbladder and bile ducts: Nonspecific prominence of the gallbladder wall and question cholelithiasis. Pancreas: Unremarkable. No ductal dilation. No mass. Spleen: There is splenomegaly and moderate ascites. Adrenals: Unremarkable. No mass. Kidneys and ureters: Unremarkable. No hydronephrosis. No solid mass. Stomach and bowel: There is nonspecific thickening of the wall of the small bowel. An internal hemorrhoid is noted. No obstruction. PELVIS: Appendix: No findings to suggest acute appendicitis. Bladder: Unremarkable. No mass. Reproductive: Unremarkable as visualized. ABDOMEN and PELVIS: Intraperitoneal space: No free air. Moderate ascites. Bones/joints: No acute fracture. No dislocation. Soft tissues: There is nonspecific body wall edema. Moderate right and small left fluid fat-containing inguinal hernias. Lymph nodes: Unremarkable. No enlarged lymph nodes. IMPRESSION: 1. No evidence of active bleeding. 2. Mildly nodular contour of the liver is concerning for cirrhosis. 3. There is splenomegaly and moderate ascites. This concerning for portal hypertension. 4. There is nonspecific thickening of the wall of the small bowel. This could relate to chronic liver disease or may be infectious or inflammatory. 5. Nonspecific prominence of the gallbladder wall and question cholelithiasis. 6. An internal hemorrhoid is noted. 7. Nonspecific body wall edema. Electronically signed by: Sara Harris MD 04/13/24 22:11 PM PG Care Time/CCT Total # of Minutes Spent Total Time Spent with Patient: Total time spent is greater than 50% in coordination of care (as documented) at patient's floor/unit and/or counseling patient: Coding Level of Care Code 21510 IN/OBS CONSULT LVL 4,60M Diagnoses Umbilical bleeding R19.8 Alcoholic cirrhosis K70.31 Ascites presence: with ascites Acute blood loss anemia D62 (2) Alcoholic cirrhosis Ascites presence: with ascites Qualified Code(s): K70.31 - Alcoholic ci rrhosis of liver with ascites
[2024-04-14] MEDS: CHOLECALCIFEROL 125 MCG (5,000 UNITS) TAB PO SCH (14:32)
[2024-04-14 17:15] LABS: Hematocrit (blood only) 25.4 % (42.0-52.0); Hemoglobin 8.5 g/dl (14.0-18.0)
[2024-04-14 17:39] LABS: Potassium Random Urine 91.5 mmol/L
[2024-04-15] MEDS: MAGNESIUM SULFATE / D5W 1 GM/100 ML BAG IV ONE (01:26)
[2024-04-15 05:19] LABS: Albumin Level 2.5 gm/dl (3.4-5.0); Bilirubin Direct 7.1 mg/dl (0-0.2); Bilirubin,Total 13.5 mg/dl (0.2-1.0); Total Protein 4.9 gm/dl (6.0-8.3)
[2024-04-15 05:33] LABS: INR 1.6 (0.9-1.1); Prothrombin Time 16.8 Seconds (9.0-12.0)
[2024-04-15] MEDS: ALBUMIN 25% 25 GM/100 ML VIAL IV SCH (08:16)
--- NOTE | 2024-04-15 10:29 | Gastroenterology Progress Note ---
Date of Service April 15, 2024 Assessment & Plan (1) Elevated bilirubin: Plan: 38 year old male with history of ETOH abuse, ETOH hepatitis in the setting of suspected ETOH cirrhosis, MELD 24, admitted from ER to ICU for profuse bleeding from scab on umbilical area 1. Nonspecific prominence of the gallbladder wall and question cholelithiasis - asymptomatic - if he develops any acute symptoms, consider HIDA scan - he is high risk for decompensation, thus do not recommend elective surgery 2. Cirrhosis - MELD 34 --> 25 --> 24 - Establish with hepatology as outpatient - MELD labs every 6 months - ABD imaging w/ AFP every 6 months - EGD every 1-2 years - No ETOH - No NSAIDs - Avoid hepatotoxin - Low NA diet, less than 2G daily - Less than 2G acetaminophen containing products daily - Ascites - Diagnostic and therapeutic paracentesis - No more than 5L off given recent bleeding event, LUCIANA - Albumin 25% 25 G before and after - Fluid studies including cell count and culture should be arranged - Urine NA 16, Urine K 91.5 - Will increase Aldactone to 100 mg once daily - Continue Lasix as ordered, pending response, consider titrating diuresis up to 40 mg once daily 3. ETOH hepatitis - DF: 64 --> 43 --> 35.6 - Does not appear he was treated with steroids - Stressed importance of residential ETOH avoidance 4. Anemia - Acute on chronic anemia - Likely secondary to recent umbilical bleeding event - Recent EGD/Colonoscopy reviewed - No plan for repeat endoscopic evaluation 5. Esophagitis - PPI 40 mg twice daily Thank you for allowing us to participate in the care of this patient. Please ca ll with any acute changes, questions or concerns. Please see addendum below with additional recommendation from my supervising physician. I spent a total of 55 minutes on the date of service in review of patient's record, and previously obtained information in person and appropriate medical visit, discussion and education of plan, with patient and/or caregiver, placing orders for tests/referral/procedures as medically necessary and documentation of pertinent clinical information in patient's medical records for their visit today. Admission and Anticipated Discharge Date Admission Date: April 13, 2024 Supervising Physician Co-Signing Physician Notes I personally saw and examined the patient. I have reviewed the chart and agree with the documentation provided by the LEARNING PROGRAM MANAGER including discussion about the assessment, treatment and plan. increase aldactone. ir guided para of 5 L and 2 gm na diet. will follow. Subjective Pt was seen and evaluated, chart reviewed. No acute events noted overnight. Offers no concerns this AM. Just finished breakfast. Denies abd pain. No nausea, vomiting. Moving bowels, had a loose, brown stools. No black or bloody bowel movements. Diagnosis: ETOH hepatitis, ETOH cirrhosis, last ETOH use March 24, 2024 Decompensations Varices: portal HTN gastropathy Ascites: on Lasix 20 mg, Aldactone 50 mg, last paracentesis 03/27 HE: on lactulose, xifaxan Screenings: MELD: 34 --> 25 --> 24 Maddrey: 64 --> 43 --> 35.6 HCC: due October Varices: due 2024 Immunizations: Hep A/B immunity unknown Urine NA 16 Urine K 91.5 HGB 7.8 --> 5.3 --> 3 units RBC, 1 unit FFP --> 6.3 --> 8.5 CTAP 2023: No evidence of active bleeding. Mildly nodular contour of the liver is concerning for cirrhosis. There is splenomegaly and moderate ascites. This concerning for portal hypertension. There is nonspecific thickening of the wall of the small bowel. This could relate to chronic liver disease or may be infectious or inflammatory. Nonspecific prominence of the gallbladder wall and question cholelithiasis. An internal hemorrhoid is noted. Nonspecific body wall edema. EGD 2023: - LA Grade D reflux esophagitis with no bleeding. - Portal hypertensive gastropathy. - Normal examined duodenum. - No specimens collected. Colonoscopy 2023:- Hemorrhoids found on perianal exam. - The rectum, sigmoid colon, descending colon, splenic flexure, transverse colon, hepatic flexure, ascending colon and cecum are normal. - No specimens collected. Review of Systems Review of Systems: All other findings negative except as noted in HPI. Physical Exam Constitutional: WD/WN, vitals as above Respiratory: normal respiratory effort, lungs clear to auscultation Cardiovascular: Rate/Rhythm: regular rate and regular rhythm Gastrointestinal (Abdomen): normal bowel sounds, soft, nontender, no hepatosplenomegaly Skin: no rashes, warm and dry Results & Data Results & Data Vital Signs (Past 12 Hours) Vital Signs Temp Pulse Pulse Resp BP BP Pulse Ox 04/15/24 09:50 98 H 04/15/24 07:42 36.6 C 100 H 19 104/61 98 04/15/24 06:01 74 17 118/74 98 04/15/24 04:00 78 14 101/77 98 04/15/24 02:00 80 15 104/69 97 04/15/24 01:00 85 16 112/75 98 04/15/24 00:45 36.6 C 76 15 112/75 98 04/15/24 00:00 81 04/14/24 23:06 76 14 112/61 99 O2 Del Method 04/15/24 09:50 04/15/24 07:42 Room Air 04/15/24 06:01 Room Air 04/15/24 04:00 Room Air 04/15/24 02:00 Room Air 04/15/24 01:00 Room Air 04/15/24 00:45 Room Air 04/15/24 00:00 04/14/24 23:06 Room Air Laboratory Results 04/15/24 04/14/24 04/14/24 Range/Units 04:30 Unknown 16:58 WBC (4.8-10.8) K/ul RBC (4.70-6.10) M/uL Hgb 8.5 L (14.0-18.0) g/dl Hct 25.4 L (42.0-52.0) % MCV (80.0-100.0) fL MCH (25.0-34.0) pg MCHC (32.0-36.0) g/dL RDW Std Deviation (36.4-46.3) fL RDW Coeff of Christy (11.5-14.5) % Plt Count (130-400) K/uL MPV (9.4-12.4) fL Immature Gran % (Auto) % Neut % (Auto) % Lymph % (Auto) % [place] % (Auto) % Eos % (Auto) % Baso % (Auto) % Neut # (Auto) (1.40-6.50) K/uL Lymph # (Auto) (1.20-3.40) K/uL [place] # (Auto) (0.11-0.59) K/uL Eos # (Auto) (0.00-0.50) K/uL Baso # (Auto) (0.00-0.20) K/uL Immature Gran # (Auto) (0.01-0.20) K/uL PT 16.8 H (9.0-12.0) Seconds INR 1.6 H (0.9-1.1) Sodium (136-145) mmol/L Potassium (3.5-5.1) mmol/L Chloride (98-107) mmol/L Carbon Dioxide (21-32) mmol/L Anion Gap (3-11) BUN (6-23) mg/dl Creatinine (0.6-1.4) mg/dl Est Cr Clr Drug Dosing ml/min Est GFR ( Amer) ml/min Est GFR (Non-Af Amer) ml/min BUN/Creatinine Ratio (10-20) Glucose (70-99(Fasting)) mg/dl POC Glucose (70-99) mg/dl Calcium (8.6-10.3) mg/dl Magnesium (1.7-2.4) mg/dl Total Bilirubin 13.5 H (0.2-1.0) mg/dl Direct Bilirubin 7.1 H (0-0.2) mg/dl AST 108 H (13-39) U/L ALT 29 (7-52) U/L Alkaline Phosphatase 101 (34-104) U/L Total Protein 4.9 L (6.0-8.3) gm/dl Albumin 2.5 L (3.4-5.0) gm/dl 25-OH Vitamin D Total (30-100) ng/ml Ur Random Sodium mmol/L Ur Random Potassium mmol/L Nasal Screen MRSA (PCR) Negative (Negative) Blood Type Antibody Screen Crossmatch 04/14/24 04/14/24 04/14/24 Range/Units 16:30 11:37 10:46 WBC 9.39 (4.8-10.8) K/ul RBC 3.08 L (4.70-6.10) M/uL Hgb 8.5 L (14.0-18.0) g/dl Hct 26.1 L (42.0-52.0) % MCV 84.7 (80.0-100.0) fL MCH 27.6 (25.0-34.0) pg MCHC 32.6 (32.0-36.0) g/dL RDW Std Deviation 61.2 H (36.4-46.3) fL RDW Coeff of Christy 20.0 H (11.5-14.5) % Plt Count 278 (130-400) K/uL MPV 9.5 (9.4-12.4) fL Immature Gran % (Auto) 0.5 % Neut % (Auto) 77.6 % Lymph % (Auto) 9.8 % [place] % (Auto) 10.9 % Eos % (Auto) 1.0 % Baso % (Auto) 0.2 % Neut # (Auto) 7.29 H (1.40-6.50) K/uL Lymph # (Auto) 0.92 L (1.20-3.40) K/uL [place] # (Auto) 1.02 H (0.11-0.59) K/uL Eos # (Auto) 0.09 (0.00-0.50) K/uL Baso # (Auto) 0.02 (0.00-0.20) K/uL Immature Gran # (Auto) 0.05 (0.01-0.20) K/uL PT 18.0 H (9.0-12.0) Seconds INR 1.7 H (0.9-1.1) Sodium 133 L (136-145) mmol/L Potassium 4.1 (3.5-5.1) mmol/L Chloride 104 (98-107) mmol/L Carbon Dioxide 21 (21-32) mmol/L Anion Gap 8 (3-11) BUN 15 (6-23) mg/dl Creatinine 0.89 (0.6-1.4) mg/dl Est Cr Clr Drug Dosing 117.5 ml/min Est GFR ( Amer) 124.0 ml/min Est GFR (Non-Af Amer) 107.0 ml/min BUN/Creatinine Ratio 16.9 (10-20) Glucose 102 H (70-99(Fasting)) mg/dl POC Glucose 95 (70-99) mg/dl Calcium 8.1 L (8.6-10.3) mg/dl Magnesium 1.9 (1.7-2.4) mg/dl Total Bilirubin 15.5 H (0.2-1.0) mg/dl Direct Bilirubin 8.4 H (0-0.2) mg/dl AST 83 H (13-39) U/L ALT 28 (7-52) U/L Alkaline Phosphatase 99 (34-104) U/L Total Protein 4.8 L (6.0-8.3) gm/dl Albumin 2.5 L (3.4-5.0) gm/dl 25-OH Vitamin D Total 22.6 L (30-100) ng/ml Ur Random Sodium 16 mmol/L Ur Random Potassium 91.5 mmol/L Nasal Screen MRSA (PCR) (Negative) Blood Type Antibody Screen Crossmatch 04/13/24 Range/Units 20:45 WBC (4.8-10.8) K/ul RBC (4.70-6.10) M/uL Hgb (14.0-18.0) g/dl Hct (42.0-52.0) % MCV (80.0-100.0) fL MCH (25.0-34.0) pg MCHC (32.0-36.0) g/dL RDW Std Deviation (36.4-46.3) fL RDW Coeff of Christy (11.5-14.5) % Plt Count (130-400) K/uL MPV (9.4-12.4) fL Immature Gran % (Auto) % Neut % (Auto) % Lymph % (Auto) % [place] % (Auto) % Eos % (Auto) % Baso % (Auto) % Neut # (Auto) (1.40-6.50) K/uL Lymph # (Auto) (1.20-3.40) K/uL [place] # (Auto) (0.11-0.59) K/uL Eos # (Auto) (0.00-0.50) K/uL Baso # (Auto) (0.00-0.20) K/uL Immature Gran # (Auto) (0.01-0.20) K/uL PT (9.0-12.0) Seconds INR (0.9-1.1) Sodium (136-145) mmol/L Potassium (3.5-5.1) mmol/L Chloride (98-107) mmol/L Carbon Dioxide (21-32) mmol/L Anion Gap (3-11) BUN (6-23) mg/dl Creatinine (0.6-1.4) mg/dl Est Cr Clr Drug Dosing ml/min Est GFR ( Amer) ml/min Est GFR (Non-Af Amer) ml/min BUN/Creatinine Ratio (10-20) Glucose (70-99(Fasting)) mg/dl POC Glucose (70-99) mg/dl Calcium (8.6-10.3) mg/dl Magnesium (1.7-2.4) mg/dl Total Bilirubin (0.2-1.0) mg/dl Direct Bilirubin (0-0.2) mg/dl AST (13-39) U/L ALT (7-52) U/L Alkaline Phosphatase (34-104) U/L Total Protein (6.0-8.3) gm/dl Albumin (3.4-5.0) gm/dl 25-OH Vitamin D Total (30-100) ng/ml Ur Random Sodium mmol/L Ur Random Potassium mmol/L Nasal Screen MRSA (PCR) (Negative) Blood Type A Positive Antibody Screen NEGATIVE Crossmatch See Detail PG Care Time/CCT Total # of Minutes Spent Total Time Spent with Patient: Total time spent is greater than 50% in coordination of care (as documented) at patient's floor/unit and/or counseling patient: Coding Level of Care Code 60018 SUB INP/OBS CARE 3/50MIN Diagnoses Elevated bilirubin R17
--- NOTE | 2024-04-15 10:38 | Hospitalist Progress Note ---
Date of Service April 15, 2024 Assessment & Plan (1) Acute blood loss anemia: Plan: 38-year-old male with past medical history significant for recent admission for jaundice and alcohol hepatitis and profound anemia and hyponatremia comes back today due to profuse bleeding from umbilical site , Bleeding site was sutured in the emergency department Hemoglobin on presentation was 5.3; received 2 units of packed RBC, 1 unit of FFP and vitamin K. Acute blood loss anemia Profuse bleeding from umbilical site stopped in the ER and s/p sutured Status post 2 units of packed RBC, FFP and vitamin K Hemoglobin on presentation of 5.3 PT/INR19/1.9; consistent with decompensated liver cirrhosis CT abdomenno evidence of acute bleeding, splenomegaly and moderate ascites present. Nonspecific thickening of wall of the small bowel. Internal hemorrhoids present Hemoglobin currently stable around 8 after transfusion Continue to monitor site of bleeding Repeat CBC; transfuse if hemoglobin is less than 7 Alcoholic hepatitis Alcohol liver cirrhosis Portal hypertension Ascites Recent hospitalization from March 27 to April 04, 924 Total bilirubin overall improved 20.3 on admission Continues to maintain abstinence from alcohol use Urine sodium to urine potassium ratio less than 1 Plan for paracentesis today. Diuretics are currently on hold for the paracentesis. Will appreciate GI input regarding dose titration given urine sodium/potassium ratio Outpatient hepatology follow-up Recent GI bleed secondary to hemorrhoidal bleeding Last admission was s/p EGD and colonoscopy as mentioned in HPI Continue Protonix On iron supplements Hypocalcemia - Repleated Hyponatremia Sodium 133 today likely hypervolemic hyponatremia. Monitor Leukocytosis Nonspecific thickening of the wall of the small bowel possibly related to colon tumor disease or an infectious inflammatory Nonspecific prominence of gallbladder wall and question of cholelithiasis With empirically placed on Zosyn will discontinue if SBP is ruled out. DVT prophylaxis SCDs Disposition Telemetry Full code. Discussed with patient's dad at bedside on April 14, 2024 Time spent evaluating patient, direct bedside care, chart review, placing orders, interpretation of diagnostic studies, discussion with consultants, patient, and family members, as well as other required patient management activities is 50 minutes Please note the above document was generated using voice recognition software. It may contain grammatical, syntax or spelling errors. Any formal questions or concerns about the content, text or information contained within the body of this dictation should be directly addressed to the provider for clarification Admission and Anticipated Discharge Date Admission Date: April 13, 2024 Subjective Patient seen and examined at bedside. Comfortable; not in distress. Denies fever, chills, chest pain, shortness of breath, abdominal pain or urinary symptoms. No significant overnight events Review of Systems Review of Systems: All systems reviewed & are unremarkable except as noted in Subjective Physical Exam Physical Exam: Constitutional: Awake alert oriented x 3; not in distress. Respiratory: normal respiratory effort, lungs clear to auscultation, no wheeze, rales, rhonchi. Normal insp/exp effort, no accessory muscle use Cardiovascular: RRR, no murmur, no edema Vessels: no JVD or carotid bruit Chest: normal inspection of chest Abdomen: Distended, nontender. suture intact; No bleeding noticed Musculoskeletal: no cyanosis or clubbing, extremities motor strength 5/5 Skin: no rashes, warm and dry normal turgor Neurologic: PERRL, EOMI, accommodation nl, no face palsy, no dysarthria CN's II- XI intact bilaterally and moves all extremities Psychiatric: A+Ox3, euthymic affect Results & Data Results & Data Vital Signs (Past 12 Hours) Vital Signs Temp Pulse Pulse Resp BP BP Pulse Ox 04/15/24 09:50 98 H 04/15/24 07:42 36.6 C 100 H 19 104/61 98 04/15/24 06:01 74 17 118/74 98 04/15/24 04:00 78 14 101/77 98 04/15/24 02:00 80 15 104/69 97 04/15/24 01:00 85 16 112/75 98 04/15/24 00:45 36.6 C 76 15 112/75 98 04/15/24 00:00 81 04/14/24 23:06 76 14 112/61 99 O2 Del Method 04/15/24 09:50 04/15/24 07:42 Room Air 04/15/24 06:01 Room Air 04/15/24 04:00 Room Air 04/15/24 02:00 Room Air 04/15/24 01:00 Room Air 04/15/24 00:45 Room Air 04/15/24 00:00 04/14/24 23:06 Room Air
--- NOTE | 2024-04-15 16:43 | Ultrasound Report ---
ULTRASOUND-GUIDED PARACENTESIS CLINICAL HISTORY: Ascites PROCEDURE: Procedure and risks were explained. Informed consent was obtained. A final timeout was com pleted. A pocket of ascites was identified in the right lower quadrant. The right lower quadrant was prepped and draped in sterile fashion. 1% lidocaine was utilized for skin anesthesia. Utilizing ultrasound guidance, a 5 [place] safety centesis catheter was advanced into the pocket of as cites. Ultrasound image was obtained. A total of 5000 mL of yellow ascites fluid was removed with 1 L central abdomen analysis. The catheter was removed and Band-Aid applied. The patient tolerated the p rocedure well. Vital signs will be monitored postprocedure. IMPRESSION: Ultrasound-guided paracentesis as above. Performed, dictated, and signed by Ke Walsh PA-C; to be co-signed by Dr. Tony Basurto. Electronically signed by: Tony Basurto M.D. 04/15/2024 4:59 PM
--- NOTE | 2024-04-15 17:23 | Electrocardiogram Report ---
Test Reason : Blood Pressure : */* mmHG Vent. Rate : 84 BPM Atrial Rate : 84 BPM P-R Int : 154 ms QRS Dur : 96 ms QT Int : 426 ms P-R-T Axes : 13 -22 8 degrees QTcB Int : 503 ms Sinus rhythm with frequent Premature ventricular complexes and Fusion complexes Possible Anterior infarct (cited on or before 13-Apr-2024) Prolonged QT Abnormal ECG When compared with ECG of 13-Apr-2024 21:30, Fusion complexes are now Present Premature ventricular complexes are now Present Confirmed by Black Mariano ([id number]) on 04/15/2024 5:23:43 PM Referred By: REFERRED SELF Confirmed By: Black Mariano
[2024-04-15 18:00] LABS: Albumin Peritoneal Fluid < 1.5 gm/dl
[2024-04-15 18:06] LABS: Total Protein Peritoneal Fluid < 3.0 gm/dl
[2024-04-15 18:56] LABS: Appearance Peritoneal Fluid Clear; Color Peritoneal Fluid Yellow; Lymphocytes, Fluid 14 %; Mono,Macrophage,Mesothelial 80 %; Neutrophils, Fluid 6 %; RBC Peritoneal Fluid Auto < 2000 /uL; WBC Peritoneal Fluid Auto 48 /ul (0-300)
[2024-04-16 06:40] LABS: Basophils # (auto) 0.02 K/uL (0.00-0.20); Basophils % (auto) 0.3 %; Eosinophils # (auto) 0.13 K/uL (0.00-0.50); Eosinophils % (auto) 1.9 %; Hematocrit (blood only) 23.4 % (42.0-52.0); Hemoglobin 7.6 g/dl (14.0-18.0); Immature Granulocytes # (auto) 0.02 K/uL (0.01-0.20); Immature Granulocytes % (auto) 0.3 %; Lymphocytes # (auto) 0.76 K/uL (1.20-3.40); Mean Corpuscular Hemoglobin 27.7 pg (25.0-34.0); Mean Corpuscular Hgb Conc 32.5 g/dL (32.0-36.0); Mean Corpuscular Volume 85.4 fL (80.0-100.0); Mean Platelet Volume 9.8 fL (9.4-12.4); Monocytes # (auto) 0.67 K/uL (0.11-0.59); Monocytes % (auto) 9.7 %; Neutrophils # (auto) 5.28 K/uL (1.40-6.50); Neutrophils % (auto) 76.8 %; Platelet Count 285 K/uL (130-400); RDW Coefficient of Variation 19.4 % (11.5-14.5); RDW Standard Deviation 59.9 fL (36.4-46.3); Red Blood Count 2.74 M/uL (4.70-6.10); White Blood Count 6.88 K/ul (4.8-10.8)
[2024-04-16 06:48] LABS: BUN Creatinine Ratio 15.8 (10-20); Bilirubin Direct 5.8 mg/dl (0-0.2); Bilirubin,Total 10.4 mg/dl (0.2-1.0); Calcium 7.9 mg/dl (8.6-10.3); Creatinine Clr Calc Pharmacy 137.6 ml/min; Est GFR (African American) 132.3 ml/min; Est GFR (Non-African American) 114.1 ml/min; Potassium 3.8 mmol/L (3.5-5.1); Total Protein 5.2 gm/dl (6.0-8.3)
[2024-04-16 07:15] LABS: Hypochromasia Present; Rouleaux 1+; Tear Drop Cells 1+
[2024-04-16 07:50] LABS: INR 1.7 (0.9-1.1); Prothrombin Time 17.4 Seconds (9.0-12.0)
[2024-04-16] MEDS: SPIRONOLACTONE 100 MG TAB PO SCH (10:38)
--- NOTE | 2024-04-16 10:54 | Gastroenterology Progress Note ---
Date of Service April 16, 2024 Assessment & Plan (1) Elevated bilirubin: Plan: 38 year old male with history of ETOH abuse, ETOH hepatitis in the setting of suspected ETOH cirrhosis, MELD 23, last ETOH use March 24, 2024 1. Nonspecific prominence of the gallbladder wall and question cholelithiasis - asymptomatic - if he develops any acute symptoms, consider HIDA scan - he is high risk for decompensation, thus do not recommend elective surgery 2. Cirrhosis - MELD 34 --> 25 --> 24 --> 23 - Establish with hepatology as outpatient - MELD labs every 6 months - ABD imaging w/ AFP every 6 months - EGD every 1-2 years - No ETOH - No NSAIDs - Avoid hepatotoxin - Low NA diet, less than 2G daily - Less than 2G acetaminophen containing products daily - Ascites - S/P 5 L paracentesis 04/15/24 - Urine NA 16, Urine K 91.5 - Continue Aldactone to 100 mg once daily - Continue Lasix as ordered, pending response, consider titrating to 40 mg once daily 3. 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 Anemia - Acute on chronic anemia - Likely secondary to recent umbilical bleeding event - Recent EGD/Colonoscopy reviewed - No plan for repeat endoscopic evaluation 5. Esophagitis - PPI 40 mg twice daily Thank you for allowing us to participate in the care of this patient. Please call with any acute changes, questions or concerns. Please see addendum below with additional recommendation from my supervising physician. I spent a total of 55 minutes on the date of service in review of patient's record, and previously obtained information in person and appropriate medical visit, discussion and education of plan, with patient and/or caregiver, placing orders for tests/referral/procedures as medically necessary and documentation of pertinent clinical information in patient's medical records for their visit today. Admission and Anticipated Discharge Date Admission Date: April 13, 2024 Supervising Physician Co-Signing Physician Notes I personally saw and examined the patient. I have reviewed the chart and agree with the documentation provided by the ACID CLEANER including discussion about the assessment, treatment and plan. s/p LVP 5L and creatinine improved. Suggest Aldactone 100 qd and lasix 40 qd. 2 gm na diet. will need outpt paracentesis. Needs CMP this sunday with pcp. Subjective Pt was seen and evaluated, chart reviewed. S/P paracentesis, 5L off. Initial fluid studies without SBP. Tolerating oral intake. No nausea, vomiting. Moving bowels, denies black or bloody stools. No fever, chills, CP, SOB. Diagnosis: ETOH hepatitis, ETOH cirrhosis, last ETOH use March 24, 2024 Decompensations Varices: portal HTN gastropathy Ascites: on Lasix 20 mg, Aldactone 100 mg, last paracentesis 04/16/24 w/ 5L off HE: on lactulose, xifaxan Screenings: MELD: 34 --> 25 --> 24 --> 23 [place]: 64 --> 43 --> 35.6 --> 33.4 HCC: due October Varices: due 2024 Immunizations: Hep A/B immunity unknown Urine NA 16 Urine K 91.5 HGB 7.8 --> 5.3 --> 3 units RBC, 1 unit FFP --> 6.3 --> 8.5 --> 7.6 Paracentesis 04/16/24: A total of 5000 mL of yellow ascites fluid was removed with 1 L central abdomen analysis CTAP 2023: No evidence of active bleeding. Mildly nodular contour of the liver is concerning for cirrhosis. There is splenomegaly and moderate ascites. This concerning for portal hypertension. There is nonspecific thickening of the wall of the small bowel. This could relate to chronic liver disease or may be infectious or inflammatory. Nonspecific prominence of the gallbladder wall and question cholelithiasis. An internal hemorrhoid is noted. Nonspecific body wall edema. EGD 2023: - LA Grade D reflux esophagitis with no bleeding. - Portal hypertensive gastropathy. - Normal examined duodenum. - No specimens collected. Colonoscopy 2023:- Hemorrhoids found on perianal exam. - The rectum, sigmoid colon, descending colon, splenic flexure, transverse colon, hepatic flexure, ascending colon and cecum are normal. - No specimens collected. Review of Systems Review of Systems: All other findings negative except as noted in HPI. Physical Exam Constitutional: WD/WN, vitals as above Respiratory: normal respiratory effort, lungs clear to auscultation Cardiovascular: RRR, no murmur, no edema Gastrointestinal (Abdomen): Inspection/Auscultation: + abdomen distended (ascites still present, but less distended than yesterday ) and normal bowel sounds Percussion/Palpation: abdomen soft and + ascites; abdomen nontender, no guarding and abdomen not rigid Skin: no rashes, warm and dry + jaundice Results & Data Results & Data Vital Signs (Past 12 Hours) Vital Signs Temp Pulse Pulse Resp BP Pulse Ox O2 Del Method 04/16/24 07:45 36.6 C 76 16 94/57 L 100 Room Air 04/16/24 04:21 36.7 C 74 19 100/62 100 Room Air 04/15/24 23:06 79 04/15/24 22:50 36.8 C 76 19 112/69 98 Room Air Laboratory Results 04/16/24 04/15/24 Range/Units 05:51 Unknown WBC 6.88 (4.8-10.8) K/ul RBC 2.74 L (4.70-6.10) M/uL Hgb 7.6 L (14.0-18.0) g/dl Hct 23.4 L (42.0-52.0) % MCV 85.4 (80.0-100.0) fL MCH 27.7 (25.0-34.0) pg MCHC 32.5 (32.0-36.0) g/dL RDW Std Deviation 59.9 H (36.4-46.3) fL RDW Coeff of Christy 19.4 H (11.5-14.5) % Plt Count 285 (130-400) K/uL MPV 9.8 (9.4-12.4) fL Immature Gran % (Auto) 0.3 % Neut % (Auto) 76.8 % Lymph % (Auto) 11.0 % Titus % (Auto) 9.7 % Eos % (Auto) 1.9 % Baso % (Auto) 0.3 % Neut # (Auto) 5.28 (1.40-6.50) K/uL Lymph # (Auto) 0.76 L (1.20-3.40) K/uL Titus # (Auto) 0.67 H (0.11-0.59) K/uL Eos # (Auto) 0.13 (0.00-0.50) K/uL Baso # (Auto) 0.02 (0.00-0.20) K/uL Immature Gran # (Auto) 0.02 (0.01-0.20) K/uL Hypochromasia Present Tear Drop Cells 1+ Rouleaux 1+ PT 17.4 H (9.0-12.0) Seconds INR 1.7 H (0.9-1.1) Sodium 134 L (136-145) mmol/L Potassium 3.8 (3.5-5.1) mmol/L Chloride 104 (98-107) mmol/L Carbon Dioxide 24 (21-32) mmol/L Anion Gap 6 (3-11) BUN 12 (6-23) mg/dl Creatinine 0.76 (0.6-1.4) mg/dl Est Cr Clr Drug Dosing 137.6 ml/min Est GFR ( Amer) 132.3 ml/min Est GFR (Non-Af Amer) 114.1 ml/min BUN/Creatinine Ratio 15.8 (10-20) Glucose 90 (70-99(Fasting)) mg/dl Calcium 7.9 L (8.6-10.3) mg/dl Total Bilirubin 10.4 H (0.2-1.0) mg/dl Direct Bilirubin 5.8 H (0-0.2) mg/dl AST 103 H (13-39) U/L ALT 27 (7-52) U/L Alkaline Phosphatase 95 (34-104) U/L Total Protein 5.2 L (6.0-8.3) gm/dl Albumin 3.0 L (3.4-5.0) gm/dl Fluid Neutrophils % 6 % Fluid Lymphocytes % 14 % Fluid Meso/Macro/Titus % 80 % Fluid Comment Peritoneal Color Yellow Peritoneal Appearance Clear Peritoneal WBC (Auto) 48 (0-300) /ul Peritoneal RBC (Auto) < 2000 /uL Peritoneal Tot Protein < 3.0 gm/dl Peritoneal Albumin < 1.5 gm/dl PG Care Time/CCT Total # of Minutes Spent Total Time Spent with Patient: Total time spent is greater than 50% in coordination of care (as documented) at patient's floor/unit and/or counseling patient: Coding Level of Care Code 01293 SUB INP/OBS CARE 3/50MIN Diagnoses Elevated bilirubin R17
[2024-04-16 14:29] LABS: Hematocrit (blood only) 24.7 % (42.0-52.0); Hemoglobin 7.9 g/dl (14.0-18.0)
--- NOTE | 2024-04-16 14:47 | Discharge Summary ---
Date of Service April 16, 2024 Admission HPI Per Admitting Provider 38-year-old male with past medical history significant for recent admission for jaundice and alcohol hepatitis and profound anemia and hyponatremia comes back today due to profuse bleeding from umbilical site ,currently bleeding stopped by the ER and the site is sutured. His hemoglobin is 5.3 and and got 2 units of PRBCs and getting platelets and FFP. Hemodynamics are okay. Denies abdominal pain. Says bleeding started suddenly today evening. Denies any blood in the stools or black stools. No fevers. No chest pain or shortness of breath. No cough. No sore throat. Resting comfortably. Father at bedside. Since his discharge he is not drinking. He was admitted on March 27, 2024 and was discharged on 04/04/2024. During last admission his hemoglobin was 4.4 on presentation with black stools for several months and was s/p 6 units of PRBCs and 5 units of FFP and his hemoglobin was around 8 upon discharge. EGD showed grade D esophagitis with no bleeding. Colonoscopy showed large internal and external hemorrhoids. And during that admission his initial admission sodium was 113 and serum sodium gradually improved to 130s after use of hypertonic saline. Nephrology was consulted. Placed on Lasix 20 mg a spironolactone 50 mg once daily. Monitored for alcohol withdrawal . His total bilirubin on the day of admission last admit was 22 and peaked to 31 and at the time of discharge it was 20.3. Today's total bilirubin is 11. He followed up with PCP and there is plan for hepatology follow-up. He is also on lactulose and Xifaxan and Protonix. Last admission was also s/p paracentesis with about 3.7 L fluid taken out. Past medical history. Denies any other medical history. Past surgical history. Had surgery for eardrum as a kid. [place] tooth extraction. Social history. Denies smoking. Was drinking 10 shots of vodka for last 10 years but states stopped since he got discharged from hospital 04/04/2024. Denies drug use. Family history. Father had heart disorder. Mother had pancreatic cancer. Admission Exam Per Admitting Provider General- Not in distress Head- atraumatic Eyes- icterus present ENT- oropharynx clear Neck- supple, no JVD. Lungs- clear to auscultation no wheezing or crackles Heart- regular rate and rhythm; no murmur, no gallop. Abdomen- normal bowel sounds, soft, nontender, no distension. Extremities- Lower extremity edema present, no erythema seen. Neuro- alert, oriented no facial palsy; no dysarthria; moves extremities. Skin- diffuse yellow discoloration of skin seen Principal Diagnosis Acute blood loss anemia Alcoholic hepatitis ISO alcoholic liver cirrhosis Recent GI bleed Hyponatremia Discharge Exam Constitutional: Awake alert oriented x 3; not in distress. Respiratory: normal respiratory effort, lungs clear to auscultation, no wheeze, rales, rhonchi. Normal insp/exp effort, no accessory muscle use Cardiovascular: RRR, no murmur, no edema Vessels: no JVD or carotid bruit Chest: normal inspection of chest Abdomen: Distended, nontender. suture intact; No bleeding noticed Musculoskeletal: no cyanosis or clubbing, extremities motor strength 5/5 Skin: no rashes, warm and dry normal turgor Neurologic: PERRL, EOMI, accommodation nl, no face palsy, no dysarthria CN's II- XI intact bilaterally and moves all extremities Psychiatric: A+Ox3, euthymic affect Discharge Data Allergies Allergy/AdvReac Type Severity Reaction Status Date / Time No Known Allergies Allergy Verified 04/13/24 22:27 Consultations 04/13/24 21:46 ED Decision to Admit Stat 04/14/24 01:03 Consult Gastroenterology Routine 04/14/24 08:00 Consult General Surgery Routine Ordered Studies 04/13/24 21:02 CT angio abdomen pelvis w con Stat 04/15/24 08:00 IR paracentesis abd w/img US Routine Hospital Course (1) Acute blood loss anemia: Per prior attending with addendum: 38-year-old male with past medical history significant for recent admission for jaundice and alcohol hepatitis and profound anemia and hyponatremia comes back today due to profuse bleeding from umbilical site , Bleeding site was sutured in the emergency department Hemoglobin on presentation was 5.3; received 2 units of packed RBC, 1 unit of FFP and vitamin K. Acute blood loss anemia Profuse bleeding from umbilical site stopped in the ER and s/p sutured Status post 2 units of packed RBC, FFP and vitamin K Hemoglobin on presentation of 5.3 PT/INR19/1.9; consistent with decompensated liver cirrhosis CT abdomenno evidence of acute bleeding, splenomegaly and moderate ascites present. Nonspecific thickening of wall of the small bowel. Internal hemorrhoids present Hemoglobin currently stable around 8 after transfusion Continue to monitor site of bleeding Repeat CBC; transfuse if hemoglobin is less than 7 Alcoholic hepatitis Alcohol liver cirrhosis Portal hypertension Ascites Recent hospitalization from March 27 to April 04, 924 Total bilirubin overall improved 20.3 on admission Continues to maintain abstinence from alcohol use Urine sodium to urine potassium ratio less than 1 Plan for paracentesis today. Diuretics are currently on hold for the paracentesis. Will appreciate GI input regarding dose titration given urine sodium/potassium ratio Outpatient hepatology follow-up Recent GI bleed secondary to hemorrhoidal bleeding Last admission was s/p EGD and colonoscopy as mentioned in HPI Continue Protonix On iron supplements Hypocalcemia - Repleated Hyponatremia Sodium 133 today likely hypervolemic hyponatremia. Monitor Leukocytosis Nonspecific thickening of the wall of the small bowel possibly related to colon tumor disease or an infectious inflammatory Nonspecific prominence of gallbladder wall and question of cholelithiasis With empirically placed on Zosyn will discontinue if SBP is ruled out. DVT prophylaxis SCDs Disposition Telemetry Full code. Discussed with patient's dad at bedside on April 14, 2024 Time spent evaluating patient, direct bedside care, chart review, placing orders, interpretation of diagnostic studies, discussion with consultants, patient, and family members, as well as other required patient management activities is 50 minutes Please note the above document was generated using voice recognition software. It may contain grammatical, syntax or spelling errors. Any formal questions or concerns about the content, text or information contained within the body of this dictation should be directly addressed to the provider for clarification Addendum 04/16/2024: Patient was seen and examined at bedside as a follow-up of acute blood loss anemia likely secondary to umbilical site bleeding which has been sutured and has not been bleeding since. Hemoglobin has been stable around 8. Discussed with GI, plan to discharge him on Lasix 40 mg daily and Aldactone 100 mg daily. Patient will need hepatology evaluation upon discharge. Patient denies abdominal pain, paracentesis done 04/15 with no concern of SBP. No RUQ tender/no concern for cholecystitis. Discontinue antibiotic. Patient is hemodynamically stable and would like to go home. He is being discharged with following instruction at the point of discharge: Follow-up with your primary care physician within a week time and likely you will need labs CBC/CMP/magnesium/phosphorus. You will need frequent paracentesis, likely every 2 to 4 weeks. Coordinate with your PCP office to set up the test/procedure. You will need to follow-up with hepatology upon discharge, coordinate with your PCP office for referral. You had umbilical bleeding/suture was placed in the emergency department. General surgery evaluated your, recommended suture removal in 1 month. Coordinate with your PCP office for suture removal in a month time. You will need repeat vitamin D level done in 2 to 3 months time, coordinate with the PCP office to set up the test. Take your medications as prescribed. Please make sure that you are able to get your medications today by calling your pharmacy before you leave the hospital so that your treatment continuity is not broken. Home Health Attestation I certify that this patient is under my care and that I, or a physicians secretary administrative assistant working with me, had a face to-face encounter that meets the home health [id number] encounter requirements with this patient. The encounter with the patient was in whole, or in part, for the following medical condition, which is the primary reason for home health care (list medical condition): I certify that, based on my findings, the following services are medically necessary home health services: My clinical findings support the need for the above services because: Further, I certify that my clinical findings support that this patient is lavon ebound (i.e. absences from home require considerable and taxing effort and are for medical reasons or hoahaoism services or infrequently or of short duration when for other reasons) because: Certification for Home Health Services: Based on the above findings, I certify that this patient is confined to the home and needs intermittent custodial care, physical therapy and/or speech therapy or continues to need occupational therapy. The patient is under my care, and I have initiated the establishment of the plan of care. This patient will be followed by a physician who will periodically review the plan of care. Total Time Total Time Spent Total Time Spent (In Minutes): 45 Discharge Plan Discharge Items Patient Disposition: Home - Self-Care Reason For Visit: BLEEDING FROM UMBILICAL SITE Discharge Diagnosis: Acute blood loss anemia Alcoholic hepatitis ISO alcoholic liver cirrhosis Recent GI bleed Hyponatremia Activity: Resume your previous activity Non-emergency contact: Primary Care Provider Call non-emergency contact if: you have any medication questions Follow-up/Referrals: Nereyda Maldonado MD [Outside Practitioners] - (Date & Time 04/22/2024 10:20 AM Provider Nereyda Maldonado MD Department General Internal Medicine [facility] ) Bhavya Atkinson DO [Physician] - (Date & Time 08/14/2024 8:40 AM Provider Bhavya Atkinson DO Department Hepatology, [facility] ) Diet: Low Sodium (2gm) Addtl Attending Provider Instructions: Follow-up with your primary care physician within a week time and likely you will need labs CBC/CMP/magnesium/phosphorus. You will need frequent paracentesis, likely every 2 to 4 weeks. Coordinate with your PCP office to set up the test/procedure. You will need to follow-up with hepatology upon discharge, coordinate with your PCP office for referral. You had umbilical bleeding/suture was placed in the emergency department. General surgery evaluated your, recommended suture removal in 1 month. Coordinate with your PCP office for suture removal in a month time. You will need repeat vitamin D level done in 2 to 3 months time, coordinate with the PCP office to set up the test. Take your medications as prescribed. Please make sure that you are able to get your medications today by calling your pharmacy before you leave the hospital so that your treatment continuity is not broken. Pending Studies at Discharge: Yes Stand-Alone Forms: My [facility] path intelligence, Smoking Cessation Medications and DC Order Prescriptions: New spironolactone 100 mg Tablet 100 mg PO QAM Qty: 30 0RF furosemide 40 mg tablet 40 mg PO DAILY Qty: 30 0RF cholecalciferol (vitamin D3) 125 mcg (5,000 unit) Tablet 125 mcg PO QAM Qty: 30 0RF Continued hydrocortisone 2.5 % ointment 1 applic EXT BID PRN (Reason: flare ups) Xifaxan 550 mg Tablet 550 mg PO BID 30 Days Qty: 60 1RF pantoprazole 40 mg Tablet,Delayed Release (Dr/Ec) 40 mg PO BID 30 Days Qty: 60 1RF Rx Instructions: Take twice a day for 1 month, then daily after lactulose 20 gram/30 mL Solution 20 g PO DAILY 30 Days Qty: 900 1RF folic acid 1 mg tablet 1 mg PO DAILY Qty: 7 0RF multivitamin Tablet 1 tab PO DAILY Qty: 30 1RF ferrous sulfate 325 mg (65 mg iron) tablet 325 mg PO DAILY Qty: 30 1RF Discontinued spironolactone 25 mg Tablet 50 mg PO QAM 30 Days Qty: 60 1RF furosemide 20 mg Tablet 20 mg PO QAM 30 Days Qty: 30 1RF Discharge Orders: Discharge Order (Routine); Ordered 04/16/24 Ordered By: Dante Ayon Admission Data Admit Date/Time: 04/13/24 22:56 Attending Provider: Dante Ayon Admit Provider: Chato Martinez Primary Care Provider: PCP,NO Other Providers: Chato Martinez; Luis Fernando Lundberg; Garrett Frey
== END 2024-04-16 16:41 | disposition home or self-care (01) | DRG 908 ==
LOC: ED 20:41 → 1E 22:56 → SUATTDRO 22:56 → 1E 04-14 00:20 → 4W 04-15 07:26